=== PATIENT | male | born 1995 | race Caucasian/White ===

== ENCOUNTER 2020-07-20 10:07 | Inpatient (IN) | payer MEDICAID, SELFPAY ==
[2020-07-20 10:28] VITALS: BP 146/101; PULSE 120; RESP 18; TEMP 37.4; O2SAT 97; BMI 29.8
--- NOTE | 2020-07-20 10:34 | ED_ITS ---
HPI - Neuro Symptoms/Deficit General Chief Complaint: Neuro Symptoms/Deficit Stated Complaint: left sided weakness Time Seen by Provider: 07/20/20 10:34 Source: patient Mode of arrival: ambulatory Limitations: no limitations History of Present Illness HPI Narrative: 4 days ago patient woke up with numbness and pain to left arm and left leg. Denies fevers, rash, injury. Patient with increasing pain to wrist and ankle, states that 2 weeks ago he thinks he was treated for chlamydia Onset (ago): day(s) Quality: numb, tingling and other (pain) Related Data Allergies Allergy/AdvReac Type Severity Reaction Status Date / Time amoxicillin [AMOXICILLIN] Allergy Unknown HIVES Unverified 05/14/20 16:33 penicillin V Allergy Unknown hives Verified 06/27/16 00:00 Penicillins [PENICILLINS] Allergy Unknown UNKNOWN Unverified 05/14/20 16:33 Review of Systems 2 Constitutional: Constitutional: Reports no additional constitutional complaints Eyes: Eyes: Reports no additional eye complaints ENT: Denies dizziness Cardiovascular: Cardiovascular: Reports no additional cardiovascular complaints Respiratory: Respiratory: Reports as per HPI Gastrointestinal: Gastrointestinal: Reports no additional gastrointestinal complaints Musculoskeletal: Musculoskeletal: Reports no additional musculoskeletal complaints Integumentary/Breasts: Skin/Breast: Denies rash Neurologic: Reports system reviewed and no additional complaints, except as documented, Denies dizziness and Denies Sensory deficit (Neuro) Psychiatric: Psychiatric: Denies anxiety [facility] Past Medical History Medical History Asthma Social History Social History Advance Directives: No Advance Directives Information Provided: No Physical Exam Vital Signs: Vital Signs: Last Vital Signs Temp 99.3 F 07/20/20 10:28 Pulse 120 H 07/20/20 10:28 Resp 18 07/20/20 10:28 BP 146/101 H 07/20/20 10:28 Pulse Ox 97 07/20/20 10:28 Body Mass Index 29.8 Const: General: healthy appearing Nutritional Appearance: average body habitus Orientation/consciousness: oriented to person and patient oriented x3 Limitations: no limitations HENMT: Head: Yes normal to inspection Ears: external ears normal General nose exam: Normal external nose present Mouth: Normal oral and palatal mucosa present and oropharynx normal Throat: Yes posterior oropharynx normal Eyes: General: appearance normal, both eyes and all related structures Neck: Other: supple Neck: Yes normal visual inspection Chest: Chest palpation & inspection: normal inspection of the chest Resp: Auscultation: clear to auscultation bilaterally Cardio: Jugular venous distension: no JVD Rate: regular rate Rhythm: regular rhythm Heart sounds: S1 normal heart sound present and S2 normal heart sound present GI: Inspection: Yes normal to inspection Palpation (GI): Soft to palpation, nontender and No hepatosplenomegaly present Auscultation: normal bowel sounds : General: Yes no CVA tenderness Back/Spine/Pelvis: Back: no CVA tenderness Skin: General skin exam: no rashes or lesions noted Neuro: General: oriented to person and patient oriented x3 Cranial nerves: Yes CN's II-XII intact bilaterally Motor exam (neuro): 5/5 motor strength present throughout Sensory Exam: No Sensory deficit (Neuro) Extrem: Other: left wrist with slight swelling and severe pain with range of motion. Left ankle with slight erythema to lateral malleolous and swelling, severe pain with range of motion. Psych: Appearance: grossly normal Course Course Course Narrative: Discussed with Dr. 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 Discussed with Dr. Bardales MDM - Neuro Symptoms/Deficit MDM Narrative Medical decision making narrative: patient with acute arthritis to ankle and wrist, no effusion to tap. Patient thinks he was supposed to be treated for chlamydia 2 weeks ago. Will treat for disseminated GC Lab Data Result diagrams: 07/20/20 11:07/20/20 12:01 Labs: Lab Results 07/20/20 07/20/20 07/20/20 Range/Units 11: 11: 11: WBC 12.6 H (4.8-10.8) X10*3/uL RBC 4.87 (4.60-5.80) X10*6/uL Hgb 13.7 L (14.0-18.0) g/dl Hct 40.7 L (42-52) % MCV 83.6 (80-98) fL MCH 28.1 (27.0-33.0) pg MCHC 33.7 (31.0-36.0) g/dl RDW 12.2 (11.0-16.0) % Plt Count 374 (160-400) X10*3/uL MPV 9.0 L (9.4-12.4) fL Immature Gran % (Auto) 0.2 (0.0-0.4) % Neut % (Auto) 75.4 H (45-73) % Lymph % (Auto) 14.5 L (20-40) % [place] % (Auto) 9.3 (2-11) % Eos % (Auto) 0.2 (0-4) % Baso % (Auto) 0.4 (0-2) % Lymph # (Auto) 1.8 (1.2-4.9) X10*3/uL [place] # (Auto) 1.2 (0.1-1.2) X10*3/uL Eos # (Auto) 0.0 (0.0-0.4) X10*3/uL Baso # (Auto) 0.1 (0.0-0.2) X10*3/uL Abs Immat Gran (auto) 0.02 (0.00-0.03) X10*3/uL Absolute Neuts (auto) 9.5 H (2.0-8.3) X10*3/uL Absolute Nucleated RBC 0.000 (0.0-0.012) X10*3/uL Nucleated RBC % (auto) 0.0 (0.0-0.2) /100WBC ESR 24 H (0-15) MM/HR Sodium Potassium Chloride Carbon Dioxide Anion Gap BUN Creatinine Estim Creat Clear Calc Estimated GFR Random Glucose Calcium A. phagocytophilum IgG Cancelled A. phagocytophilum IgM Cancelled A.phagocytophilum Intrp Cancelled A. phagocytophilum Cmmt Cancelled Babesia microti IgG Ab Cancelled Babesia microti IgM Ab Cancelled Babesia Interpretation Cancelled Lyme Screen IgG & IgM Cancelled Lyme Progressive Test Cancelled E. chaffeensis IgG Ab Cancelled E. chaffeensis IgM Ab Cancelled E. chaffeensis Interp Cancelled E. chaffeensis Comment Cancelled 07/20/20 07/20/20 Range/Units 11:23 12:01 WBC (4.8-10.8) X10*3/uL RBC (4.60-5.80) X10*6/uL Hgb (14.0-18.0) g/dl Hct (42-52) % MCV (80-98) fL MCH (27.0-33.0) pg MCHC (31.0-36.0) g/dl RDW (11.0-16.0) % Plt Count (160-400) X10*3/uL MPV (9.4-12.4) fL Immature Gran % (Auto) (0.0-0.4) % Neut % (Auto) (45-73) % Lymph % (Auto) (20-40) % [place] % (Auto) (2-11) % Eos % (Auto) (0-4) % Baso % (Auto) (0-2) % Lymph # (Auto) (1.2-4.9) X10*3/uL [place] # (Auto) (0.1-1.2) X10*3/uL Eos # (Auto) (0.0-0.4) X10*3/uL Baso # (Auto) (0.0-0.2) X10*3/uL Abs Immat Gran (auto) (0.00-0.03) X10*3/uL Absolute Neuts (auto) (2.0-8.3) X10*3/uL Absolute Nucleated RBC (0.0-0.012) X10*3/uL Nucleated RBC % (auto) (0.0-0.2) /100WBC ESR (0-15) MM/HR Sodium Cancelled 135 Potassium Cancelled 4.0 Chloride Cancelled 99 Carbon Dioxide Cancelled 25 Anion Gap Cancelled 15 BUN Cancelled 9 Creatinine Cancelled 0.88 Estim Creat Clear Calc Cancelled 159.6 Estimated GFR Cancelled > 60 Random Glucose Cancelled 122 H Calcium Cancelled 9.2 A. phagocytophilum IgG A. phagocytophilum IgM A.phagocytophilum Intrp A. phagocytophilum Cmmt Babesia microti IgG Ab Babesia microti IgM Ab Babesia Interpretation Lyme Screen IgG & IgM Lyme Progressive Test E. chaffeensis IgG Ab E. chaffeensis IgM Ab E. chaffeensis Interp E. chaffeensis Comment Discharge Plan Discharge Clinical Impression: GC arthritis Patient Disposition: Admitted As Inpatient
--- NOTE | 2020-07-20 10:37 | PC.NURSE ---
provider at bedside for primary eval.
--- NOTE | 2020-07-20 11:15 | XR_ITS ---
EXAMINATION: XR ANKLE, LEFT CLINICAL INFORMATION: Fractures arthritis. COMPARISON: Radiographs left lower leg 06/04/2011, left foot 12/22/2008 TECHNIQUE: AP, lateral, and mortise views of the left ankle. FINDINGS: Bony mineralization appears normal. There is no destructive process or periostitis. No fracture or dislocation. No joint narrowing or erosive change. The subtalar joint is unremarkable. There is no visible ankle capsular effusion. The retrocalcaneal recess is preserved. There is no gas tracking in soft tissues. No focal soft tissue swelling appreciated. XR/XR ankle LT min 3V IMPRESSION: Normal left ankle.
--- NOTE | 2020-07-20 11:15 | XR_ITS ---
EXAMINATION: XR WRIST, LEFT CLINICAL INFORMATION: Infectious arthritis. COMPARISON: None TECHNIQUE: Four views of the left wrist. FINDINGS: No visible acute fracture, dislocation or subluxation seen. The anterior carpal and radio- ulnar carpal joint space is maintained. The soft tissues are normal. XR/XR wrist LT min 3V IMPRESSION: Unremarkable left wrist exam.
[2020-07-20 11:28] LABS: MANUAL DIFF FLAG NO
[2020-07-20] MEDS: Ketorolac Tromethamine 30 MG/ML VIAL IVPUSH (11:28)
[2020-07-20 11:29] LABS: Basophils Absolute Auto 0.1 X10*3/uL (0.0-0.2); Basophils Percent Auto 0.4 % (0-2); Eosinophils Percent Auto 0.2 % (0-4); Hematocrit 40.7 % (42-52); Hemoglobin 13.7 g/dl (14.0-18.0); Imm Gran Abs Auto 0.02 X10*3/uL (0.00-0.03); Imm Gran Pct Auto 0.2 % (0.0-0.4); Lymphocytes Absolute Auto 1.8 X10*3/uL (1.2-4.9); Lymphocytes Percent Auto 14.5 % (20-40); Mean Corpuscular HGB Conc 33.7 g/dl (31.0-36.0); Mean Corpuscular Hemoglobin 28.1 pg (27.0-33.0); Mean Corpuscular Volume 83.6 fL (80-98); Monocytes Absolute Auto 1.2 X10*3/uL (0.1-1.2); Monocytes Percent Auto 9.3 % (2-11); Neutrophils Absolute Auto 9.5 X10*3/uL (2.0-8.3); Neutrophils Percent Auto 75.4 % (45-73); Platelet Count 374 X10*3/uL (160-400); Red Blood Count 4.87 X10*6/uL (4.60-5.80); Red Cell Distribution Width 12.2 % (11.0-16.0); White Blood Count 12.6 X10*3/uL (4.8-10.8)
--- NOTE | 2020-07-20 11:36 | PC.NURSE ---
IV ESTABLISHED, BLOOD LABS OBTAINED AND SENT, PT TAKEN TO XRAY VIA STRETCHER. MEDICATED PER EMAR.
[2020-07-20 12:18] LABS: Erythrocyte Sedimentation Rate 24 MM/HR (0-15)
[2020-07-20 12:29] LABS: Anion Gap 15 (12-20); Blood Urea Nitrogen 9 mg/dL (9-16); Calcium 9.2 mg/dL (8.4-10.2); Carbon Dioxide 25 mmol/L (22-29); Chloride 99 mmol/L (96-108); Creatinine Clr Calc Pharmacy 159.6; Estimated Glomerular Filt Rate > 60; Glucose Random 122 mg/dL (60-115); Sodium 135 mmol/L (135-145)
--- NOTE | 2020-07-20 15:06 | ED_ITS ---
HPI - Neuro Symptoms/Deficit General Chief Complaint: Neuro Symptoms/Deficit Stated Complaint: left sided weakness Time Seen by Provider: 07/20/20 10:34 Source: patient Mode of arrival: ambulatory Limitations: no limitations History of Present Illness Quality: numb, tingling and other (pain) Related Data Allergies Allergy/AdvReac Type Severity Reaction Status Date / Time amoxicillin [AMOXICILLIN] Allergy Unknown HIVES Unverified 05/14/20 16:33 penicillin V Allergy Unknown hives Verified 06/27/16 00:00 Penicillins [PENICILLINS] Allergy Unknown UNKNOWN Unverified 05/14/20 16:33 Review of Systems ENT: Denies dizziness Neurologic: Reports system reviewed and no additional complaints, except as documented, Denies dizziness and Denies Sensory deficit (Neuro) [facility] Past Medical History Medical History Asthma Social History Social History Advance Directives: No Advance Directives Information Provided: No Physical Exam Vital Signs: Vital Signs: Last Vital Signs Temp 98.4 F 07/20/20 15:11 Pulse 79 07/20/20 15:11 Resp 18 07/20/20 15:11 BP 122/82 07/20/20 15:11 Pulse Ox 99 07/20/20 15:11 Body Mass Index 29.8 Neuro: Sensory Exam: No Sensory deficit (Neuro) MDM - Neuro Symptoms/Deficit Lab Data Result diagrams: 07/20/20 11:23 07/20/20 12:01 Labs: Lab Results 07/20/20 07/20/20 07/20/20 Range/Units 11:20 11: 11: WBC 12.6 H (4.8-10.8) X10*3/uL RBC 4.87 (4.60-5.80) X10*6/uL Hgb 13.7 L (14.0-18.0) g/dl Hct 40.7 L (42-52) % MCV 83.6 (80-98) fL MCH 28.1 (27.0-33.0) pg MCHC 33.7 (31.0-36.0) g/dl RDW 12.2 (11.0-16.0) % Plt Count 374 (160-400) X10*3/uL MPV 9.0 L (9.4-12.4) fL Immature Gran % (Auto) 0.2 (0.0-0.4) % Neut % (Auto) 75.4 H (45-73) % Lymph % (Auto) 14.5 L (20-40) % [place] % (Auto) 9.3 (2-11) % Eos % (Auto) 0.2 (0-4) % Baso % (Auto) 0.4 (0-2) % Lymph # (Auto) 1.8 (1.2-4.9) X10*3/uL [place] # (Auto) 1.2 (0.1-1.2) X10*3/uL Eos # (Auto) 0.0 (0.0-0.4) X10*3/uL Baso # (Auto) 0.1 (0.0-0.2) X10*3/uL Abs Immat Gran (auto) 0.02 (0.00-0.03) X10*3/uL Absolute Neuts (auto) 9.5 H (2.0-8.3) X10*3/uL Absolute Nucleated RBC 0.000 (0.0-0.012) X10*3/uL Nucleated RBC % (auto) 0.0 (0.0-0.2) /100WBC ESR 24 H (0-15) MM/HR Sodium Potassium Chloride Carbon Dioxide Anion Gap BUN Creatinine Estim Creat Clear Calc Estimated GFR Random Glucose Calcium A. phagocytophilum IgG Cancelled A. phagocytophilum IgM Cancelled A.phagocytophilum Intrp Cancelled A. phagocytophilum Cmmt Cancelled Babesia microti IgG Ab Cancelled Babesia microti IgM Ab Cancelled Babesia Interpretation Cancelled Lyme Screen IgG & IgM Cancelled Lyme Progressive Test Cancelled E. chaffeensis IgG Ab Cancelled E. chaffeensis IgM Ab Cancelled E. chaffeensis Interp Cancelled E. chaffeensis Comment Cancelled 07/20/20 07/20/20 Range/Units 11:23 12:01 WBC (4.8-10.8) X10*3/uL RBC (4.60-5.80) X10*6/uL Hgb (14.0-18.0) g/dl Hct (42-52) % MCV (80-98) fL MCH (27.0-33.0) pg MCHC (31.0-36.0) g/dl RDW (11.0-16.0) % Plt Count (160-400) X10*3/uL MPV (9.4-12.4) fL Immature Gran % (Auto) (0.0-0.4) % Neut % (Auto) (45-73) % Lymph % (Auto) (20-40) % [place] % (Auto) (2-11) % Eos % (Auto) (0-4) % Baso % (Auto) (0-2) % Lymph # (Auto) (1.2-4.9) X10*3/uL [place] # (Auto) (0.1-1.2) X10*3/uL Eos # (Auto) (0.0-0.4) X10*3/uL Baso # (Auto) (0.0-0.2) X10*3/uL Abs Immat Gran (auto) (0.00-0.03) X10*3/uL Absolute Neuts (auto) (2.0-8.3) X10*3/uL Absolute Nucleated RBC (0.0-0.012) X10*3/uL Nucleated RBC % (auto) (0.0-0.2) /100WBC ESR (0-15) MM/HR Sodium Cancelled 135 Potassium Cancelled 4.0 Chloride Cancelled 99 Carbon Dioxide Cancelled 25 Anion Gap Cancelled 15 BUN Cancelled 9 Creatinine Cancelled 0.88 Estim Creat Clear Calc Cancelled 159.6 Estimated GFR Cancelled > 60 Random Glucose Cancelled 122 H Calcium Cancelled 9.2 A. phagocytophilum IgG A. phagocytophilum IgM A.phagocytophilum Intrp A. phagocytophilum Cmmt Babesia microti IgG Ab Babesia microti IgM Ab Babesia Interpretation Lyme Screen IgG & IgM Lyme Progressive Test E. chaffeensis IgG Ab E. chaffeensis IgM Ab E. chaffeensis Interp E. chaffeensis Comment Discharge Plan Discharge Clinical Impression: GC arthritis Patient Disposition: Admitted As Inpatient
[2020-07-20 15:11] VITALS: BP 122/82; PULSE 79; RESP 18; TEMP 36.9; O2SAT 99
[2020-07-20] MEDS: cefTRIAXone sodium 2 GM in 0.9 % Sodium Chloride 50 ML IV (15:19)
--- NOTE | 2020-07-20 15:22 | PC.NURSE ---
pt still unable to provide ua spec. hospitalist at bedside for eval. medicated per emar.
--- NOTE | 2020-07-20 15:23 | PM.IMHP ---
History of Present Illness Date of Service: 07/20/20 Chief Complaint: left ankle pain and left wrist pain 25 year male otherwise healthy who woke about 4 days ago with numbness and pain in th left ankle and wrist and now has overlying rash at the ankle. She has no fever or chils or respiratory symptoms. about 3 to 4 week ago he says he was treated for chlamedia. 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 He has no other symptomtms Review of Systems Review of Systems: Gen: no fever Resp: no sob, no cough CV: no chest, no PHILLIPS, no leg edema GI: No n/v, no abd pain Neuro: No confusion, nubness at left ankle and wrist Yes all other systems are reviewed and are negative [facility] Medical History Asthma Functional capacity: independent ambulation Pertinent family history: He denies Social History (Updated 07/20/20 @ 15:28 by Ta Gibbons MD) Household Members: Family Housing: Apartment Do you presently have visiting nurse or other home services: No Smoking Status: Current every day smoker Tobacco Type: Cigarette Packs Per Day: 0.25 Cigarettes Per Day: 5.0 Years Smoked: 3 Smoked in Last 30 Days: Yes Patient Interested in Nicotine Replacement: No Patient Given Instructions on How to Stop Smoking: Yes Date Education Initiated: 07/20/20 Second Hand Smoke Exposure: No Substance Use Type: Marijuana Substance Use Frequency: Weekly Last Used Substance: Days (ago) Currently Displaying Signs/Symptoms of Drug Intoxication Withdrawal: No Any prior treatment program specific to substance use: No Have you been hit, kicked, punched, or otherwise hurt by someone within the past year? If so, by whom?: No Do you feel safe in your current relationship?: Yes Is there a partner from a previous relationship who is making you feel unsafe now?: No Are you made to feel afraid or neglected: No Advance Directives: No Advance Directives Information Provided: No Do you have thoughts of harming others: None Do you have a plan to hurt others: No Plan Recently lost weight without trying: No Meds Allergies Allergy/AdvReac Type Severity Reaction Status Date / Time amoxicillin [AMOXICILLIN] Allergy Unknown HIVES Unverified 05/14/20 16:33 penicillin V Allergy Unknown hives Verified 06/27/16 00:00 Penicillins [PENICILLINS] Allergy Unknown UNKNOWN Unverified 05/14/20 16:33 Home Medications Medication Instructions Recorded Confirmed Type albuterol sulfate 2 puff INHALATION Q4H PRN 07/20/20 07/20/20 History fluticasone propion-salmeterol 1 inh INHALATION BID 07/20/20 07/20/20 History [Wixela Inhub] Physical Exam Vital Signs and Narrative: Vital Signs: Last Vital Signs Temp 98.4 F 07/20/20 15:11 Pulse 79 07/20/20 15:11 Resp 18 07/20/20 15:11 BP 122/82 07/20/20 15:11 Pulse Ox 99 07/20/20 15:11 Body Mass Index 29.8 Constitutional Awake and Alert, No apparent distress Neck Supple, No lymphadenopathy Cardiovascular RRR, No M/R/G, S1 S2, No S3 S4, No pedal edema Respiratory Lungs clear, No respiratory distress Gastrointestinal Non tender, Non-distended Skin rash at left ankle--see picture Neurological Alert & oriented x3, numbness at thr left ankle and wrist Psychological Appropriate affect Results Labs CBC and Chem 7: 07/20/20 11:23 07/20/20 12:01 Labs: Laboratory Results - last 24 hr 07/20/20 07/20/20 07/20/20 11:20 11:23 11:23 MCV 83.6 MCH 28.1 MCHC 33.7 RDW 12.2 Plt Count 374 MPV 9.0 L Immature Gran % (Auto) 0.2 Neut % (Auto) 75.4 H Lymph % (Auto) 14.5 L [place] % (Auto) 9.3 Eos % (Auto) 0.2 Baso % (Auto) 0.4 Lymph # (Auto) 1.8 [place] # (Auto) 1.2 Eos # (Auto) 0.0 Baso # (Auto) 0.1 Abs Immat Gran (auto) 0.02 Absolute Neuts (auto) 9.5 H Absolute Nucleated RBC 0.000 Nucleated RBC % (auto) 0.0 ESR 24 H Anion Gap Estim Creat Clear Calc Estimated GFR Random Glucose Calcium A. phagocytophilum IgG Cancelled A. phagocytophilum IgM Cancelled A.phagocytophilum Intrp Cancelled A. phagocytophilum Cmmt Cancelled Babesia microti IgG Ab Cancelled Babesia microti IgM Ab Cancelled Babesia Interpretation Cancelled Lyme Screen IgG & IgM Cancelled Lyme Progressive Test Cancelled E. chaffeensis IgG Ab Cancelled E. chaffeensis IgM Ab Cancelled E. chaffeensis Interp Cancelled E. chaffeensis Comment Cancelled 07/20/20 07/20/20 11:23 12:01 MCV MCH MCHC RDW Plt Count MPV Immature Gran % (Auto) Neut % (Auto) Lymph % (Auto) [place] % (Auto) Eos % (Auto) Baso % (Auto) Lymph # (Auto) [place] # (Auto) Eos # (Auto) Baso # (Auto) Abs Immat Gran (auto) Absolute Neuts (auto) Absolute Nucleated RBC Nucleated RBC % (auto) ESR Anion Gap Cancelled 15 Estim Creat Clear Calc Cancelled 159.6 Estimated GFR Cancelled > 60 Random Glucose Cancelled 122 H Calcium Cancelled 9.2 A. phagocytophilum IgG A. phagocytophilum IgM A.phagocytophilum Intrp A. phagocytophilum Cmmt Babesia microti IgG Ab Babesia microti IgM Ab Babesia Interpretation Lyme Screen IgG & IgM Lyme Progressive Test E. chaffeensis IgG Ab E. chaffeensis IgM Ab E. chaffeensis Interp E. chaffeensis Comment Imaging Radiologist's Impressions: Impressions Ankle X-Ray 07/20/20 11:15 IMPRESSION: Normal left ankle. Wrist X-Ray 07/20/20 11:15 IMPRESSION: Unremarkable left wrist exam. Assessment and Plan (1) GC arthritis: Status: Acute 25/m recently treated for STD now with arthritis of left ankle and left wrist and some rash at the ankle concern for disseminated gonorrhea -IV Ceftriaxone 2 gm daily,Azithro 1 gm now. -ID consult -rule out other causes such lyme, babesia
[2020-07-20] MEDS: Azithromycin 500 MG TABLET 1000 MG PO (15:56)
--- NOTE | 2020-07-20 16:14 | PC.NURSE ---
awaiting call back from nurse on med surg for report.
[2020-07-20 16:25] LABS: COVID-19 Test Negative (Negative)
--- NOTE | 2020-07-20 16:48 | PC.NURSE ---
report given to prince holden
[2020-07-20 17:08] VITALS: BP 145/85; PULSE 91; RESP 17; TEMP 37; O2SAT 98
[2020-07-20 19:20] VITALS: BP 138/78; PULSE 94; RESP 18; TEMP 37.1; O2SAT 98
[2020-07-20 23:29] VITALS: BP 106/60; BP 162/91; PULSE 116; PULSE 82; RESP 14; RESP 16; TEMP 37.5; TEMP 38.2; O2SAT 100; O2SAT 99
[2020-07-20] MEDS: Acetaminophen 325 MG TABLET 650 MG PO (23:50)
[2020-07-20] MEDS: 0.9 % Sodium Chloride Flush 3 ML SYRINGE IVFLUSH (23:51)
[2020-07-20] MEDS: oxyCODONE HCl Immed Release 5 MG TABLET PO (23:51)
[2020-07-21] MEDS: 0.9 % Sodium Chloride Flush 3 ML SYRINGE IVFLUSH ×4 (01:06→23:49)
[2020-07-21 03:08] VITALS: BP 127/70; PULSE 93; RESP 16; TEMP 37.6; O2SAT 97
[2020-07-21 07:08] LABS: Hematocrit 40.7 % (42-52); Hemoglobin 13.5 g/dl (14.0-18.0); Mean Corpuscular HGB Conc 33.2 g/dl (31.0-36.0); Mean Corpuscular Hemoglobin 27.6 pg (27.0-33.0); Mean Corpuscular Volume 83.1 fL (80-98); Mean Platelet Volume 9.2 fL (9.4-12.4); Platelet Count 371 X10*3/uL (160-400); Red Cell Distribution Width 12.3 % (11.0-16.0); White Blood Count 11.6 X10*3/uL (4.8-10.8)
[2020-07-21 07:35] VITALS: BP 151/87; PULSE 104; RESP 19; TEMP 38.6; O2SAT 97
[2020-07-21] MEDS: Acetaminophen 325 MG TABLET 650 MG PO ×2 (07:52→23:50)
[2020-07-21] MEDS: oxyCODONE HCl Immed Release 5 MG TABLET PO ×3 (07:52→20:14)
--- NOTE | 2020-07-21 09:11 | MHC.CM.PN ---
PATIENT IS INDEPENDENT WITH ALL ADLS. HE DOES NOT YET HAVE A PCP, BUT PLANS TO SECURE ONE AT [address] PATIENT REPORTS THAT HE RECENTLY OBTAINED INSURANCE. HE DOES HAVE RESCUE INHALERS PLAN IS FOR RETURN HOME WITH NO NEED FOR SERVICES.
--- NOTE | 2020-07-21 09:25 | HO.PM.IMPN ---
Subjective Subjective Date of Service: 07/21/20 Interval History: Seen in f/u for polyarticular arthriis, synovitis and concern for diseminated gonoccocal disease.. He has fever of 101 this morpning and has persitent pain in left ankle and wrist joint Review of Systems Gen: + fever Resp: no sob, congested CV: no chest, no HPILLIPS, no leg edema GI: No n/v, no abd pain Neuro: No confusion Musck: left ankle and wrist join pain Physical Exam Vital Signs: Vital Signs: Last Vital Signs Temp 101.4 F H 07/21/20 07:35 Pulse 104 H 07/21/20 07:35 Resp 19 07/21/20 07:35 BP 151/87 H 07/21/20 07:35 Pulse Ox 97 07/21/20 07:35 Body Mass Index 29.8 General: AO X 3, no acute distress Resp: CTA bilateral CVS: S1,S2,RRR GI: +BS, NT, no distention Skin: left vickie slight redness and tender, tenderness in left wrist--pain with range of motion, no other rash Neuro: motor grossly intact Psych: appropriate affect Objective Data Current Medications Generic Name Dose Route Start Last Admin Trade Name Freq PRN Reason Stop Dose Admin Acetaminophen 650 mg 07/20/20 16:51 07/21/20 07:52 Acetaminophen 325 Mg Tablet PO 650 mg Q6H PRN Administration Pain, Mild (Pain Scale 1-3) Ceftriaxone Sodium 2 gm/ 50 mls @ 100 mls/hr 07/21/20 14:00 Sodium Chloride IV Q24H LORNA Oxycodone HCl 5 mg 07/20/20 16:51 07/21/20 07:52 Oxycodone Hcl Immed Release 5 Mg Tablet PO 5 mg Q6H PRN Administration Pain, Severe (Pain Scale 7-10) Pharmacy Consult 1 each 07/20/20 15:07 Consult Rx Perform Med Rec MISCELLANE ONCE PRN Consult order Sodium Chloride 3 ml 07/20/20 16:51 07/21/20 07:59 0.9 % Sodium Chloride Flush 3 Ml Syringe IVFLUSH 3 ml QSHIFT LORNA Administration Labs CBC & Chem 7: 07/21/20 06:41 07/20/20 12:01 Assessment and Plan (1) GC arthritis: Status: Acute Assessment and Plan: 25/m recently treated for STD now with arthritis of left ankle and left wrist and some rash at the ankle concern for disseminated gonorrhea, covid negative -cultures are pending -IV Ceftriaxone 2 gm daily,Azithro 1 gm given yesterday -ID consult pending -rule out other causes such lyme, babesia -Treat fever with tyelenol
[2020-07-21 11:18] VITALS: BP 146/77; PULSE 95; RESP 17; TEMP 36.7; O2SAT 96
[2020-07-21 12:42] LABS: CT PCR NOT DETECTED (Not Detect.); NG PCR NOT DETECTED (Not Detect.)
--- NOTE | 2020-07-21 13:08 | W.PM.IDCN ---
History of Present Illness Data of Consult Service Date: 07/21/20 Requesting physician: Ta Gibbons Primary Care Provider: No Physician HPI Reason for consult: leg pain He presents to hospital with discomfort and numbness left ankle and lower leg He has no back discomfort He has screen positive for amphetamine,cocaine,cannabinoids He had chlamydia and took Zmax for it a month ago He is sexually active with females only,last March Review of Systems ENT: Denies dizziness Neurologic: Reports system reviewed and no additional complaints, except as documented, Denies dizziness and Denies Sensory deficit (Neuro) [facility] Past Medical History Medical History Arthralgia of ankle Asthma Functional capacity: independent ambulation Social History Social History Household Members: Family Housing: House Alcohol intake: never Smoking Status: Never smoker Tobacco Type: Cigarette Packs Per Day: 0.25 Cigarettes Per Day: 5.0 Years Smoked: 3 Second Hand Smoke Exposure: No Substance Use Type: Marijuana service: No Current occupational status: unemployed Meds Allergies Allergy/AdvReac Type Severity Reaction Status Date / Time amoxicillin [AMOXICILLIN] Allergy Unknown HIVES Verified 07/20/20 18:29 penicillin V Allergy Unknown hives Verified 06/27/16 00:00 Penicillins [PENICILLINS] Allergy Unknown UNKNOWN Verified 07/20/20 18:29 Home Medications Medication Instructions Recorded Confirmed Type albuterol sulfate 2 puff INHALATION Q4H PRN 07/20/20 07/31/20 History fluticasone propion-salmeterol 1 inh INHALATION BID 07/20/20 07/31/20 History [Wixela Inhub] Physical Exam Vital Signs: Vital Signs: Last Vital Signs Temp 98.0 F 07/21/20 11:18 Pulse 95 07/21/20 11:18 Resp 17 07/21/20 11:18 BP 146/77 H 07/21/20 11:18 Pulse Ox 96 07/21/20 11:18 Body Mass Index 29.8 Const: General: cooperative HENMT: Head: Yes normal to inspection Mouth: Normal oral and palatal mucosa present Eyes: General: appearance normal, both eyes and all related structures Resp: Effort & Inspection: normal respiratory effort Cardio: Rate: regular rate Rhythm: regular rhythm GI: Inspection: Yes normal to inspection Palpation (GI): Soft to palpation : General: Yes no CVA tenderness Back/Spine/Pelvis: Back: no CVA tenderness Neuro: Sensory Exam: No Sensory deficit (Neuro) Extrem: Other: left ankle mild discomfort on flexion Assessment and Plan (1) Arthralgia of ankle: Problem details: There is concern over pain from infection ? GC ?lupu There is concern over drug use and endocarditis causing this as well He is unsure of HIV status Status: Acute Would give IV Ceftriaxone and await blood culture Echo if positive cultures in blood Check HIV test If blood cultures negative NSAIDS and Rheumatology followup outpatient Results Labs CBC & Chem 7: 07/24/20 06:14 07/24/20 06:14 Labs: Short CBC 07/21/20 Range/Units 06:41 WBC 11.6 H (4.8-10.8) X10*3/uL Hgb 13.5 L (14.0-18.0) g/dl Hct 40.7 L (42-52) % Plt Count 371 (160-400) X10*3/uL
[2020-07-21] MEDS: cefTRIAXone sodium 2 GM in 0.9 % Sodium Chloride 50 ML IV (14:17)
[2020-07-21 15:41] VITALS: BP 133/71; PULSE 102; RESP 18; TEMP 37.6; O2SAT 99
[2020-07-21 19:34] VITALS: BP 166/77; PULSE 99; RESP 20; TEMP 37.4; O2SAT 100
[2020-07-21 23:32] VITALS: BP 161/87; PULSE 94; RESP 16; TEMP 38.4; O2SAT 97
[2020-07-22] VITALS (8 sets, daily range): BP systolic 128–156; BP diastolic 69–89; PULSE 88–99; RESP 16–19; TEMP 36.5–38.3; O2SAT 96–99
[2020-07-22 00:47] LABS: Lyme Abs Screen <0.90 index
[2020-07-22] MEDS: oxyCODONE HCl Immed Release 5 MG TABLET PO ×4 (02:37→21:30)
[2020-07-22] MEDS: Acetaminophen 325 MG TABLET 650 MG PO (07:53)
[2020-07-22] MEDS: 0.9 % Sodium Chloride Flush 3 ML SYRINGE IVFLUSH ×3 (08:00→23:54)
[2020-07-22 08:01] LABS: HIV AB/AG Nonreactive (Nonreactive); HIV Num 1 0.14 S/CO (0.00-0.99)
--- NOTE | 2020-07-22 10:24 | HO.PM.IMPN ---
Subjective Subjective Date of Service: 07/22/20 Interval History: Seen in f/u for polyarticular arthritis, synovitis and ? diseminated gonoccocal disease.. He has fever of 101 this morpning and has persitent pain in left ankle and wrist joint Review of Systems Gen: + fever Resp: no sob, congested CV: no chest, no PHILLIPS, no leg edema GI: No n/v, no abd pain Neuro: No confusion Musck: left ankle and wrist join pain Physical Exam Vital Signs: Vital Signs: Last Vital Signs Temp 101.0 F H 07/22/20 07:23 Pulse 97 07/22/20 07:23 Resp 18 07/22/20 07:23 BP 156/89 H 07/22/20 07:23 Pulse Ox 99 07/22/20 07:23 Body Mass Index 29.8 General: AO X 3, no acute distress Resp: CTA bilateral CVS: S1,S2,RRR GI: +BS, NT, no distention Skin: left vickie slight redness and tender, tenderness in left wrist--pain with range of motion, no other rash Neuro: motor grossly intact Psych: appropriate affect Objective Data Current Medications Generic Name Dose Route Start Last Admin Trade Name Freq PRN Reason Stop Dose Admin Acetaminophen 650 mg 07/20/20 16:51 07/22/20 07:53 Acetaminophen 325 Mg Tablet PO 650 mg Q6H PRN Administration Pain, Mild (Pain Scale 1-3) Ceftriaxone Sodium 2 gm/ 50 mls @ 100 mls/hr 07/21/20 14:00 07/21/20 16:04 Sodium Chloride IV Infused Q24H LORNA Infusion Oxycodone HCl 5 mg 07/20/20 16:51 07/22/20 08:00 Oxycodone Hcl Immed Release 5 Mg Tablet PO 5 mg Q6H PRN Administration Pain, Severe (Pain Scale 7-10) Pharmacy Consult 1 each 07/20/20 15:07 Consult Rx Perform Med Rec MISCELLANE ONCE PRN Consult order Sodium Chloride 3 ml 07/20/20 16:51 07/22/20 08:00 0.9 % Sodium Chloride Flush 3 Ml Syringe IVFLUSH 3 ml QSHIFT LORNA Administration Labs CBC & Chem 7: 07/21/20 06:41 07/20/20 12:01 Microbiology Microbiology Results: Microbiology 07/20/20 11:24 Blood - Arterial Blood Culture - Preliminary No growth after 24 hours. 07/20/20 11:20 Blood - Arterial Blood Culture - Preliminary No growth after 24 hours. Assessment and Plan (1) GC arthritis: Status: Acute Assessment and Plan: recently treated for STD (Chlaemdia) now with arthritis of left ankle and left wrist and some erythema at the ankle and concern raised about disseminated gonorrhea, covid negative -Persistent fever of 101 today -Work up so far: Blood cultures negative, lyme negative, Chlamedia and gonorhea PCR negative, HIV negative, uric acid negative. E. chaffeensis, Babesia serology pending -IV Ceftriaxone 2 gm D3 now -ID to make further recommendation but has suggested Rheumatology follow -Treat fever with tyelenol Elevated BP consistent with HTN--will start med if agreable
--- NOTE | 2020-07-22 11:18 | MHC.CM.PN ---
PER PHYSICIAN ROUNDS, PATIENT IS REMAINING ON IV ABX. ID CONSULT ORDER PLACED. STILL FEBRILE. CASE MANAGEMENT FOLLOWING FOR DISCHARGE NEEDS.
[2020-07-22] MEDS: cefTRIAXone sodium 2 GM in 0.9 % Sodium Chloride 50 ML IV (13:04)
[2020-07-22] MEDS: Ibuprofen 800 MG TABLET PO (14:33)
--- NOTE | 2020-07-22 15:24 | PC.NURSE ---
P-Patient reports 2 new reddened spots one on left hand ,one on left elbow I-Dr. Gibbons notified E-will monitor
[2020-07-23] MEDS: Ibuprofen 800 MG TABLET PO ×3 (00:26→20:12)
[2020-07-23] MEDS: diphenhydrAMINE HCL 50 MG/ML VIAL 25 MG IVPUSH ×2 (01:58→21:13)
[2020-07-23] MEDS: oxyCODONE HCl Immed Release 5 MG TABLET PO ×5 (01:58→21:13)
[2020-07-23 03:09] VITALS: BP 142/78; PULSE 88; RESP 18; TEMP 36.7; O2SAT 99
[2020-07-23 08:00] VITALS: BP 162/76; PULSE 108; RESP 18; TEMP 36.8; O2SAT 98
[2020-07-23] MEDS: Acetaminophen 325 MG TABLET 650 MG PO ×2 (08:11→20:12)
[2020-07-23] MEDS: 0.9 % Sodium Chloride Flush 3 ML SYRINGE IVFLUSH ×3 (08:44→21:14)
--- NOTE | 2020-07-23 10:29 | P.PNIM_ITS ---
Subjective Subjective Date of Service: 07/23/20 Interval History: still with pain, not feeling better, new target lesion left hand Respiratory Respiratory: Reports no additional respiratory complaints Gastrointestinal Gastrointestinal: Reports no additional gastrointestinal complaints Physical Exam Vital Signs: Vital Signs: Last Vital Signs Temp 98.2 F 07/23/20 08:00 Pulse 108 H 07/23/20 08:00 Resp 18 07/23/20 08:00 BP 162/76 H 07/23/20 08:00 Pulse Ox 98 07/23/20 08:00 Body Mass Index 29.8 General: AO X 3, no acute distress Resp: CTA bilateral CVS: S1,S2,RRR GI: soft, non tender, non distended Neuro: motor grossly intact Psych: appropriate affect SKin: EM rash on hand, left elbow Objective Data Current Medications Generic Name Dose Route Start Last Admin Trade Name Freq PRN Reason Stop Dose Admin Acetaminophen 650 mg 07/20/20 16:51 07/23/20 08:11 Acetaminophen 325 Mg Tablet PO 650 mg Q6H PRN Administration Pain, Mild (Pain Scale 1-3) Ceftriaxone Sodium 2 gm/ 50 mls @ 100 mls/hr 07/21/20 14:00 07/22/20 14:01 Sodium Chloride IV Infused Q24H LORNA Infusion Ibuprofen 800 mg 07/22/20 10:47 07/23/20 08:10 Ibuprofen 800 Mg Tablet PO 800 mg Q8H PRN Administration Pain and Fever Oxycodone HCl 5 mg 07/23/20 09:03 Oxycodone Hcl Immed Release 5 Mg Tablet PO Q4H PRN Pain, Severe (Pain Scale 7-10) Pharmacy Consult 1 each 07/20/20 15:07 Consult Rx Perform Med Rec MISCELLANE ONCE PRN Consult order Sodium Chloride 3 ml 07/20/20 16:51 07/23/20 08:44 0.9 % Sodium Chloride Flush 3 Ml Syringe IVFLUSH 3 ml QSHIFT LORNA Administration Labs CBC & Chem 7: 07/21/20 06:41 07/20/20 12:01 Microbiology Microbiology Results: Microbiology 07/20/20 11:24 Blood - Arterial Blood Culture - Preliminary No growth after 48 hours. 07/20/20 11:20 Blood - Arterial Blood Culture - Preliminary No growth after 48 hours. Assessment and Plan (1) GC arthritis: Status: Acute Assessment and Plan: 25/m recently treated for STD (Chlaemdia) now with arthritis of left ankle and left wrist and some erythema at the ankle and concern raised about di sseminated gonorrhea, covid negative last temp AM 07/22 -Work up so far: Blood cultures negative, lyme negative, Chlamedia and gonorhea PCR negative, HIV negative, uric acid negative. E. chaffeensis, Babesia serology pending -IV Ceftriaxone 2 gm D4 now -continue NSAIDS follow up crp, annabella, anca, RF, syphyllis, mycoplasma, HSV, urine analysis
[2020-07-23 11:32] VITALS: BP 120/61; PULSE 85; RESP 16; TEMP 36.3; O2SAT 99
[2020-07-23 12:24] LABS: Alanine Aminotransferase 22 U/L (0-40); Albumin Level 4.1 g/dL (3.5-5.0); Alkaline Phosphatase 81 U/L (39-117); Anion Gap 15 (12-20); Aspartate Amino Transferase 15 U/L (5-37); Bilirubin Total 0.4 mg/dL (0.0-1.0); Blood Urea Nitrogen 13 mg/dL (9-16); C Reactive Protein 9.41 mg/dL (< or = 0.50); Calcium 8.9 mg/dL (8.4-10.2); Carbon Dioxide 26 mmol/L (22-29); Chloride 99 mmol/L (96-108); Creatinine Clr Calc Pharmacy 130.1; Estimated Glomerular Filt Rate > 60; Glucose Random 145 mg/dL (60-115); Potassium 4.4 mmol/l (3.3-5.1); Rheumatoid Factor < 15.0 IU/mL (<15.0); Sodium 136 mmol/L (135-145); Total Protein 7.7 g/dL (6.5-8.0)
[2020-07-23] MEDS: cefTRIAXone sodium 2 GM in 0.9 % Sodium Chloride 50 ML IV (14:45)
[2020-07-23 14:57] LABS: Glucose Urine UA NEG (NEG); Leukocyte Esterase Urine NEG (NEG); Nitrite Urine NEG (NEG); Specific Gravity - Urine 1.025 (1.005-1.025); Urine Blood 1+ (NEG); Urine Ketones NEG (NEG); Urine Protein TRACE MG/DL (NEG-TRACE)
[2020-07-23 15:15] LABS: Appearance Urine CLEAR; Color Urine YELLOW
[2020-07-23 15:19] LABS: Squamous Epithelial Cell Urine TRACE /LPF; WBC Urine 0 /HPF (0-4)
[2020-07-23 15:20] VITALS: BP 124/66; PULSE 84; RESP 18; TEMP 36.6; O2SAT 100
[2020-07-23 20:00] VITALS: BP 119/69; PULSE 131; RESP 18; TEMP 36.4; O2SAT 98
[2020-07-23 23:47] VITALS: BP 119/66; PULSE 89; RESP 16; TEMP 35.9; O2SAT 96
[2020-07-24] MEDS: oxyCODONE HCl Immed Release 5 MG TABLET PO ×2 (01:34→06:25)
[2020-07-24 02:49] VITALS: BP 120/68; PULSE 73; RESP 14; TEMP 36.2; O2SAT 98
[2020-07-24 06:29] LABS: MANUAL DIFF FLAG NO
[2020-07-24 07:20] LABS: Basophils Absolute Auto 0.1 X10*3/uL (0.0-0.2); Basophils Percent Auto 0.5 % (0-2); Eosinophils Absolute Auto 0.1 X10*3/uL (0.0-0.4); Eosinophils Percent Auto 0.5 % (0-4); Hematocrit 38.6 % (42-52); Hemoglobin 12.8 g/dl (14.0-18.0); Imm Gran Abs Auto 0.02 X10*3/uL (0.00-0.03); Imm Gran Pct Auto 0.2 % (0.0-0.4); Lymphocytes Absolute Auto 2.4 X10*3/uL (1.2-4.9); Lymphocytes Percent Auto 23.5 % (20-40); Mean Corpuscular HGB Conc 33.2 g/dl (31.0-36.0); Mean Corpuscular Hemoglobin 27.6 pg (27.0-33.0); Mean Corpuscular Volume 83.4 fL (80-98); Mean Platelet Volume 9.9 fL (9.4-12.4); Monocytes Absolute Auto 1.5 X10*3/uL (0.1-1.2); Monocytes Percent Auto 14.1 % (2-11); Neutrophils Absolute Auto 6.3 X10*3/uL (2.0-8.3); Neutrophils Percent Auto 61.2 % (45-73); Platelet Count 426 X10*3/uL (160-400); Red Blood Count 4.63 X10*6/uL (4.60-5.80); Red Cell Distribution Width 12.4 % (11.0-16.0); White Blood Count 10.3 X10*3/uL (4.8-10.8)
[2020-07-24] MEDS: 0.9 % Sodium Chloride Flush 3 ML SYRINGE IVFLUSH (07:42)
[2020-07-24] MEDS: Ibuprofen 800 MG TABLET PO (07:45)
[2020-07-24] MEDS: Acetaminophen 325 MG TABLET 650 MG PO (07:46)
[2020-07-24 07:58] VITALS: BP 150/77; PULSE 85; RESP 18; TEMP 36.6; O2SAT 100
[2020-07-24 08:05] LABS: Anion Gap 16 (12-20); Blood Urea Nitrogen 11 mg/dL (9-16); Calcium 8.9 mg/dL (8.4-10.2); Carbon Dioxide 26 mmol/L (22-29); Chloride 99 mmol/L (96-108); Creatinine Clr Calc Pharmacy 165.3; Estimated Glomerular Filt Rate > 60; Glucose Fasting 109 mg/dL (60-99); Potassium 4.6 mmol/l (3.3-5.1); Sodium 136 mmol/L (135-145)
[2020-07-24 08:20] LABS: Syphilis Screen Nonreactive (Nonreactive)
--- NOTE | 2020-07-24 09:53 | P.DS_ITS ---
DS: Providers Provider Date of admission: 07/20/20 15:37 Primary care physician: No Physician Consults: 07/20/20 16:51 Consult to Infectious Diseases Routine Consulting Provider: Caridad Clark Reason for consultation: > di disseminated gonorrhea Has provider been notified: Yes DS: Diagnosis Discharge Diagnosis (1) Inflammatory polyarthritis: Status: Acute DS: Medications Discharge Medications Home Medications: Home Medications Medication Instructions Recorded Confirmed albuterol sulfate 2 puff INHALATION Q4H PRN 07/20/20 07/20/20 fluticasone propion-salmeterol 1 inh INHALATION BID 07/20/20 07/20/20 [Wixela Inhub] Previous Rx's Medication Instructions Recorded acetaminophen 650 mg PO Q6H PRN #0 tab 07/24/20 doxycycline hyclate 100 mg PO Q12H #14 tab 07/24/20 ibuprofen 800 mg PO Q8H PRN #21 tab 07/24/20 oxycodone 5 mg PO Q4H PRN #20 tab 07/24/20 DS: Summary Hospital Course Hospital Course: Patient was admitted for an inflammatory polyarthritis. 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 He was treated with ceftriaxone and fevers did resolve, however, his arthritis did not improve that much And gonorrhea PCR was negative. other workup included negative HIV, negative COVID, negative Lyme, negative blood cultures, negative syphilis screen. CRP is elevated at 9.41, urine with trace protein, 1+ blood, but no casts. Rheumatoid factor negative, SARI pending, Anca pending, HSV and mycoplasma serology is pending. As patient is now afebrile, will discharge home. He will be given 1 week of doxycycline and ibuprofen, he should follow up with Rheumatology as outpatient for further diagnostics/treatment. Time Spent with Patient Time attestation: Total time spent providing and/or coordinating discharge services: Physical Exam Vital Signs: Vital Signs: Last Vital Signs Temp 97.9 F 07/24/20 07:58 Pulse 85 07/24/20 07:58 Resp 18 07/24/20 07:58 BP 150/77 H 07/24/20 07:58 Pulse Ox 100 07/24/20 07:58 Body Mass Index 29.8 General: AO X 3, no acute distress Resp: CTA bilateral CVS: S1,S2,RRR GI: soft, non tender, non distended Neuro: motor grossly intact Psych: appropriate affect SKIN: several ertyhema multiforme lesions, left hand, left elbow, left anterior ankle, no significant joint edema,+ tenderness. DS: Data Data Completed and Pending Labs on day of discharge: 07/20/20 10:39 Ketorolac Tromethamine [Toradol] 30 mg IVPUSH ONCE ONE 07/20/20 11:15 XR ankle LT min 3V Stat XR wrist LT min 3V Stat 07/20/20 11:23 Complete Blood Count Auto Diff Stat Erythrocyte Sedimentation Rate Stat 07/20/20 12:01 BMP [Basic Metabolic Panel] Stat Lyme IgG/IgM w/reflex to WB Stat 07/20/20 14:59 Doxycycline Hyclate [Vibramycin] 100 mg PO ONCE ONE cefTRIAXone sodium [Rocephin] 2 gm 0.9 % Sodium Chloride [Ns] 50 ml IV ONCE 07/20/20 15:15 cefTRIAXone sodium [Rocephin] 2 gm .ROUTE .STK-MED ONE 07/20/20 15:33 Transfer Order Routine 07/20/20 15:39 Azithromycin [Zithromax] 1,000 mg PO ONCE ONE 07/20/20 15:51 COVID-19 ID NOW (Gomez) Stat 07/20/20 16:51 oxyCODONE HCl Immed Release [Roxicodone] 5 mg PO Q6H PRN 07/20/20 16:51 Intake and Output QSHIFTE Vital Signs QSHIFT 07/21/20 06:41 Complete Blood Count no Diff DAILY@0600 07/21/20 09:30 CT NG by PCR Routine 07/21/20 09:44 Uric Acid Stat 07/21/20 14:11 cefTRIAXone sodium [Rocephin] 2 gm .ROUTE .STK-MED ONE 07/21/20 17:20 HIV Ab/Ag Routine 07/22/20 12:54 cefTRIAXone sodium [Rocephin] 2 gm .ROUTE .STK-MED ONE 07/23/20 01:26 diphenhydrAMINE HCL [Benadryl] 25 mg IVPUSH ONCE ONE oxyCODONE HCl Immed Release [Roxicodone] 5 mg PO ONCE ONE 07/23/20 11:04 C Reactive Protein Routine Comprehensive Met. Panel Routine Rheumatoid Factor Routine Syphilis Screen Routine 07/23/20 14:29 cefTRIAXone sodium [Rocephin] 2 gm .ROUTE .STK-MED ONE 07/23/20 20:54 diphenhydrAMINE HCL [Benadryl] 25 mg IVPUSH ONCE ONE 07/24/20 06:14 BMP [Basic Metabolic Panel Fasting] Routine Complete Blood Count Auto Diff Routine Laboratory Last Values WBC 10.3 X10*3/uL (4.8-10.8) 07/24/20 06:14 RBC 4.63 X10*6/uL (4.60-5.80) 07/24/20 06:14 Hgb 12.8 g/dl (14.0-18.0) L 07/24/20 06:14 Hct 38.6 % (42-52) L 07/24/20 06:14 MCV 83.4 fL (80-98) 07/24/20 06:14 MCH 27.6 pg (27.0-33.0) 07/24/20 06:14 MCHC 33.2 g/dl (31.0-36.0) 07/24/20 06:14 RDW 12.4 % (11.0-16.0) 07/24/20 06:14 Plt Count 426 X10*3/uL (160-400) H 07/24/20 06:14 MPV 9.9 fL (9.4-12.4) 07/24/20 06:14 Immature Gran % (Auto) 0.2 % (0.0-0.4) 07/24/20 06:14 Neut % (Auto) 61.2 % (45-73) 07/24/20 06:14 Lymph % (Auto) 23.5 % (20-40) 07/24/20 06:14 [place] % (Auto) 14.1 % (2-11) H 07/24/20 06:14 Eos % (Auto) 0.5 % (0-4) 07/24/20 06:14 Baso % (Auto) 0.5 % (0-2) 07/24/20 06:14 Lymph # (Auto) 2.4 X10*3/uL (1.2-4.9) 07/24/20 06:14 [place] # (Auto) 1.5 X10*3/uL (0.1-1.2) H 07/24/20 06:14 Eos # (Auto) 0.1 X10*3/uL (0.0-0.4) 07/24/20 06:14 Baso # (Auto) 0.1 X10*3/uL (0.0-0.2) 07/24/20 06:14 Abs Immat Gran (auto) 0.02 X10*3/uL (0.00-0.03) 07/24/20 06:14 Absolute Neuts (auto) 6.3 X10*3/uL (2.0-8.3) 07/24/20 06:14 Absolute Nucleated RBC 0.000 X10*3/uL (0.0-0.012) 07/24/20 06:14 Nucleated RBC % (auto) 0.0 /100WBC (0.0-0.2) 07/24/20 06:14 ESR 24 MM/HR (0-15) H 07/20/20 11:23 Sodium 136 mmol/L (135-145) 07/24/20 06:14 Potassium 4.6 mmol/l (3.3-5.1) 07/24/20 06:14 Chloride 99 mmol/L (96-108) 07/24/20 06:14 Carbon Dioxide 26 mmol/L (22-29) 07/24/20 06:14 Anion Gap 16 (12-20) 07/24/20 06:14 BUN 11 mg/dL (9-16) 07/24/20 06:14 Creatinine 0.85 mg/dL (0.5-1.4) 07/24/20 06:14 Estim Creat Clear Calc 165.3 07/24/20 06:14 Estimated GFR > 60 07/24/20 06:14 Random Glucose 145 mg/dL (60-115) H 07/23/20 11:04 Fasting Glucose 109 mg/dL (60-99) H 07/24/20 06:14 Uric Acid 5.0 mg/dL (3.4-7.0) 07/21/20 09:44 Calcium 8.9 mg/dL (8.4-10.2) 07/24/20 06:14 Total Bilirubin 0.4 mg/dL (0.0-1.0) 07/23/20 11:04 AST 15 U/L (5-37) 07/23/20 11:04 ALT 22 U/L (0-40) 07/23/20 11:04 Alkaline Phosphatase 81 U/L (39-117) 07/23/20 11:04 C-Reactive Protein 9.41 mg/dL (< or = 0.50) H 07/23/20 11:04 Total Protein 7.7 g/dL (6.5-8.0) 07/23/20 11:04 Albumin 4.1 g/dL (3.5-5.0) 07/23/20 11:04 Urine Color YELLOW 07/23/20 14:44 Urine Appearance CLEAR 07/23/20 14:44 Urine pH 6.0 (5.0-8.0) 07/23/20 14:44 Ur Specific [place] 1.025 (1.005-1.025) 07/23/20 14:44 Urine Protein TRACE MG/DL (NEG-TRACE) 07/23/20 14:44 Urine Glucose (UA) NEG MG/DL (NEG) 07/23/20 14:44 Urine Ketones NEG MG/DL (NEG) 07/23/20 14:44 Urine Blood 1+ (NEG) H 07/23/20 14:44 Urine Nitrite NEG (NEG) 07/23/20 14:44 Ur Leukocyte Esterase NEG (NEG) 07/23/20 14:44 Urine RBC 5-9 /HPF (0) H 07/23/20 14:44 Urine WBC 0 /HPF (0-4) 07/23/20 14:44 Ur Squamous Epith Cells TRACE /LPF 07/23/20 14:44 Urine Bacteria NONE /LPF 07/23/20 14:44 Rheumatoid Factor < 15.0 IU/mL (<15.0) 07/23/20 11:04 T.pallidum Ab (EIA) Nonreactive (Nonreactive) 07/23/20 11:04 A. phagocytophilum IgG Cancelled 07/20/20 11:20 A. phagocytophilum IgM Cancelled 07/20/20 11:20 A.phagocytophilum Intrp Cancelled 07/20/20 11:20 A. phagocytophilum Cmmt Cancelled 07/20/20 11:20 Babesia microti IgG Ab Cancelled 07/20/20 11:20 Babesia microti IgM Ab Cancelled 07/20/20 11:20 Babesia Interpretation Cancelled 07/20/20 11:20 Lyme Screen IgG & IgM <0.90 index 07/20/20 12:01 Lyme Progressive Test TNP 07/20/20 12:01 Chlam trachomat DNA PCR NOT DETECTED (Not Detect.) 07/21/20 09:30 COVID-19 (LUCÍA) Negative (Negative) 07/20/20 15:51 COVID-19 Clin Com See Note 07/20/20 15:51 E. chaffeensis IgG Ab Cancelled 07/20/20 11:20 E. chaffeensis IgM Ab Cancelled 07/20/20 11:20 E. chaffeensis Interp Cancelled 07/20/20 11:20 E. chaffeensis Comment Cancelled 07/20/20 11:20 HIV 1&2 Ab/P24 Ag 4thGn Nonreactive (Nonreactive) 07/21/20 17:20 N.gonorrhoeae DNA (PCR) NOT DETECTED (Not Detect.) 07/21/20 09:30 Preliminary micro results at discharge 07/20/20 11:24 Blood Culture - Preliminary Blood - Arterial No growth after 48 hours. 07/20/20 11:20 Blood Culture - Preliminary Blood - Arterial No growth after 48 hours. Discharge Plan Discharge Patient Disposition: Home, Self-Care Referrals: Sam Boyer MD [Physician] - 1 Week (inflammatory polyarthritis) Physician,No [Primary Care Provider] - Discharge Medications: New acetaminophen 325 mg Tablet 650 mg PO Q6H PRN (Reason: Pain, Mild (Pain Scale 1-3)) Qty: 0 RF: 0 ibuprofen 800 mg Tablet 800 mg PO Q8H PRN (Reason: Pain And Fever) Qty: 21 RF: 0 doxycycline hyclate 100 mg Tablet 100 mg PO Q12H Qty: 14 RF: 0 oxycodone 5 mg Tablet 5 mg PO Q4H PRN (Reason: Pain, Severe (Pain Scale 7-10)) Qty: 20 RF: 0 Continued fluticasone propion-salmeterol [Wixela Inhub] 250-50 mcg/dose Blister With Device 1 inh INHALATION BID RF: 0 albuterol sulfate 90 mcg/actuation Hfa Aerosol Inhaler 2 puff INHALATION Q4H PRN (Reason: Shortness Of Breath) RF: 0 Discharge Orders: Discharge Order (Routine); Ordered 07/24/20 Ordered By: Roberto Gudino Activity on Discharge: As tolerated Visit Report Forms: Patient Portal Discharge page Care Plan Goals: recovery Health Concerns: inflammatory polyarthritis Plan of Treatment: motrin and doxy, follow up rheumatology and pending labs
--- NOTE | 2020-07-24 09:59 | MHC.CM.PN ---
PATIENT IS DISCHARGED HOME - SELF CARE RN AWARE OF PLAN. PATIENT IS SECURING TRANSPORT.
--- NOTE | 2020-07-24 10:11 | MHC.CM.PN ---
nurse long term acute care registered nurse note electronic medical record reviewed along with case discussed with staff nurse and hospitlaist patient is aware that he will be discharged home today . discharge plan home no services transportation patient to self resume
[2020-07-24 13:41] LABS: Herpes Simplex Type 2 IgG 8.64 index
[2020-07-24 14:52] LABS: Anti Nuclear Antibody Screen NEGATIVE (NEGATIVE)
[2020-07-27 08:57] LABS: Babesia IgG <1:64 titer (<1:64); Babesia IgM <1:20 titer (<1:20)
[2020-07-27 14:47] LABS: Mycoplasma Pneumoniae - IgG 1.38 (<=0.90); Mycoplasma Pneumoniae - IgM 543 U/mL (<770)
[2020-07-28 09:22] LABS: Myeloperoxidase Antibody <1.0 AI; Proteinase 3 PR3 Antibodies <1.0 AI
[2020-07-28 13:17] LABS: A. Phagocytophilum Ab IgG <1:64 (<1:64); A. Phagocytophilum Ab IgM <1:20 (<1:20); E. Chaffeensis Ab IgG <1:64 (<1:64); E. Chaffeensis Ab IgM <1:20 (<1:20)
== END 2020-07-24 11:15 | disposition home or self-care (01) | DRG 351 ==
LOC: HO.ED 15:04 → HO.S3 16:14
PROVIDERS: Internal Medicine; Admitting Provider Internal Medicine; Emergency Provider Emergency Medicine; Visit Provider Internal Medicine
DX: M13.0 Polyarthritis, unspecified (principal); G81.94 Hemiplegia, unspecified affecting left nondominant side; Z20.828 Contact with and (suspected) exposure to other viral communicable diseases; Z88.0 Allergy status to penicillin
CPT/HCPCS: 36415; 73110; 73610; 80048; 80053; 81001; 84550; 85025; 85027; 85652; 86021; 86038; 86039; 86140; 86431; 86618; 86666; 86695; 86696; 86738; 86753; 86780; 87040; 87389; 87491; 87591; 87635; 96365; 96375; 99218; 99285; J0696; J1200; J1885

== ENCOUNTER 2020-07-31 15:26 | Inpatient (IN) | payer MEDICAID, SELFPAY ==
[2020-07-31 15:37] VITALS: BP 136/81; PULSE 112; RESP 18; TEMP 36.7; O2SAT 99; BMI 31.5
[2020-07-31 17:38] VITALS: BP 141/89; PULSE 115; RESP 16; TEMP 37.1; O2SAT 98
--- NOTE | 2020-07-31 18:23 | ED_ITS ---
HPI - General Adult General Chief complaint: Extremity Problem Stated complaint: BODY PAIN,ABD PAIN SEEN RECENTLY FOR SAME Time Seen by Provider: 07/31/20 17:24 Source: patient Mode of arrival: wheelchair Limitations: no limitations History of Present Illness HPI narrative: 25-year-old male with recent diagnosis of inflammatory polyarthritis presents with worsening joint pain and swelling, inability to walk secondary to pain, incontinence secondary to the inability to get up and moved to the bathroom because of pain, night sweats and fevers. he was unable to obtain an appointment with rheumatology, he did call to make an appointment but was turned away because he does not have a primary care physician. he does not report any chest pain or pressure, palpitations, shortness of breath, abdominal pain, abdominal distention, hematuria, or headaches. Onset (ago): month(s) (1) Location: upper extremity and lower extremity Severity: severe Severity scale (1-10): 10 Quality: aching Pain Consistency: constant Relieving factors: none Exacerbating factors: movement Associated symptoms: denies other symptoms Treatments prior to arrival: NSAID Related Data Home Medications Medication Instructions Recorded Confirmed albuterol sulfate 2 puff INHALATION Q4H PRN 07/20/20 07/20/20 fluticasone propion-salmeterol 1 inh INHALATION BID 07/20/20 07/20/20 [Wixela Inhub] Previous Rx's Medication Instructions Recorded acetaminophen 650 mg PO Q6H PRN #0 tab 07/24/20 doxycycline hyclate 100 mg PO Q12H #14 tab 07/24/20 ibuprofen 800 mg PO Q8H PRN #21 tab 07/24/20 oxycodone 5 mg PO Q4H PRN #20 tab 07/24/20 indomethacin 75 mg PO BID 10 Days #20 cap 07/31/20 oxycodone 5 mg PO Q6H PRN 7 Days #20 tab 07/31/20 prednisone 60 mg PO DAILY 6 Days #18 tab 07/31/20 Allergies Allergy/AdvReac Type Severity Reaction Status Date / Time amoxicillin [AMOXICILLIN] Allergy Unknown HIVES Verified 07/20/20 18:29 penicillin V Allergy Unknown hives Verified 06/27/16 00:00 Penicillins [PENICILLINS] Allergy Unknown UNKNOWN Verified 07/20/20 18:29 Review of Systems Review of Systems: Constitutional: No Weight loss, Positive Fever, positive Chills, positive Night Sweats, positive Fatigue, No Malaise ENT/Mouth: No Hearing loss, No Ear Pain, No Nasal Congestion, No Sinus Pain, No Hoarseness, No sore throat, No Rhinorrhea, No Swallowing Difficulty Eyes: No Eye Pain, No Swelling, No Redness, No Foreign Body, No Discharge, No Vision Changes Cardiovascular: positive Chest Pain, No SOB, No Dyspnea on Exertion, No Orthopnea, No Edema, No Palpitations Respiratory: No Cough, No Sputum, No Wheezing, No Smoke Exposure, No Dyspnea Gastrointestinal: No Nausea, No Vomiting, No Diarrhea, No Constipation, No abdominal Pain, No Hematochezia, No Melena Genitourinary: no irregular bleeding, No Dysuria, No Urinary Frequency, No Hematuria, No Urinary Incontinence, No Urgency, No Flank Pain, No Urinary Flow Changes, No Hesitancy Musculoskeletal: positive joint pain, positive Myalgias, positive Joint Swelling Skin: No Skin Lesions, No rash Neuro: No Weakness, No Numbness, No Paresthesias, No Loss of Consciousness, No Dizziness, No Headache Psych: No Anxiety/Panic, No Depression, No SI/HI/AH/VH, No Social Issues Heme/Lymph: No Bruising, No Bleeding,No Lymphadenopathy Endocrine: No Polyuria, No Polydipsia, No Temperature Intolerance Yes all other systems are reviewed and are negative FOR[facility]LY [facility], [facility] Past Medical History Medical History (Updated 07/31/20 @ 21:46 by Leila Ruiz NP) Arthralgia of ankle Asthma Social History Social History Household Members: Family Housing: Apartment Smoking Status: Current every day smoker Tobacco Type: Cigarette Packs Per Day: 0.25 Cigarettes Per Day: 5.0 Years Smoked: 3 Second Hand Smoke Exposure: No Substance Use Type: Marijuana Advance Directives: No Advance Directives Information Provided: Yes service: No Current occupational status: unemployed Physical Exam Vital Signs: Vital Signs: Last Vital Signs Temp 99.7 F 07/31/20 20:35 Pulse 111 H 07/31/20 20:35 Resp 16 07/31/20 20:35 BP 111/65 07/31/20 20:35 Pulse Ox 97 07/31/20 20:35 Body Mass Index 31.5 Appearance: Alert. Oriented X3. moderate distress. Eyes: Pupils equal, round and reactive to light. ENT: Pharynx normal. Neck: Normal inspection. Neck supple. CVS: Normal heart rate and rhythm. Pulses normal. Respiratory: No respiratory distress. Breath sounds normal. Abdomen: Soft and nontender. Skin: Skin warm and dry. Normal skin color. Normal skin turgor. Extremities: tenderness and moderate swelling to all joints, no crepitus noted, pulses equal, brisk capillary refill Neuro: No motor deficit. No sensory deficit. Course Course Course Narrative: 25-year-old male diagnosed with inflammatory polyarthritis p resents with increased pain and swelling joints. He has used the medications that were prescribed to him upon discharge on July 24, 2020, however he states that once the medications ran out his pain became crippling and debilitating. He was unable to make it to the restroom, ended up voiding h imself. he does not have any other concerns at this time. We will order CBC, Chem 7, ESR. upon reviewing his chart notes from hospitalist and Dr. Clark, he was given ceftriaxone while he was here, Lyme titer is pending, will give a dose of ceftriaxone for coverage. 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 After discussion with patient he would like to be discharged home, we will give indomethacin which is supported by up-to-date for arthritis, juvenile arthritis and polymyalgia, we will give prednisone 60 mg, Oxycodone for pain management, detailed discussion regarding use of narcotics with risks and benefits, and refer to Endocrine. patient verbalized understanding of and agrees to plan of care to discharge home. Medical Decision Making Differential Diagnosis Differential Diagnosis: Infection, inflammatory polyarthritis Medical Records Medical records reviewed: Yes I reviewed the patient's medical records. Lab Data Lab results reviewed: Yes I reviewed the patient's lab results. Result diagrams: 07/31/20 19:19 07/31/20 19:19 Labs: Lab Results 07/31/20 07/31/20 07/31/20 Range/Units 19:19 19:19 19:19 WBC 16.2 H (4.8-10.8) X10*3/uL RBC 4.46 L (4.60-5.80) X10*6/uL Hgb 12.2 L (14.0-18.0) g/dl Hct 36.9 L (42-52) % MCV 82.7 (80-98) fL MCH 27.4 (27.0-33.0) pg MCHC 33.1 (31.0-36.0) g/dl RDW 12.6 (11.0-16.0) % Plt Count 713 H D (160-400) X10*3/uL MPV 8.6 L (9.4-12.4) fL Immature Gran % (Auto) 0.4 (0.0-0.4) % Neut % (Auto) 79.4 H (45-73) % Lymph % (Auto) 13.8 L (20-40) % [place] % (Auto) 6.0 (2-11) % Eos % (Auto) 0.1 (0-4) % Baso % (Auto) 0.3 (0-2) % Lymph # (Auto) 2.2 (1.2-4.9) X10*3/uL [place] # (Auto) 1.0 (0.1-1.2) X10*3/uL Eos # (Auto) 0.0 (0.0-0.4) X10*3/uL Baso # (Auto) 0.1 (0.0-0.2) X10*3/uL Abs Immat Gran (auto) 0.06 H (0.00-0.03) X10*3/uL Absolute Neuts (auto) 12.8 H (2.0-8.3) X10*3/uL Absolute Nucleated RBC 0.000 (0.0-0.012) X10*3/uL Nucleated RBC % (auto) 0.0 (0.0-0.2) /100WBC ESR 80 H (0-15) MM/HR Sodium 137 (135-145) mmol/L Potassium 4.7 (3.3-5.1) mmol/l Chloride 102 (96-108) mmol/L Carbon Dioxide 26 (22-29) mmol/L Anion Gap 14 (12-20) BUN 9 (9-16) mg/dL Creatinine 0.75 (0.5-1.4) mg/dL Estim Creat Clear Calc 181.3 Estimated GFR > 60 Random Glucose 118 H (60-115) mg/dL Lactic Acid (0.5-2.0) mmol/L Calcium 9.1 (8.4-10.2) mg/dL 07/31/20 Range/Units 19:19 WBC (4.8-10.8) X10*3/uL RBC (4.60-5.80) X10*6/uL Hgb (14.0-18.0) g/dl Hct (42-52) % MCV (80-98) fL MCH (27.0-33.0) pg MCHC (31.0-36.0) g/dl RDW (11.0-16.0) % Plt Count (160-400) X10*3/uL MPV (9.4-12.4) fL Immature Gran % (Auto) (0.0-0.4) % Neut % (Auto) (45-73) % Lymph % (Auto) (20-40) % [place] % (Auto) (2-11) % Eos % (Auto) (0-4) % Baso % (Auto) (0-2) % Lymph # (Auto) (1.2-4.9) X10*3/uL [place] # (Auto) (0.1-1.2) X10*3/uL Eos # (Auto) (0.0-0.4) X10*3/uL Baso # (Auto) (0.0-0.2) X10*3/uL Abs Immat Gran (auto) (0.00-0.03) X10*3/uL Absolute Neuts (auto) (2.0-8.3) X10*3/uL Absolute Nucleated RBC (0.0-0.012) X10*3/uL Nucleated RBC % (auto) (0.0-0.2) /100WBC ESR (0-15) MM/HR Sodium (135-145) mmol/L Potassium (3.3-5.1) mmol/l Chloride (96-108) mmol/L Carbon Dioxide (22-29) mmol/L Anion Gap (12-20) BUN (9-16) mg/dL Creatinine (0.5-1.4) mg/dL Estim Creat Clear Calc Estimated GFR Random Glucose (60-115) mg/dL Lactic Acid 1.1 (0.5-2.0) mmol/L Calcium (8.4-10.2) mg/dL Discharge Plan Discharge Clinical Impression: Inflammatory polyarthritis, GC arthritis Arthralgia of ankle Qualifiers: Laterality: bilateral Qualified Code(s): M25.571 - Pain in right ankle and joints of right foot Patient Disposition: Home, Self-Care Instructions: Arthritis (ED) Additional Instructions: you were evaluated for pain and weakness consistent with inflammatory polyarthritis. Please take indomethacin 75 mg twice a day. Do not take ibuprofen, Motrin, Advil, or naproxen with this medication. You may take Tylenol every 6 hours. Please do not exceed 3000 mg Tylenol per day. Take prednisone 60 mg every morning For the next 6 days. Oxycodone is a narcotic and has high risk for addiction and abuse. Take this medication as directed per our discussion. Do not drive or operate machinery while taking this medication. This medication can increase risk for falls, cause dizziness, and constipation. Drink plenty of fluids. Use Colace for MiraLax as needed to help soften stools. We provided you with a walker For support. Please follow-up with Rheumatology. I referred you to Dr. Broderick. Thank you for choosing this emergency department for evaluation. Please follow-up with primary care physician as needed. Return to the emergency department for any new, concerning, or worsening symptoms. Prescriptions: New indomethacin 75 mg capsule, extended release 75 mg PO BID 10 Days Qty: 20 RF: 0 oxycodone 5 mg tablet 5 mg PO Q6H PRN (Reason: pain) 7 Days Qty: 20 RF: 0 prednisone 20 mg tablet 60 mg PO DAILY 6 Days Qty: 18 RF: 0 No Action fluticasone propion-salmeterol [Wixela Inhub] 250-50 mcg/dose Blister With Device 1 inh INHALATION BID RF: 0 albuterol sulfate 90 mcg/actuation Hfa Aerosol Inhaler 2 puff INHALATION Q4H PRN (Reason: Shortness Of Breath) RF: 0 acetaminophen 325 mg Tablet 650 mg PO Q6H PRN (Reason: Pain, Mild (Pain Scale 1-3)) Qty: 0 RF: 0 ibuprofen 800 mg Tablet 800 mg PO Q8H PRN (Reason: Pain And Fever) Qty: 21 RF: 0 doxycycline hyclate 100 mg Tablet 100 mg PO Q12H Qty: 14 RF: 0 oxycodone 5 mg Tablet 5 mg PO Q4H PRN (Reason: Pain, Severe (Pain Scale 7-10)) Qty: 20 RF: 0 Referrals: Isidro Broderick MD [Physician] - 2 days ( inflammatory polyarthritis)
[2020-07-31] MEDS: Morphine Sulfate 4 MG/ML CARTRIDGE IVPUSH (18:30)
[2020-07-31] MEDS: diphenhydrAMINE HCL 50 MG/ML VIAL 25 MG IVPUSH (18:53)
[2020-07-31] MEDS: ondansetron HCL 4 MG/2 ML VIAL IVPUSH (18:53)
[2020-07-31 19:28] LABS: Basophils Absolute Auto 0.1 X10*3/uL (0.0-0.2); Basophils Percent Auto 0.3 % (0-2); Eosinophils Percent Auto 0.1 % (0-4); Hematocrit 36.9 % (42-52); Hemoglobin 12.2 g/dl (14.0-18.0); Imm Gran Abs Auto 0.06 X10*3/uL (0.00-0.03); Imm Gran Pct Auto 0.4 % (0.0-0.4); Lymphocytes Absolute Auto 2.2 X10*3/uL (1.2-4.9); Lymphocytes Percent Auto 13.8 % (20-40); Mean Corpuscular HGB Conc 33.1 g/dl (31.0-36.0); Mean Corpuscular Hemoglobin 27.4 pg (27.0-33.0); Mean Corpuscular Volume 82.7 fL (80-98); Mean Platelet Volume 8.6 fL (9.4-12.4); Neutrophils Absolute Auto 12.8 X10*3/uL (2.0-8.3); Neutrophils Percent Auto 79.4 % (45-73); Platelet Count 713 X10*3/uL (160-400); Red Blood Count 4.46 X10*6/uL (4.60-5.80); Red Cell Distribution Width 12.6 % (11.0-16.0); White Blood Count 16.2 X10*3/uL (4.8-10.8)
[2020-07-31 19:30] LABS: MANUAL DIFF FLAG NO
[2020-07-31 19:46] LABS: Lactic Acid 1.1 mmol/L (0.5-2.0)
[2020-07-31 19:48] LABS: Anion Gap 14 (12-20); Blood Urea Nitrogen 9 mg/dL (9-16); Calcium 9.1 mg/dL (8.4-10.2); Carbon Dioxide 26 mmol/L (22-29); Chloride 102 mmol/L (96-108); Creatinine Clr Calc Pharmacy 181.3; Estimated Glomerular Filt Rate > 60; Glucose Random 118 mg/dL (60-115); Potassium 4.7 mmol/l (3.3-5.1); Sodium 137 mmol/L (135-145)
[2020-07-31] MEDS: cefTRIAXone sodium 1 GM in 0.9 % Sodium Chloride 50 ML IV (20:17)
[2020-07-31 20:24] LABS: Erythrocyte Sedimentation Rate 80 MM/HR (0-15)
[2020-07-31] MEDS: HYDROmorphone HCl 2 MG/ML VIAL IVPUSH (20:25)
[2020-07-31 20:35] VITALS: BP 111/65; PULSE 111; RESP 16; TEMP 37.6; O2SAT 97
[2020-07-31 22:00] VITALS: BP 112/72; PULSE 98; RESP 16; TEMP 37.1; O2SAT 97
[2020-07-31] MEDS: oxyCODONE HCl Immed Release 5 MG TABLET 10 MG PO (22:44)
[2020-07-31] MEDS: predniSONE 20 MG TABLET 60 MG PO (22:45)
[2020-07-31 23:40] VITALS: BP 128/80; PULSE 108; RESP 18; TEMP 36.9; O2SAT 99
[2020-07-31] MEDS: Indomethacin 25 MG CAPSULE 50 MG PO (23:48)
[2020-07-31] MEDS: fentaNYL citrate/PF 100 MCG/2 ML VIAL 25 MCG IVPUSH (23:48)
--- NOTE | 2020-07-31 23:52 | PC.NURSE ---
PLAN OF CARE FOR PT/CM EVAL IN THE MORNING. PT IS NOT ELIGIBLE FOR MEDICAL ADMIT BUT UNABLE TO STAND TO AMBULATE D/T PAIN. PTS PAIN HAS BEEN POORLY CONTROLLED THROUGHOUT THE NIGHT DESPITE MEDICATIONS. PT HAVING DIFFICULTY GETTING COMFORTABLE, GRIMACING IN PAIN WHILE TRYING TO REST. PT IS AWARE OF PLAN OF CARE AND AGREEABLE D/T LIVING SITUATION REQUIRING MULTIPLE STAIRS.
[2020-08-01] VITALS (8 sets, daily range): BP systolic 115–129; BP diastolic 59–80; PULSE 60–108; RESP 16–20; TEMP 36.3–37.3; O2SAT 96–99
--- NOTE | 2020-08-01 | MR_ITS ---
EXAMINATION: MRI OF THORACIC AND LUMBAR SPINE WITHOUT IV CONTRAST CLINICAL INFORMATION: Bilateral lower extremity weakness. COMPARISON: None available. TECHNIQUE: Multiplanar multisequence MR imaging of the thoracic and lumbar spine obtained without IV contrast. FINDINGS: MRI THORACIC SPINE: 6 there are 12 ordering thoracic type vertebral bodies. Mild midthoracic kyphosis. Vertebral body heights are maintained. Disc volumes are preserved. There is no bone marrow edema. There are no acute fractures. Thoracic disc contours remain within normal limits. No significant thoracic disc herniations. Epidural lipomatosis mildly narrows the central canal within the mid to lower thoracic spine. There is no severe central canal stenosis and there is no severe foraminal stenosis within the thoracic spine. MRI LUMBAR SPINE: There are 5 nonrib-bearing lumbar-type vertebral bodies. There is grade 1 retrolisthesis of L4 on L5 and L3 on L4. Vertebral body heights are maintained. There is mild disc volume loss there is partial disc desiccation at L3-L4 and L4-L5. There is no bone marrow edema. There are no acute fractures. Conus terminates at the L1 level. There is a retroaortic left renal vein. The L1-L2 and the L2-L3 disc contours remain normal. No central canal stenosis and no foraminal stenosis at these levels. At L3-L4, there is is a shallow central disc protrusion associated with an annular fissure that mildly indents the ventral thecal sac. There is mild foraminal encroachment bilaterally. At L4-L5, there is a broad-based left paracentral disc protrusion that results in mass effect on the traversing left L5 nerve root within the left subarticular zone. There is moderate bilateral facet arthropathy and ligamentum flavum thickening. Mild narrowing of the central canal. Mild bilateral foraminal encroachment. At L5-S1 there is a slight annular disc bulge and there is mild bilateral facet arthropathy. No central canal stenosis and no foraminal stenosis. MR/MR thoracic spine wo con IMPRESSION: - Epidural lipomatosis results in mild narrowing of the thecal sac within the mid to lower thoracic spine. No significant thoracic disc herniations. No significant central canal stenosis nor significant foraminal stenosis within the thoracic spine. Nondiagnostic assessment for thoracic cord signal abnormality given the degree of artifact on this study. - At L4-L5, there is a broad-based left paracentral disc protrusion that results in mass effect on the traversing left L5 nerve root within the left subarticular zone. - At L3-L4, there is is a shallow central disc protrusion associated with an annular fissure that mildly indents the ventral thecal sac. - No severe central canal stenosis and no severe foraminal stenosis within the lumbar spine.
[2020-08-01] MEDS: HYDROmorphone HCl 2 MG/ML VIAL IVPUSH (00:59)
[2020-08-01] MEDS: dexAMETHasone sod phosphate 4 MG/ML VIAL 10 MG IVPUSH (02:35)
[2020-08-01] MEDS: Ketorolac Tromethamine 30 MG/ML VIAL IVPUSH (02:36)
[2020-08-01] MEDS: diphenhydrAMINE HCL 50 MG/ML VIAL 25 MG IVPUSH (03:46)
--- NOTE | 2020-08-01 03:58 | P.HPHOSP_ITS ---
History of Present Illness Date of Service: 08/01/20 Chief Complaint: Bilateral LE weakness 25 y/o male who presented from home due to inability to walk for 2 weeks. Patient is known to us, was admitted one week and a half ago as he reported that for 4 days prior woke up unable to move both of his legs and feeling numbness and pain of his extremities . Patient reported that prior to the events was treated for a chlamydia infection. 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 All work up was negative including: Gonorrhea, HIV, Covid, Lyme titers, Blood cx, syphilis, RF, SARI. Mycoplasma was positive. Patient was treated with Rocephin and discharged for one week of doxycycline and pain control, to follow up with rheumatology as outpatient. Now patient presents to the ED given that symptoms have persisted and patient is unable to walk, complaining of severe pain in his LE bilaterally. In the ED p juni shelton is mildly tachycardic 108 with BP of 129/64 mmHg. No evidence of fever. Blood work showing WBC of 16.2 which increased from 10.3, Platelet of 713 and ESR of 80. Patient was given one dose of prednisone per ED and decision for admission was given. Patient was seen and evaluated in the ED. ROS as above otherwise negative. Upon questioning patient it is evident that there is unbearable pain of bilateral LE' with tenderness. Severe weakness in Bilateral LE 1/5. Patients at times ac ting nervous/anxious and asking questions about different possible diagnosis. PMHX: Hx of Cocaine and Marijuana abuse, Astma PSx: none Toxic habits: Hx of Marijuana and Cocaine abuse Review of Systems Constitutional: Constitutional: Reports as per HPI [facility] Medical History Arthralgia of ankle Asthma Functional capacity: uses cane/walker Social History Household Members: Family Housing: Apartment Alcohol intake: never Smoking Status: Never smoker Tobacco Type: Cigarette Packs Per Day: 0.25 Cigarettes Per Day: 5.0 Years Smoked: 3 Second Hand Smoke Exposure: No Use of substances other than those prescribed or required for medical reasons: No Substance Use Type: Marijuana Advance Directives: No Advance Directives Information Provided: Yes service: No Current occupational status: unemployed Meds Allergies Allergy/AdvReac Type Severity Reaction Status Date / Time amoxicillin [AMOXICILLIN] Allergy Unknown HIVES Verified 07/20/20 18:29 penicillin V Allergy Unknown hives Verified 06/27/16 00:00 Penicillins [PENICILLINS] Allergy Unknown UNKNOWN Verified 07/20/20 18:29 Home Medications Medication Instructions Recorded Confirmed Type albuterol sulfate 2 puff INHALATION Q4H PRN 07/20/20 07/31/20 History fluticasone propion-salmeterol 1 inh INHALATION BID 07/20/20 07/31/20 History [Wixela Inhub] Physical Exam Vital Signs and Narrative: Vital Signs: Last Vital Signs Temp 97.8 F 08/01/20 01:51 Pulse 108 H 08/01/20 01:51 Resp 18 08/01/20 01:51 BP 129/64 08/01/20 01:51 Pulse Ox 98 08/01/20 01:51 Body Mass Index 31.5 Const: General: cooperative, comfortable, no acute distress and other (anxious at times) Orientation/consciousness: oriented to person, oriented to place and oriented to time HENMT: Head: Yes normal to inspection Eyes: General: appearance normal, both eyes and all related structures Neck: Yes normal visual inspection Chest: Chest palpation & inspection: normal inspection of the chest Resp: Effort & Inspection: normal respiratory effort Auscultation: clear to auscultation bilaterally Cardio: Jugular venous distension: no JVD Rate: regular rate Rhythm: regular rhythm Heart sounds: S1 normal heart sound present and S2 normal heart sound present GI: Inspection: Yes normal to inspection Skin: General skin exam: no rashes or lesions noted Neuro: General: oriented to person, oriented to place and oriented to time Motor exam (neuro): Other motor observations present (1/5 strength of bilateral LE. Sensation preserved ) Extrem: General: Yes normal to inspection Results Labs CBC and Chem 7: 07/31/20 19:19 07/31/20 19:19 Labs: Laboratory Results - last 24 hr 07/31/20 07/31/20 07/31/20 19:19 19:19 19:19 MCV 82.7 MCH 27.4 MCHC 33.1 RDW 12.6 Plt Count 713 H D MPV 8.6 L Immature Gran % (Auto) 0.4 Neut % (Auto) 79.4 H Lymph % (Auto) 13.8 L [place] % (Auto) 6.0 Eos % (Auto) 0.1 Baso % (Auto) 0.3 Lymph # (Auto) 2.2 [place] # (Auto) 1.0 Eos # (Auto) 0.0 Baso # (Auto) 0.1 Abs Immat Gran (auto) 0.06 H Absolute Neuts (auto) 12.8 H Absolute Nucleated RBC 0.000 Nucleated RBC % (auto) 0.0 ESR 80 H Anion Gap 14 Estim Creat Clear Calc 181.3 Estimated GFR > 60 Random Glucose 118 H Lactic Acid Calcium 9.1 07/31/20 19:19 MCV MCH MCHC RDW Plt Count MPV Immature Gran % (Auto) Neut % (Auto) Lymph % (Auto) [place] % (Auto) Eos % (Auto) Baso % (Auto) Lymph # (Auto) [place] # (Auto) Eos # (Auto) Baso # (Auto) Abs Immat Gran (auto) Absolute Neuts (auto) Absolute Nucleated RBC Nucleated RBC % (auto) ESR Anion Gap Estim Creat Clear Calc Estimated GFR Random Glucose Lactic Acid 1.1 Calcium Assessment and Plan (1) Inflammatory polyarthritis: Status: Acute Start with Solumedrol as ordered. Taper as tolerated Leukocytosis likelys reactive. No evidence of any underlying infection at present and was treated accordingly on past admisssion Physical therapy for ambulation Follow up CRP and Repeat Bcx Follow up MRI of thoracic and lumbar spine, r/o any underlying neurologic pathology Psychiatry evaluation in the am for possible underlying psychiatric disorder Upon discharged patient to follow up with rheumatology as was advised on prior admission (2) Asthma: Status: Acute continue with home meds as ordered
[2020-08-01 04:33] LABS: COVID-19 Test Negative (Negative)
[2020-08-01 06:32] LABS: MANUAL DIFF FLAG NO
[2020-08-01 07:07] LABS: Basophils Percent Auto 0.1 % (0-2); Hematocrit 39.8 % (42-52); Imm Gran Abs Auto 0.09 X10*3/uL (0.00-0.03); Imm Gran Pct Auto 0.6 % (0.0-0.4); Lymphocytes Absolute Auto 1.3 X10*3/uL (1.2-4.9); Lymphocytes Percent Auto 9.4 % (20-40); Mean Corpuscular HGB Conc 32.7 g/dl (31.0-36.0); Mean Corpuscular Hemoglobin 27.4 pg (27.0-33.0); Mean Corpuscular Volume 83.8 fL (80-98); Monocytes Absolute Auto 0.1 X10*3/uL (0.1-1.2); Monocytes Percent Auto 0.9 % (2-11); Neutrophils Absolute Auto 12.4 X10*3/uL (2.0-8.3); Platelet Count 782 X10*3/uL (160-400); Red Blood Count 4.75 X10*6/uL (4.60-5.80); Red Cell Distribution Width 12.5 % (11.0-16.0); White Blood Count 13.9 X10*3/uL (4.8-10.8)
[2020-08-01 07:17] LABS: Anion Gap 17 (12-20); Blood Urea Nitrogen 13 mg/dL (9-16); C Reactive Protein 7.84 mg/dL (< or = 0.50); Carbon Dioxide 28 mmol/L (22-29); Chloride 96 mmol/L (96-108); Estimated Glomerular Filt Rate > 60; Glucose Random 243 mg/dL (60-115); Potassium 5.4 mmol/l (3.3-5.1); Sodium 136 mmol/L (135-145)
[2020-08-01] MEDS: Heparin Sodium,Porcine 5,000 UNIT/ML VIAL 5000 UNIT SUBCUT ×3 (07:44→20:47)
[2020-08-01] MEDS: 0.9 % Sodium Chloride Flush 3 ML SYRINGE IVFLUSH ×2 (07:45→13:11)
[2020-08-01 08:35] LABS: Calcium 10.1 mg/dL (8.4-10.2)
[2020-08-01] MEDS: oxyCODONE HCl Immed Release 5 MG TABLET PO ×3 (09:23→22:54)
[2020-08-01] MEDS: Ibuprofen 400 MG TABLET PO (09:24)
[2020-08-01] MEDS: Omeprazole 20 MG CAPSULE.DR PO ×2 (09:24→20:48)
[2020-08-01] MEDS: Ketorolac Tromethamine 30 MG/ML VIAL IV (13:10)
--- NOTE | 2020-08-01 14:12 | HO.PM.IMPN ---
Subjective Subjective Date of Service: 08/01/20 Interval History: Patient seen and examined at bedside patient was reporting bilateral lower extremity joint pain Constitutional Constitutional: Reports as per HPI Physical Exam Vital Signs: Vital Signs: Last Vital Signs Temp 97.8 F 08/01/20 12:58 Pulse 72 08/01/20 12:58 Resp 20 08/01/20 12:58 BP 119/59 L 08/01/20 12:58 Pulse Ox 99 08/01/20 12:58 Body Mass Index 31.5 Const: General: cooperative, comfortable, no acute distress and other (anxious at times) Orientation/consciousness: oriented to person, oriented to place and oriented to time HENMT: Head: Yes normal to inspection Eyes: General: appearance normal, both eyes and all related structures Neck: Neck: Yes normal visual inspection Chest: Chest palpation & inspection: normal inspection of the chest Resp: Effort & Inspection: normal respiratory effort Auscultation: clear to auscultation bilaterally Cardio: Jugular venous distension: no JVD Rate: regular rate Rhythm: regular rhythm Heart sounds: S1 normal heart sound present and S2 normal heart sound present GI: Inspection: Yes normal to inspection Skin: General skin exam: no rashes or lesions noted Neuro: General: oriented to person, oriented to place and oriented to time Motor exam (neuro): Other motor observations present (1/5 strength of bilateral LE. Sensation preserved ) Extrem: General: Yes normal to inspection Objective Data Current Medications Generic Name Dose Route Start Last Admin Trade Name Freq PRN Reason Stop Dose Admin Albuterol Sulfate 2 puff 08/01/20 04:11 Albuterol Sulfate 90 Mcg 8 Gm Inhaler INHALE Q4H PRN Shortness Of Breath Heparin Sodium (Porcine) 5,000 unit 08/01/20 04:00 08/01/20 13:10 Heparin Sodium,Porcine 5,000 Unit/Ml Vial SUBCUT 5,000 unit Q8H LORNA Administration K Pain, Moderate (Pain Scale 4-6 Methylprednisolone Sodium Succinate 40 mg 08/01/20 20:00 Methylprednisolone Sod Succ/Pf 40 Mg/Ml Vial IV Q12H LORNA Omeprazole 20 mg 08/01/20 09:00 08/01/20 09:24 Omeprazole 20 Mg Capsule.Dr PO 20 mg BID LORNA Administration Oxycodone HCl 5 mg 08/01/20 08:41 08/01/20 09:23 Oxycodone Hcl Immed Release 5 Mg Tablet PO 5 mg Q6H PRN Administration Pain, Moderate (Pain Scale 4-6 Sodium Chloride 3 ml 08/01/20 08:00 08/01/20 13:11 0.9 % Sodium Chloride Flush 3 Ml Syringe IVFLUSH 3 ml QSHIFT LORNA Administration Labs CBC & Chem 7: 08/01/20 06:01 08/01/20 06:01 Assessment and Plan (1) Inflammatory polyarthritis: Status: Acute (2) Asthma: Status: Acute Assessment and Plan: inflammatory polyarthritis etiology not clear recently treated for gonococcal arthritis gonococcal PCR was negative workup during last admission including SARI rheumatoid factor, hiv ,syphillis was negative continue steroids mri spine orderd on admission pending continue pain management history of drug abuse reported no drug use since last admission will check urine toxicology signs of withdrawal at this time hyperkalemia will stop Toradol and Motrin will repeat potassium if still high will give Kayexalate monitor potassium DVT prophylaxis heparin subcu
[2020-08-01 14:49] LABS: Potassium 4.6 mmol/l (3.3-5.1)
[2020-08-01] MEDS: Morphine Sulfate 2 MG/ML CARTRIDGE IVPUSH ×2 (15:03→20:49)
--- NOTE | 2020-08-01 16:23 | MHC.CM.PN ---
CM ATTEMPTED TO MEET WITH PT WHO WAS OFF THE UNIT. CM WILL RETURN
[2020-08-02] VITALS: BP 134/64; PULSE 98; RESP 18; TEMP 37; O2SAT 95
[2020-08-02] MEDS: Ketorolac Tromethamine 15 MG/ML VIAL IV (00:14)
[2020-08-02] MEDS: 0.9 % Sodium Chloride Flush 3 ML SYRINGE IVFLUSH ×4 (00:15→23:55)
[2020-08-02] MEDS: Morphine Sulfate 2 MG/ML CARTRIDGE IVPUSH ×4 (02:44→20:12)
[2020-08-02] MEDS: Heparin Sodium,Porcine 5,000 UNIT/ML VIAL 5000 UNIT SUBCUT ×2 (05:57→12:33)
[2020-08-02 07:39] VITALS: BP 107/54; PULSE 83; RESP 16; TEMP 36.4; O2SAT 96
[2020-08-02] MEDS: Omeprazole 20 MG CAPSULE.DR PO ×2 (08:06→20:07)
[2020-08-02] MEDS: oxyCODONE HCl Immed Release 5 MG TABLET PO ×3 (08:11→22:45)
--- NOTE | 2020-08-02 12:16 | MHC.CM.PN ---
pt lives at home with his family and at baseline is independent with all care and mobility. Pt does not use DME and has n services. Pt is aware acute rehab is being recommended and he is agreeable. Referral placed to [facility] per pt preference. if pt goes to [place], he will require BLS transport
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
[2020-08-02 14:59] VITALS: BP 134/66; PULSE 80; RESP 19; TEMP 36; O2SAT 97
--- NOTE | 2020-08-02 15:32 | HO.PM.IMPN ---
Subjective Subjective Date of Service: 08/02/20 Interval History: ongoing bilateral knee and ankle pain very unsteady gait secondary to pain rash on feet and arms resolving denies oral rash last sexual contact March 2020 Physical Exam Vital Signs: Vital Signs: Last Vital Signs Temp 96.8 F 08/02/20 14:59 Pulse 80 08/02/20 14:59 Resp 19 08/02/20 14:59 BP 134/66 08/02/20 14:59 Pulse Ox 97 08/02/20 14:59 Body Mass Index 31.5 Gen: in no acute distress HEENT: sclera anicteric, moist mucus membranes Neck: supple Lungs: clear to auscultation bilaterally Heart: regular rate and rhythm, no murmurs Abd: soft, non-tender, non-distended Ext: no edema Skin: resolving, scaly target-like rashes on extremities Neuro: alert and oriented x3, bilateral lower extremity weakness although seems to be mostly secondary to pain Psych: appropriate affect Objective Data Current Medications Generic Name Dose Route Start Last Admin Trade Name Freq PRN Reason Stop Dose Admin Albuterol Sulfate 2 puff 08/01/20 04:11 Albuterol Sulfate 90 Mcg 8 Gm Inhaler INHALE Q4H PRN Shortness Of Breath Heparin Sodium (Porcine) 5,000 unit 08/01/20 04:00 08/02/20 12:33 Heparin Sodium,Porcine 5,000 Unit/Ml Vial SUBCUT 5,000 unit Q8H LORNA Administration Methylprednisolone Sodium Succinate 40 mg 08/01/20 20:00 08/02/20 08:06 Methylprednisolone Sod Succ/Pf 40 Mg/Ml Vial IV 40 mg Q12H LORNA Administration Morphine Sulfate 2 mg 08/01/20 14:21 08/02/20 12:31 Morphine Sulfate 2 Mg/Ml Cartridge IVPUSH 2 mg Q4H PRN Administration Pain, Severe (Pain Scale 7-10) Omeprazole 20 mg 08/01/20 09:00 08/02/20 08:06 Omeprazole 20 Mg Capsule.Dr PO 20 mg BID LORNA Administration Oxycodone HCl 5 mg 08/01/20 08:41 08/02/20 14:25 Oxycodone Hcl Immed Release 5 Mg Tablet PO 5 mg Q6H PRN Administration Pain, Moderate (Pain Scale 4-6 Quetiapine Fumarate 25 mg 08/02/20 13:33 Quetiapine Fumarate 25 Mg Tablet PO BEDTIME MRX1 PRN insomnia Sodium Chloride 3 ml 08/01/20 08:00 08/02/20 08:06 0.9 % Sodium Chloride Flush 3 Ml Syringe IVFLUSH 3 ml QSHIFT [facility] Administration Labs CBC & Chem 7: 08/01/20 06:01 08/01/20 14:20 Microbiology Microbiology Results: Microbiology 07/31/20 19:19 Blood - Venous Blood Culture - Preliminary No growth after 24 hours. 07/31/20 19:19 Blood - Venous Blood Culture - Preliminary No growth after 24 hours. Assessment and Plan (1) Inflammatory polyarthritis: Status: Acute (2) Asthma: Status: Acute Assessment and Plan: hospital d#2 25yo M previously admitted 07/20-07/24/20 for inflammatory polyarthralgia associated with erythema multiforme-like rash recently treated for chlamydia urethritis readmitted with persistent pain # inflammatory polyarthralgia - treated during last admission for disseminated gonococcemia but NAAT was negative; also negative HIV, COVID, Lyme, BCx, and T pallidum. CRP + ESR elevated, urine with trace protein, RF negative, SARI negative, HSV + mycoplasma IgG positive. will also check HBV/HCV serology. check HIV-1 RNA to r/o acute retroviral syndrome though timing not consistent with last sexual tonact - ?serum sickness- check C3/C4/C50 + urine protein - continue prednisone 60 mg/d - will re-consult ID - will need Rheumatology f/u- already scheduled # polysubstance abuse - SWAT consult # VTE ppx - LMWH
[2020-08-02 18:03] LABS: Glucose Urine UA 250 MG/DL (NEG); Leukocyte Esterase Urine NEG (NEG); Nitrite Urine NEG (NEG); PH 6.5 (5.0-8.0); Specific Gravity - Urine 1.025 (1.005-1.025); Urine Blood NEG (NEG); Urine Ketones NEG (NEG); Urine Protein NEG (NEG-TRACE)
[2020-08-02 18:04] LABS: Appearance Urine CLEAR; Color Urine STRAW
[2020-08-02] MEDS: Enoxaparin Sodium 40 MG/0.4 ML SYRINGE SUBCUT (18:09)
[2020-08-02 18:18] LABS: RBC Urine 0-2 /HPF (0); Squamous Epithelial Cell Urine TRACE /LPF; WBC Urine 0 /HPF (0-4)
[2020-08-02 18:30] LABS: Creatinine Urine 91.05 mg/dL; Protein/Creatinine Ratio, Ur 0.09 (<0.2); Total Protein Urine Random 8 mg/dL (<12)
[2020-08-02] MEDS: QUEtiapine Fumarate 25 MG TABLET PO (22:46)
[2020-08-03 00:26] VITALS: BP 120/56; PULSE 68; RESP 16; TEMP 36.7; O2SAT 96
[2020-08-03] MEDS: Morphine Sulfate 2 MG/ML CARTRIDGE IVPUSH ×4 (05:58→19:34)
[2020-08-03 05:59] LABS: MANUAL DIFF FLAG NO
[2020-08-03 06:03] LABS: Basophils Percent Auto 0.4 % (0-2); Eosinophils Percent Auto 0.1 % (0-4); Hematocrit 38.6 % (42-52); Hemoglobin 12.3 g/dl (14.0-18.0); Imm Gran Abs Auto 0.03 X10*3/uL (0.00-0.03); Imm Gran Pct Auto 0.3 % (0.0-0.4); Lymphocytes Absolute Auto 3.4 X10*3/uL (1.2-4.9); Lymphocytes Percent Auto 34.1 % (20-40); Mean Corpuscular HGB Conc 31.9 g/dl (31.0-36.0); Mean Corpuscular Hemoglobin 26.8 pg (27.0-33.0); Mean Corpuscular Volume 84.1 fL (80-98); Mean Platelet Volume 8.7 fL (9.4-12.4); Monocytes Absolute Auto 0.7 X10*3/uL (0.1-1.2); Monocytes Percent Auto 6.7 % (2-11); Neutrophils Absolute Auto 5.8 X10*3/uL (2.0-8.3); Neutrophils Percent Auto 58.4 % (45-73); Platelet Count 705 X10*3/uL (160-400); Red Blood Count 4.59 X10*6/uL (4.60-5.80); Red Cell Distribution Width 12.5 % (11.0-16.0); White Blood Count 9.9 X10*3/uL (4.8-10.8)
[2020-08-03 06:38] LABS: Alanine Aminotransferase 18 U/L (0-40); Albumin Level 3.6 g/dL (3.5-5.0); Alkaline Phosphatase 71 U/L (39-117); Anion Gap 13 (12-20); Aspartate Amino Transferase 10 U/L (5-37); Bilirubin Total 0.4 mg/dL (0.0-1.0); Blood Urea Nitrogen 18 mg/dL (9-16); C Reactive Protein 2.45 mg/dL (< or = 0.50); Calcium 9.4 mg/dL (8.4-10.2); Carbon Dioxide 31 mmol/L (22-29); Chloride 103 mmol/L (96-108); Creatinine Clr Calc Pharmacy 167.9; Estimated Glomerular Filt Rate > 60; Glucose Random 127 mg/dL (60-115); Potassium 4.3 mmol/l (3.3-5.1); Sodium 143 mmol/L (135-145)
[2020-08-03 07:36] LABS: Erythrocyte Sedimentation Rate 59 MM/HR (0-15)
[2020-08-03 07:43] LABS: Estimated Average Glucose 137 mg/dL; Hemoglobin A1C 152.1965 umol/L; Hemoglobin A1c % 6.4 %
[2020-08-03] MEDS: 0.9 % Sodium Chloride Flush 3 ML SYRINGE IVFLUSH ×2 (07:52→15:13)
[2020-08-03] MEDS: Omeprazole 20 MG CAPSULE.DR PO ×2 (07:52→19:36)
[2020-08-03] MEDS: predniSONE 20 MG TABLET 60 MG PO (07:52)
[2020-08-03] MEDS: oxyCODONE HCl Immed Release 5 MG TABLET PO ×3 (07:52→16:17)
[2020-08-03 08:00] VITALS: BP 121/74; PULSE 67; RESP 18; TEMP 36.4; O2SAT 99
[2020-08-03 08:12] LABS: HBS Num1 0.88 mIU/mL (0-7.99); HBsAGNum1 0.97 S/CO (0.00-0.99); Hepatitis B Surface Antigen Negative (Negative); ~Hepatitis B Surface Antibody NONREACTIVE (Nonreactive)
[2020-08-03 08:27] LABS: HBc Num1 0.03 S/CO (0.00-0.79); Hepatitis B Core Antibody Nonreactive (Nonreactive); ~HepC Num1 0.11 S/CO (0.00-0.79); ~Hepatitis C Antibody Nonreactive (Nonreactive)
--- NOTE | 2020-08-03 09:33 | MHC.CARE ---
CARE Team met with Pt secondary to the request of the on-call psychiatrist who recommends a therapy referral. Pt was pleasant and engaged with t/w. Pt reported he has attempted therapy in the past however didn't take it seriously but now feels like it?s the right time for him. Pt reported he may be going to [facility] following his admission however would like to start the therapy referral process as soon as possible. Pt provided CARE Team verbal permission to refer Pt to [facility]. CARE Team followed up with [facility] who will reach out to Pt directly.
--- NOTE | 2020-08-03 09:52 | P.CNNE_ITS ---
History of Present Illness Data of Consult Service Date: 08/03/20 Primary Care Provider: [facility] HPI Reason for consult: Pain and weakness in his lower extremities and joints Sit 25-year-old man who developed a Chlamydia infection recently that was treated. He was recently admitted and discharged from [facility] after being treated for arthralgias. He now came in with increasing pain which he excruciating and weakness in his legs and arms. He has no numbness. He has no definite skin rash. There's been no febrile illness. No back pain. Review of Systems Eyes: Eyes: Reports no additional eye complaints ENT: Reports system reviewed and no additional complaints, except as documented and Reports Normal hearing present Cardiovascular: Cardiovascular: Reports no additional cardiovascular complaints Respiratory: Respiratory: Reports no additional respiratory complaints Gastrointestinal: Gastrointestinal: Reports no additional gastrointestinal complaints Genitourinary: Genitourinary: Reports no additional male genitourinary complaints Musculoskeletal: Musculoskeletal: Reports no additional musculoskeletal complaints Integumentary/Breasts: Skin/Breast: Reports system reviewed and no additional complaints, except as docu Neurologic: Reports as per HPI and Reports Normal hearing present Psychiatric: Psychiatric: Reports as per HPI Endocrine: Endocrine: Reports no additional endocrine complaints Hematologic/Lymphatic: Hematologic/Lymphatic: Reports no additional hematologic/lymphatic complaints Allergic/Immunologic: Allergic/Immunologic: Reports no additional allergic/immunologic complaints [facility] Past Medical History Medical History Arthralgia of ankle Asthma Functional capacity: uses cane/walker Social History Social History Household Members: Family Housing: House Do you presently have visiting nurse or other home services: No Alcohol intake: never Smoking Status: Never smoker Tobacco Type: Cigarette Packs Per Day: 0.25 Cigarettes Per Day: 5.0 Years Smoked: 3 Second Hand Smoke Exposure: No Use of substances other than those prescribed or required for medical reasons: No Substance Use Type: Marijuana Last Used Substance Other:: since january Currently Displaying Signs/Symptoms of Drug Intoxication Withdrawal: No Any prior treatment program specific to substance use: No Have you been hit, kicked, punched, or otherwise hurt by someone within the past year? If so, by whom?: No Do you feel safe in your current relationship?: No Current Relationship Is there a partner from a previous relationship who is making you feel unsafe now?: No Are you made to feel afraid or neglected: No Advance Directives: No Advance Directives Information Provided: Yes Do you have thoughts of harming others: None Do you have a plan to hurt others: No Plan Recently lost weight without trying: No service: No Current occupational status: unemployed Meds Allergies Allergy/AdvReac Type Severity Reaction Status Date / Time amoxicillin [AMOXICILLIN] Allergy Unknown HIVES Verified 07/20/20 18:29 penicillin V Allergy Unknown hives Verified 06/27/16 00:00 Penicillins [PENICILLINS] Allergy Unknown UNKNOWN Verified 07/20/20 18:29 Home Medications Medication Instructions Recorded Confirmed Type albuterol sulfate 2 puff INHALATION Q4H PRN 07/20/20 07/31/20 History fluticasone propion-salmeterol 1 inh INHALATION BID 07/20/20 07/31/20 History [[facility]] Physical Exam Vital Signs: Vital Signs: Last Vital Signs Temp 97.4 F 08/04/20 07:29 Pulse 57 08/04/20 07:29 Resp 18 08/04/20 07:29 BP 128/62 08/04/20 07:29 Pulse Ox 97 08/04/20 07:29 Body Mass Index 31.5 Const: General: cooperative, comfortable, no acute distress, well developed, alert and awake Nutritional Appearance: well nourished Orientation/consciousness: oriented to person, oriented to place and oriented to time Limitations: no limitations HENMT: Head: Yes normal to inspection, Yes normocephalic and Yes atraumatic Ears: hearing grossly normal bilaterally General nose exam: Normal external nose present Face and sinus: Yes normal facial exam Mouth: Normal oral and palatal mucosa present Eyes: General: appearance normal, both eyes and all related structures Visual Guillen: normal visual guillen by confrontation Alignment and Position: alignment normal Periorbital: periorbital findings normal Eyelids: Yes eyelids normal Conjunctivae: conjunctivae normal Sclerae: sclerae normal Corneas: corneas normal Pupils: Equal, round and reactive pupils present and Pupil accommodation reflex normal EOM: EOMs intact bilaterally Direct Oph thalmoscopy: normal light reflex Neck: Neck: Yes normal visual inspection, Yes full ROM and Yes no meningeal signs Thyroid: Thyroid normal Carotids: normal carotid upstroke and bounding pulses Chest: Chest palpation & inspection: normal inspection of the chest Resp: Effort & Inspection: normal respiratory effort Auscultation: clear to auscultation bilaterally Cardio: Rate: regular rate Rhythm: regular rhythm Heart sounds: S1 normal heart sound present and S2 normal heart sound present Peripheral pulses: Peripheral pulses 2+ throughout GI: Inspection: Yes normal to inspection Percussion: Yes normal to p ercussion Auscultation: normal bowel sounds Rectal Exam - Male: Yes deferred Back/Spine/Pelvis: Cervical Spine: normal cervical lordosis and cervical ROM normal Thoracic/Lumbar Spine: thoracic and lumbar spine normal to inspection Skin: General skin exam: no rashes or lesions noted Neuro: Other: He has submaximal voluntary effort on testing his legs and complains of pain. There is no atrophy or fasciculations. He sensory exams normal. Plantar responses are flexor. Her he has diffuse hyperreflexia which would go along with some elements of anxiety. No definite evidence of spinal cord abnormality. General: oriented to person, oriented to place, oriented to time, gait normal, tone normal, moves all extremities, Normal light touch and pain sensation, no meningeal signs, no focal motor deficits, CN's II-XI intact bilaterally, normal sensation to monofilament and deep tendon reflexes 2+ bilaterally Cranial nerves: Yes CN's II-XII intact bilaterally, Yes Equal, round and reactive pupils present, Yes Bilaterally intact EOM present, Yes Nystagmus not present, Yes Normal facial strength present, Yes Midline tongue present, Yes Normal gag reflex present, Yes Symmetric palate elevation present, Yes Normal hearing present and Yes Ability to bilaterally rotate head present Cognition (Neuro): normal cognition Speech: Other speech findings present (Neuro) Motor exam (neuro): Pronator motor function not present, no tremor no pablo, no asterixis, Motor fasciculations not present, Normal motor muscle tone present throughout and Motor abnormalities not present Sensory Exam: Bilaterally intact graphesthesia Deep tendon reflexes (DTR's): Right triceps reflex intensity grade: 3+, Left triceps reflex intensity grade: 3+, Rt Biceps (C5, C6): 3+, Left biceps reflex intensity grade: 3+, Right brachioradialis reflex intensity grade: 3+, Left brachioradialis reflex intensity grade: 3+, Right patellar reflex intensity grade: 3+, Left patellar reflex intensity grade: 3+, Right ankle reflex intensity grade: 3+ and Left ankle reflex intensity grade: 3+ Plantar Reflex Responses: downgoing: right, left and bilateral Coordination: [id number] test normal Pupils: Normal pupillary reactivity/response: bilateral Extrem: General: Yes normal to inspection, Yes normal exam except as noted and Yes no pedal edema Psych: Appearance: grossly normal Mental Status: mental status grossly normal Speech and movement: Normal speech and movement present and Clear speech present Affect: normal affect Attitude: cooperative Thought process: Normal thought process present Results Labs CBC & Chem 7: 08/03/20 05:45 08/03/20 05:45 Microbiology Microbiology Results: Microbiology 07/31/20 19:19 Blood - Venous Blood Culture - Preliminary No growth after 48 hours. 07/31/20 19:19 Blood - Venous Blood Culture - Preliminary No growth after 48 hours. Assessment and Plan (1) Post traumatic stress disorder: Status: Acute (2) Inflammatory polyarthritis: Problem details: This is probably due to STD,GC and chlamydia Also possibly post COVID syndrome Status: Acute I do not find any evidence of a neurological basis for his symptoms. He may have arthralgias related to her a infectious process. No evidence of neuropathy or spinal cord problems or myopathy. There are some components of functional overlay as well which may be related to his PTSD. The patient was reassured that there is no neurological problem going on. His Lyme titers should be checked again if not already done. Followup of his sedimentation rate in a week. Neurological reevaluation if other symptoms should develop.
[2020-08-03 09:58] VITALS: RESP 18
[2020-08-03 13:10] VITALS: BMI 31.5
--- NOTE | 2020-08-03 14:43 | MHC.CM.PN ---
[facility] is following and currently awaiting the report from the neuro consult. They will also require an OT eval and updated PT.
[2020-08-03 15:26] VITALS: BP 128/63; PULSE 99; RESP 20; TEMP 36.8; O2SAT 98
[2020-08-03] MEDS: Enoxaparin Sodium 40 MG/0.4 ML SYRINGE SUBCUT (16:18)
--- NOTE | 2020-08-03 16:20 | W.PM.IDCN ---
History of Present Illness Data of Consult Service Date: 08/03/20 Requesting physician: Darlene Hidalgo Primary Care Provider: [facility] Reason for consult: arthralgias He presents to hospital with worsening discomfort left ankle and now back as well.06/06 He is nonambulatory due to pain He has had chlamydia and concerns over gonorrhea last month Review of Systems Musculoskeletal: Musculoskeletal: Reports limited range of motion PMFSH Past Medical History Medical History Arthralgia of ankle Asthma Functional capacity: uses cane/walker Social History Social History Household Members: Family Housing: House Do you presently have visiting nurse or other home services: No Alcohol intake: never Smoking Status: Never smoker Tobacco Type: Cigarette Packs Per Day: 0.25 Cigarettes Per Day: 5.0 Years Smoked: 3 Second Hand Smoke Exposure: No Use of substances other than those prescribed or required for medical reasons: No Substance Use Type: Marijuana Last Used Substance Other:: since january Currently Displaying Signs/Symptoms of Drug Intoxication Withdrawal: No Any prior treatment program specific to substance use: No Have you been hit, kicked, punched, or otherwise hurt by someone within the past year? If so, by whom?: No Do you feel safe in your current relationship?: No Current Relationship Is there a partner from a previous relationship who is making you feel unsafe now?: No Are you made to feel afraid or neglected: No Advance Directives: No Advance Directives Information Provided: Yes Do you have thoughts of harming others: None Do you have a plan to hurt others: No Plan Recently lost weight without trying: No service: No Current occupational status: unemployed Meds Allergies Allergy/AdvReac Type Severity Reaction Status Date / Time amoxicillin [AMOXICILLIN] Allergy Unknown HIVES Verified 07/20/20 18:29 penicillin V Allergy Unknown hives Verified 06/27/16 00:00 Penicillins [PENICILLINS] Allergy Unknown UNKNOWN Verified 07/20/20 18:29 Home Medications Medication Instructions Recorded Confirmed Type albuterol sulfate 2 puff INHALATION Q4H PRN 07/20/20 07/31/20 History fluticasone propion-salmeterol 1 inh INHALATION BID 07/20/20 07/31/20 History [Wix[facility] Inhub] Physical Exam Vital Signs: Vital Signs: Last Vital Signs Temp 98.2 F 08/03/20 15:26 Pulse 99 08/03/20 15:26 Resp 20 08/03/20 15:26 BP 128/63 08/03/20 15:26 Pulse Ox 98 08/03/20 15:26 Body Mass Index 31.5 Const: General: cooperative HENMT: Head: Yes normal to inspection Resp: Effort & Inspection: normal respiratory effort Cardio: Rate: regular rate Rhythm: regular rhythm GI: Palpation (GI): Soft to palpation and nontender Back/Spine/Pelvis: Other: discomfort back and left ankle,mild ankle swelling Skin: General skin exam: no rashes or lesions noted Assessment and Plan (1) Inflammatory polyarthritis: Problem details: This is probably due to STD,GC and chlamydia Also possibly post COVID syndrome Status: Acute Check COVID antibodies May use steroids Rheumatology followup Results Labs CBC & Chem 7: 08/03/20 05:45 08/03/20 05:45 Labs: Short CBC 08/03/20 Range/Units 05:45 WBC 9.9 (4.8-10.8) X10*3/uL Hgb 12.3 L (14.0-18.0) g/dl Hct 38.6 L (42-52) % Plt Count 705 H (160-400) X10*3/uL BMP 08/03/20 05:45 Sodium 143 Potassium 4.3 Chloride 103 Carbon Dioxide 31 H BUN 18 H Creatinine 0.81 Calcium 9.4 D Liver Function 08/03/20 Range/Units 05:45 Total Bilirubin 0.4 (0.0-1.0) mg/dL AST 10 (5-37) U/L ALT 18 (0-40) U/L Alkaline Phosphatase 71 (39-117) U/L Albumin 3.6 (3.5-5.0) g/dL Urine 08/02/20 Range/Units 17:49 Urine Color STRAW Urine Appearance CLEAR Urine pH 6.5 (5.0-8.0) Ur Specific [place] 1.025 (1.005-1.025) Urine Protein NEG (NEG-TRACE) MG/DL Urine Glucose (UA) 250 H (NEG) MG/DL Microbiology Microbiology Results: Microbiology 12/04/20 19:19 Blood - Venous Blood Culture - Preliminary No growth after 48 hours. 07/31/20 19:19 Blood - Venous Blood Culture - Preliminary No growth after 48 hours.
--- NOTE | 2020-08-03 16:28 | PC.NURSE ---
pt stating his q4 2mg morphine and q4 5mg oxicodone isnt managing his pain at this time. Rn discussed staggering the pain meds this am and has been doing so but it seems before pain meds are due his pain ia back up to a 04/05 Stated the oxi works begter but doesnt last long enouggh so the morphine has been getting him bny with pain re;lief between doses. Discussed with MD - changed prn from 5mg oxicodone to 10mg at this time. Discussed with pt - pt content about change and believe it will help. Effectiveness of new med order pending at this time
--- NOTE | 2020-08-03 16:33 | P.PNIM_ITS ---
Subjective Subjective Date of Service: 08/03/20 Interval History: pain slightly improved, still very unsteady on feet Physical Exam Vital Signs: Vital Signs: Last Vital Signs Temp 98.2 F 08/03/20 15:26 Pulse 99 08/03/20 15:26 Resp 20 08/03/20 15:26 BP 128/63 08/03/20 15:26 Pulse Ox 98 08/03/20 15:26 Body Mass Index 31.5 Gen: in no acute distress HEENT: sclera anicteric, moist mucus membranes Neck: supple Lungs: clear to auscultation bilaterally Heart: regular rate and rhythm, no murmurs Abd: soft, non-tender, non-distended Ext: no edema Skin: resolving, scaly hyperpigmented macules on extremities Neuro: alert and oriented x3, bilateral lower extremity weakness although seems to be mostly secondary to pain Psych: appropriate affect Objective Data Current Medications Generic Name Dose Route Start Last Admin Trade Name Freq PRN Reason Stop Dose Admin Albuterol Sulfate 2 puff 08/01/20 04:11 Albuterol Sulfate 90 Mcg 8 Gm Inhaler INHALE Q4H PRN Shortness Of Breath Enoxaparin Sodium 40 mg 08/02/20 18:00 08/03/20 16:18 Enoxaparin Sodium 40 Mg/0.4 Ml Syringe SUBCUT 40 mg Q24H LORNA Administration Morphine Sulfate 2 mg 08/01/20 14:21 08/03/20 15:07 Morphine Sulfate 2 Mg/Ml Cartridge IVPUSH 2 mg Q4H PRN Administration Pain, Severe (Pain Scale 7-10) Omeprazole 20 mg 08/01/20 09:00 08/03/20 07:52 Omeprazole 20 Mg Capsule.Dr PO 20 mg BID LORNA Administration Oxycodone HCl 10 mg 08/03/20 16:24 Oxycodone Hcl Immed Release 5 Mg Tablet PO Q4H PRN Pain, Moderate (Pain Scale 4-6 Prednisone 60 mg 08/03/20 09:00 08/03/20 07:52 Prednisone 20 Mg Tablet PO 60 mg DAILY LORNA Administration Quetiapine Fumarate 25 mg 08/02/20 13:33 08/02/20 22:46 Quetiapine Fumarate 25 Mg Tablet PO 25 mg BEDTIME MRX1 PRN Administration insomnia Sodium Chloride 3 ml 08/01/20 08:00 08/03/20 15:13 0.9 % Sodium Chloride Flush 3 Ml Syringe IVFLUSH 3 ml QSHIFT LORNA Administration Labs CBC & Chem 7: 08/03/20 05:45 08/03/20 05:45 Labs: Laboratory Results - last 24 hr 08/02/20 08/02/20 08/03/20 17:49 17:49 05:45 WBC 9.9 RBC 4.59 L Hgb 12.3 L Hct 38.6 L MCV 84.1 MCH 26.8 L MCHC 31.9 RDW 12.5 Plt Count 705 H MPV 8.7 L Immature Gran % (Auto) 0.3 Neut % (Auto) 58.4 Lymph % (Auto) 34.1 [place] % (Auto) 6.7 Eos % (Auto) 0.1 Baso % (Auto) 0.4 Lymph # (Auto) 3.4 [place] # (Auto) 0.7 Eos # (Auto) 0.0 Baso # (Auto) 0.0 Abs Immat Gran (auto) 0.03 Absolute Neuts (auto) 5.8 Absolute Nucleated RBC 0.000 Nucleated RBC % (auto) 0.0 ESR Sodium Potassium Chloride Carbon Dioxide Anion Gap BUN Creatinine Estim Creat Clear Calc Estimated GFR Random Glucose Estimat Average Glucose Hemoglobin A1c % Calcium Total Bilirubin AST ALT Alkaline Phosphatase C-Reactive Protein Total Protein Albumin Urine Color STRAW Urine Appearance CLEAR Urine pH 6.5 Ur Specific [place] 1.025 Urine Protein NEG Urine Glucose (UA) 250 H Urine Ketones NEG Urine Blood NEG Urine Nitrite NEG Ur Leukocyte Esterase NEG Urine RBC 0-2 Urine WBC 0 Ur Squamous Epith Cells TRACE Urine Bacteria NONE U Random Total Protein 8 Urine Creatinine 91.05 Protein/Creatinin Ratio 0.09 Hep Bs Antigen Hep Bs Antibody Hep B Core Total Ab Hepatitis C Ab (EIA) 08/03/20 08/03/20 08/03/20 05:45 05:45 05:45 WBC RBC Hgb Hct MCV MCH MCHC RDW Plt Count MPV Immature Gran % (Auto) Neut % (Auto) Lymph % (Auto) [place] % (Auto) Eos % (Auto) Baso % (Auto) Lymph # (Auto) [place] # (Auto) Eos # (Auto) Baso # (Auto) Abs Immat Gran (auto) Absolute Neuts (auto) Absolute Nucleated RBC Nucleated RBC % (auto) ESR 59 H Sodium 143 Potassium 4.3 Chloride 103 Carbon Dioxide 31 H Anion Gap 13 BUN 18 H Creatinine 0.81 Estim Creat Clear Calc 167.9 Estimated GFR > 60 Random Glucose 127 H D Estimat Average Glucose 137 Hemoglobin A1c % 6.4 Calcium 9.4 D Total Bilirubin 0.4 AST 10 ALT 18 Alkaline Phosphatase 71 C-Reactive Protein 2.45 H Total Protein 7.0 Albumin 3.6 Urine Color Urine Appearance Urine pH Ur Specific [place] Urine Protein Urine Glucose (UA) Urine Ketones Urine Blood Urine Nitrite Ur Leukocyte Esterase Urine RBC Urine WBC Ur Squamous Epith Cells Urine Bacteria U Random Total Protein Urine Creatinine Protein/Creatinin Ratio Hep Bs Antigen Hep Bs Antibody Hep B Core Total Ab Hepatitis C Ab (EIA) 08/03/20 05:45 WBC RBC Hgb Hct MCV MCH MCHC RDW Plt Count MPV Immature Gran % (Auto) Neut % (Auto) Lymph % (Auto) [place] % (Auto) Eos % (Auto) Baso % (Auto) Lymph # (Auto) [place] # (Auto) Eos # (Auto) Baso # (Auto) Abs Immat Gran (auto) Absolute Neuts (auto) Absolute Nucleated RBC Nucleated RBC % (auto) ESR Sodium Potassium Chloride Carbon Dioxide Anion Gap BUN Creatinine Estim Creat Clear Calc Estimated GFR Random Glucose Estimat Average Glucose Hemoglobin A1c % Calcium Total Bilirubin AST ALT Alkaline Phosphatase C-Reactive Protein Total Protein Albumin Urine Color Urine Appearance Urine pH Ur Specific [place] Urine Protein Urine Glucose (UA) Urine Ketones Urine Blood Urine Nitrite Ur Leukocyte Esterase Urine RBC Urine WBC Ur Squamous Epith Cells Urine Bacteria U Random Total Protein Urine Creatinine Protein/Creatinin Ratio Hep Bs Antigen Negative Hep Bs Antibody NONREACTIVE Hep B Core Total Ab Nonreactive Hepatitis C Ab (EIA) Nonreactive Microbiology Microbiology Results: Microbiology 07/31/20 19:19 Blood - Venous Blood Culture - Preliminary No growth after 48 hours. 07/31/20 19:19 Blood - Venous Blood Culture - Preliminary No growth after 48 hours. Assessment and Plan (1) Inflammatory polyarthritis: Problem details: This is probably due to STD,GC and chlamydia Also possibly post COVID syndrome Status: Acute (2) Asthma: Status: Acute Assessment and Plan: hospital d#3 25yo M previously admitted 07/20-07/24/20 for inflammatory polyarthralgia associated with erythema multiforme-like rash recently treated for chlamydia urethritis readmitted with persistent pain # inflammatory polyarthralgia - treated during last admission for disseminated gonococcemia but NAAT was negative; also negative HIV, COVID, Lyme, BCx, and T pallidum. CRP + ESR elevated, urine with trace protein, RF negative, SARI negative, ANCA negative, HSV + mycoplasma IgG positive. HBV/HCV negative; HIV-1 RNA to r/o acute retroviral syndrome pending though timing not consistent with last sexual tonact - ?serum sickness- check C3/C4/C50; urine protein normal - ID reconsulted - continue prednisone - will need Rheumatology f/u- already scheduled - [place] + morphine IV prn pain # polysubstance abuse - SWAT consult # VTE ppx - LMWH # dispo - plan AIR but needs OT and neuro consults
[2020-08-03 18:30] LABS: SARS COV2 IgG Negative (Negative)
[2020-08-03 20:00] VITALS: BP 129/75; PULSE 88; RESP 20; TEMP 36.9; O2SAT 98
[2020-08-03] MEDS: QUEtiapine Fumarate 25 MG TABLET PO (22:06)
[2020-08-03] MEDS: oxyCODONE HCl Immed Release 5 MG TABLET 10 MG PO (22:07)
[2020-08-04] VITALS: BP 142/75; PULSE 78; RESP 20; TEMP 36.2; O2SAT 100
[2020-08-04] MEDS: 0.9 % Sodium Chloride Flush 3 ML SYRINGE IVFLUSH ×3 (00:27→15:39)
[2020-08-04] MEDS: Morphine Sulfate 2 MG/ML CARTRIDGE IVPUSH ×5 (01:38→22:59)
[2020-08-04 07:29] VITALS: BP 128/62; PULSE 57; RESP 18; TEMP 36.3; O2SAT 97
[2020-08-04] MEDS: Omeprazole 20 MG CAPSULE.DR PO ×2 (07:54→20:30)
[2020-08-04] MEDS: predniSONE 20 MG TABLET 60 MG PO (07:54)
[2020-08-04] MEDS: oxyCODONE HCl Immed Release 5 MG TABLET 10 MG PO ×3 (09:24→20:30)
[2020-08-04 10:52] LABS: Complement C3 133 mg/dL (82-185)
[2020-08-04 12:16] VITALS: BP 128/62; PULSE 57; O2SAT 97
[2020-08-04 14:52] LABS: COVID-19 Test Negative (Negative)
--- NOTE | 2020-08-04 14:59 | P.PNIM_ITS ---
Subjective Subjective Date of Service: 08/04/20 Interval History: LE pain/weakness improved No fever/chills No new rash Physical Exam Vital Signs: Vital Signs: Last Vital Signs Temp 97.4 F 08/04/20 07:29 Pulse 57 08/04/20 12:16 Resp 18 08/04/20 07:29 BP 128/62 08/04/20 12:16 Pulse Ox 97 08/04/20 12:16 Body Mass Index 31.5 Gen: in no acute distress HEENT: sclera anicteric, moist mucus membranes Neck: supple Lungs: clear to auscultation bilaterally Heart: regular rate and rhythm, no murmurs Abd: soft, non-tender, non-distended Ext: no edema Skin: resolving, scaly hyperpigmented macules on extremities Neuro: alert and oriented x3, bilateral lower extremity weakness although seems to be mostly secondary to pain Psych: appropriate affect Objective Data Current Medications Generic Name Dose Route Start Last Admin Trade Name Freq PRN Reason Stop Dose Admin Albuterol Sulfate 2 puff 08/01/20 04:11 Albuterol Sulfate 90 Mcg 8 Gm Inhaler INHALE Q4H PRN Shortness Of Breath Enoxaparin Sodium 40 mg 08/02/20 18:00 08/03/20 16:18 Enoxaparin Sodium 40 Mg/0.4 Ml Syringe SUBCUT 40 mg Q24H LORNA Administration Morphine Sulfate 2 mg 08/01/20 14:21 08/04/20 12:06 Morphine Sulfate 2 Mg/Ml Cartridge IVPUSH 2 mg Q4H PRN Administration Pain, Severe (Pain Scale 7-10) Omeprazole 20 mg 08/01/20 09:00 08/04/20 07:54 Omeprazole 20 Mg Capsule.Dr PO 20 mg BID LORNA Administration Oxycodone HCl 10 mg 08/03/20 16:24 08/04/20 14:18 Oxycodone Hcl Immed Release 5 Mg Tablet PO 10 mg Q4H PRN Administration Pain, Moderate (Pain Scale 4-6 Prednisone 60 mg 08/03/20 09:00 08/04/20 07:54 Prednisone 20 Mg Tablet PO 60 mg DAILY LORNA Administration Quetiapine Fumarate 25 mg 08/02/20 13:33 08/03/20 22:06 Quetiapine Fumarate 25 Mg Tablet PO 25 mg BEDTIME MRX1 PRN Administration insomnia Sodium Chloride 3 ml 08/01/20 08:00 08/04/20 07:55 0.9 % Sodium Chloride Flush 3 Ml Syringe IVFLUSH 3 ml QSHIFT LORNA Administration Labs CBC & Chem 7: 08/03/20 05:45 08/03/20 05:45 Microbiology Microbiology Results: Microbiology 07/31/20 19:19 Blood - Venous Blood Culture - Preliminary No growth after 48 hours. 07/31/20 19:19 Blood - Venous Blood Culture - Preliminary No growth after 48 hours. Assessment and Plan (1) Inflammatory polyarthritis: Problem details: This is probably due to STD,GC and chlamydia Also possibly post COVID syndrome Status: Acute (2) Asthma: Status: Acute Assessment and Plan: hospital d#4 25yo M previously admitted 07/20-07/24/20 for inflammatory polyarthralgia associated with erythema multiforme-like rash recently treated for chlamydia urethritis readmitted with persistent pain # inflammatory polyarthralgia - treated during last admission for disseminated gonococcemia but NAAT was negative; also negative HIV, COVID, Lyme, BCx, and T pallidum. CRP + ESR elevated, urine with trace protein, RF negative, SARI negative, ANCA negative, HSV + mycoplasma IgG positive. HBV/HCV negative. C3/C4 and urine protein normal; CH50 pending. HIV-1 RNA to r/o acute retroviral syndrome pending. continue prednisone, taper gradually, f/u Rheumatology as outpt. recheck ESR and Lyme in about a month - [place] + morphine IV prn pain # polysubstance abuse - SWAT consult done # PTSD - psychiatry consult done; referred to counseling # prediabetes - diet/exercise # VTE ppx - LMWH # dispo - PT/OT/neuro evals done, awaiting AIR placement
[2020-08-04 15:51] VITALS: BP 146/84; PULSE 98; RESP 18; TEMP 36.3; O2SAT 96
[2020-08-04] MEDS: Enoxaparin Sodium 40 MG/0.4 ML SYRINGE SUBCUT (17:03)
[2020-08-04 18:48] VITALS: BP 137/70; PULSE 87; RESP 20; TEMP 36.7; O2SAT 97
[2020-08-04] MEDS: QUEtiapine Fumarate 25 MG TABLET PO (23:00)
[2020-08-05] MEDS: 0.9 % Sodium Chloride Flush 3 ML SYRINGE IVFLUSH ×3 (00:57→16:01)
[2020-08-05] MEDS: oxyCODONE HCl Immed Release 5 MG TABLET 10 MG PO ×5 (00:59→22:01)
[2020-08-05] MEDS: Morphine Sulfate 2 MG/ML CARTRIDGE IVPUSH ×2 (02:57→07:22)
[2020-08-05 07:58] VITALS: BP 127/62; PULSE 75; RESP 17; TEMP 36.3; O2SAT 99
[2020-08-05] MEDS: predniSONE 20 MG TABLET 60 MG PO (08:01)
[2020-08-05] MEDS: Omeprazole 20 MG CAPSULE.DR PO ×2 (08:01→20:13)
[2020-08-05 11:36] VITALS: BP 126/72; PULSE 85; RESP 18; TEMP 36.3; O2SAT 96
[2020-08-05] MEDS: Morphine Sulfate 2 MG/ML CARTRIDGE 4 MG IVPUSH ×3 (11:53→20:14)
[2020-08-05] MEDS: polyethylene glycoL 3350 17 GM POWD.PACK PO (11:56)
[2020-08-05] MEDS: Sennosides/Docusate Sodium TABLET 2 TAB PO ×2 (11:56→20:13)
--- NOTE | 2020-08-05 15:03 | P.PNIM_ITS ---
Subjective Subjective Date of Service: 08/05/20 Interval History: Still c/o severe BLE pain No fever/chills No rash Physical Exam Vital Signs: Vital Signs: Last Vital Signs Temp 97.3 F 08/05/20 11:36 Pulse 85 08/05/20 11:36 Resp 18 08/05/20 11:36 BP 126/72 08/05/20 11:36 Pulse Ox 96 08/05/20 11:36 Body Mass Index 31.5 Gen: in no acute distress HEENT: sclera anicteric, moist mucus membranes Neck: supple Lungs: clear to auscultation bilaterally Heart: regular rate and rhythm, no murmurs Abd: soft, non-tender, non-distended Ext: no edema Skin: no rash Neuro: alert and oriented x3, bilateral lower extremity tenderness yanira knees + ankles, ROM limited by pain Psych: appropriate affect Objective Data Current Medications Generic Name Dose Route Start Last Admin Trade Name Freq PRN Reason Stop Dose Admin Albuterol Sulfate 2 puff 08/01/20 04:11 Albuterol Sulfate 90 Mcg 8 Gm Inhaler INHALE Q4H PRN Shortness Of Breath Enoxaparin Sodium 40 mg 08/02/20 18:00 08/04/20 17:03 Enoxaparin Sodium 40 Mg/0.4 Ml Syringe SUBCUT 40 mg Q24H LORNA Administration Morphine Sulfate 4 mg 08/05/20 11:01 08/05/20 11:53 Morphine Sulfate 2 Mg/Ml Cartridge IVPUSH 4 mg Q4H PRN Administration Pain, Severe (Pain Scale 7-10) Omeprazole 20 mg 08/01/20 09:00 08/05/20 08:01 Omeprazole 20 Mg Capsule.Dr PO 20 mg BID LORNA Administration Oxycodone HCl 10 mg 08/03/20 16:24 08/05/20 13:23 Oxycodone Hcl Immed Release 5 Mg Tablet PO 10 mg Q4H PRN Administration Pain, Moderate (Pain Scale 4-6 Prednisone 60 mg 08/03/20 09:00 08/05/20 08:01 Prednisone 20 Mg Tablet PO 60 mg DAILY LORNA Administration Quetiapine Fumarate 25 mg 08/02/20 13:33 08/04/20 23:00 Quetiapine Fumarate 25 Mg Tablet PO 25 mg BEDTIME MRX1 PRN Administration insomnia Senna/Docusate Sodium 2 tab 08/05/20 11:15 08/05/20 11:56 Sennosides/Docusate Sodium Tablet PO 2 tab BID LORNA Administration Sodium Chloride 3 ml 08/01/20 08:00 08/05/20 07:23 0.9 % Sodium Chloride Flush 3 Ml Syringe IVFLUSH 3 ml QSHIFT LORNA Administration Labs CBC & Chem 7: 08/03/20 05:45 08/03/20 05:45 Microbiology Microbiology Results: Microbiology 07/31/20 19:19 Blood - Venous Blood Culture - Preliminary No growth after 48 hours. 07/31/20 19:19 Blood - Venous Blood Culture - Preliminary No growth after 48 hours. Assessment and Plan (1) Inflammatory polyarthritis: Problem details: This is probably due to STD,GC and chlamydia Also possibly post COVID syndrome Status: Acute (2) Asthma: Status: Acute Assessment and Plan: hospital d#5 25yo M previously admitted 07/20-07/24/20 for inflammatory polyarthralgia associated with erythema multiforme-like rash recently treated for chlamydia urethritis readmitted with persistent pain # inflammatory polyarthralgia - treated during last admission for disseminated gonococcemia but NAAT was negative; also negative HIV, COVID, Lyme, BCx, and T pallidum. CRP + ESR elevated, urine with trace protein, RF negative, SARI negative, ANCA negative, HSV + mycoplasma IgG positive. HBV/HCV negative. C3/C4 and urine protein normal; CH50 pending. HIV-1 RNA to r/o acute retroviral syndrome pending. continue prednisone, taper gradually, f/u Rheumatology as outpt. recheck ESR and Lyme in about a month - [place] + morphine IV prn pain # polysubstance abuse - SWAT consult done # PTSD - psychiatry consult done; referred to counseling # prediabetes - diet/exercise # VTE ppx - LMWH # dispo - PT/OT/neuro evals done, awaiting AIR placement
[2020-08-05 15:35] VITALS: BP 139/74; PULSE 100; RESP 18; TEMP 36.6; O2SAT 99
[2020-08-05 15:58] VITALS: RESP 18
[2020-08-05] MEDS: Enoxaparin Sodium 40 MG/0.4 ML SYRINGE SUBCUT (17:41)
[2020-08-05] MEDS: QUEtiapine Fumarate 25 MG TABLET PO (20:14)
[2020-08-05 23:30] VITALS: BP 152/80; PULSE 103; RESP 18; RESP 20; TEMP 36.8; O2SAT 98
[2020-08-06] MEDS: 0.9 % Sodium Chloride Flush 3 ML SYRINGE IVFLUSH ×4 (00:21→22:45)
[2020-08-06] MEDS: Morphine Sulfate 2 MG/ML CARTRIDGE 4 MG IVPUSH ×3 (00:22→09:35)
[2020-08-06 02:12] VITALS: RESP 20
[2020-08-06] MEDS: oxyCODONE HCl Immed Release 5 MG TABLET 10 MG PO ×5 (02:23→20:27)
[2020-08-06 06:27] VITALS: RESP 18
[2020-08-06] MEDS: predniSONE 20 MG TABLET 40 MG PO (07:22)
[2020-08-06] MEDS: Omeprazole 20 MG CAPSULE.DR PO ×2 (07:22→20:27)
[2020-08-06] MEDS: Sennosides/Docusate Sodium TABLET 2 TAB PO ×2 (07:23→20:28)
[2020-08-06 07:36] VITALS: BP 111/62; PULSE 94; RESP 20; TEMP 35.9; O2SAT 98
[2020-08-06 11:21] VITALS: BP 114/72; PULSE 100; RESP 20; TEMP 35.8; O2SAT 99
[2020-08-06 12:03] LABS: HIV RNA PCR Qn Copies <20 NOT DETECTED copies/mL (NOT DETECTED); HIV RNA PCR Qn Log Copies <1.30 NOT DETECTED (NOT DETECTED)
[2020-08-06] MEDS: Morphine Sulfate 4 MG/ML CARTRIDGE IVPUSH ×3 (14:11→22:44)
--- NOTE | 2020-08-06 14:43 | P.PNIM_ITS ---
Subjective Subjective Date of Service: 08/06/20 Interval History: ongoing ankle, knee, hip, back pain weakness secondary to pain no fever rash largely resolved Physical Exam Vital Signs: Vital Signs: Last Vital Signs Temp 96.5 F L 08/06/20 11:21 Pulse 100 08/06/20 11:21 Resp 20 08/06/20 11:21 BP 114/72 08/06/20 11:21 Pulse Ox 99 08/06/20 11:21 Body Mass Index 31.5 Gen: in no acute distress HEENT: sclera anicteric, moist mucus membranes Neck: supple Lungs: clear to auscultation bilaterally Heart: regular rate and rhythm, no murmurs Abd: soft, non-tender, non-distended Ext: no edema Skin: no rash Neuro: alert and oriented x3, bilateral lower extremity tenderness yanira knees + ankles, ROM limited by pain Psych: appropriate affect Objective Data Current Medications Generic Name Dose Route Start Last Admin Trade Name Freq PRN Reason Stop Dose Admin Albuterol Sulfate 2 puff 08/01/20 04:11 Albuterol Sulfate 90 Mcg 8 Gm Inhaler INHALE Q4H PRN Shortness Of Breath Enoxaparin Sodium 40 mg 08/02/20 18:00 08/05/20 17:41 Enoxaparin Sodium 40 Mg/0.4 Ml Syringe SUBCUT 40 mg Q24H LORNA Administration Morphine Sulfate 4 mg 08/06/20 09:37 08/06/20 14:11 Morphine Sulfate 4 Mg/Ml Cartridge IVPUSH 4 mg Q4H PRN Administration Pain, Severe (Pain Scale 7-10) Omeprazole 20 mg 08/01/20 09:00 08/06/20 07:22 Omeprazole 20 Mg Capsule.Dr PO 20 mg BID LORNA Administration Oxycodone HCl 10 mg 08/03/20 16:24 08/06/20 12:17 Oxycodone Hcl Immed Release 5 Mg Tablet PO 10 mg Q4H PRN Administration Pain, Moderate (Pain Scale 4-6 Prednisone 40 mg 08/06/20 09:00 08/06/20 07:22 Prednisone 20 Mg Tablet PO 40 mg DAILY LORNA Administration Quetiapine Fumarate 25 mg 08/02/20 13:33 08/05/20 20:14 Quetiapine Fumarate 25 Mg Tablet PO 25 mg BEDTIME MRX1 PRN Administration insomnia Senna/Docusate Sodium 2 tab 08/05/20 11:15 08/06/20 07:23 Sennosides/Docusate Sodium Tablet PO 2 tab BID LORNA Administration Sodium Chloride 3 ml 08/01/20 08:00 08/06/20 07:23 0.9 % Sodium Chloride Flush 3 Ml Syringe IVFLUSH 3 ml QSHIFT LORNA Administration Labs CBC & Chem 7: 08/03/20 05:45 08/03/20 05:45 Labs: Laboratory Results - last 24 hr 08/03/20 05:44 HIV-1 RNA copies/mL <20 NOT DETECTED HIV-1 RNA logcopies/mL <1.30 NOT DETECTED Microbiology Microbiology Results: Microbiology 07/31/20 19:19 Blood - Venous Blood Culture - Final No growth after 5 days. 07/31/20 19:19 Blood - Venous Blood Culture - Final No growth after 5 days. Assessment and Plan (1) Inflammatory polyarthritis: Problem details: This is probably due to STD,GC and chlamydia Also possibly post COVID syndrome Status: Acute (2) Asthma: Status: Acute Assessment and Plan: hospital d#6 25yo M previously admitted 07/20-07/24/20 for inflammatory polyarthralgia associated with erythema multiforme-like rash recently treated for chlamydia urethritis readmitted with persistent pain # inflammatory polyarthralgia - treated during last admission for disseminated gonococcemia but NAAT was negative; also negative HIV (4th gen + viral load), COVID, Lyme, BCx, and T pallidum. CRP + ESR elevated, urine with trace protein, RF negative, SARI negative, ANCA negative, HSV + mycoplasma IgG positive. HBV/HCV negative. C3/C4 and urine protein normal; CH50 pending. continue prednisone, taper gradually, f/u Rheumatology as outpt. recheck ESR and Lyme in about a month - [place] + morphine IV prn pain # polysubstance abuse - SWAT consult done # PTSD - psychiatry consult done; referred to counseling # prediabetes - diet/exercise counseled # VTE ppx - LMWH # dispo - PT/OT/neuro evals done, awaiting AIR vs STR placement
--- NOTE | 2020-08-06 14:47 | MHC.CM.PN ---
Addendum entered by Cecilia Burrows 08/07/20 10:42: 08/07/2020 STR F/U : THE FOLLOWING FACILITIES HAVE DECLINED PATIENT SECONDARY TO NO APPROPRIATE BEDS [facility] [place] AND [facility] NO APPROPRIATE BED, [place], [facility] NO BED AVAILABILITY. Addendum entered by Cecilia Burrows 08/06/20 15:29: THE FOLLOWING FACILITIES DECLINED, EXTENDED CARE IN [facility], [facility], [facility], [facility], [facility] NO BED AVAIABILITY, INFORMED HOSPITAIST OF THIS Original Note: NURSE JAVA SQL DEVELOPER NOTE STR FACILITIES ; [facility] AND [facility] UNABLE TO ACCOMMODATE, [place] ,[facility], [facility], [facility] ,[facility] AND [place] DECLINED DISCHARGE PLAN UNABLE TO SECURE ACUTE REHAB , TRYING TO SECURE SHORT TERM REHAB BOTH PHYSICAL AND OCCUPATIONAL THERAPY IS RECOMMENDING THIS AND NOTING AT THIS TIME IT IS UNSAFE FOR HIM TO GO HOME VIA ALL SCRIPT SENT THE FOLLOWING REFERRALS TO : [facility], [facility], [facility] AT [facility], [facility] [place], [facility] CARE JAVA SQL DEVELOPER TO CONTINUE T0 FOLLOW
[2020-08-06 15:56] VITALS: BP 144/74; PULSE 97; RESP 18; TEMP 36.4; O2SAT 98
[2020-08-06] MEDS: Enoxaparin Sodium 40 MG/0.4 ML SYRINGE SUBCUT (18:22)
[2020-08-06 22:44] VITALS: RESP 18
[2020-08-06] MEDS: QUEtiapine Fumarate 25 MG TABLET PO (22:45)
[2020-08-07] VITALS (9 sets, daily range): BP systolic 109–142; BP diastolic 59–76; PULSE 72–108; RESP 16–20; TEMP 36.2–36.8; O2SAT 95–99
[2020-08-07] MEDS: oxyCODONE HCl Immed Release 5 MG TABLET 10 MG PO ×5 (00:30→18:56)
[2020-08-07] MEDS: Morphine Sulfate 4 MG/ML CARTRIDGE IVPUSH ×4 (02:52→16:54)
[2020-08-07] MEDS: 0.9 % Sodium Chloride Flush 3 ML SYRINGE IVFLUSH ×2 (07:21→16:56)
[2020-08-07] MEDS: Sennosides/Docusate Sodium TABLET 2 TAB PO ×2 (09:46→21:48)
[2020-08-07] MEDS: predniSONE 20 MG TABLET 40 MG PO (09:47)
[2020-08-07] MEDS: Omeprazole 20 MG CAPSULE.DR PO ×2 (09:47→21:48)
--- NOTE | 2020-08-07 11:29 | MHC.CM.PN ---
TOMER spoke to [facility] liaison, who reported they do not have a bed today and do not anticipate on over the weekend but will have one Monday. Currently, [facility] is the only rehab following.
--- NOTE | 2020-08-07 14:42 | P.PNIM_ITS ---
Subjective Subjective Date of Service: 08/07/20 Interval History: ongoing knee and ankle pain no fever/chills no GI symptoms Physical Exam Vital Signs: Vital Signs: Last Vital Signs Temp 98.3 F 08/07/20 07:48 Pulse 72 08/07/20 11:50 Resp 18 08/07/20 12:26 BP 121/70 08/07/20 11:50 Pulse Ox 99 08/07/20 11:50 Body Mass Index 31.5 Gen: in no acute distress HEENT: sclera anicteric, moist mucus membranes Neck: supple Lungs: clear to auscultation bilaterally Heart: regular rate and rhythm, no murmurs Abd: soft, non-tender, non-distended Ext: no edema Skin: no rash Neuro: alert and oriented x3, bilateral lower extremity tenderness yanira knees + ankles, ROM limited by pain Psych: appropriate affect Objective Data Current Medications Generic Name Dose Route Start Last Admin Trade Name Freq PRN Reason Stop Dose Admin Albuterol Sulfate 2 puff 08/01/20 04:11 Albuterol Sulfate 90 Mcg 8 Gm Inhaler INHALE Q4H PRN Shortness Of Breath Enoxaparin Sodium 40 mg 08/02/20 18:00 08/06/20 18:22 Enoxaparin Sodium 40 Mg/0.4 Ml Syringe SUBCUT 40 mg Q24H LORNA Administration Morphine Sulfate 4 mg 08/06/20 09:37 08/07/20 12:26 Morphine Sulfate 4 Mg/Ml Cartridge IVPUSH 4 mg Q4H PRN Administration Pain, Severe (Pain Scale 7-10) Omeprazole 20 mg 08/01/20 09:00 08/07/20 09:47 Omeprazole 20 Mg Capsule.Dr PO 20 mg BID LORNA Administration Oxycodone HCl 10 mg 08/03/20 16:24 08/07/20 09:47 Oxycodone Hcl Immed Release 5 Mg Tablet PO 10 mg Q4H PRN Administration Pain, Moderate (Pain Scale 4-6 Prednisone 40 mg 08/06/20 09:00 08/07/20 09:47 Prednisone 20 Mg Tablet PO 40 mg DAILY LORNA Administration Quetiapine Fumarate 25 mg 08/02/20 13:33 08/06/20 22:45 Quetiapine Fumarate 25 Mg Tablet PO 25 mg BEDTIME MRX1 PRN Administration insomnia Senna/Docusate Sodium 2 tab 08/05/20 11:15 08/07/20 09:46 Sennosides/Docusate Sodium Tablet PO 2 tab BID LORNA Administration Sodium Chloride 3 ml 08/01/20 08:00 08/07/20 07:21 0.9 % Sodium Chloride Flush 3 Ml Syringe IVFLUSH 3 ml QSHIFT LORNA Administration Labs CBC & Chem 7: 08/03/20 05:45 08/03/20 05:45 Microbiology Microbiology Results: Microbiology 07/31/20 19:19 Blood - Venous Blood Culture - Final No growth after 5 days. 07/31/20 19:19 Blood - Venous Blood Culture - Final No growth after 5 days. Assessment and Plan (1) Inflammatory polyarthritis: Problem details: This is probably due to STD,GC and chlamydia Also possibly post COVID syndrome Status: Acute (2) Asthma: Status: Acute Assessment and Plan: hospital d#7 25yo M previously admitted 07/20-07/24/20 for inflammatory polyarthralgia associated with erythema multiforme-like rash recently treated for chlamydia urethritis readmitted with persistent pain # inflammatory polyarthralgia - treated during last admission for disseminated gonococcemia but NAAT was negative; also negative HIV (4th gen + viral load), COVID, Lyme, BCx, and T pallidum. CRP + ESR elevated, urine with trace protein, RF negative, SARI negative, ANCA negative, HSV + mycoplasma IgG positive. HBV/HCV negative. C3/C4 and urine protein normal; CH50 pending. continue prednisone, taper gradually, f/u Rheumatology as outpt. recheck ESR and Lyme in about a month - [place] + morphine IV prn pain # polysubstance abuse - SWAT consult done # PTSD - psychiatry consult done; referred to counseling # prediabetes - diet/exercise counseled # VTE ppx - LMWH # dispo - PT/OT/neuro evals done, awaiting AIR vs STR placement
[2020-08-07] MEDS: Enoxaparin Sodium 40 MG/0.4 ML SYRINGE SUBCUT (16:56)
[2020-08-07] MEDS: Lidocaine 4 % Patch ADH..PATCH 2 PATCH TRANSDERMA (17:37)
[2020-08-07] MEDS: traZODone HCL 50 MG TABLET PO (21:48)
[2020-08-08] MEDS: 0.9 % Sodium Chloride Flush 3 ML SYRINGE IVFLUSH ×4 (00:40→21:26)
[2020-08-08 03:47] VITALS: BP 139/87; PULSE 91; RESP 20; TEMP 36.7; O2SAT 97
[2020-08-08] MEDS: Morphine Sulfate 4 MG/ML CARTRIDGE IVPUSH ×3 (06:48→19:25)
[2020-08-08] MEDS: oxyCODONE HCl Immed Release 5 MG TABLET 10 MG PO ×3 (09:19→23:13)
[2020-08-08] MEDS: Omeprazole 20 MG CAPSULE.DR PO ×2 (09:19→21:23)
[2020-08-08] MEDS: predniSONE 20 MG TABLET 40 MG PO (09:19)
[2020-08-08] MEDS: Lidocaine 4 % Patch ADH..PATCH 2 PATCH TRANSDERMA (09:20)
[2020-08-08] MEDS: Sennosides/Docusate Sodium TABLET 2 TAB PO ×2 (09:25→21:23)
--- NOTE | 2020-08-08 12:41 | HO.PM.IMPN ---
Subjective Subjective Date of Service: 08/08/20 Interval History: per PT AIR still recommended and I agree awaiting response from [facility] lidocaine patch helping with hip pain Physical Exam Vital Signs: Vital Signs: Last Vital Signs Temp 98.0 F 08/08/20 03:47 Pulse 91 08/08/20 03:47 Resp 20 08/08/20 03:47 BP 139/87 08/08/20 03:47 Pulse Ox 97 08/08/20 03:47 Body Mass Index 31.5 Gen: in no acute distress HEENT: sclera anicteric, moist mucus membranes Neck: supple Lungs: clear to auscultation bilaterally Heart: regular rate and rhythm, no murmurs Abd: soft, non-tender, non-distended Ext: no edema Skin: no rash Neuro: alert and oriented x3, bilateral lower extremity tenderness yanira knees + ankles, ROM limited by pain Psych: appropriate affect Objective Data Current Medications Generic Name Dose Route Start Last Admin Trade Name Freq PRN Reason Stop Dose Admin Albuterol Sulfate 2 puff 08/01/20 04:11 Albuterol Sulfate 90 Mcg 8 Gm Inhaler INHALE Q4H PRN Shortness Of Breath Enoxaparin Sodium 40 mg 08/02/20 18:00 08/07/20 16:56 Enoxaparin Sodium 40 Mg/0.4 Ml Syringe SUBCUT 40 mg Q24H LORNA Administration Lidocaine 2 patch 08/07/20 17:30 08/08/20 09:20 Lidocaine 4 % Patch Adh..Patch TRANSDERMA 2 patch DAILY LORNA Administration Protocol Morphine Sulfate 4 mg 08/07/20 14:44 08/08/20 06:48 Morphine Sulfate 4 Mg/Ml Cartridge IVPUSH 4 mg Q6H PRN Administration Pain, Severe (Pain Scale 7-10) Omeprazole 20 mg 08/01/20 09:00 08/08/20 09:19 Omeprazole 20 Mg Capsule.Dr PO 20 mg BID LORNA Administration Oxycodone HCl 10 mg 08/03/20 16:24 08/08/20 09:19 Oxycodone Hcl Immed Release 5 Mg Tablet PO 10 mg Q4H PRN Administration Pain, Moderate (Pain Scale 4-6 Prednisone 40 mg 08/06/20 09:00 08/08/20 09:19 Prednisone 20 Mg Tablet PO 40 mg DAILY LORNA Administration Quetiapine Fumarate 25 mg 08/02/20 13:33 08/06/20 22:45 Quetiapine Fumarate 25 Mg Tablet PO 25 mg BEDTIME MRX1 PRN Administration insomnia Senna/Docusate Sodium 2 tab 08/05/20 11:15 08/08/20 09:25 Sennosides/Docusate Sodium Tablet PO 2 tab BID LORNA Administration Sodium Chloride 3 ml 08/01/20 08:00 08/08/20 09:20 0.9 % Sodium Chloride Flush 3 Ml Syringe IVFLUSH 3 ml QSHIFT LORNA Administration Trazodone HCl 50 mg 08/07/20 17:20 08/07/20 21:48 Trazodone Hcl 50 Mg Tablet PO 50 mg BEDTIME PRN Administration Insomnia Labs CBC & Chem 7: 08/03/20 05:45 08/03/20 05:45 Microbiology Microbiology Results: Microbiology 07/31/20 19:19 Blood - Venous Blood Culture - Final No growth after 5 days. 07/31/20 19:19 Blood - Venous Blood Culture - Final No growth after 5 days. Assessment and Plan (1) Inflammatory polyarthritis: Status: Acute (2) Asthma: Status: Acute Assessment and Plan: hospital d#8 25yo M previously admitted 07/20-07/24/20 for inflammatory polyarthralgia associated with erythema multiforme-like rash recently treated for chlamydia urethritis readmitted with persistent pain # inflammatory polyarthralgia - treated during last admission for disseminated gonococcemia but NAAT was negative; also negative HIV (4th gen + viral load), COVID, Lyme, BCx, and T pallidum. CRP + ESR elevated, urine with trace protein, RF negative, SARI negative, ANCA negative, HSV + mycoplasma IgG positive. HBV/HCV negative. C3/C4 and urine protein normal; CH50 pending. continue prednisone, taper gradually, f/u Rheumatology as outpt. recheck ESR and Lyme in about a month - [place] + morphine IV prn pain, also lidocaine patch to hips # polysubstance abuse - SWAT consult done # PTSD - psychiatry consult done; referred to counseling # prediabetes - diet/exercise counseled # VTE ppx - LMWH # dispo - awaiting response from [facility]
[2020-08-08 16:00] VITALS: BP 144/86; PULSE 95; RESP 18; TEMP 36.1; O2SAT 98
[2020-08-08] MEDS: Enoxaparin Sodium 40 MG/0.4 ML SYRINGE SUBCUT (17:51)
[2020-08-08] MEDS: traZODone HCL 50 MG TABLET PO (21:31)
[2020-08-08] MEDS: QUEtiapine Fumarate 25 MG TABLET PO (21:31)
[2020-08-08 23:30] VITALS: BP 125/68; PULSE 90; RESP 20; TEMP 36.4; O2SAT 96
[2020-08-09] MEDS: Morphine Sulfate 4 MG/ML CARTRIDGE IVPUSH ×4 (03:37→22:36)
[2020-08-09 08:00] VITALS: BP 118/66; PULSE 59; RESP 18; TEMP 36.1; O2SAT 99
[2020-08-09] MEDS: predniSONE 10 MG TABLET 30 MG PO (09:33)
[2020-08-09] MEDS: Lidocaine 4 % Patch ADH..PATCH 2 PATCH TRANSDERMA (09:34)
[2020-08-09] MEDS: 0.9 % Sodium Chloride Flush 3 ML SYRINGE IVFLUSH ×3 (09:35→23:40)
[2020-08-09] MEDS: Sennosides/Docusate Sodium TABLET 2 TAB PO ×2 (09:35→20:21)
[2020-08-09] MEDS: Omeprazole 20 MG CAPSULE.DR PO ×2 (09:36→20:22)
--- NOTE | 2020-08-09 12:41 | P.PNIM_ITS ---
Subjective Subjective Date of Service: 08/09/20 Interval History: still c/o severe pain/weakness of hips, knees, ankles no fever/chills no rash Physical Exam Vital Signs: Vital Signs: Last Vital Signs Temp 96.9 F 08/09/20 08:00 Pulse 59 08/09/20 08:00 Resp 18 08/09/20 08:00 BP 118/66 08/09/20 08:00 Pulse Ox 99 08/09/20 08:00 Body Mass Index 31.5 Gen: in no acute distress HEENT: sclera anicteric, moist mucus membranes Neck: supple Lungs: clear to auscultation bilaterally Heart: regular rate and rhythm, no murmurs Abd: soft, non-tender, non-distended Ext: no edema Skin: no rash Neuro: alert and oriented x3, bilateral lower extremity tenderness yanira knees + ankles, ROM limited by pain Psych: appropriate affect Objective Data Current Medications Generic Name Dose Route Start Last Admin Trade Name Freq PRN Reason Stop Dose Admin Albuterol Sulfate 2 puff 08/01/20 04:11 Albuterol Sulfate 90 Mcg 8 Gm Inhaler INHALE Q4H PRN Shortness Of Breath Enoxaparin Sodium 40 mg 08/02/20 18:00 08/08/20 17:51 Enoxaparin Sodium 40 Mg/0.4 Ml Syringe SUBCUT 40 mg Q24H LORNA Administration Lidocaine 2 patch 08/07/20 17:30 08/09/20 09:34 Lidocaine 4 % Patch Adh..Patch TRANSDERMA 2 patch DAILY LORNA Administration Protocol Morphine Sulfate 4 mg 08/07/20 14:44 08/09/20 09:33 Morphine Sulfate 4 Mg/Ml Cartridge IVPUSH 4 mg Q6H PRN Administration Pain, Severe (Pain Scale 7-10) Omeprazole 20 mg 08/01/20 09:00 08/09/20 09:36 Omeprazole 20 Mg Capsule.Dr PO 20 mg BID LORNA Administration Oxycodone HCl 10 mg 08/09/20 12:40 Oxycodone Hcl Immed Release 5 Mg Tablet PO Q6H PRN moderate pain Prednisone 30 mg 08/09/20 09:00 08/09/20 09:33 Prednisone 10 Mg Tablet PO 30 mg DAILY LORNA Administration Quetiapine Fumarate 25 mg 08/02/20 13:33 08/08/20 21:31 Quetiapine Fumarate 25 Mg Tablet PO 25 mg BEDTIME MRX1 PRN Administration insomnia Senna/Docusate Sodium 2 tab 08/05/20 11:15 08/09/20 09:35 Sennosides/Docusate Sodium Tablet PO 2 tab BID LORNA Administration Sodium Chloride 3 ml 08/01/20 08:00 08/09/20 09:35 0.9 % Sodium Chloride Flush 3 Ml Syringe IVFLUSH 3 ml QSHIFT LORNA Administration Trazodone HCl 50 mg 08/07/20 17:20 08/08/20 21:31 Trazodone Hcl 50 Mg Tablet PO 50 mg BEDTIME PRN Administration Insomnia Labs CBC & Chem 7: 08/03/20 05:45 08/03/20 05:45 Microbiology Microbiology Results: Microbiology 07/31/20 19:19 Blood - Venous Blood Culture - Final No growth after 5 days. 07/31/20 19:19 Blood - Venous Blood Culture - Final No growth after 5 days. Assessment and Plan (1) Inflammatory polyarthritis: Status: Acute (2) Asthma: Status: Acute Assessment and Plan: hospital d#9 25yo M previously admitted 07/20-07/24/20 for inflammatory polyarthralgia associated with erythema multiforme-like rash previously treated for chlamydia urethritis with azithromycin readmitted with persistent pain # inflammatory polyarthralgia - treated during last admission for disseminated gonococcemia but NAAT was negative; also negative HIV (4th gen + viral load), COVID, Lyme, BCx, and T pallidum. CRP + ESR elevated, urine with trace protein, RF negative, SARI negative, ANCA negative, HSV + mycoplasma IgG positive. HBV/HCV negative. C3/C4 and urine protein normal; CH50 pending. continue prednisone, taper gradually, f/u Rheumatology as outpt. recheck ESR and Lyme in 3-4 wk - [place] + morphine IV prn pain, also lidocaine patch to hips # polysubstance abuse - SWAT consult done # PTSD - psychiatry consult done; referred to counseling # prediabetes - diet/exercise counseled # VTE ppx - LMWH # dispo - awaiting response from [facility], hopefully tomorrow
[2020-08-09] MEDS: oxyCODONE HCl Immed Release 5 MG TABLET 10 MG PO ×2 (14:25→20:21)
[2020-08-09 15:19] VITALS: BP 151/72; PULSE 116; RESP 18; TEMP 36.3; O2SAT 98
[2020-08-09] MEDS: Enoxaparin Sodium 40 MG/0.4 ML SYRINGE SUBCUT (16:34)
[2020-08-09] MEDS: polyethylene glycoL 3350 17 GM POWD.PACK PO (17:48)
[2020-08-09 18:49] VITALS: PULSE 86
[2020-08-09 19:18] VITALS: BP 135/73; RESP 19; TEMP 37.4; O2SAT 99
[2020-08-09] MEDS: QUEtiapine Fumarate 25 MG TABLET PO (20:22)
[2020-08-09] MEDS: traZODone HCL 50 MG TABLET PO (20:22)
[2020-08-10] MEDS: oxyCODONE HCl Immed Release 5 MG TABLET 10 MG PO ×5 (02:28→22:29)
[2020-08-10 05:50] VITALS: RESP 16
[2020-08-10] MEDS: Morphine Sulfate 4 MG/ML CARTRIDGE IVPUSH (05:50)
[2020-08-10 08:00] VITALS: BP 120/66; PULSE 75; RESP 20; TEMP 36; O2SAT 98
[2020-08-10] MEDS: polyethylene glycoL 3350 17 GM POWD.PACK PO (08:59)
[2020-08-10] MEDS: predniSONE 10 MG TABLET 30 MG PO (09:00)
[2020-08-10] MEDS: Lidocaine 4 % Patch ADH..PATCH 2 PATCH TRANSDERMA (09:00)
[2020-08-10] MEDS: Sennosides/Docusate Sodium TABLET 2 TAB PO ×2 (09:00→20:32)
[2020-08-10] MEDS: Omeprazole 20 MG CAPSULE.DR PO ×2 (09:01→20:32)
[2020-08-10] MEDS: 0.9 % Sodium Chloride Flush 3 ML SYRINGE IVFLUSH ×3 (09:01→20:33)
[2020-08-10 11:53] LABS: IDNOW Serial# 9DD0AD1C
[2020-08-10 11:54] LABS: COVID-19 Test Negative (Negative)
--- NOTE | 2020-08-10 12:39 | MHC.CM.PN ---
[facility] OFFERING A BED, PT HAS ACCEPTED. UPDATES SENT, INSURANCE AUTH REQUESTED. COVID SWAB CURRENTLY PENDING.
--- NOTE | 2020-08-10 14:37 | PM.DS ---
DS: Providers Provider Date of admission: 08/01/20 03:51 Primary care physician: [facility] Consults: 08/01/20 03:53 Consult to Psychiatry Routine Consulting Provider: Psychiatry,[facility] Reason for consultation: r/o underlying psychotic disorder Has provider been notified: No 08/01/20 08:40 Consult to Infectious Diseases Routine Consulting Provider: Caridad Clark Reason for consultation: gonococcal arthiritis 08/02/20 09:29 Consult to Infectious Diseases Routine Consulting Provider: Caridad Clark Reason for consultation: arthralgias, EM 08/02/20 15:32 Consult to Neurology Routine Consulting Provider: [facility] Reason for consultation: LE weakness 08/02/20 15:44 Consult to Care Team Routine Comment: Reason for consultation: polysubstance abuse DS: Diagnosis Discharge Diagnosis (1) Inflammatory polyarthritis: Status: Acute (2) Asthma: Status: Acute DS: Medications Discharge Medications Home Medications: Home Medications Medication Instructions Recorded Confirmed albuterol sulfate 2 puff INHALATION Q4H PRN 07/20/20 07/31/20 fluticasone propion-salmeterol 1 inh INHALATION BID 07/20/20 07/31/20 [Wixela Inhub] Previous Rx's Medication Instructions Recorded acetaminophen 650 mg PO Q6H PRN #0 tab 07/24/20 doxycycline hyclate 100 mg PO Q12H #14 tab 07/24/20 ibuprofen 800 mg PO Q8H PRN #21 tab 07/24/20 oxycodone 5 mg PO Q4H PRN #20 tab 07/24/20 indomethacin 75 mg PO BID 10 Days #20 cap 07/31/20 oxycodone 5 mg PO Q6H PRN 7 Days #20 tab 07/31/20 prednisone 60 mg PO DAILY 6 Days #18 tab 07/31/20 DS: Summary Hospital Course Hospital Course: History of Present Illness Date of Service: 08/01/20 Chief Complaint: Bilateral LE weakness 25 y/o male who presented from home due to inability to walk for 2 weeks. Patient is known to us, was admitted one week and a half ago as he reported that for 4 days prior woke up unable to move both of his legs and feeling numbness and pain of his extremities . Patient reported that prior to the events was treated for a chlamydia infection. 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 All work up was negative including: Gonorrhea, HIV, Covid, Lyme titers, Blood cx, syphilis, RF, SARI. Mycoplasma was positive. Patient was treated with Rocephin and discharged for one week of doxycycline and pain control, to follow up with rheumatology as outpatient. Now patient presents to the ED given that symptoms have persisted and patient is unable to walk, complaining of severe pain in his LE bilaterally. In the ED patient pateitn is mildly tachycardic 108 with BP of 129/64 mmHg. No evidence of fever. Blood work showing WBC of 16.2 which increased from 10.3, Platelet of 713 and ESR of 80. Patient was given one dose of prednisone per ED and decision for admission was given. Patient was seen and evaluated in the ED. ROS as above otherwise negative. Upon questioning patient it is evident that there is unbearable pain of bilateral LE' with tenderness. Severe weakness in Bilateral LE 1/5. Patients at times acting nervous/anxious and asking questions about different possible diagnosis. PMHX: Hx of Cocaine and Marijuana abuse, [facility] course: - Patient found to have r Inflammatory polyarthralgia with persistent pain. patient was admitted in June and treated with azithromycin for disseminated gonococcal see me a but NAAT was negative Workup also revealed negative HIV (4th gen + viral load), COVID, Lyme, BCx, and T pallidum. CRP + ESR elevated, urine with trace protein, RF negative, SARI negative, ANCA negative, HSV + mycoplasma IgG positive. HBV/HCV negative. C3/C4 and urine protein normal; CH50 pending. continue prednisone, taper gradually, f/u Rheumatology as outpt. recheck ESR and Lyme in 3-4 wk Patient's pain was managed with IV morphine as well as p.o. oxycodone. Patient reports that his pain is well controlled with the oxycodone and would like discontinuation of morphine at this time patient has better control of his pain . Will need follow-up with Rheumatology outpatient. Patient aware, has the phone number to the rheumatology clinic and has an appointment scheduled in September, would like an appointment sooner and will follow-up with the rheumatology clinic himself. Will discharge him with oxycodone, to go to [facility] rehab Pt also had some shortness of breath, which was treated with breathing treatments. he has no wheezing. will continue his home inhalers Time spent discussing smoking cessation with patient: more than 10 minutes Time Spent with Patient Time attestation: Total time spent providing and/or coordinating discharge services: Physical Exam Vital Signs: Vital Signs: Last Vital Signs Temp 96.8 F 08/10/20 08:00 Pulse 75 08/10/20 08:00 Resp 20 08/10/20 08:00 BP 120/66 08/10/20 08:00 Pulse Ox 98 08/10/20 08:00 Body Mass Index 31.5 Const: General: cooperative and no acute distress Orientation/consciousness: patient oriented x3 Eyes: General: appearance normal, both eyes and all related structures Pupils: Equal, round and reactive pupils present Resp: Effort & Inspection: normal respiratory effort and able to speak in complete sentences Auscultation: clear to auscultation bilaterally Cardio: Rate: regular rate Rhythm: regular rhythm GI: Palpation (GI): Soft to palpation Auscultation: normal bowel sounds Skin: General skin exam: no rashes or lesions noted Neuro: General: patient oriented x3 Cranial nerves: Yes Equal, round and reactive pupils present Cognition (Neuro): normal cognition Extrem: General: Yes normal to inspection and Yes no pedal edema DS: Data Data Completed and Pending Labs on day of discharge: 07/31/20 18:17 Morphine Sulfate 4 mg IVPUSH ONCE ONE cefTRIAXone sodium [Rocephin] 1 gm 0.9 % Sodium Chloride [Ns] 50 ml IV ONCE ondansetron HCL [Zofran] 4 mg IVPUSH ONCE ONE 07/31/20 18:18 diphenhydrAMINE HCL [Benadryl] 25 mg IVPUSH ONCE ONE 07/31/20 18:23 cefTRIAXone sodium [Rocephin] 1 gm .ROUTE .STK-MED ONE 07/31/20 19:19 Basic Metabolic Panel Stat Complete Blood Count Auto Diff Stat Erythrocyte Sedimentation Rate Stat Lactic Acid Stat Blood Culture X2 [BC] Stat 07/31/20 20:06 HYDROmorphone HCl [Dilaudid] 2 mg IVPUSH ONCE ONE 07/31/20 21:28 Indomethacin [Indocin] 50 mg PO ONCE ONE predniSONE 60 mg PO ONCE ONE 07/31/20 22:27 oxyCODONE HCl Immed Release [Roxicodone] 10 mg PO ONCE ONE 07/31/20 23:34 fentaNYL citrate/PF [Sublimaze] 25 mcg IVPUSH ONCE ONE 08/01/20 MR thoracic spine wo con Stat 08/01/20 00:46 HYDROmorphone HCl [Dilaudid] 2 mg IVPUSH ONCE ONE 08/01/20 02:09 Ketorolac Tromethamine [Toradol] 30 mg IVPUSH ONCE ONE dexAMETHasone sod phosphate [Decadron] 10 mg IVPUSH ONCE ONE 08/01/20 03:30 diphenhydrAMINE HCL [Benadryl] 25 mg IVPUSH ONCE ONE 08/01/20 03:49 COVID-19 ID NOW (Gomez) Stat 08/01/20 03:56 Transfer Order Routine 08/01/20 04:00 Heparin Sodium,Porcine 5,000 unit SUBCUT Q8H 08/01/20 06:00 methylPREDNISolone Sod Succ/PF [SOLU-MedroL] 40 mg IM Q24H 08/01/20 06:01 Basic Metabolic Panel Routine C Reactive Protein Stat Complete Blood Count Auto Diff Routine 08/01/20 08:00 methylPREDNISolone Sod Succ/PF [SOLU-MedroL] 40 mg IV Q24H 08/01/20 08:41 oxyCODONE HCl Immed Release [Roxicodone] 5 mg PO Q6H PRN 08/01/20 08:42 Ibuprofen [Motrin] 400 mg PO Q6H PRN 08/01/20 12:45 Ketorolac Tromethamine [Toradol] 30 mg IV Q6H PRN 08/01/20 13:45 MR lumbar spine wo con Stat 08/01/20 14:20 Potassium Routine 08/01/20 14:21 Morphine Sulfate 2 mg IVPUSH Q4H PRN 08/01/20 20:00 methylPREDNISolone Sod Succ/PF [SOLU-MedroL] 40 mg IV Q12H 08/01/20 23:35 Ketorolac Tromethamine [Toradol] 15 mg IV ONCE ONE 08/02/20 17:49 Protein Creatinine Ratio, Ur Stat UA w Microscopic Routine 08/02/20 18:25 oxyCODONE HCl Immed Release [Roxicodone] 5 mg PO Q4H PRN 08/03/20 05:44 HIV-1 RNA QN PCR Expanded Routine 08/03/20 05:45 C Reactive Protein Routine Complement C3 Routine Complement C4 Routine Complete Blood Count Auto Diff Routine Comprehensive Met. Panel Routine Erythrocyte Sedimentation Rate Routine Hemoglobin A1c Routine Hepatitis B,C Profile Routine 08/03/20 09:00 predniSONE 60 mg PO DAILY 08/03/20 16:24 oxyCODONE HCl Immed Release [Roxicodone] 10 mg PO Q4H PRN 08/03/20 17:36 SARS COV2 IgG Routine 08/03/20 23:40 Transfer Order Routine 08/04/20 14:24 COVID-19 ID NOW (Gomez) Stat 08/05/20 11:01 Morphine Sulfate 4 mg IVPUSH Q4H PRN polyethylene glycoL 3350 [Miralax] 17 gm PO ONCE ONE 08/06/20 09:00 predniSONE 40 mg PO DAILY 08/06/20 09:37 Morphine Sulfate 4 mg IVPUSH Q4H PRN 08/07/20 14:44 Morphine Sulfate 4 mg IVPUSH Q6H PRN 08/08/20 22:47 oxyCODONE HCl Immed Release [Roxicodone] 10 mg PO ONCE ONE 08/09/20 12:40 oxyCODONE HCl Immed Release [Roxicodone] 10 mg PO Q6H PRN 08/10/20 11:30 COVID-19 ID NOW ([facility]) Stat Laboratory Last Values WBC 9.9 X10*3/uL (4.8-10.8) 08/03/20 05:45 RBC 4.59 X10*6/uL (4.60-5.80) L 08/03/20 05:45 Hgb 12.3 g/dl (14.0-18.0) L 08/03/20 05:45 Hct 38.6 % (42-52) L 08/03/20 05:45 MCV 84.1 fL (80-98) 08/03/20 05:45 MCH 26.8 pg (27.0-33.0) L 08/03/20 05:45 MCHC 31.9 g/dl (31.0-36.0) 08/03/20 05:45 RDW 12.5 % (11.0-16.0) 08/03/20 05:45 Plt Count 705 X10*3/uL (160-400) H 08/03/20 05:45 MPV 8.7 fL (9.4-12.4) L 08/03/20 05:45 Immature Gran % (Auto) 0.3 % (0.0-0.4) 08/03/20 05:45 Neut % (Auto) 58.4 % (45-73) 08/03/20 05:45 Lymph % (Auto) 34.1 % (20-40) 08/03/20 05:45 Dare % (Auto) 6.7 % (2-11) 08/03/20 05:45 Eos % (Auto) 0.1 % (0-4) 08/03/20 05:45 Baso % (Auto) 0.4 % (0-2) 08/03/20 05:45 Lymph # (Auto) 3.4 X10*3/uL (1.2-4.9) 08/03/20 05:45 Dare # (Auto) 0.7 X10*3/uL (0.1-1.2) 08/03/20 05:45 Eos # (Auto) 0.0 X10*3/uL (0.0-0.4) 08/03/20 05:45 Baso # (Auto) 0.0 X10*3/uL (0.0-0.2) 08/03/20 05:45 Abs Immat Gran (auto) 0.03 X10*3/uL (0.00-0.03) 08/03/20 05:45 Absolute Neuts (auto) 5.8 X10*3/uL (2.0-8.3) 08/03/20 05:45 Absolute Nucleated RBC 0.000 X10*3/uL (0.0-0.012) 08/03/20 05:45 Nucleated RBC % (auto) 0.0 /100WBC (0.0-0.2) 08/03/20 05:45 ESR 59 MM/HR (0-15) H 08/03/20 05:45 Sodium 143 mmol/L (135-145) 08/03/20 05:45 Potassium 4.3 mmol/l (3.3-5.1) 08/03/20 05:45 Chloride 103 mmol/L (96-108) 08/03/20 05:45 Carbon Dioxide 31 mmol/L (22-29) H 08/03/20 05:45 Anion Gap 13 (12-20) 08/03/20 05:45 BUN 18 mg/dL (9-16) H 08/03/20 05:45 Creatinine 0.81 mg/dL (0.5-1.4) 08/03/20 05:45 Estim Creat Clear Calc 167.9 08/03/20 05:45 Estimated GFR > 60 08/03/20 05:45 Random Glucose 127 mg/dL (60-115) H D 08/03/20 05:45 Estimat Average Glucose 137 mg/dL 08/03/20 05:45 Hemoglobin A1c % 6.4 % 08/03/20 05:45 Lactic Acid 1.1 mmol/L (0.5-2.0) 07/31/20 19:19 Calcium 9.4 mg/dL (8.4-10.2) D 08/03/20 05:45 Total Bilirubin 0.4 mg/dL (0.0-1.0) 08/03/20 05:45 AST 10 U/L (5-37) 08/03/20 05:45 ALT 18 U/L (0-40) 08/03/20 05:45 Alkaline Phosphatase 71 U/L (39-117) 08/03/20 05:45 C-Reactive Protein 2.45 mg/dL (< or = 0.50) H 08/03/20 05:45 Total Protein 7.0 g/dL (6.5-8.0) 08/03/20 05:45 Albumin 3.6 g/dL (3.5-5.0) 08/03/20 05:45 Urine Color STRAW 08/02/20 17:49 Urine Appearance CLEAR 08/02/20 17:49 Urine pH 6.5 (5.0-8.0) 08/02/20 17:49 Ur Specific [place] 1.025 (1.005-1.025) 08/02/20 17:49 Urine Protein NEG MG/DL (NEG-TRACE) 08/02/20 17:49 Urine Glucose (UA) 250 MG/DL (NEG) H 08/02/20 17:49 Urine Ketones NEG MG/DL (NEG) 08/02/20 17:49 Urine Blood NEG (NEG) 08/02/20 17:49 Urine Nitrite NEG (NEG) 08/02/20 17:49 Ur Leukocyte Esterase NEG (NEG) 08/02/20 17:49 Urine RBC 0-2 /HPF (0) 08/02/20 17:49 Urine WBC 0 /HPF (0-4) 08/02/20 17:49 Ur Squamous Epith Cells TRACE /LPF 08/02/20 17:49 Urine Bacteria NONE /LPF 08/02/20 17:49 U Random Total Protein 8 mg/dL (<12) 08/02/20 17:49 Urine Creatinine 91.05 mg/dL 08/02/20 17:49 Protein/Creatinin Ratio 0.09 (<0.2) 08/02/20 17:49 Complement C3 133 mg/dL (82-185) 08/03/20 05:45 Complement C4 35 mg/dL (15-53) 08/03/20 05:45 COVID-19 (LUCÍA) Negative (Negative) 08/10/20 11:30 COVID-19 Clin Com See Note 08/10/20 11:30 Hep Bs Antigen Negative (Negative) 08/03/20 05:45 Hep Bs Antibody NONREACTIVE (Nonreactive) 08/03/20 05:45 Hep B Core Total Ab Nonreactive (Nonreactive) 08/03/20 05:45 Hepatitis C Ab (EIA) Nonreactive (Nonreactive) 08/03/20 05:45 HIV-1 RNA copies/mL <20 NOT DETECTED copies/mL (NOT DETECTED) 08/03/20 05:44 HIV-1 RNA logcopies/mL <1.30 NOT DETECTED (NOT DETECTED) 08/03/20 05:44 SARS-CoV-2 IgG Ab Negative (Negative) 08/03/20 17:36 Discharge Plan Discharge Patient Disposition: Xfer Inpatient Rehab Fac Referrals: Isidro Broderick MD [Physician] - 2 days ( inflammatory polyarthritis) [facility] [Primary Care Provider] - (Please call and choose a new primary care doctor.) Discharge Medications: New indomethacin 75 mg capsule, extended release 75 mg PO BID 10 Days Qty: 20 RF: 0 oxycodone 5 mg tablet 5 mg PO Q6H PRN (Reason: pain) 7 Days Qty: 20 RF: 0 prednisone 20 mg tablet 60 mg PO DAILY 6 Days Qty: 18 RF: 0 oxycodone 5 mg Tablet 10 mg PO Q4H PRN (Reason: moderate pain) Qty: 10 RF: 0 polyethylene glycol 3350 17 gram Powder In Packet 17 g PO DAILY Qty: 10 RF: 0 prednisone 10 mg tablet See Taper mg PO DAILY Qty: 18 RF: 0 Continued fluticasone propion-salmeterol [Wixela Inhub] 250-50 mcg/dose Blister With Device 1 inh INHALATION BID RF: 0 albuterol sulfate 90 mcg/actuation Hfa Aerosol Inhaler 2 puff INHALATION Q4H PRN (Reason: Shortness Of Breath) RF: 0 acetaminophen 325 mg Tablet 650 mg PO Q6H PRN (Reason: Pain, Mild (Pain Scale 1-3)) Qty: 0 RF: 0 oxycodone 5 mg Tablet 5 mg PO Q4H PRN (Reason: Pain, Severe (Pain Scale 7-10)) Qty: 20 RF: 0 Discontinued ibuprofen 800 mg Tablet 800 mg PO Q8H PRN (Reason: Pain And Fever) Qty: 21 RF: 0 doxycycline hyclate 100 mg Tablet 100 mg PO Q12H Qty: 14 RF: 0 Discharge Orders: Discharge Order (Routine); Ordered 08/10/20 Ordered By: Car Kim Activity on Discharge: As tolerated Patient Instructions: Arthritis (ED) Visit Report Forms: Patient Portal Discharge page Care Plan Goals: Recovery, avoid hospitalization, follow rheumatology, pain control Health Concerns: Polyarthralgia, substance abuse rehabilitation Plan of Treatment: [facility], to follow up with rheumatology for polyarthralgia
--- NOTE | 2020-08-10 15:07 | HO.PM.IMPN ---
Subjective Subjective Date of Service: 08/10/20 Interval History: Patient seen and examined at bedside. He reports his pain is better controlled, senior care patient may be discharged today to rehab pending authorization from insurance. pt reports mild wheezing in AM Physical Exam Vital Signs: Vital Signs: Last Vital Signs Temp 96.8 F 08/10/20 08:00 Pulse 75 08/10/20 08:00 Resp 20 08/10/20 08:00 BP 120/66 08/10/20 08:00 Pulse Ox 98 08/10/20 08:00 Body Mass Index 31.5 Const: General: cooperative and no acute distress Orientation/consciousness: patient oriented x3 Resp: Effort & Inspection: normal respiratory effort and able to speak in complete sentences Auscultation: clear to auscultation bilaterally Cardio: Rate: regular rate Rhythm: regular rhythm GI: Palpation (GI): Soft to palpation Auscultation: normal bowel sounds Skin: General skin exam: no rashes or lesions noted Neuro: General: patient oriented x3 Cognition (Neuro): normal cognition Extrem: General: Yes normal to inspection and Yes no pedal edema Objective Data Current Medications Generic Name Dose Route Start Last Admin Trade Name Freq PRN Reason Stop Dose Admin Albuterol Sulfate 2 puff 08/01/20 04:11 Albuterol Sulfate 90 Mcg 8 Gm Inhaler INHALE Q4H PRN Shortness Of Breath Albuterol/Ipratropium 3 ml 08/10/20 10:05 Albuterol/Iprat 2.5/0.5mg 3 Ml Ampul.Neb INHALE RQ4H PRN Shortness of Breath/Wheezing Enoxaparin Sodium 40 mg 08/02/20 18:00 08/09/20 16:34 Enoxaparin Sodium 40 Mg/0.4 Ml Syringe SUBCUT 40 mg Q24H LORNA Administration Fluticasone/Vilanterol 1 puff 08/11/20 08:00 Fluticasone/Vilanterol 200/25 Blst.W.Dev INHALE RDAILY LORNA Lidocaine 2 patch 08/07/20 17:30 08/10/20 09:00 Lidocaine 4 % Patch Adh..Patch TRANSDERMA 2 patch DAILY LORNA Administration Protocol Omeprazole 20 mg 08/01/20 09:00 08/10/20 09:01 Omeprazole 20 Mg Capsule.Dr PO 20 mg BID LORNA Administration Oxycodone HCl 10 mg 08/10/20 13:08 08/10/20 13:32 Oxycodone Hcl Immed Release 5 Mg Tablet PO 10 mg Q4H PRN Administration moderate pain Polyethylene Glycol 17 gm 08/09/20 17:15 08/10/20 08:59 Polyethylene Glycol 3350 17 Gm Powd.Pack PO 17 gm DAILY LORNA Administration Prednisone 30 mg 08/09/20 09:00 08/10/20 09:00 Prednisone 10 Mg Tablet PO 30 mg DAILY LORNA Administration Quetiapine Fumarate 25 mg 08/02/20 13:33 08/09/20 20:22 Quetiapine Fumarate 25 Mg Tablet PO 25 mg BEDTIME MRX1 PRN Administration insomnia Senna/Docusate Sodium 2 tab 08/05/20 11:15 08/10/20 09:00 Sennosides/Docusate Sodium Tablet PO 2 tab BID LORNA Administration Sodium Chloride 3 ml 08/01/20 08:00 08/10/20 09:01 0.9 % Sodium Chloride Flush 3 Ml Syringe IVFLUSH 3 ml QSHIFT LORNA Administration Trazodone HCl 50 mg 08/07/20 17:20 08/09/20 20:22 Trazodone Hcl 50 Mg Tablet PO 50 mg BEDTIME PRN Administration Insomnia Labs CBC & Chem 7: 08/03/20 05:45 08/03/20 05:45 Microbiology Microbiology Results: Microbiology 07/31/20 19:19 Blood - Venous Blood Culture - Final No growth after 5 days. 07/31/20 19:19 Blood - Venous Blood Culture - Final No growth after 5 days. Assessment and Plan (1) Inflammatory polyarthritis: Status: Acute (2) Asthma: Status: Acute Assessment and Plan: hospital d#10 25yo M previously admitted 07/20-07/24/20 for inflammatory polyarthralgia associated with erythema multiforme-like rash previously treated for chlamydia urethritis with azithromycin readmitted with persistent pain # inflammatory polyarthralgia - treated during last admission for disseminated gonococcemia but NAAT was negative; also negative HIV (4th gen + viral load), COVID, Lyme, BCx, and T pallidum. CRP + ESR elevated, urine with trace protein, RF negative, SARI negative, ANCA negative, HSV + mycoplasma IgG positive. HBV/HCV negative. C3/C4 and urine protein normal; CH50 pending. continue prednisone, taper gradually, f/u Rheumatology as outpt. recheck ESR and Lyme in 3-4 wk - Morphine DCd and switched to PO medication - will be discharged on Oxy - follow up with rheum on discharge - Pt will be discharged on prednisone taper # polysubstance abuse - [facility] # PTSD - psychiatry consult done; referred to counseling # prediabetes - diet/exercise counseled # VTE ppx - LMWH # dispo - awaiting response from [facility], hopefully tomorrow
--- NOTE | 2020-08-10 15:33 | MHC.CM.PN ---
TOMER SPOKE TO LIAISON AT [facility] WHO INDICATED THEY DID NOT YET HAVE AUTHORIZATION FROM THE INSURANCE COMPANY AND THOUGHT IT LIKELY WOULD NOT COME IN PRIOR TO TOMORROW MORNING. SHE ASKED THAT THE DC BE PLANNED FOR EARLY TOMORROW. , NURSE AND PATIENT AWARE. PLAN IS TO DC PATIENT TO [facility] Monday VIA BLS
--- NOTE | 2020-08-10 15:43 | MHC.CLN ---
F/U PO INTAKE GOOD DIET RX: REGULAR-APPROPRIATE 2000 CALORIES PER DAY WILL PROMOTE SLOW WT LOSS FOLLOWING
[2020-08-10 15:56] VITALS: BP 135/67; PULSE 92; RESP 20; TEMP 36.9; O2SAT 98
[2020-08-10] MEDS: Enoxaparin Sodium 40 MG/0.4 ML SYRINGE SUBCUT (17:48)
[2020-08-10 20:08] VITALS: BP 94/55; PULSE 70; RESP 20; TEMP 36.1; O2SAT 93
[2020-08-10] MEDS: QUEtiapine Fumarate 25 MG TABLET PO (20:32)
[2020-08-10] MEDS: traZODone HCL 50 MG TABLET PO (20:33)
[2020-08-10 23:32] VITALS: BP 125/81; PULSE 86; RESP 20; TEMP 36.7; O2SAT 99
[2020-08-11] MEDS: oxyCODONE HCl Immed Release 5 MG TABLET 10 MG PO ×3 (05:19→12:58)
[2020-08-11] MEDS: Fluticasone/Vilanterol 200/25 BLST.W.DEV 1 PUFF INHALE (07:16)
[2020-08-11 07:18] VITALS: PULSE 76; O2SAT 98
[2020-08-11 07:56] VITALS: BP 136/63; PULSE 72; RESP 15; TEMP 36.3; O2SAT 98
[2020-08-11] MEDS: Sennosides/Docusate Sodium TABLET 2 TAB PO (09:09)
[2020-08-11] MEDS: predniSONE 10 MG TABLET 30 MG PO (09:09)
[2020-08-11] MEDS: Omeprazole 20 MG CAPSULE.DR PO (09:09)
[2020-08-11] MEDS: Lidocaine 4 % Patch ADH..PATCH 2 PATCH TRANSDERMA (09:10)
[2020-08-11] MEDS: polyethylene glycoL 3350 17 GM POWD.PACK PO (09:11)
[2020-08-11] MEDS: 0.9 % Sodium Chloride Flush 3 ML SYRINGE IVFLUSH (09:13)
[2020-08-11 21:53] LABS: Complement Total CH50 >60 U/mL (31-60)
== END 2020-08-11 13:17 | DRG 351 ==
LOC: HO.ED 08-01 02:39 → HO.IMC 08-01 05:01 → HO.S3 08-03 23:44
PROVIDERS: Family Medicine; Internal Medicine; Nurse Practitioner Family; Admitting Provider Internal Medicine; Emergency Provider Internal Medicine; Visit Provider Internal Medicine
DX: M06.4 Inflammatory polyarthropathy (principal); E87.5 Hyperkalemia; F43.10 Post-traumatic stress disorder, unspecified; F17.210 Nicotine dependence, cigarettes, uncomplicated; F19.10 Other psychoactive substance abuse, uncomplicated; R73.03 Prediabetes; J45.909 Unspecified asthma, uncomplicated; Z71.6 Tobacco abuse counseling; Z20.828 Contact with and (suspected) exposure to other viral communicable diseases; Z88.0 Allergy status to penicillin; Z79.51 Long term (current) use of inhaled steroids; Z79.52 Long term (current) use of systemic steroids; Z79.899 Other long term (current) drug therapy
CPT/HCPCS: 36415; 72146; 72148; 80048; 80053; 81001; 83036; 83605; 84132; 84156; 85025; 85652; 86140; 86160; 86162; 86704; 86706; 86769; 86803; 87040; 87340; 87536; 87635; 96365; 96375; 96376; 97110; 97116; 97162; 97166; 97530; 97535; 99222; 99223; 99284; 99291; J0696; J1100; J1170; J1200; J1650; J1885; J2270; J2405; J2920; J3010

== ENCOUNTER 2020-10-08 11:14 | Outpatient (REF) | payer OTHER, SELFPAY ==
--- NOTE | ~2020-10-08 | XR_ITS ---
EXAMINATION: XR CHEST CLINICAL INFORMATION: Inflammatory polyarthropathy. COMPARISON: None TECHNIQUE: 2 views of the chest were obtained. FINDINGS: No significant abnormality is noted involving the heart, lungs, mediastinum, bony thorax or soft tissues. XR/XR chest 2V IMPRESSION: Unremarkable chest exam.
[2020-10-08 13:09] LABS: MANUAL DIFF FLAG NO
[2020-10-08 13:14] LABS: Basophils Absolute Auto 0.1 X10*3/uL (0.0-0.2); Basophils Percent Auto 0.8 % (0-2); Eosinophils Absolute Auto 0.3 X10*3/uL (0.0-0.4); Eosinophils Percent Auto 4.4 % (0-4); Hematocrit 41.6 % (42-52); Hemoglobin 13.6 g/dl (14.0-18.0); Imm Gran Abs Auto 0.02 X10*3/uL (0.00-0.03); Imm Gran Pct Auto 0.3 % (0.0-0.4); Lymphocytes Absolute Auto 2.8 X10*3/uL (1.2-4.9); Lymphocytes Percent Auto 38.2 % (20-40); Mean Corpuscular HGB Conc 32.7 g/dl (31.0-36.0); Mean Corpuscular Volume 82.5 fL (80-98); Mean Platelet Volume 9.5 fL (9.4-12.4); Monocytes Absolute Auto 0.5 X10*3/uL (0.1-1.2); Monocytes Percent Auto 7.4 % (2-11); Neutrophils Absolute Auto 3.5 X10*3/uL (2.0-8.3); Neutrophils Percent Auto 48.9 % (45-73); Platelet Count 503 X10*3/uL (160-400); Red Blood Count 5.04 X10*6/uL (4.60-5.80); White Blood Count 7.3 X10*3/uL (4.8-10.8)
[2020-10-08 13:41] LABS: Alanine Aminotransferase 30 U/L (0-40); Albumin Level 4.6 g/dL (3.5-5.0); Alkaline Phosphatase 90 U/L (39-117); Anion Gap 15 (12-20); Aspartate Amino Transferase 27 U/L (5-37); Bilirubin Total 0.6 mg/dL (0.0-1.0); Blood Urea Nitrogen 9 mg/dL (9-16); C Reactive Protein 0.24 mg/dL (< or = 0.50); Calcium 9.8 mg/dL (8.4-10.2); Carbon Dioxide 30 mmol/L (22-29); Chloride 98 mmol/L (96-108); Estimated Glomerular Filt Rate > 60; Glucose Random 107 mg/dL (60-115); Potassium 4.4 mmol/L (3.3-5.1); Sodium 139 mmol/L (135-145); Total Protein 7.8 g/dL (6.5-8.0); Uric Acid 7.7 mg/dL (3.4-7.0)
[2020-10-08 13:57] LABS: Erythrocyte Sedimentation Rate 11 MM/HR (0-15)
[2020-10-09 15:22] LABS: Cyclic Citrullinated Peptide <16 UNITS
[2020-10-11 07:26] LABS: Angiotensin Converting Enzyme 12 U/L (9-67)
[2020-10-13 13:32] LABS: HLA B27 Negative (Negative)
== END 2020-10-08 11:15 | disposition home or self-care (01) ==
LOC: HO.LAB 11:14
PROVIDERS: Visit Provider Student in an Organized Health Care Education/Training Program
DX: M06.4 Inflammatory polyarthropathy (principal)
CPT/HCPCS: 36415; 71046; 80053; 82164; 84550; 85025; 85652; 86140; 86200; 86812; 99202

== ENCOUNTER → 2020-10-28 10:05 | Outpatient (BNVA) | payer OTHER, SELFPAY | PROVIDERS: PCP Internal Medicine; Visit Provider Student in an Organized Health Care Education/Training Program | DX: M02.30 Reiter's disease, unspecified site (principal); Z79.899 Other long term (current) drug therapy | CPT/HCPCS: 99212 ==

== ENCOUNTER 2020-12-25 08:20 | Outpatient (REF) | payer OTHER, SELFPAY ==
[2020-12-25 09:50] LABS: MANUAL DIFF FLAG NO
[2020-12-25 09:59] LABS: Basophils Absolute Auto 0.1 X10*3/uL (0.0-0.2); Eosinophils Absolute Auto 0.4 X10*3/uL (0.0-0.4); Eosinophils Percent Auto 5.3 % (0-4); Hematocrit 41.3 % (42-52); Hemoglobin 13.7 g/dl (14.0-18.0); Imm Gran Abs Auto 0.02 X10*3/uL (0.00-0.03); Imm Gran Pct Auto 0.3 % (0.0-0.4); Lymphocytes Percent Auto 42.8 % (20-40); Mean Corpuscular HGB Conc 33.2 g/dl (31.0-36.0); Mean Corpuscular Volume 81.3 fL (80-98); Mean Platelet Volume 9.9 fL (9.4-12.4); Monocytes Absolute Auto 0.5 X10*3/uL (0.1-1.2); Monocytes Percent Auto 7.6 % (2-11); Platelet Count 492 X10*3/uL (160-400); Red Blood Count 5.08 X10*6/uL (4.60-5.80); Red Cell Distribution Width 13.1 % (11.0-16.0)
[2020-12-25 10:28] LABS: Alanine Aminotransferase 30 U/L (0-40); Albumin Level 4.1 g/dL (3.5-5.0); Alkaline Phosphatase 105 U/L (39-117); Anion Gap 13 (12-20); Aspartate Amino Transferase 21 U/L (5-37); Bilirubin Total 0.2 mg/dL (0.0-1.0); Blood Urea Nitrogen 11 mg/dL (9-16); C Reactive Protein 0.24 mg/dL (< or = 0.50); Calcium 9.3 mg/dL (8.4-10.2); Carbon Dioxide 28 mmol/L (22-29); Chloride 103 mmol/L (96-108); Estimated Glomerular Filt Rate > 60; Glucose Random 176 mg/dL (60-115); Potassium 4.7 mmol/L (3.3-5.1); Sodium 139 mmol/L (135-145); Total Protein 6.8 g/dL (6.5-8.0)
[2020-12-25 11:06] LABS: Erythrocyte Sedimentation Rate 7 MM/HR (0-15)
== END 2020-12-25 08:21 | disposition home or self-care (01) ==
LOC: HO.LAB 08:20
PROVIDERS: PCP Family Medicine; Visit Provider Student in an Organized Health Care Education/Training Program
DX: M02.30 Reiter's disease, unspecified site (principal); Z79.899 Other long term (current) drug therapy
CPT/HCPCS: 36415; 80053; 85025; 85652; 86140; 99212

== ENCOUNTER 2021-02-14 19:13 | Emergency (ER) | payer OTHER, SELFPAY ==
[2021-02-14 19:20] VITALS: BP 130/82; PULSE 112; O2SAT 99
[2021-02-14 19:22] VITALS: BP 112/70; PULSE 115; RESP 18; TEMP 36.8; O2SAT 96; BMI 37.1
--- NOTE | 2021-02-14 22:17 | ED.GENADULT ---
HPI - General Adult General Chief complaint: General Medical Stated complaint: WEAKNESS Time Seen by Provider: 02/14/21 22:17 Source: patient Mode of arrival: ambulatory History of Present Illness HPI narrative: 25-year-old male who presents with lower leg weakness but states that this is been ongoing since June was worse today and that he had some falls onto his knees. He uses crutches at baseline and denies any associated fever, chills, nausea, vomiting, decrease in appetite, diarrhea, urinary pain/burning/frequency. In addition, he denies any recent rashes and is otherwise taking his medication for underlying arthritis as directed. Patient denies any bowel or bladder dysfunction or numbness to the genital area. Related Data Home Medications Medication Instructions Recorded Confirmed albuterol sulfate 2 puff INHALATION Q4H PRN 07/20/20 10/28/20 fluticasone propion-salmeterol 1 inh INHALATION BID 07/20/20 10/28/20 [Wixela Inhub] gabapentin 300 mg capsule 300 mg PO TID 10/08/20 10/28/20 Previous Rx's Medication Instructions Recorded acetaminophen 650 mg PO Q6H PRN #0 tab 07/24/20 indomethacin 75 mg PO BID 10 Days #20 cap 07/31/20 polyethylene glycol 3350 17 g PO DAILY #10 ea 08/10/20 omeprazole 40 mg capsule,delayed 40 mg PO DAILY #90 cap 01/05/21 release sulfasalazine 500 mg tablet 500 mg PO BID #60 tab 01/15/21 Allergies Allergy/AdvReac Type Severity Reaction Status Date / Time amoxicillin [AMOXICILLIN] Allergy Intermediate HIVES,THROAT Verified 12/25/20 08:24 CLOSES Penicillins [PENICILLINS] AdvReac Intermediate HIVES,THROAT Verified 12/25/20 08:24 CLOSES Review of Systems Review of Systems: Pertinent positives and negatives as stated in HPI 10 point review of systems is otherwise negative. [facility] Past Medical History Source: nursing notes reviewed Medical History Arthralgia of ankle Asthma Denial GC arthritis Post traumatic stress disorder Family History Family History Father HTN (hypertension) Mother Asthma Social History Social History Household Members: Family Housing: House Do you presently have visiting nurse or other home services: No Alcohol intake: never Cigarette Packs Per Day: 0.25 Cigarettes Per Day: 5.0 Years Smoked: 3 Second Hand Smoke Exposure: No Substance Use Type: Marijuana Advance Directives: No Advance Directives Information Provided: No service: No Current occupational status: unemployed Physical Exam Vital Signs: Vital Signs: Last Vital Signs Temp 98.3 F 02/14/21 19:22 Pulse 115 H 02/14/21 19:22 Resp 18 02/14/21 19:22 BP 112/70 02/14/21 19:22 Pulse Ox 96 02/14/21 19:22 Body Mass Index 37.1 VITAL SIGNS: Reviewed. GENERAL: Well developed, well nourished, in no acute distress. HEAD: Normocephalic/atraumatic EYES: PERRLA, EOMI OROPHARYNX: no oral lesions noted, posterior pharynx clear NECK: Supple, no adenopathy LUNGS: Normal breath sounds. No adventitious sounds or accessory muscle use. SpO2<96> CARDIOVASCULAR: Regular rate and rhythm without noted murmurs, no JVD or lower extremity edema. ABDOMEN: Soft, non-tender, non-distended with bowel sounds. MUSCULOSKELETAL: No tenderness, deformities, or effusions noted on gross inspection. EXTREMITIES: No cyanosis, clubbing or edema. SKIN: Inspection of the skin reveals no rashes, ulcerations, jaundice, pallor, or petechiae. NEUROLOGIC: Alert and oriented x 4. Strength and sensation to light touch were grossly intact x 4. Course Course Course Narrative: 25-year-old male with history and clinical presentation of unclear etiology and currently compliant with his sulfasalazine/indomethacin/gabapentin. Review of all investigations negative for acute findings to include no evidence of inflammatory response with ESR/CRP within normal limits. Patient eating and ambulating well with crutches (which is baseline). Patient was discharged home in stable condition with instructions follow-up with his PCP tomorrow morning. Medical Decision Making Lab Data Result diagrams: 02/14/21 22:51 02/14/21 22:51 Labs: Lab Results 02/14/21 02/14/21 02/14/21 Range/Units 22:51 22:51 22:51 WBC 7.7 (4.8-10.8) X10*3/uL RBC 4.22 L (4.60-5.80) X10*6/uL Hgb 11.9 L (14.0-18.0) g/dl Hct 35.8 L (42-52) % MCV 84.8 (80-98) fL MCH 28.2 (27.0-33.0) pg MCHC 33.2 (31.0-36.0) g/dl RDW 13.2 (11.0-16.0) % Plt Count 368 D (160-400) X10*3/uL MPV 9.0 L (9.4-12.4) fL Immature Gran % (Auto) 0.3 (0.0-0.4) % Neut % (Auto) 57.3 (45-73) % Lymph % (Auto) 30.4 (20-40) % Perkins % (Auto) 6.2 (2-11) % Eos % (Auto) 4.8 H (0-4) % Baso % (Auto) 1.0 (0-2) % Lymph # (Auto) 2.3 (1.2-4.9) X10*3/uL Perkins # (Auto) 0.5 (0.1-1.2) X10*3/uL Eos # (Auto) 0.4 (0.0-0.4) X10*3/uL Baso # (Auto) 0.1 (0.0-0.2) X10*3/uL Abs Immat Gran (auto) 0.02 (0.00-0.03) X10*3/uL Absolute Neuts (auto) 4.4 (2.0-8.3) X10*3/uL Absolute Nucleated RBC 0.000 (0.0-0.012) X10*3/uL Nucleated RBC % (auto) 0.0 (0.0-0.2) /100WBC ESR 6 (0-15) MM/HR Sodium 139 (135-145) mmol/L Potassium 4.3 (3.3-5.1) mmol/L Chloride 105 (96-108) mmol/L Carbon Dioxide 24 (22-29) mmol/L Anion Gap 14 (12-20) BUN 14 (9-16) mg/dL Creatinine 1.28 (0.5-1.4) mg/dL Estim Creat Clear Calc 101.5 Estimated GFR > 60 Random Glucose 198 H (60-115) mg/dL Calcium 9.7 (8.4-10.2) mg/dL Magnesium 2.0 (1.6-2.6) mg/dL Total Bilirubin 0.6 (0.0-1.0) mg/dL AST 51 H (5-37) U/L ALT 81 H (0-40) U/L Alkaline Phosphatase 85 (39-117) U/L C-Reactive Protein 0.27 (< or = 0.50) mg/dL Total Protein 7.2 (6.5-8.0) g/dL Albumin 4.5 (3.5-5.0) g/dL Urine Color Urine Appearance Urine pH (5.0-8.0) Ur Specific [place] (1.005-1.025) Urine Protein (NEG-TRACE) MG/DL Urine Glucose (UA) (NEG) MG/DL Urine Ketones (NEG) MG/DL Urine Blood (NEG) Urine Nitrite (NEG) Ur Leukocyte Esterase (NEG) Ethyl Alcohol mg/dL 02/14/21 02/15/21 Range/Units 22:51 00:06 WBC (4.8-10.8) X10*3/uL RBC (4.60-5.80) X10*6/uL Hgb (14.0-18.0) g/dl Hct (42-52) % MCV (80-98) fL MCH (27.0-33.0) pg MCHC (31.0-36.0) g/dl RDW (11.0-16.0) % Plt Count (160-400) X10*3/uL MPV (9.4-12.4) fL Immature Gran % (Auto) (0.0-0.4) % Neut % (Auto) (45-73) % Lymph % (Auto) (20-40) % Perkins % (Auto) (2-11) % Eos % (Auto) (0-4) % Baso % (Auto) (0-2) % Lymph # (Auto) (1.2-4.9) X10*3/uL Perkins # (Auto) (0.1-1.2) X10*3/uL Eos # (Auto) (0.0-0.4) X10*3/uL Baso # (Auto) (0.0-0.2) X10*3/uL Abs Immat Gran (auto) (0.00-0.03) X10*3/uL Absolute Neuts (auto) (2.0-8.3) X10*3/uL Absolute Nucleated RBC (0.0-0.012) X10*3/uL Nucleated RBC % (auto) (0.0-0.2) /100WBC ESR (0-15) MM/HR Sodium (135-145) mmol/L Potassium (3.3-5.1) mmol/L Chloride (96-108) mmol/L Carbon Dioxide (22-29) mmol/L Anion Gap (12-20) BUN (9-16) mg/dL Creatinine (0.5-1.4) mg/dL Estim Creat Clear Calc Estimated GFR Random Glucose (60-115) mg/dL Calcium (8.4-10.2) mg/dL Magnesium (1.6-2.6) mg/dL Total Bilirubin (0.0-1.0) mg/dL AST (5-37) U/L ALT (0-40) U/L Alkaline Phosphatase (39-117) U/L C-Reactive Protein (< or = 0.50) mg/dL Total Protein (6.5-8.0) g/dL Albumin (3.5-5.0) g/dL Urine Color YELLOW Urine Appearance CLEAR Urine pH 6.0 (5.0-8.0) Ur Specific [place] >= 1.030 H (1.005-1.025) Urine Protein TRACE (NEG-TRACE) MG/DL Urine Glucose (UA) NEG (NEG) MG/DL Urine Ketones 5 (NEG) MG/DL Urine Blood NEG (NEG) Urine Nitrite NEG (NEG) Ur Leukocyte Esterase NEG (NEG) Ethyl Alcohol < 10 mg/dL Discharge Plan Discharge Clinical Impression: Reactive arthritis Patient Disposition: Home, Self-Care Instructions: Arthritis (ED) Additional Instructions: Resume all home medications as prescribed. Follow-up with your primary care provider tomorrow for re-evaluation and further investigations as indicated. Return to the ER for acute worsening of symptoms. Prescriptions: No Action omeprazole 40 mg capsule,delayed release(DR/EC) 40 mg PO DAILY Qty: 90 RF: 1 sulfasalazine 500 mg tablet 500 mg PO BID Qty: 60 RF: 3 fluticasone propion-salmeterol [Wixela Inhub] 250-50 mcg/dose Blister With Device 1 inh INHALATION BID RF: 0 albuterol sulfate 90 mcg/actuation Hfa Aerosol Inhaler 2 puff INHALATION Q4H PRN (Reason: Shortness Of Breath) RF: 0 acetaminophen 325 mg Tablet 650 mg PO Q6H PRN (Reason: Pain, Mild (Pain Scale 1-3)) Qty: 0 RF: 0 indomethacin 75 mg capsule, extended release 75 mg PO BID 10 Days Qty: 20 RF: 0 polyethylene glycol 3350 17 gram Powder In Packet 17 g PO DAILY Qty: 10 RF: 0 gabapentin 300 mg capsule 300 mg PO TID RF: 0 Referrals: Physician,Unknown [Primary Care Provider] - 2 days
[2021-02-14 22:58] LABS: MANUAL DIFF FLAG NO
[2021-02-14 22:59] LABS: Basophils Absolute Auto 0.1 X10*3/uL (0.0-0.2); Eosinophils Absolute Auto 0.4 X10*3/uL (0.0-0.4); Eosinophils Percent Auto 4.8 % (0-4); Hematocrit 35.8 % (42-52); Hemoglobin 11.9 g/dl (14.0-18.0); Imm Gran Abs Auto 0.02 X10*3/uL (0.00-0.03); Imm Gran Pct Auto 0.3 % (0.0-0.4); Lymphocytes Absolute Auto 2.3 X10*3/uL (1.2-4.9); Lymphocytes Percent Auto 30.4 % (20-40); Mean Corpuscular HGB Conc 33.2 g/dl (31.0-36.0); Mean Corpuscular Hemoglobin 28.2 pg (27.0-33.0); Mean Corpuscular Volume 84.8 fL (80-98); Monocytes Absolute Auto 0.5 X10*3/uL (0.1-1.2); Monocytes Percent Auto 6.2 % (2-11); Neutrophils Absolute Auto 4.4 X10*3/uL (2.0-8.3); Neutrophils Percent Auto 57.3 % (45-73); Platelet Count 368 X10*3/uL (160-400); Red Blood Count 4.22 X10*6/uL (4.60-5.80); Red Cell Distribution Width 13.2 % (11.0-16.0); White Blood Count 7.7 X10*3/uL (4.8-10.8)
[2021-02-14 23:22] LABS: Ethanol < 10 mg/dL
[2021-02-14 23:25] LABS: Alanine Aminotransferase 81 U/L (0-40); Albumin Level 4.5 g/dL (3.5-5.0); Alkaline Phosphatase 85 U/L (39-117); Anion Gap 14 (12-20); Aspartate Amino Transferase 51 U/L (5-37); Bilirubin Total 0.6 mg/dL (0.0-1.0); Blood Urea Nitrogen 14 mg/dL (9-16); C Reactive Protein 0.27 mg/dL (< or = 0.50); Calcium 9.7 mg/dL (8.4-10.2); Carbon Dioxide 24 mmol/L (22-29); Chloride 105 mmol/L (96-108); Creatinine Clr Calc Pharmacy 101.5; Estimated Glomerular Filt Rate > 60; Glucose Random 198 mg/dL (60-115); Potassium 4.3 mmol/L (3.3-5.1); Sodium 139 mmol/L (135-145); Total Protein 7.2 g/dL (6.5-8.0)
[2021-02-14 23:39] LABS: Erythrocyte Sedimentation Rate 6 MM/HR (0-15)
[2021-02-15 00:11] LABS: Appearance Urine CLEAR; Color Urine YELLOW; Glucose Urine UA NEG (NEG); Leukocyte Esterase Urine NEG (NEG); Nitrite Urine NEG (NEG); Specific Gravity - Urine >= 1.030 (1.005-1.025); UACC Culture Trigger NO; Urine Blood NEG (NEG); Urine Ketones 5 MG/DL (NEG); Urine Protein TRACE MG/DL (NEG-TRACE)
[2021-02-15 00:44] LABS: Amphetamine Screen Urine Not Detected (Not Detect); Barbiturates, Urine Not Detected (Not Detect); Benzodiazepines Screen Urine Not Detected (Not Detect); Cannabinoid Screen Urine Not Detected (Not Detect); Cocaine Screen Urine POSITIVE (Not Detect); Opiate Screen Urine Not Detected (Not Detect); Phencyclidine Screen Urine Not Detected (Not Detect)
== END 2021-02-15 00:43 | disposition home or self-care (01) ==
PROVIDERS: Emergency Provider Student in an Organized Health Care Education/Training Program
DX: M02.30 Reiter's disease, unspecified site (principal); I10 Essential (primary) hypertension; Z79.899 Other long term (current) drug therapy
CPT/HCPCS: 36415; 80053; 80307; 81003; 82077; 83735; 85025; 85652; 86140; 99283

== ENCOUNTER 2021-02-25 04:51 | Emergency (ER) | payer OTHER, SELFPAY | END 2021-02-25 05:05 | PROVIDERS: Emergency Provider Emergency Medicine; PCP Family Medicine | DX: M79.89 Other specified soft tissue disorders (principal) ==

== ENCOUNTER → 2022-03-24 11:01 | Outpatient (BNVA) | payer OTHER, SELFPAY | PROVIDERS: PCP Family Medicine; Visit Provider Internal Medicine Rheumatology | DX: M02.30 Reiter's disease, unspecified site (principal); Z79.899 Other long term (current) drug therapy | CPT/HCPCS: 36415; 80053; 85025; 85652; 86140; 99212 ==

== ENCOUNTER 2022-03-24 12:16 | Outpatient (REF) | payer OTHER, SELFPAY ==
[2022-03-24 13:38] LABS: MANUAL DIFF FLAG NO
[2022-03-24 13:52] LABS: Basophils Percent Auto 0.5 % (0-2); Eosinophils Absolute Auto 0.1 X10*3/uL (0.0-0.4); Eosinophils Percent Auto 1.2 % (0-4); Hematocrit 37.4 % (42.0-52.0); Hemoglobin 11.9 g/dl (14.0-18.0); Imm Gran Abs Auto 0.01 X10*3/uL (0.00-0.03); Imm Gran Pct Auto 0.2 % (0.0-0.4); Lymphocytes Absolute Auto 2.4 X10*3/uL (1.2-4.9); Lymphocytes Percent Auto 40.7 % (20-40); Mean Corpuscular HGB Conc 31.8 g/dl (31.0-36.0); Mean Corpuscular Hemoglobin 26.4 pg (27.0-33.0); Mean Corpuscular Volume 83.1 fL (80.0-98.0); Mean Platelet Volume 10.3 fL (9.4-12.4); Monocytes Absolute Auto 0.6 X10*3/uL (0.1-1.2); Monocytes Percent Auto 9.6 % (2-11); Neutrophils Absolute Auto 2.8 x10*3/uL (2.0-8.3); Neutrophils Percent Auto 47.8 % (45-73); Platelet Count 291 X10*3/uL (160-400); Red Cell Distribution Width 14.8 % (11.0-16.0); White Blood Count 5.9 X10*3/uL (4.8-10.8)
[2022-03-24 14:13] LABS: Alanine Aminotransferase 24 U/L (0-40); Albumin Level 4.5 g/dL (3.5-5.0); Alkaline Phosphatase 74 U/L (39-117); Anion Gap 11 (12-20); Aspartate Amino Transferase 28 U/L (5-37); Bilirubin Total 0.3 mg/dL (0.0-1.0); Blood Urea Nitrogen 12 mg/dL (9-16); C Reactive Protein 0.22 mg/dL (< or = 0.50); Calcium 9.3 mg/dL (8.4-10.2); Carbon Dioxide 27 mmol/L (22-29); Chloride 104 mmol/L (96-108); Estimated Glomerular Filt Rate > 60; Glucose Random 84 mg/dL (60-115); Potassium 4.3 mmol/L (3.3-5.1); Sodium 138 mmol/L (135-145)
[2022-03-24 14:36] LABS: Erythrocyte Sedimentation Rate 3 MM/HR (0-15)
== END 2022-03-24 12:17 | disposition home or self-care (01) ==
LOC: HO.10HDL 12:16
PROVIDERS: Visit Provider Internal Medicine Rheumatology
DX: Z13.89 Encounter for screening for other disorder (principal)
CPT/HCPCS: 36415; 80053; 85025; 85652; 86140

== ENCOUNTER → 2022-06-20 13:46 | Outpatient (BNVA) | payer OTHER, SELFPAY | PROVIDERS: PCP Family Medicine; Visit Provider Nurse Practitioner Family | DX: M02.30 Reiter's disease, unspecified site (principal); Z79.899 Other long term (current) drug therapy | CPT/HCPCS: 99212 ==

== ENCOUNTER 2022-09-06 12:03 | Outpatient (REF) | payer OTHER, SELFPAY ==
[2022-09-06 13:50] LABS: MANUAL DIFF FLAG NO
[2022-09-06 13:56] LABS: Basophils Absolute Auto 0.1 X10*3/uL (0.0-0.2); Basophils Percent Auto 0.8 % (0-2); Eosinophils Absolute Auto 0.1 X10*3/uL (0.0-0.4); Eosinophils Percent Auto 0.8 % (0-4); Hematocrit 39.9 % (42.0-52.0); Hemoglobin 12.7 g/dl (14.0-18.0); Imm Gran Abs Auto 0.02 X10*3/uL (0.00-0.03); Imm Gran Pct Auto 0.3 % (0.0-0.4); Lymphocytes Absolute Auto 2.4 X10*3/uL (1.2-4.9); Lymphocytes Percent Auto 30.8 % (20-40); Mean Corpuscular HGB Conc 31.8 g/dl (31.0-36.0); Mean Corpuscular Hemoglobin 27.1 pg (27.0-33.0); Mean Corpuscular Volume 85.1 fL (80.0-98.0); Mean Platelet Volume 9.8 fL (9.4-12.4); Monocytes Absolute Auto 0.5 X10*3/uL (0.1-1.2); Monocytes Percent Auto 6.8 % (2-11); Neutrophils Absolute Auto 4.8 x10*3/uL (2.0-8.3); Neutrophils Percent Auto 60.5 % (45-73); Platelet Count 433 X10*3/uL (160-400); Red Blood Count 4.69 X10*6/uL (4.60-5.80); Red Cell Distribution Width 13.8 % (11.0-16.0); White Blood Count 7.9 X10*3/uL (4.8-10.8)
[2022-09-06 14:22] LABS: Alanine Aminotransferase 29 U/L (0-40); Aspartate Amino Transferase 38 U/L (5-37); C Reactive Protein 0.41 mg/dL (< or = 0.50); Estimated Glomerular Filt Rate > 60
[2022-09-06 14:32] LABS: Creatinine Urine 119.38 mg/dL; Microalbum/Creatinine Ratio Ur 5.8 ug/mg cr
[2022-09-06 14:42] LABS: Erythrocyte Sedimentation Rate 8 MM/HR (0-15)
== END 2022-09-06 12:04 | disposition home or self-care (01) ==
LOC: HO.10HDL 12:03
PROVIDERS: Visit Provider Nurse Practitioner Family
DX: M02.30 Reiter's disease, unspecified site (principal); Z79.899 Other long term (current) drug therapy
CPT/HCPCS: 36415; 82043; 82565; 84450; 84460; 85025; 85652; 86140

== ENCOUNTER → 2022-09-27 08:39 | Outpatient (BNVA) | payer OTHER, SELFPAY | PROVIDERS: PCP Family Medicine; Visit Provider Nurse Practitioner Family | DX: M02.30 Reiter's disease, unspecified site (principal); M25.561 Pain in right knee; Z79.899 Other long term (current) drug therapy | CPT/HCPCS: 99212 ==

== ENCOUNTER 2022-10-03 11:19 | Inpatient (IN) | payer OTHER, SELFPAY ==
[2022-10-03] VITALS (10 sets, daily range): BP systolic 92–137; BP diastolic 60–96; PULSE 79–110; RESP 12–21; TEMP 36.1; O2SAT 94–100; BMI 34.4
--- NOTE | ~2022-10-03 | CT_ITS ---
EXAMINATION: CT HEAD WITHOUT CONTRAST CT CERVICAL SPINE WITHOUT CONTRAST CLINICAL INFORMATION: Altered mental status. Found on the ground COMPARISON: CT head 01/12/2013 TECHNIQUE: Imaging was performed from the skull base to vertex without intravenous administration of contrast. In addition, helical noncontrast CT imaging was acquired through the cervical spine and source images were reviewed along with axial reconstructions and sagittal and coronal MPRs. [This CT examination was performed using dose optimization techniques as appropriate, variously including the following: *Automated exposure control *Adjustment of mA and/or kV according to patient size (this includes techniques or standardized protocols for targeted exams where dose is matched to indication/reason for exam; i.e. extremities or head) *Use of iterative reconstruction technique] DLP: 627.88 mGy-cm FINDINGS: HEAD: No intracranial mass, hemorrhage, or midline shift is visualized. The ventricles and sulci are proportional. No extra-axial collections are identified. Mild sinus mucosal thickening in the ethmoid and right maxillary sinus. Mastoid air cells and middle ear cavities are normally aerated. CERVICAL SPINE: There is no evidence of acute cervical spine fracture. Vertebral bodies remain normal in height. Cervical vertebrae have normal alignment. Cervical disc heights are normal. Facet joints are normal. No pre- or paravertebral soft tissue abnormality is identified. Limited assessment of the lung apices is unremarkable. CT/CT head/brain wo IV con IMPRESSION: 1. No acute intracranial pathology. 2. No CT evidence of acute cervical spine fracture or traumatic subluxation
--- NOTE | ~2022-10-03 | XR_ITS ---
EXAMINATION: XR CHEST CLINICAL INFORMATION: Altered mental status. COMPARISON: October 08, 2020. TECHNIQUE: Portable AP view of the chest was obtained. XR/XR chest 1V FINDINGS/IMPRESSION: The study is limited by portable technique and low lung volumes. There is no gross acute radiographic finding. No infiltrate, effusion, pneumothorax is seen. The cardiac silhouette is suboptimally evaluated. The mediastinum, diaphragm, bones, and soft tissues appear unremarkable.
--- NOTE | ~2022-10-03 | CT_ITS ---
EXAMINATION: CT CHEST, ABDOMEN AND PELVIS WITH CONTRAST CLINICAL INFORMATION: Altered mental status. Found on the ground. COMPARISON: Chest x-ray 10/08/2020. CT abdomen pelvis 06/04/2011 TECHNIQUE: Multidetector volumetric CT imaging of the chest, abdomen and pelvis was obtained after the administration of 50 mL of intravenous Ultravist without immediate adverse reactions. [This CT examination was performed using dose optimization techniques as appropriate, variously including the following: *Automated exposure control *Adjustment of mA and/or kV according to patient size (this includes techniques or standardized protocols for targeted exams where dose is matched to indication/reason for exam; i.e. extremities or head) *Use of iterative reconstruction technique] DLP: 530+1425 mGy-cm. FINDINGS: CT CHEST: Lungs: The lungs are clear with no evidence of inflammation or nodules. Mediastinum: The mediastinum is normal. Pleura: There is no pleural effusion. No pleural mass or thickening. Axilla: No lymphadenopathy. CT ABDOMEN AND PELVIS: Liver, Gallbladder and Biliary Tree: The liver is normal in size, shape, and attenuation. No focal hepatic lesion or biliary ductal dilatation is present. The gallbladder is unremarkable with no evidence of radiopaque gallstones, gallbladder wall thickening, or obvious pericholecystic inflammatory changes. Pancreas: No acute change of the pancreas. No mass. No pancreatic duct dilatation. Spleen: Spleen normal in size and contour. No focal lesion. Adrenal Glands: Adrenal glands are normal in size. No focal mass. Kidneys and Ureters: The kidneys are normal in size, shape, and attenuation. No hydronephrosis, hydroureter, or calculi seen. No perinephric stranding. Bladder: Unremarkable. Gastrointestinal Tract: The small and large bowel are unremarkable. The appendix is unremarkable. Mesentery: No focal inflammation. No free fluid. No free air. Abdominal Wall: No significant hernia is appreciated. Lymph Nodes: Normal. Vascular: Unremarkable. Pelvic Viscera: Unremarkable. Osseous Structures: Unremarkable. CT/CT abdomen pelvis wo IV con IMPRESSION: Normal CT of the chest, abdomen and pelvis.
--- NOTE | ~2022-10-03 | CT_ITS ---
EXAMINATION: CT HEAD WITHOUT CONTRAST CT CERVICAL SPINE WITHOUT CONTRAST CLINICAL INFORMATION: Altered mental status. Found on the ground COMPARISON: CT head 01/12/2013 TECHNIQUE: Imaging was performed from the skull base to vertex without intravenous administration of contrast. In addition, helical noncontrast CT imaging was acquired through the cervical spine and source images were reviewed along with axial reconstructions and sagittal and coronal MPRs. [This CT examination was performed using dose optimization techniques as appropriate, variously including the following: *Automated exposure control *Adjustment of mA and/or kV according to patient size (this includes techniques or standardized protocols for targeted exams where dose is matched to indication/reason for exam; i.e. extremities or head) *Use of iterative reconstruction technique] DLP: 627.88 mGy-cm FINDINGS: HEAD: No intracranial mass, hemorrhage, or midline shift is visualized. The ventricles and sulci are proportional. No extra-axial collections are identified. Mild sinus mucosal thickening in the ethmoid and right maxillary sinus. Mastoid air cells and middle ear cavities are normally aerated. CERVICAL SPINE: There is no evidence of acute cervical spine fracture. Vertebral bodies remain normal in height. Cervical vertebrae have normal alignment. Cervical disc heights are normal. Facet joints are normal. No pre- or paravertebral soft tissue abnormality is identified. Limited assessment of the lung apices is unremarkable. CT/CT cervical spine wo IV con IMPRESSION: 1. No acute intracranial pathology. 2. No CT evidence of acute cervical spine fracture or traumatic subluxation
--- NOTE | ~2022-10-03 | CT_ITS ---
EXAMINATION: CT HEAD WITHOUT CONTRAST CLINICAL INFORMATION: Nonverbal COMPARISON: Head CT performed earlier 10/03/2022 TECHNIQUE: Imaging was performed from the skull base to vertex without intravenous administration of contrast. This CT examination was performed using dose optimization techniques as appropriate, variously including the following: *Automated exposure control *Adjustment of mA and/or kV according to patient size (this includes techniques or standardized protocols for targeted exams where dose is matched to indication/reason for exam; i.e. extremities or head) *Use of iterative reconstruction technique Total exam dose length product: 601 mGy-cm FINDINGS: No intra or extra-axial fluid collection, hemorrhage, or mass. No ventriculomegaly. No midline shift or herniation. Basal cisterns are patent. Altman-white matter differentiation is maintained. No territorial encephalomalacia. No significant volume loss. There is no abnormal attenuation within the brain parenchyma. No calvarial fracture or soft tissue abnormality. The mastoid air cells and visualized portions of the paranasal sinuses are well aerated. CT/CT head/brain wo IV con IMPRESSION: 1. No acute intracranial pathology.
--- NOTE | 2022-10-03 11:37 | ECG_ITS ---
Test Reason : ams Blood Pressure : / mmHG Vent. Rate : 094 BPM Atrial Rate : 094 BPM P-R Int : 128 ms QRS Dur : 092 ms QT Int : 356 ms P-R-T Axes : 028 060 021 degrees QTc Int : 445 ms Normal sinus rhythm Early Repolarization No previous ECGs available Referred By: Larisa Fernandez Electronically Signed By:VONNIE GRIGGS MD
[2022-10-03 12:01] LABS: MANUAL DIFF FLAG NO
[2022-10-03 12:02] LABS: Basophils Percent Auto 0.3 % (0-2); Hematocrit 39.6 % (42.0-52.0); Hemoglobin 13.3 g/dl (14.0-18.0); Imm Gran Abs Auto 0.04 X10*3/uL (0.00-0.03); Imm Gran Pct Auto 0.3 % (0.0-0.4); Lymphocytes Absolute Auto 2.7 X10*3/uL (1.2-4.9); Mean Corpuscular HGB Conc 33.6 g/dl (31.0-36.0); Mean Corpuscular Hemoglobin 27.2 pg (27.0-33.0); Mean Platelet Volume 9.7 fL (9.4-12.4); Monocytes Absolute Auto 0.9 X10*3/uL (0.1-1.2); Monocytes Percent Auto 7.3 % (2-11); Neutrophils Absolute Auto 8.2 x10*3/uL (2.0-8.3); Neutrophils Percent Auto 69.1 % (45-73); Platelet Count 385 X10*3/uL (160-400); Red Blood Count 4.89 X10*6/uL (4.60-5.80); Red Cell Distribution Width 14.3 % (11.0-16.0); White Blood Count 11.8 X10*3/uL (4.8-10.8)
[2022-10-03] MEDS: Naloxone HCl Nasal 4 MG SPRAY NOSTRILALT (12:15)
[2022-10-03 12:18] LABS: Acetone, serum QL Negative (Negative); Ammonia 35 umol/L (13-55)
[2022-10-03 12:20] LABS: INTERNATIONAL NORM RATIO 1.1 (0.9-1.1); Prothrombin Time 12.8 SEC (10.0-13.1)
[2022-10-03 12:29] LABS: Glucose, Whole Blood 162 mg/dL (60-115)
[2022-10-03 12:29] LABS: Ethanol < 10 mg/dL
[2022-10-03 12:32] LABS: Alanine Aminotransferase 28 U/L (0-40); Albumin Level 4.4 g/dL (3.5-5.0); Alkaline Phosphatase 76 U/L (39-117); Anion Gap 19 (12-20); Aspartate Amino Transferase 22 U/L (5-37); Bilirubin Total 0.6 mg/dL (0.0-1.0); Blood Urea Nitrogen 13 mg/dL (9-16); C Reactive Protein < 0.10 mg/dL (< or = 0.50); Calcium 9.6 mg/dL (8.4-10.2); Carbon Dioxide 25 mmol/L (22-29); Chloride 103 mmol/L (96-108); Creatinine Clr Calc Pharmacy 105.6; Estimated Glomerular Filt Rate > 60; Glucose Random 158 mg/dL (60-115); Lipase 8 U/L (8-78); Magnesium 1.7 mg/dL (1.6-2.6); Potassium 4.5 mmol/L (3.3-5.1); Salicylate < 5.0 mg/dL (15-30); Sodium 142 mmol/L (135-145); Total Protein 7.4 g/dL (6.5-8.0)
[2022-10-03 12:33] LABS: Troponin-I High Sensitivity < 3.5 ng/L (<3.5-35.0)
[2022-10-03 12:44] LABS: Lactic Acid 3.4 mmol/L (0.5-2.0)
--- NOTE | 2022-10-03 12:44 | PC.NURSE ---
patient arrived to the ed via ems responding to painful stimulus only, pt was administered narcan to rt nare with minimal response, watch crystal edge grinder applied- vitals stable, iv inserted, labs drawn, covid swab obtained, poc obtained, pt direct to ct scan, cxr performed, pt continues to be sleepy arousing only to painful stimulus but speech is garbled, ET CO2 applied- its ranging 35-41, per verbal order of provider pt to be straight cath
[2022-10-03 12:47] LABS: Influenza A PCR NEGATIVE (Negative); Influenza B PCR NEGATIVE (Negative); Resp Syncy Virus RNA Qual PCR NEGATIVE (Negative); SARS COV2 PCR INHOUSE NEGATIVE (Negative)
[2022-10-03 12:59] LABS: Erythrocyte Sedimentation Rate 3 MM/HR (0-15)
[2022-10-03] MEDS: 0.9 % Sodium Chloride 1,000 ML 999 ML IVCONT ×2 (13:01→14:06)
[2022-10-03 13:10] LABS: Venous Blood Gas Refer to POC result
[2022-10-03 13:10] LABS: VBG Base Excess 4.4 mmol/L; VBG HCO3 28 mmol/L (22-26); VBG pCO2 40 mmHg; VBG pH 7.45 (7.32-7.43); VBG pO2 120 mmHg
[2022-10-03] MEDS: cefTRIAXone sodium 2 GM in 0.9 % Sodium Chloride 50 ML IV (13:21)
--- NOTE | 2022-10-03 13:22 | PC.NURSE ---
pt responding only to painful stimulus, pt straight cath, info print press operator nsr, pts bp is soft- notified provider, ivf continue to run, pt noted to have marble implants under foreskin of penis- provider observed- puss noted oozing from one of the implants- pt straight cath'd per order, iv antibiotics running per order, will continue to monitor.
[2022-10-03 13:28] LABS: Appearance Urine Cloudy; Color Urine Yellow; Glucose Urine UA Negative (Negative); Leukocyte Esterase Urine Negative (Negative); Nitrite Urine Negative (Negative); Specific Gravity - Urine 1.025 (1.005-1.025); UMIC TRIGGER UACC YES; Urine Blood Negative (Negative); Urine Ketones Negative (Negative); Urine Protein 30 (1+) mg/dL (Neg-Trace)
[2022-10-03 13:36] LABS: Amphetamine Screen Urine Not Detected (Not Detect); Barbiturates, Urine Not Detected (Not Detect); Benzodiazepines Screen Urine Not Detected (Not Detect); Cannabinoid Screen Urine POSITIVE (Not Detect); Cocaine Screen Urine POSITIVE (Not Detect); Fentanyl, urine Not Detected (Not Detect); Opiate Screen Urine Not Detected (Not Detect); Phencyclidine Screen Urine Not Detected (Not Detect)
[2022-10-03 14:08] LABS: Bacteria Urine None Seen (None Seen); RBC Urine 0-2 /HPF (0-2); Squamous Epithelial Cell Urine 0-2 /HPF (0-2); WBC Urine 0-5 /HPF (0-5)
--- NOTE | 2022-10-03 14:09 | PC.NURSE ---
second bag of NS hung, vitals signs taken. pt remains unresponsive to verbal stimuli
[2022-10-03 14:28] LABS: Reflex Lactate? Lactic Acid Added
--- NOTE | 2022-10-03 14:47 | PC.NURSE ---
assumed care of patient at this time. NSR on the monitor, lethargic. vital signs stable at this time.
[2022-10-03 15:11] LABS: Glucose, Whole Blood 120 mg/dL (60-115)
--- NOTE | 2022-10-03 15:55 | ED.AMS ---
HPI - Altered Mental Status General Chief Complaint: Psychiatric Symptoms <TOBIN Jacobson - Last Filed: 10/03/22 17:43> Stated Complaint: AMS,?DRUG USE,SNORING RESP PER EMS <TOBIN Jacobson Last Filed: 10/03/22 17:43> Time Seen by Provider: 10/03/22 11:26 <TOBIN Jacobson - Last Filed: 10/03/22 17:43> Source: EMS <TOBIN Jacobson - Last Filed: 10/03/22 17:43> Mode of arrival: EMS <TOBIN Jacobson - Last Filed: 10/03/22 17:43> Limitations: altered mental status <TOBIN Jacobson Last Filed: 10/03/22 17:43> History of Present Illness HPI narrative: Male patient presenting to the ED after being found at a chair in [facility] outside sleeping. A bystander called PD PD called EMS and patient was brought here for further evaluation treatment. On arrival patient is altered appears pale and unable to give any history. Presenting as a Brijesh Lange. <TOBIN Jacobson - Last Filed: 10/03/22 17:43> MD complaint: altered mental status <TOBIN Jacobson - Last Filed: 10/03/22 17:43> Onset (ago): unknown <TOBIN Jacobson - Last Filed: 10/03/22 17:43> Context: drug abuse and history of similar presentation <TOBIN Jacobson Last Filed: 10/03/22 17:43> Related Data Home Medications: Home Medications Medication Instructions Recorded Confirmed albuterol sulfate 90 mcg/actuation 2 puff inhalation Q4H PRN 07/20/20 10/03/22 aerosol inhaler Shortness Of Breath citalopram 20 mg tablet 1 tab PO QAM 10/03/22 10/03/22 docusate sodium 100 mg capsule 1 cap PO DAILY constipation 10/03/22 10/03/22 gabapentin 100 mg capsule 1 cap PO TID 10/03/22 10/03/22 montelukast 10 mg tablet 1 tab PO DAILY 10/03/22 10/03/22 omeprazole 40 mg capsule,delayed 40 mg PO BEDTIME 10/03/22 10/03/22 release quetiapine 300 mg tablet (Seroquel) 1 tab PO QPM 10/03/22 10/03/22 quetiapine 50 mg tablet 1 tab PO BID 10/03/22 10/03/22 sulfasalazine 500 mg 2 tab PO BID 10/03/22 10/03/22 tablet,delayed release <TOBIN Jacobson - Last Filed: 10/03/22 17:43> Allergies/Adverse Reactions: Allergies Allergy/AdvReac Type Severity Reaction Status Date / Time amoxicillin [AMOXICILLIN] Allergy Intermediate HIVES,THROAT Verified 10/03/22 12:32 CLOSES Penicillins [PENICILLINS] AdvReac Intermediate HIVES,THROAT Verified 10/03/22 12:32 CLOSES <TOBIN Jacobson - Last Filed: 10/03/22 17:43> Review of Systems Review of Systems: Yes Unobtainable due to mental status <TOBIN Jacobson - Last Filed: 10/03/22 17:43> [facility] Past Medical History Source: old records reviewed and nursing notes reviewed <TOBIN Jacobson - Last Filed: 10/03/22 17:43> Medical History: Medical History Arthralgia of ankle Asthma Denial GC arthritis Post traumatic stress disorder <TOBIN Jacobson - Last Filed: 10/03/22 17:43> Surgical History: Surgical History No pertinent past surgical history <TOBIN Jacobson - Last Filed: 10/03/22 17:43> Family History Family History: Family History Father HTN (hypertension) Mother Asthma <TOBIN Jacobson - Last Filed: 10/03/22 17:43> Social History Social History: Social History Household Members: Family Housing: House Do you presently have visiting nurse or other home services: No Alcohol intake: current Patient Tobacco Use Status: Current everyday Tobacco user Cigarette Packs Per Day: 0.25 Cigarettes Per Day: 5.0 Years Smoked: 3 Second Hand Smoke Exposure: No Substance Use Type: Marijuana Advance Directives: No Advance Directives Information Provided: No Healthcare Proxy: No Guardian: No service: No Current occupational status: unemployed <TOBIN Jacobson - Last Filed: 10/03/22 17:43> Physical Exam ED Vital Signs: Vital Signs - 24 hr 10/03/22 11:29 10/03/22 12:00 10/03/22 13:20 Temperature Pulse Rate 110 H 87 83 Respiratory Rate 16 18 16 Blood Pressure 131/80 107/62 98/66 Pulse Oximetry 99 95 94 Oxygen Delivery Method Room Air 10/03/22 13:22 10/03/22 13:43 10/03/22 14:06 Temperature Pulse Rate 85 87 79 Respiratory Rate 14 16 18 Blood Pressure 92/65 104/68 101/61 Pulse Oximetry 97 95 95 Oxygen Delivery Method Room Air Room Air 10/03/22 15:02 10/03/22 17:17 10/03/22 19:41 Temperature 97 F Pulse Rate 100 83 83 Respiratory Rate 12 16 21 H Blood Pressure 137/96 H 131/88 108/60 Pulse Oximetry 100 98 95 Oxygen Delivery Method Room Air Room Air Room Air 10/04/22 06:14 Temperature 97.8 F Pulse Rate 76 Respiratory Rate 17 Blood Pressure 124/73 Pulse Oximetry 96 Oxygen Delivery Method Room Air BMI result Body Mass Index 34.4 vital signs have been reviewed as normal and appeared to be correct. Blood pressure normal. Heart rate 110. Respiration rate normal. Temperature normal. Oxygen saturation normal. <TOBIN Jacobson - Last Filed: 10/03/22 17:43> Vital Signs - 24 hr 10/03/22 11:29 10/03/22 12:00 10/03/22 13:20 Temperature Pulse Rate 110 H 87 83 Respiratory Rate 16 18 16 Blood Pressure 131/80 107/62 98/66 Pulse Oximetry 99 95 94 Oxygen Delivery Method Room Air 10/03/22 13:22 10/03/22 13:43 10/03/22 14:06 Temperature Pulse Rate 85 87 79 Respiratory Rate 14 16 18 Blood Pressure 92/65 104/68 101/61 Pulse Oximetry 97 95 95 Oxygen Delivery Method Room Air Room Air 10/03/22 15:02 10/03/22 17:17 10/03/22 19:41 Temperature 97 F Pulse Rate 100 83 83 Respiratory Rate 12 16 21 H Blood Pressure 137/96 H 131/88 108/60 Pulse Oximetry 100 98 95 Oxygen Delivery Method Room Air Room Air Room Air 10/04/22 06:14 Temperature 97.8 F Pulse Rate 76 Respiratory Rate 17 Blood Pressure 124/73 Pulse Oximetry 96 Oxygen Delivery Method Room Air BMI result Body Mass Index 34.4 <TOBIN Lawson - Last Filed: 10/04/22 00:31> Vital Signs - 24 hr 10/03/22 11:29 10/03/22 12:00 10/03/22 13:20 Temperature Pulse Rate 110 H 87 83 Respiratory Rate 16 18 16 Blood Pressure 131/80 107/62 98/66 Pulse Oximetry 99 95 94 Oxygen Delivery Method Room Air 10/03/22 13:22 10/03/22 13:43 10/03/22 14:06 Temperature Pulse Rate 85 87 79 Respiratory Rate 14 16 18 Blood Pressure 92/65 104/68 101/61 Pulse Oximetry 97 95 95 Oxygen Delivery Method Room Air Room Air 10/03/22 15:02 10/03/22 17:17 10/03/22 19:41 Temperature 97 F Pulse Rate 100 83 83 Respiratory Rate 12 16 21 H Blood Pressure 137/96 H 131/88 108/60 Pulse Oximetry 100 98 95 Oxygen Delivery Method Room Air Room Air Room Air 10/04/22 06:14 Temperature 97.8 F Pulse Rate 76 Respiratory Rate 17 Blood Pressure 124/73 Pulse Oximetry 96 Oxygen Delivery Method Room Air BMI result Body Mass Index 34.4 <Marquez Banks MD - Last Filed: 10/04/22 00:32> Vital Signs - 24 hr 10/03/22 11:29 10/03/22 12:00 10/03/22 13:20 Temperature Pulse Rate 110 H 87 83 Respiratory Rate 16 18 16 Blood Pressure 131/80 107/62 98/66 Pulse Oximetry 99 95 94 Oxygen Delivery Method Room Air 10/03/22 13:22 10/03/22 13:43 10/03/22 14:06 Temperature Pulse Rate 85 87 79 Respiratory Rate 14 16 18 Blood Pressure 92/65 104/68 101/61 Pulse Oximetry 97 95 95 Oxygen Delivery Method Room Air Room Air 10/03/22 15:02 10/03/22 17:17 10/03/22 19:41 Temperature 97 F Pulse Rate 100 83 83 Respiratory Rate 12 16 21 H Blood Pressure 137/96 H 131/88 108/60 Pulse Oximetry 100 98 95 Oxygen Delivery Method Room Air Room Air Room Air 10/04/22 06:14 Temperature 97.8 F Pulse Rate 76 Respiratory Rate 17 Blood Pressure 124/73 Pulse Oximetry 96 Oxygen Delivery Method Room Air BMI result Body Mass Index 34.4 <Rakesh Barger MD - Last Filed: 10/04/22 10:13> Appearance: Somnolent altered mental not speaking at this time. No acute distress. Head: Normal external exam. Normocephalic. Atraumatic. No Laboy signs noted. No raccoon eyes noted Eyes: PERRLA. EOMI. Conjunctiva and sclera normal. Eyelids normal. ENT: EAC normal. TM's Normal. No septal hematoma noted. No hemotympanum noted. Pharynx normal. Uvula midline. Moist mucous membranes. No lesions/ulcerations or masses noted on the tongue. No trismus noted. No drooling noted. No muffled voice noted. Neck: Normal inspection. Neck supple. FROM. No adenopathy. Thyroid Normal. No tracheal deviation noted. No crepitus is noted. No meningeal signs. No neck mass noted. No signs of trauma noted. CVS: Normal heart rate and rhythm. Heart sound normal. Pulses normal throughout. No murmurs/rales/gallops. Respiratory: No respiratory distress. Painless inspiration. Breath sounds normal. No wheezes/rales/rhonchi noted. Chest nontender. No crepitus is noted. No signs of trauma noted. No accessory muscle usage noted or decreased air movement noted. No signs of trauma. Abdomen: Soft and nontender. Bowel sounds normal in all 4 quadrants. No distention noted. No organomegaly noted. No visible injury noted. Back: No CVA tenderness. Full range of motion noted. Nontender. No signs of trauma. Patient neuro intact bilaterally and distally on all 4 extremities. Patient's reflexes intact bilaterally and distally on all 4 extremities. No rashes/lesion/induration/fluctuance or signs of infection noted. exam: Patient is noted to have intradermal implants on the penile shaft one is shaped like a cross the other is any regular shape and there is mild purulent drainage from this intradermal implant that he has. No surrounding erythema or streaking noted. Skin: Skin warm and dry. Normal skin pallor. Normal skin turgor. No rashes/lesions/lacerations noted. Extremities: No lower extremity edema. No calf tenderness is noted. Extremities exhibit normal range of motion and nontender. Neuro: Somnolent altered mental not able to participate in history or physical. No obvious motor deficit patient is moving all extremities. Responds to painful stimuli. Reflexes normal. Unable to assess cranial nerves due to altered mental status. Vascular: + radial pulses/+ 2 distal pedal pulses/+2 dorsalis pedis b/l. Normal cap refill. No cyanosis noted to upper extremity nails and lower extremity toes nails. <TOBIN Jacobson - Last Filed: 10/03/22 17:43> Course Course Course Narrative: 11:35am - Male patient presenting to the ED after being found at a chair in [facility] outside sleeping. A bystander called PD PD called EMS and patient was brought here for further evaluation treatment. On arrival patient is altered appears pale and unable to give any history. Presenting as a Brijesh Lange. Patient presenting with altered mental status. The differential includes toxic metabolic etiologies such as electrolyte disturbances (Na/Ca), hypoglycemia, and uremia; acidosis states, infection (i.e. Sepsis); toxidromes of intoxication or withdrawal, hypoxemia or hypercarbia, liver disease or failure causing hepatic encephalopathy, endocrine emergencies (hyper/hypothyroidism, adrenal insufficiency), seizure, trauma, intracranial bleeds or ischemic stroke. Given this wide differential, will send basic labs and lytes to evaluate for metabolic causes, FSBS, LFTs, CT head/cervical spine/chest/abdomen pelvis without IV contrast, blood gas, blood cultures, lactic acid. Provide fluids and re-evaluate. <TOBIN Jacobson - Last Filed: 10/03/22 17:43> Reevaluation(s) Reevaluation #1: The mother ended up calling the patient due to she was concerned about him and we were able to find out the patient's name and date of and find his chart. It appears that the patient has a past medical history of substance abuse with marijuana and cocaine along with anxiety and depression and asthma. Mother reports that over the past few days he has not been sleeping has been up all night roaming the streets not really responsive not talking very paranoid and very suicidal. Therefore he was coming here earlier today for that although left before signing and earlier today and then he was found at [facility] sleeping in a chair. She reports that he is not taking any medications and she has not seen him personally do any drugs. Although she reports that he occasionally goes to [place] to his grandmother's house and she is unsure what he does there. She reports she is very concerned about his mental health because he was suicidal. At this time patient is still very somnolent we did attempt to give Narcan without any affect. Labs reviewed - leukocytosis of 11,000. - VBG pH 7.45 and HC03 28 otherwise the rest of the VBG within normal limits. - point of care 162. - lactic acid 3.4. - total CPK 193 - UA revealed protein otherwise no evidence of UTI. - patient positive for cocaine/marijuana negative for all other drugs - ethanol level negative. - negative acetone - patient negative for COVID/RSV/flu. Otherwise all other labs are within normal limits Imaging - CT scan of brain/cervical spine negative for any acute processes. - CT scan of chest and abdomen pelvis without IV contrast negative for any acute processes. Plan: Patient was noted to have some purulent discharge from the intradermal implants that he has on the shaft of the penis therefore he was given IV Rocephin. At this time patient is stable although still very somnolent. Does respond to painful stimuli. Therefore will wait into the patient is more alert and then patient will need to be seen by crisis. Will continue to monitor. <TOBIN Jacobson - Last Filed: 10/03/22 17:43> Time: 12:30 <TOBIN Jacobson - Last Filed: 10/03/22 17:43> Reevaluation #2: Patient is still very somnolent although we were able to wake him up so Rochelle Brewster NP from psych could talk to the patient and he reports he knows he is at the hospital and he is denying any SI to us. He reports that he only use cocaine no other drugs. Plan: Rochelle rBewster NP Psych came to see the patient and she recommeneded 2mg IV ativan and 2.5 mg of haldol. Therefore ordered at this time will re-evaluate. <TOBIN Jacobson - Last Filed: 10/03/22 17:43> Time: 17:16 <TOBIN Jacobson - Last Filed: 10/03/22 17:43> Reevaluation #3: - Sign out to BE Chauhan pending re-evaluation patient needs to be more awake for better history. <TOBIN Jacobson - Last Filed: 10/03/22 17:43> Time: 17:42 <TOBIN Jacobson - Last Filed: 10/03/22 17:43> Additional Reevaluation(s): Lactic normalized. I went to go evaluate patient myself patient awakes to sternal rub however is not speaking to me. There is concerns for catatonia, patient placed on a Section 12, will be evaluated by the care team. Will be moved to the pod as he is currently medically cleared. At this time patient will be placed into observation to allow more time to be evaluated by the care team. At time observation was started patient common cooperative no acute distress awake to painful and verbal stimuli however is not responding to questions. 0030 CT of head and brain with no acute intracranial pathology. Patient will be in in-patient Section 12 bed search at this time. <TOBIN Lawson - Last Filed: 10/04/22 00:31> Lactic normalized. I went to go evaluate patient myself patient awakes to sternal rub however is not speaking to me. There is concerns for catatonia, patient placed on a Section 12, will be evaluated by the care team. Will be moved to the pod as he is currently medically cleared. At this time patient will be placed into observation to allow more time to be evaluated by the care team. At time observation was started patient common cooperative no acute distress awake to painful and verbal stimuli however is not responding to questions. 0030 CT of head and brain with no acute intracranial pathology. Patient will be in in-patient Section 12 bed search at this time. Sep 03 2022 10 AM Signed out to me at [address] GRANADOS pt has been medically cleared on Section 12 inpatient level of care For SI/HI /substance abuse,no event overnight,remain stable clinically <Rakesh Barger MD - Last Filed: 10/04/22 10:13> Consultations Consultation #1: Patient is a bed search, no acute complaints at this time. Dr Granados to assume care <Marquez Banks MD - Last Filed: 10/04/22 00:32> Medications Administered Generic Name Dose Route Start Last Admin Trade Name Sherif PRN Reason Stop Dose Admin Docusate Sodium 100 mg 10/04/22 09:00 10/04/22 08:49 Docusate Sodium 100 Mg Capsule PO 100 mg DAILY LORNA Administration Doxycycline Monohydrate 100 mg 10/03/22 21:00 10/04/22 08:49 Doxycycline Monohydrate 100 Mg Capsule PO 100 mg BID LORNA Administration Escitalopram Oxalate 10 mg 10/04/22 09:00 10/04/22 08:49 Escitalopram Oxalate 10 Mg Tablet PO 10 mg DAILY LORNA Administration Gabapentin 100 mg 10/04/22 09:00 10/04/22 08:49 Gabapentin 100 Mg Capsule PO 100 mg TID LORNA Administration Montelukast Sodium 10 mg 10/04/22 09:00 10/04/22 08:49 Montelukast Sodium 10 Mg Tablet PO 10 mg DAILY LORNA Administration Omeprazole 40 mg 10/04/22 21:00 10/04/22 01:05 Omeprazole 40 Mg Capsule.Dr PO 40 mg BEDTIME LORNA Administration Quetiapine Fumarate 300 mg 10/04/22 00:30 10/04/22 01:05 Quetiapine Fumarate 300 Mg Tablet PO 300 mg BEDTIME LORNA Administration Quetiapine Fumarate 50 mg 10/04/22 09:00 10/04/22 08:49 Quetiapine Fumarate 50 Mg Tablet PO 50 mg BID LORNA Administration Discontinued Medications Generic Name Dose Route Start Last Admin Trade Name Sherif PRN Reason Stop Dose Admin Haloperidol Lactate 2.5 mg 10/03/22 17:16 10/03/22 17:31 Haloperidol Lactate 5 Mg/Ml Vial IVPUSH 10/03/22 17:17 2.5 mg ONCE ONE Administration Sodium Chloride 1,000 mls @ 999 mls/hr 10/03/22 13:00 10/03/22 14:02 Ns IVCONT 10/03/22 14:00 Infused .Q1H1M LORNA Infusion Ceftriaxone Sodium 2 gm/ 50 mls @ 100 mls/hr 10/03/22 13:07 10/03/22 13:51 Sodium Chloride IV 10/03/22 13:36 Infused ONCE ONE Infusion Sodium Chloride 1,000 mls @ 999 mls/hr 10/03/22 13:30 10/03/22 15:54 Ns IVCONT 10/03/22 14:30 Infused .Q1H1M LORNA Infusion Lorazepam 2 mg 10/03/22 17:01 10/03/22 17:15 Lorazepam 2 Mg/Ml Vial IVPUSH 10/03/22 17:02 2 mg ONCE ONE Administration Naloxone HCl 4 mg 10/03/22 11:42 10/03/22 12:15 Naloxone Hcl Nasal 4 Mg [place] NOSTRILALT 10/03/22 11:43 4 mg ONCE ONE Administration <TOBIN Jacobson - Last Filed: 10/03/22 17:43> Medications Administered Generic Name Dose Route Start Last Admin Trade Name Freq PRN Reason Stop Dose Admin Docusate Sodium 100 mg 10/04/22 09:00 10/04/22 08:49 Docusate Sodium 100 Mg Capsule PO 100 mg DAILY LORNA Administration Doxycycline Monohydrate 100 mg 10/03/22 21:00 10/04/22 08:49 Doxycycline Monohydrate 100 Mg Capsule PO 100 mg BID LORNA Administration Escitalopram Oxalate 10 mg 10/04/22 09:00 10/04/22 08:49 Escitalopram Oxalate 10 Mg Tablet PO 10 mg DAILY LORNA Administration Gabapentin 100 mg 10/04/22 09:00 10/04/22 08:49 Gabapentin 100 Mg Capsule PO 100 mg TID LRONA Administration Montelukast Sodium 10 mg 10/04/22 09:00 10/04/22 08:49 Montelukast Sodium 10 Mg Tablet PO 10 mg DAILY LORNA Administration Omeprazole 40 mg 10/04/22 21:00 10/04/22 01:05 Omeprazole 40 Mg Capsule.Dr PO 40 mg BEDTIME LORNA Administration Quetiapine Fumarate 300 mg 10/04/22 00:30 10/04/22 01:05 Quetiapine Fumarate 300 Mg Tablet PO 300 mg BEDTIME LORNA Administration Quetiapine Fumarate 50 mg 10/04/22 09:00 10/04/22 08:49 Quetiapine Fumarate 50 Mg Tablet PO 50 mg BID LORNA Administration Discontinued Medications Generic Name Dose Route Start Last Admin Trade Name Freq PRN Reason Stop Dose Admin Haloperidol Lactate 2.5 mg 10/03/22 17:16 10/03/22 17:31 Haloperidol Lactate 5 Mg/Ml Vial IVPUSH 10/03/22 17:17 2.5 mg ONCE ONE Administration Sodium Chloride 1,000 mls @ 999 mls/hr 10/03/22 13:00 10/03/22 14:02 Ns IVCONT 10/03/22 14:00 Infused .Q1H1M LORNA Infusion Ceftriaxone Sodium 2 gm/ 50 mls @ 100 mls/hr 10/03/22 13:07 10/03/22 13:51 Sodium Chloride IV 10/03/22 13:36 Infused ONCE ONE Infusion Sodium Chloride 1,000 mls @ 999 mls/hr 10/03/22 13:30 10/03/22 15:54 Ns IVCONT 10/03/22 14:30 Infused .Q1H1M LORNA Infusion Lorazepam 2 mg 10/03/22 17:01 10/03/22 17:15 Lorazepam 2 Mg/Ml Vial IVPUSH 10/03/22 17:02 2 mg ONCE ONE Administration Naloxone HCl 4 mg 10/03/22 11:42 10/03/22 12:15 Naloxone Hcl Nasal 4 Mg [place] NOSTRILALT 10/03/22 11:43 4 mg ONCE ONE Administration <TOBIN Lawson - Last Filed: 10/04/22 00:31> Medications Administered Generic Name Dose Route Start Last Admin Trade Name Berryq PRN Reason Stop Dose Admin Docusate Sodium 100 mg 10/04/22 09:00 10/04/22 08:49 Docusate Sodium 100 Mg Capsule PO 100 mg DAILY LORNA Administration Doxycycline Monohydrate 100 mg 10/03/22 21:00 10/04/22 08:49 Doxycycline Monohydrate 100 Mg Capsule PO 100 mg BID LORNA Administration Escitalopram Oxalate 10 mg 10/04/22 09:00 10/04/22 08:49 Escitalopram Oxalate 10 Mg Tablet PO 10 mg DAILY LORNA Administration Gabapentin 100 mg 10/04/22 09:00 10/04/22 08:49 Gabapentin 100 Mg Capsule PO 100 mg TID LORNA Administration Montelukast Sodium 10 mg 10/04/22 09:00 10/04/22 08:49 Montelukast Sodium 10 Mg Tablet PO 10 mg DAILY LORNA Administration Omeprazole 40 mg 10/04/22 21:00 10/04/22 01:05 Omeprazole 40 Mg Capsule.Dr PO 40 mg BEDTIME LORNA Administration Quetiapine Fumarate 300 mg 10/04/22 00:30 10/04/22 01:05 Quetiapine Fumarate 300 Mg Tablet PO 300 mg BEDTIME LORNA Administration Quetiapine Fumarate 50 mg 10/04/22 09:00 10/04/22 08:49 Quetiapine Fumarate 50 Mg Tablet PO 50 mg BID LORNA Administration Discontinued Medications Generic Name Dose Route Start Last Admin Trade Name Sherif PRN Reason Stop Dose Admin Haloperidol Lactate 2.5 mg 10/03/22 17:16 10/03/22 17:31 Haloperidol Lactate 5 Mg/Ml Vial IVPUSH 10/03/22 17:17 2.5 mg ONCE ONE Administration Sodium Chloride 1,000 mls @ 999 mls/hr 10/03/22 13:00 10/03/22 14:02 Ns IVCONT 10/03/22 14:00 Infused .Q1H1M LORNA Infusion Ceftriaxone Sodium 2 gm/ 50 mls @ 100 mls/hr 10/03/22 13:07 10/03/22 13:51 Sodium Chloride IV 10/03/22 13:36 Infused ONCE ONE Infusion Sodium Chloride 1,000 mls @ 999 mls/hr 10/03/22 13:30 10/03/22 15:54 Ns IVCONT 10/03/22 14:30 Infused .Q1H1M LORNA Infusion Lorazepam 2 mg 10/03/22 17:01 10/03/22 17:15 Lorazepam 2 Mg/Ml Vial IVPUSH 10/03/22 17:02 2 mg ONCE ONE Administration Naloxone HCl 4 mg 10/03/22 11:42 10/03/22 12:15 Naloxone Hcl Nasal 4 Mg [place] NOSTRILALT 10/03/22 11:43 4 mg ONCE ONE Administration <Marquez Banks MD - Last Filed: 10/04/22 00:32> Medications Administered Generic Name Dose Route Start Last Admin Trade Name Sherif PRN Reason Stop Dose Admin Docusate Sodium 100 mg 10/04/22 09:00 10/04/22 08:49 Docusate Sodium 100 Mg Capsule PO 100 mg DAILY LORNA Administration Doxycycline Monohydrate 100 mg 10/03/22 21:00 10/04/22 08:49 Doxycycline Monohydrate 100 Mg Capsule PO 100 mg BID LORNA Administration Escitalopram Oxalate 10 mg 10/04/22 09:00 10/04/22 08:49 Escitalopram Oxalate 10 Mg Tablet PO 10 mg DAILY LORNA Administration Gabapentin 100 mg 10/04/22 09:00 10/04/22 08:49 Gabapentin 100 Mg Capsule PO 100 mg TID LORNA Administration Montelukast Sodium 10 mg 10/04/22 09:00 10/04/22 08:49 Montelukast Sodium 10 Mg Tablet PO 10 mg DAILY LORNA Administration Omeprazole 40 mg 10/04/22 21:00 10/04/22 01:05 Omeprazole 40 Mg Capsule.Dr PO 40 mg BEDTIME LORNA Administration Quetiapine Fumarate 300 mg 10/04/22 00:30 10/04/22 01:05 Quetiapine Fumarate 300 Mg Tablet PO 300 mg BEDTIME LORNA Administration Quetiapine Fumarate 50 mg 10/04/22 09:00 10/04/22 08:49 Quetiapine Fumarate 50 Mg Tablet PO 50 mg BID LORNA Administration Discontinued Medications Generic Name Dose Route Start Last Admin Trade Name Berryq PRN Reason Stop Dose Admin Haloperidol Lactate 2.5 mg 10/03/22 17:16 10/03/22 17:31 Haloperidol Lactate 5 Mg/Ml Vial IVPUSH 10/03/22 17:17 2.5 mg ONCE ONE Administration Sodium Chloride 1,000 mls @ 999 mls/hr 10/03/22 13:00 10/03/22 14:02 Ns IVCONT 10/03/22 14:00 Infused .Q1H1M LORNA Infusion Ceftriaxone Sodium 2 gm/ 50 mls @ 100 mls/hr 10/03/22 13:07 10/03/22 13:51 Sodium Chloride IV 10/03/22 13:36 Infused ONCE ONE Infusion Sodium Chloride 1,000 mls @ 999 mls/hr 10/03/22 13:30 10/03/22 15:54 Ns IVCONT 10/03/22 14:30 Infused .Q1H1M LORNA Infusion Lorazepam 2 mg 10/03/22 17:01 10/03/22 17:15 Lorazepam 2 Mg/Ml Vial IVPUSH 10/03/22 17:02 2 mg ONCE ONE Administration Naloxone HCl 4 mg 10/03/22 11:42 10/03/22 12:15 Naloxone Hcl Nasal 4 Mg [place] NOSTRILALT 10/03/22 11:43 4 mg ONCE ONE Administration <Rakesh Barger MD - Last Filed: 10/04/22 10:13> Medical Decision Making Lab Data MDM Lab Attestation statement: I reviewed the patient's lab results. <TOBIN Jacobson - Last Filed: 10/03/22 17:43> Result Diagrams: 10/03/22 11:58 10/03/22 11:58 <TOBIN Jacobson - Last Filed: 10/03/22 17:43> Labs: Lab Results 10/03/22 10/03/22 10/03/22 Range/Units 11:51 11:58 11:58 WBC 11.8 H (4.8-10.8) X10*3/uL RBC 4.89 (4.60-5.80) X10*6/uL Hgb 13.3 L (14.0-18.0) g/dl Hct 39.6 L (42.0-52.0) % MCV 81.0 (80.0-98.0) fL MCH 27.2 (27.0-33.0) pg MCHC 33.6 (31.0-36.0) g/dl RDW 14.3 (11.0-16.0) % Plt Count 385 (160-400) X10*3/uL MPV 9.7 (9.4-12.4) fL Immature Gran % (Auto) 0.3 (0.0-0.4) % Neut % (Auto) 69.1 (45-73) % Lymph % (Auto) 23.0 (20-40) % [place] % (Auto) 7.3 (2-11) % Eos % (Auto) 0.0 (0-4) % Baso % (Auto) 0.3 (0-2) % Lymph # (Auto) 2.7 (1.2-4.9) X10*3/uL [place] # (Auto) 0.9 (0.1-1.2) X10*3/uL Eos # (Auto) 0.0 (0.0-0.4) X10*3/uL Baso # (Auto) 0.0 (0.0-0.2) X10*3/uL Abs Immat Gran (auto) 0.04 H (0.00-0.03) X10*3/uL Absolute Neuts (auto) 8.2 (2.0-8.3) x10*3/uL Absolute Nucleated RBC 0.000 (0.0-0.012) X10*3/uL Nucleated RBC % (auto) 0.0 (0.0-0.2) /100WBC ESR (0-15) MM/HR PT 12.8 (10.0-13.1) SEC INR 1.1 (0.9-1.1) VBG pH (7.32-7.43) VBG pCO2 mmHg VBG pO2 mmHg VBG HCO3 (22-26) mmol/L VBG O2 Saturation % VBG Base Excess mmol/L Sodium (135-145) mmol/L Potassium (3.3-5.1) mmol/L Chloride (96-108) mmol/L Carbon Dioxide (22-29) mmol/L Anion Gap (12-20) BUN (9-16) mg/dL Creatinine (0.5-1.4) mg/dL Estim Creat Clear Calc Estimated GFR POC Glucose 162 H (60-115) mg/dL Random Glucose (60-115) mg/dL Lactic Acid (0.5-2.0) mmol/L Lactic Acid F/U @ 2Hr (0.5-2.0) mmol/L Calcium (8.4-10.2) mg/dL Magnesium (1.6-2.6) mg/dL Total Bilirubin (0.0-1.0) mg/dL AST (5-37) U/L ALT (0-40) U/L Alkaline Phosphatase (39-117) U/L Ammonia (13-55) umol/L Total Creatine Kinase (38-174) U/L Troponin I High Sens (<3.5-35.0) ng/L C-Reactive Protein (< or = 0.50) mg/dL Total Protein (6.5-8.0) g/dL Albumin (3.5-5.0) g/dL Lipase (8-78) U/L Urine Color Urine Appearance Urine pH (5.0-9.0) Ur Specific [place] (1.005-1.025) Urine Protein (Neg-Trace) mg/dL Urine Glucose (UA) (Negative) mg/dL Urine Ketones (Negative) mg/dL Urine Blood (Negative) Urine Nitrite (Negative) Ur Leukocyte Esterase (Negative) Urine RBC (0-2) /HPF Urine WBC (0-5) /HPF Ur Squamous Epith Cells (0-2) /HPF Urine Bacteria (None Seen) Hyaline Casts (0-2) /LPF Salicylates (15-30) mg/dL Urine Opiates Screen (Not Detect) Urine Fentanyl Screen (Not Detect) Ur Barbiturates Screen (Not Detect) Ur Phencyclidine Scrn (Not Detect) Ur Amphetamines Screen (Not Detect) U Benzodiazepines Scrn (Not Detect) Urine Cocaine Screen (Not Detect) U Marijuana (THC) Screen (Not Detect) Ethyl Alcohol mg/dL Acetone, Qual (Negative) Influenza Type A (PCR) (Negative) Influenza Type B (PCR) (Negative) RSV RNA Qual (PCR) (Negative) SARS-CoV-2 RNA (RT-PCR) (Negative) 10/03/22 10/03/22 10/03/22 Range/Units 11:58 11:58 11:58 WBC (4.8-10.8) X10*3/uL RBC (4.60-5.80) X10*6/uL Hgb (14.0-18.0) g/dl Hct (42.0-52.0) % MCV (80.0-98.0) fL MCH (27.0-33.0) pg MCHC (31.0-36.0) g/dl RDW (11.0-16.0) % Plt Count (160-400) X10*3/uL MPV (9.4-12.4) fL Immature Gran % (Auto) (0.0-0.4) % Neut % (Auto) (45-73) % Lymph % (Auto) (20-40) % [place] % (Auto) (2-11) % Eos % (Auto) (0-4) % Baso % (Auto) (0-2) % Lymph # (Auto) (1.2-4.9) X10*3/uL [place] # (Auto) (0.1-1.2) X10*3/uL Eos # (Auto) (0.0-0.4) X10*3/uL Baso # (Auto) (0.0-0.2) X10*3/uL Abs Immat Gran (auto) (0.00-0.03) X10*3/uL Absolute Neuts (auto) (2.0-8.3) x10*3/uL Absolute Nucleated RBC (0.0-0.012) X10*3/uL Nucleated RBC % (auto) (0.0-0.2) /100WBC ESR 3 (0-15) MM/HR PT (10.0-13.1) SEC INR (0.9-1.1) VBG pH (7.32-7.43) VBG pCO2 mmHg VBG pO2 mmHg VBG HCO3 (22-26) mmol/L VBG O2 Saturation % VBG Base Excess mmol/L Sodium 142 (135-145) mmol/L Potassium 4.5 (3.3-5.1) mmol/L Chloride 103 (96-108) mmol/L Carbon Dioxide 25 (22-29) mmol/L Anion Gap 19 (12-20) BUN 13 (9-16) mg/dL Creatinine 1.32 (0.5-1.4) mg/dL Estim Creat Clear Calc 105.6 Estimated GFR > 60 POC Glucose (60-115) mg/dL Random Glucose 158 H (60-115) mg/dL Lactic Acid (0.5-2.0) mmol/L Lactic Acid F/U @ 2Hr (0.5-2.0) mmol/L Calcium 9.6 (8.4-10.2) mg/dL Magnesium 1.7 (1.6-2.6) mg/dL Total Bilirubin 0.6 (0.0-1.0) mg/dL AST 22 (5-37) U/L ALT 28 (0-40) U/L Alkaline Phosphatase 76 (39-117) U/L Ammonia (13-55) umol/L Total Creatine Kinase (38-174) U/L Troponin I High Sens < 3.5 (<3.5-35.0) ng/L C-Reactive Protein < 0.10 (< or = 0.50) mg/dL Total Protein 7.4 (6.5-8.0) g/dL Albumin 4.4 (3.5-5.0) g/dL Lipase 8 (8-78) U/L Urine Color Urine Appearance Urine pH (5.0-9.0) Ur Specific [place] (1.005-1.025) Urine Protein (Neg-Trace) mg/dL Urine Glucose (UA) (Negative) mg/dL Urine Ketones (Negative) mg/dL Urine Blood (Negative) Urine Nitrite (Negative) Ur Leukocyte Esterase (Negative) Urine RBC (0-2) /HPF Urine WBC (0-5) /HPF Ur Squamous Epith Cells (0-2) /HPF Urine Bacteria (None Seen) Hyaline Casts (0-2) /LPF Salicylates < 5.0 L (15-30) mg/dL Urine Opiates Screen (Not Detect) Urine Fentanyl Screen (Not Detect) Ur Barbiturates Screen (Not Detect) Ur Phencyclidine Scrn (Not Detect) Ur Amphetamines Screen (Not Detect) U Benzodiazepines Scrn (Not Detect) Urine Cocaine Screen (Not Detect) U Marijuana (THC) Screen (Not Detect) Ethyl Alcohol mg/dL Acetone, Qual Negative (Negative) Influenza Type A (PCR) (Negative) Influenza Type B (PCR) (Negative) RSV RNA Qual (PCR) (Negative) SARS-CoV-2 RNA (RT-PCR) (Negative) 10/03/22 10/03/22 10/03/22 Range/Units 11:58 11:58 11:58 WBC (4.8-10.8) X10*3/uL RBC (4.60-5.80) X10*6/uL Hgb (14.0-18.0) g/dl Hct (42.0-52.0) % MCV (80.0-98.0) fL MCH (27.0-33.0) pg MCHC (31.0-36.0) g/dl RDW (11.0-16.0) % Plt Count (160-400) X10*3/uL MPV (9.4-12.4) fL Immature Gran % (Auto) (0.0-0.4) % Neut % (Auto) (45-73) % Lymph % (Auto) (20-40) % [place] % (Auto) (2-11) % Eos % (Auto) (0-4) % Baso % (Auto) (0-2) % Lymph # (Auto) (1.2-4.9) X10*3/uL [place] # (Auto) (0.1-1.2) X10*3/uL Eos # (Auto) (0.0-0.4) X10*3/uL Baso # (Auto) (0.0-0.2) X10*3/uL Abs Immat Gran (auto) (0.00-0.03) X10*3/uL Absolute Neuts (auto) (2.0-8.3) x10*3/uL Absolute Nucleated RBC (0.0-0.012) X10*3/uL Nucleated RBC % (auto) (0.0-0.2) /100WBC ESR (0-15) MM/HR PT (10.0-13.1) SEC INR (0.9-1.1) VBG pH (7.32-7.43) VBG pCO2 mmHg VBG pO2 mmHg VBG HCO3 (22-26) mmol/L VBG O2 Saturation % VBG Base Excess mmol/L Sodium (135-145) mmol/L Potassium (3.3-5.1) mmol/L Chloride (96-108) mmol/L Carbon Dioxide (22-29) mmol/L Anion Gap (12-20) BUN (9-16) mg/dL Creatinine (0.5-1.4) mg/dL Estim Creat Clear Calc Estimated GFR POC Glucose (60-115) mg/dL Random Glucose (60-115) mg/dL Lactic Acid 3.4 H* (0.5-2.0) mmol/L Lactic Acid F/U @ 2Hr (0.5-2.0) mmol/L Calcium (8.4-10.2) mg/dL Magnesium (1.6-2.6) mg/dL Total Bilirubin (0.0-1.0) mg/dL AST (5-37) U/L ALT (0-40) U/L Alkaline Phosphatase (39-117) U/L Ammonia 35 (13-55) umol/L Total Creatine Kinase 193 H (38-174) U/L Troponin I High Sens (<3.5-35.0) ng/L C-Reactive Protein (< or = 0.50) mg/dL Total Protein (6.5-8.0) g/dL Albumin (3.5-5.0) g/dL Lipase (8-78) U/L Urine Color Urine Appearance Urine pH (5.0-9.0) Ur Specific [place] (1.005-1.025) Urine Protein (Neg-Trace) mg/dL Urine Glucose (UA) (Negative) mg/dL Urine Ketones (Negative) mg/dL Urine Blood (Negative) Urine Nitrite (Negative) Ur Leukocyte Esterase (Negative) Urine RBC (0-2) /HPF Urine WBC (0-5) /HPF Ur Squamous Epith Cells (0-2) /HPF Urine Bacteria (None Seen) Hyaline Casts (0-2) /LPF Salicylates (15-30) mg/dL Urine Opiates Screen (Not Detect) Urine Fentanyl Screen (Not Detect) Ur Barbiturates Screen (Not Detect) Ur Phencyclidine Scrn (Not Detect) Ur Amphetamines Screen (Not Detect) U Benzodiazepines Scrn (Not Detect) Urine Cocaine Screen (Not Detect) U Marijuana (THC) Screen (Not Detect) Ethyl Alcohol < 10 mg/dL Acetone, Qual (Negative) Influenza Type A (PCR) (Negative) Influenza Type B (PCR) (Negative) RSV RNA Qual (PCR) (Negative) SARS-CoV-2 RNA (RT-PCR) (Negative) 10/03/22 10/03/22 10/03/22 Range/Units 11:59 13:04 13:11 WBC (4.8-10.8) X10*3/uL RBC (4.60-5.80) X10*6/uL Hgb (14.0-18.0) g/dl Hct (42.0-52.0) % MCV (80.0-98.0) fL MCH (27.0-33.0) pg MCHC (31.0-36.0) g/dl RDW (11.0-16.0) % Plt Count (160-400) X10*3/uL MPV (9.4-12.4) fL Immature Gran % (Auto) (0.0-0.4) % Neut % (Auto) (45-73) % Lymph % (Auto) (20-40) % [place] % (Auto) (2-11) % Eos % (Auto) (0-4) % Baso % (Auto) (0-2) % Lymph # (Auto) (1.2-4.9) X10*3/uL [place] # (Auto) (0.1-1.2) X10*3/uL Eos # (Auto) (0.0-0.4) X10*3/uL Baso # (Auto) (0.0-0.2) X10*3/uL Abs Immat Gran (auto) (0.00-0.03) X10*3/uL Absolute Neuts (auto) (2.0-8.3) x10*3/uL Absolute Nucleated RBC (0.0-0.012) X10*3/uL Nucleated RBC % (auto) (0.0-0.2) /100WBC ESR (0-15) MM/HR PT (10.0-13.1) SEC INR (0.9-1.1) VBG pH 7.45 H (7.32-7.43) VBG pCO2 40 mmHg VBG pO2 120 mmHg VBG HCO3 28 H (22-26) mmol/L VBG O2 Saturation 99.0 % VBG Base Excess 4.4 mmol/L Sodium (135-145) mmol/L Potassium (3.3-5.1) mmol/L Chloride (96-108) mmol/L Carbon Dioxide (22-29) mmol/L Anion Gap (12-20) BUN (9-16) mg/dL Creatinine (0.5-1.4) mg/dL Estim Creat Clear Calc Estimated GFR POC Glucose (60-115) mg/dL Random Glucose (60-115) mg/dL Lactic Acid (0.5-2.0) mmol/L Lactic Acid F/U @ 2Hr (0.5-2.0) mmol/L Calcium (8.4-10.2) mg/dL Magnesium (1.6-2.6) mg/dL Total Bilirubin (0.0-1.0) mg/dL AST (5-37) U/L ALT (0-40) U/L Alkaline Phosphatase (39-117) U/L Ammonia (13-55) umol/L Total Creatine Kinase (38-174) U/L Troponin I High Sens (<3.5-35.0) ng/L C-Reactive Protein (< or = 0.50) mg/dL Total Protein (6.5-8.0) g/dL Albumin (3.5-5.0) g/dL Lipase (8-78) U/L Urine Color Urine Appearance Urine pH (5.0-9.0) Ur Specific [place] (1.005-1.025) Urine Protein (Neg-Trace) mg/dL Urine Glucose (UA) (Negative) mg/dL Urine Ketones (Negative) mg/dL Urine Blood (Negative) Urine Nitrite (Negative) Ur Leukocyte Esterase (Negative) Urine RBC (0-2) /HPF Urine WBC (0-5) /HPF Ur Squamous Epith Cells (0-2) /HPF Urine Bacteria (None Seen) Hyaline Casts (0-2) /LPF Salicylates (15-30) mg/dL Urine Opiates Screen Not Detected (Not Detect) Urine Fentanyl Screen Not Detected (Not Detect) Ur Barbiturates Screen Not Detected (Not Detect) Ur Phencyclidine Scrn Not Detected (Not Detect) Ur Amphetamines Screen Not Detected (Not Detect) U Benzodiazepines Scrn Not Detected (Not Detect) Urine Cocaine Screen POSITIVE H (Not Detect) U Marijuana (THC) Screen POSITIVE H (Not Detect) Ethyl Alcohol mg/dL Acetone, Qual (Negative) Influenza Type A (PCR) NEGATIVE (Negative) Influenza Type B (PCR) NEGATIVE (Negative) RSV RNA Qual (PCR) NEGATIVE (Negative) SARS-CoV-2 RNA (RT-PCR) NEGATIVE (Negative) 10/03/22 10/03/22 10/03/22 Range/Units 13:11 15:02 16:22 WBC (4.8-10.8) X10*3/uL RBC (4.60-5.80) X10*6/uL Hgb (14.0-18.0) g/dl Hct (42.0-52.0) % MCV (80.0-98.0) fL MCH (27.0-33.0) pg MCHC (31.0-36.0) g/dl RDW (11.0-16.0) % Plt Count (160-400) X10*3/uL MPV (9.4-12.4) fL Immature Gran % (Auto) (0.0-0.4) % Neut % (Auto) (45-73) % Lymph % (Auto) (20-40) % [place] % (Auto) (2-11) % Eos % (Auto) (0-4) % Baso % (Auto) (0-2) % Lymph # (Auto) (1.2-4.9) X10*3/uL [place] # (Auto) (0.1-1.2) X10*3/uL Eos # (Auto) (0.0-0.4) X10*3/uL Baso # (Auto) (0.0-0.2) X10*3/uL Abs Immat Gran (auto) (0.00-0.03) X10*3/uL Absolute Neuts (auto) (2.0-8.3) x10*3/uL Absolute Nucleated RBC (0.0-0.012) X10*3/uL Nucleated RBC % (auto) (0.0-0.2) /100WBC ESR (0-15) MM/HR PT (10.0-13.1) SEC INR (0.9-1.1) VBG pH (7.32-7.43) VBG pCO2 mmHg VBG pO2 mmHg VBG HCO3 (22-26) mmol/L VBG O2 Saturation % VBG Base Excess mmol/L Sodium (135-145) mmol/L Potassium (3.3-5.1) mmol/L Chloride (96-108) mmol/L Carbon Dioxide (22-29) mmol/L Anion Gap (12-20) BUN (9-16) mg/dL Creatinine (0.5-1.4) mg/dL Estim Creat Clear Calc Estimated GFR POC Glucose 120 H (60-115) mg/dL Random Glucose (60-115) mg/dL Lactic Acid (0.5-2.0) mmol/L Lactic Acid F/U @ 2Hr 2.0 (0.5-2.0) mmol/L Calcium (8.4-10.2) mg/dL Magnesium (1.6-2.6) mg/dL Total Bilirubin (0.0-1.0) mg/dL AST (5-37) U/L ALT (0-40) U/L Alkaline Phosphatase (39-117) U/L Ammonia (13-55) umol/L Total Creatine Kinase (38-174) U/L Troponin I High Sens (<3.5-35.0) ng/L C-Reactive Protein (< or = 0.50) mg/dL Total Protein (6.5-8.0) g/dL Albumin (3.5-5.0) g/dL Lipase (8-78) U/L Urine Color Yellow Urine Appearance Cloudy Urine pH 6.0 (5.0-9.0) Ur Specific [place] 1.025 (1.005-1.025) Urine Protein 30 (1+) H (Neg-Trace) mg/dL Urine Glucose (UA) Negative (Negative) mg/dL Urine Ketones Negative (Negative) mg/dL Urine Blood Negative (Negative) Urine Nitrite Negative (Negative) Ur Leukocyte Esterase Negative (Negative) Urine RBC 0-2 (0-2) /HPF Urine WBC 0-5 (0-5) /HPF Ur Squamous Epith Cells 0-2 (0-2) /HPF Urine Bacteria None Seen (None Seen) Hyaline Casts 3-5 (0-2) /LPF Salicylates (15-30) mg/dL Urine Opiates Screen (Not Detect) Urine Fentanyl Screen (Not Detect) Ur Barbiturates Screen (Not Detect) Ur Phencyclidine Scrn (Not Detect) Ur Amphetamines Screen (Not Detect) U Benzodiazepines Scrn (Not Detect) Urine Cocaine Screen (Not Detect) U Marijuana (THC) Screen (Not Detect) Ethyl Alcohol mg/dL Acetone, Qual (Negative) Influenza Type A (PCR) (Negative) Influenza Type B (PCR) (Negative) RSV RNA Qual (PCR) (Negative) SARS-CoV-2 RNA (RT-PCR) (Negative) <TOBIN Jacobson - Last Filed: 10/03/22 17:43> Lab Results 10/03/22 10/03/22 10/03/22 Range/Units 11:51 11:58 11:58 WBC 11.8 H (4.8-10.8) X10*3/uL RBC 4.89 (4.60-5.80) X10*6/uL Hgb 13.3 L (14.0-18.0) g/dl Hct 39.6 L (42.0-52.0) % MCV 81.0 (80.0-98.0) fL MCH 27.2 (27.0-33.0) pg MCHC 33.6 (31.0-36.0) g/dl RDW 14.3 (11.0-16.0) % Plt Count 385 (160-400) X10*3/uL MPV 9.7 (9.4-12.4) fL Immature Gran % (Auto) 0.3 (0.0-0.4) % Neut % (Auto) 69.1 (45-73) % Lymph % (Auto) 23.0 (20-40) % [place] % (Auto) 7.3 (2-11) % Eos % (Auto) 0.0 (0-4) % Baso % (Auto) 0.3 (0-2) % Lymph # (Auto) 2.7 (1.2-4.9) X10*3/uL [place] # (Auto) 0.9 (0.1-1.2) X10*3/uL Eos # (Auto) 0.0 (0.0-0.4) X10*3/uL Baso # (Auto) 0.0 (0.0-0.2) X10*3/uL Abs Immat Gran (auto) 0.04 H (0.00-0.03) X10*3/uL Absolute Neuts (auto) 8.2 (2.0-8.3) x10*3/uL Absolute Nucleated RBC 0.000 (0.0-0.012) X10*3/uL Nucleated RBC % (auto) 0.0 (0.0-0.2) /100WBC ESR (0-15) MM/HR PT 12.8 (10.0-13.1) SEC INR 1.1 (0.9-1.1) VBG pH (7.32-7.43) VBG pCO2 mmHg VBG pO2 mmHg VBG HCO3 (22-26) mmol/L VBG O2 Saturation % VBG Base Excess mmol/L Sodium (135-145) mmol/L Potassium (3.3-5.1) mmol/L Chloride (96-108) mmol/L Carbon Dioxide (22-29) mmol/L Anion Gap (12-20) BUN (9-16) mg/dL Creatinine (0.5-1.4) mg/dL Estim Creat Clear Calc Estimated GFR POC Glucose 162 H (60-115) mg/dL Random Glucose (60-115) mg/dL Lactic Acid (0.5-2.0) mmol/L Lactic Acid F/U @ 2Hr (0.5-2.0) mmol/L Calcium (8.4-10.2) mg/dL Magnesium (1.6-2.6) mg/dL Total Bilirubin (0.0-1.0) mg/dL AST (5-37) U/L ALT (0-40) U/L Alkaline Phosphatase (39-117) U/L Ammonia (13-55) umol/L Total Creatine Kinase (38-174) U/L Troponin I High Sens (<3.5-35.0) ng/L C-Reactive Protein (< or = 0.50) mg/dL Total Protein (6.5-8.0) g/dL Albumin (3.5-5.0) g/dL Lipase (8-78) U/L Urine Color Urine Appearance Urine pH (5.0-9.0) Ur Specific [place] (1.005-1.025) Urine Protein (Neg-Trace) mg/dL Urine Glucose (UA) (Negative) mg/dL Urine Ketones (Negative) mg/dL Urine Blood (Negative) Urine Nitrite (Negative) Ur Leukocyte Esterase (Negative) Urine RBC (0-2) /HPF Urine WBC (0-5) /HPF Ur Squamous Epith Cells (0-2) /HPF Urine Bacteria (None Seen) Hyaline Casts (0-2) /LPF Salicylates (15-30) mg/dL Urine Opiates Screen (Not Detect) Urine Fentanyl Screen (Not Detect) Ur Barbiturates Screen (Not Detect) Ur Phencyclidine Scrn (Not Detect) Ur Amphetamines Screen (Not Detect) U Benzodiazepines Scrn (Not Detect) Urine Cocaine Screen (Not Detect) U Marijuana (THC) Screen (Not Detect) Ethyl Alcohol mg/dL Acetone, Qual (Negative) Influenza Type A (PCR) (Negative) Influenza Type B (PCR) (Negative) RSV RNA Qual (PCR) (Negative) SARS-CoV-2 RNA (RT-PCR) (Negative) 10/03/22 10/03/22 10/03/22 Range/Units 11:58 11:58 11:58 WBC (4.8-10.8) X10*3/uL RBC (4.60-5.80) X10*6/uL Hgb (14.0-18.0) g/dl Hct (42.0-52.0) % MCV (80.0-98.0) fL MCH (27.0-33.0) pg MCHC (31.0-36.0) g/dl RDW (11.0-16.0) % Plt Count (160-400) X10*3/uL MPV (9.4-12.4) fL Immature Gran % (Auto) (0.0-0.4) % Neut % (Auto) (45-73) % Lymph % (Auto) (20-40) % [place] % (Auto) (2-11) % Eos % (Auto) (0-4) % Baso % (Auto) (0-2) % Lymph # (Auto) (1.2-4.9) X10*3/uL [place] # (Auto) (0.1-1.2) X10*3/uL Eos # (Auto) (0.0-0.4) X10*3/uL Baso # (Auto) (0.0-0.2) X10*3/uL Abs Immat Gran (auto) (0.00-0.03) X10*3/uL Absolute Neuts (auto) (2.0-8.3) x10*3/uL Absolute Nucleated RBC (0.0-0.012) X10*3/uL Nucleated RBC % (auto) (0.0-0.2) /100WBC ESR 3 (0-15) MM/HR PT (10.0-13.1) SEC INR (0.9-1.1) VBG pH (7.32-7.43) VBG pCO2 mmHg VBG pO2 mmHg VBG HCO3 (22-26) mmol/L VBG O2 Saturation % VBG Base Excess mmol/L Sodium 142 (135-145) mmol/L Potassium 4.5 (3.3-5.1) mmol/L Chloride 103 (96-108) mmol/L Carbon Dioxide 25 (22-29) mmol/L Anion Gap 19 (12-20) BUN 13 (9-16) mg/dL Creatinine 1.32 (0.5-1.4) mg/dL Estim Creat Clear Calc 105.6 Estimated GFR > 60 POC Glucose (60-115) mg/dL Random Glucose 158 H (60-115) mg/dL Lactic Acid (0.5-2.0) mmol/L Lactic Acid F/U @ 2Hr (0.5-2.0) mmol/L Calcium 9.6 (8.4-10.2) mg/dL Magnesium 1.7 (1.6-2.6) mg/dL Total Bilirubin 0.6 (0.0-1.0) mg/dL AST 22 (5-37) U/L ALT 28 (0-40) U/L Alkaline Phosphatase 76 (39-117) U/L Ammonia (13-55) umol/L Total Creatine Kinase (38-174) U/L Troponin I High Sens < 3.5 (<3.5-35.0) ng/L C-Reactive Protein < 0.10 (< or = 0.50) mg/dL Total Protein 7.4 (6.5-8.0) g/dL Albumin 4.4 (3.5-5.0) g/dL Lipase 8 (8-78) U/L Urine Color Urine Appearance Urine pH (5.0-9.0) Ur Specific [place] (1.005-1.025) Urine Protein (Neg-Trace) mg/dL Urine Glucose (UA) (Negative) mg/dL Urine Ketones (Negative) mg/dL Urine Blood (Negative) Urine Nitrite (Negative) Ur Leukocyte Esterase (Negative) Urine RBC (0-2) /HPF Urine WBC (0-5) /HPF Ur Squamous Epith Cells (0-2) /HPF Urine Bacteria (None Seen) Hyaline Casts (0-2) /LPF Salicylates < 5.0 L (15-30) mg/dL Urine Opiates Screen (Not Detect) Urine Fentanyl Screen (Not Detect) Ur Barbiturates Screen (Not Detect) Ur Phencyclidine Scrn (Not Detect) Ur Amphetamines Screen (Not Detect) U Benzodiazepines Scrn (Not Detect) Urine Cocaine Screen (Not Detect) U Marijuana (THC) Screen (Not Detect) Ethyl Alcohol mg/dL Acetone, Qual Negative (Negative) Influenza Type A (PCR) (Negative) Influenza Type B (PCR) (Negative) RSV RNA Qual (PCR) (Negative) SARS-CoV-2 RNA (RT-PCR) (Negative) 10/03/22 10/03/22 10/03/22 Range/Units 11:58 11:58 11:58 WBC (4.8-10.8) X10*3/uL RBC (4.60-5.80) X10*6/uL Hgb (14.0-18.0) g/dl Hct (42.0-52.0) % MCV (80.0-98.0) fL MCH (27.0-33.0) pg MCHC (31.0-36.0) g/dl RDW (11.0-16.0) % Plt Count (160-400) X10*3/uL MPV (9.4-12.4) fL Immature Gran % (Auto) (0.0-0.4) % Neut % (Auto) (45-73) % Lymph % (Auto) (20-40) % [place] % (Auto) (2-11) % Eos % (Auto) (0-4) % Baso % (Auto) (0-2) % Lymph # (Auto) (1.2-4.9) X10*3/uL [place] # (Auto) (0.1-1.2) X10*3/uL Eos # (Auto) (0.0-0.4) X10*3/uL Baso # (Auto) (0.0-0.2) X10*3/uL Abs Immat Gran (auto) (0.00-0.03) X10*3/uL Absolute Neuts (auto) (2.0-8.3) x10*3/uL Absolute Nucleated RBC (0.0-0.012) X10*3/uL Nucleated RBC % (auto) (0.0-0.2) /100WBC ESR (0-15) MM/HR PT (10.0-13.1) SEC INR (0.9-1.1) VBG pH (7.32-7.43) VBG pCO2 mmHg VBG pO2 mmHg VBG HCO3 (22-26) mmol/L VBG O2 Saturation % VBG Base Excess mmol/L Sodium (135-145) mmol/L Potassium (3.3-5.1) mmol/L Chloride (96-108) mmol/L Carbon Dioxide (22-29) mmol/L Anion Gap (12-20) BUN (9-16) mg/dL Creatinine (0.5-1.4) mg/dL Estim Creat Clear Calc Estimated GFR POC Glucose (60-115) mg/dL Random Glucose (60-115) mg/dL Lactic Acid 3.4 H* (0.5-2.0) mmol/L Lactic Acid F/U @ 2Hr (0.5-2.0) mmol/L Calcium (8.4-10.2) mg/dL Magnesium (1.6-2.6) mg/dL Total Bilirubin (0.0-1.0) mg/dL AST (5-37) U/L ALT (0-40) U/L Alkaline Phosphatase (39-117) U/L Ammonia 35 (13-55) umol/L Total Creatine Kinase 193 H (38-174) U/L Troponin I High Sens (<3.5-35.0) ng/L C-Reactive Protein (< or = 0.50) mg/dL Total Protein (6.5-8.0) g/dL Albumin (3.5-5.0) g/dL Lipase (8-78) U/L Urine Color Urine Appearance Urine pH (5.0-9.0) Ur Specific [place] (1.005-1.025) Urine Protein (Neg-Trace) mg/dL Urine Glucose (UA) (Negative) mg/dL Urine Ketones (Negative) mg/dL Urine Blood (Negative) Urine Nitrite (Negative) Ur Leukocyte Esterase (Negative) Urine RBC (0-2) /HPF Urine WBC (0-5) /HPF Ur Squamous Epith Cells (0-2) /HPF Urine Bacteria (None Seen) Hyaline Casts (0-2) /LPF Salicylates (15-30) mg/dL Urine Opiates Screen (Not Detect) Urine Fentanyl Screen (Not Detect) Ur Barbiturates Screen (Not Detect) Ur Phencyclidine Scrn (Not Detect) Ur Amphetamines Screen (Not Detect) U Benzodiazepines Scrn (Not Detect) Urine Cocaine Screen (Not Detect) U Marijuana (THC) Screen (Not Detect) Ethyl Alcohol < 10 mg/dL Acetone, Qual (Negative) Influenza Type A (PCR) (Negative) Influenza Type B (PCR) (Negative) RSV RNA Qual (PCR) (Negative) SARS-CoV-2 RNA (RT-PCR) (Negative) 10/03/22 10/03/22 10/03/22 Range/Units 11:59 13:04 13:11 WBC (4.8-10.8) X10*3/uL RBC (4.60-5.80) X10*6/uL Hgb (14.0-18.0) g/dl Hct (42.0-52.0) % MCV (80.0-98.0) fL MCH (27.0-33.0) pg MCHC (31.0-36.0) g/dl RDW (11.0-16.0) % Plt Count (160-400) X10*3/uL MPV (9.4-12.4) fL Immature Gran % (Auto) (0.0-0.4) % Neut % (Auto) (45-73) % Lymph % (Auto) (20-40) % [place] % (Auto) (2-11) % Eos % (Auto) (0-4) % Baso % (Auto) (0-2) % Lymph # (Auto) (1.2-4.9) X10*3/uL [place] # (Auto) (0.1-1.2) X10*3/uL Eos # (Auto) (0.0-0.4) X10*3/uL Baso # (Auto) (0.0-0.2) X10*3/uL Abs Immat Gran (auto) (0.00-0.03) X10*3/uL Absolute Neuts (auto) (2.0-8.3) x10*3/uL Absolute Nucleated RBC (0.0-0.012) X10*3/uL Nucleated RBC % (auto) (0.0-0.2) /100WBC ESR (0-15) MM/HR PT (10.0-13.1) SEC INR (0.9-1.1) VBG pH 7.45 H (7.32-7.43) VBG pCO2 40 mmHg VBG pO2 120 mmHg VBG HCO3 28 H (22-26) mmol/L VBG O2 Saturation 99.0 % VBG Base Excess 4.4 mmol/L Sodium (135-145) mmol/L Potassium (3.3-5.1) mmol/L Chloride (96-108) mmol/L Carbon Dioxide (22-29) mmol/L Anion Gap (12-20) BUN (9-16) mg/dL Creatinine (0.5-1.4) mg/dL Estim Creat Clear Calc Estimated GFR POC Glucose (60-115) mg/dL Random Glucose (60-115) mg/dL Lactic Acid (0.5-2.0) mmol/L Lactic Acid F/U @ 2Hr (0.5-2.0) mmol/L Calcium (8.4-10.2) mg/dL Magnesium (1.6-2.6) mg/dL Total Bilirubin (0.0-1.0) mg/dL AST (5-37) U/L ALT (0-40) U/L Alkaline Phosphatase (39-117) U/L Ammonia (13-55) umol/L Total Creatine Kinase (38-174) U/L Troponin I High Sens (<3.5-35.0) ng/L C-Reactive Protein (< or = 0.50) mg/dL Total Protein (6.5-8.0) g/dL Albumin (3.5-5.0) g/dL Lipase (8-78) U/L Urine Color Urine Appearance Urine pH (5.0-9.0) Ur Specific [place] (1.005-1.025) Urine Protein (Neg-Trace) mg/dL Urine Glucose (UA) (Negative) mg/dL Urine Ketones (Negative) mg/dL Urine Blood (Negative) Urine Nitrite (Negative) Ur Leukocyte Esterase (Negative) Urine RBC (0-2) /HPF Urine WBC (0-5) /HPF Ur Squamous Epith Cells (0-2) /HPF Urine Bacteria (None Seen) Hyaline Casts (0-2) /LPF Salicylates (15-30) mg/dL Urine Opiates Screen Not Detected (Not Detect) Urine Fentanyl Screen Not Detected (Not Detect) Ur Barbiturates Screen Not Detected (Not Detect) Ur Phencyclidine Scrn Not Detected (Not Detect) Ur Amphetamines Screen Not Detected (Not Detect) U Benzodiazepines Scrn Not Detected (Not Detect) Urine Cocaine Screen POSITIVE H (Not Detect) U Marijuana (THC) Screen POSITIVE H (Not Detect) Ethyl Alcohol mg/dL Acetone, Qual (Negative) Influenza Type A (PCR) NEGATIVE (Negative) Influenza Type B (PCR) NEGATIVE (Negative) RSV RNA Qual (PCR) NEGATIVE (Negative) SARS-CoV-2 RNA (RT-PCR) NEGATIVE (Negative) 10/03/22 10/03/22 10/03/22 Range/Units 13:11 15:02 16:22 WBC (4.8-10.8) X10*3/uL RBC (4.60-5.80) X10*6/uL Hgb (14.0-18.0) g/dl Hct (42.0-52.0) % MCV (80.0-98.0) fL MCH (27.0-33.0) pg MCHC (31.0-36.0) g/dl RDW (11.0-16.0) % Plt Count (160-400) X10*3/uL MPV (9.4-12.4) fL Immature Gran % (Auto) (0.0-0.4) % Neut % (Auto) (45-73) % Lymph % (Auto) (20-40) % [place] % (Auto) (2-11) % Eos % (Auto) (0-4) % Baso % (Auto) (0-2) % Lymph # (Auto) (1.2-4.9) X10*3/uL [place] # (Auto) (0.1-1.2) X10*3/uL Eos # (Auto) (0.0-0.4) X10*3/uL Baso # (Auto) (0.0-0.2) X10*3/uL Abs Immat Gran (auto) (0.00-0.03) X10*3/uL Absolute Neuts (auto) (2.0-8.3) x10*3/uL Absolute Nucleated RBC (0.0-0.012) X10*3/uL Nucleated RBC % (auto) (0.0-0.2) /100WBC ESR (0-15) MM/HR PT (10.0-13.1) SEC INR (0.9-1.1) VBG pH (7.32-7.43) VBG pCO2 mmHg VBG pO2 mmHg VBG HCO3 (22-26) mmol/L VBG O2 Saturation % VBG Base Excess mmol/L Sodium (135-145) mmol/L Potassium (3.3-5.1) mmol/L Chloride (96-108) mmol/L Carbon Dioxide (22-29) mmol/L Anion Gap (12-20) BUN (9-16) mg/dL Creatinine (0.5-1.4) mg/dL Estim Creat Clear Calc Estimated GFR POC Glucose 120 H (60-115) mg/dL Random Glucose (60-115) mg/dL Lactic Acid (0.5-2.0) mmol/L Lactic Acid F/U @ 2Hr 2.0 (0.5-2.0) mmol/L Calcium (8.4-10.2) mg/dL Magnesium (1.6-2.6) mg/dL Total Bilirubin (0.0-1.0) mg/dL AST (5-37) U/L ALT (0-40) U/L Alkaline Phosphatase (39-117) U/L Ammonia (13-55) umol/L Total Creatine Kinase (38-174) U/L Troponin I High Sens (<3.5-35.0) ng/L C-Reactive Protein (< or = 0.50) mg/dL Total Protein (6.5-8.0) g/dL Albumin (3.5-5.0) g/dL Lipase (8-78) U/L Urine Color Yellow Urine Appearance Cloudy Urine pH 6.0 (5.0-9.0) Ur Specific [place] 1.025 (1.005-1.025) Urine Protein 30 (1+) H (Neg-Trace) mg/dL Urine Glucose (UA) Negative (Negative) mg/dL Urine Ketones Negative (Negative) mg/dL Urine Blood Negative (Negative) Urine Nitrite Negative (Negative) Ur Leukocyte Esterase Negative (Negative) Urine RBC 0-2 (0-2) /HPF Urine WBC 0-5 (0-5) /HPF Ur Squamous Epith Cells 0-2 (0-2) /HPF Urine Bacteria None Seen (None Seen) Hyaline Casts 3-5 (0-2) /LPF Salicylates (15-30) mg/dL Urine Opiates Screen (Not Detect) Urine Fentanyl Screen (Not Detect) Ur Barbiturates Screen (Not Detect) Ur Phencyclidine Scrn (Not Detect) Ur Amphetamines Screen (Not Detect) U Benzodiazepines Scrn (Not Detect) Urine Cocaine Screen (Not Detect) U Marijuana (THC) Screen (Not Detect) Ethyl Alcohol mg/dL Acetone, Qual (Negative) Influenza Type A (PCR) (Negative) Influenza Type B (PCR) (Negative) RSV RNA Qual (PCR) (Negative) SARS-CoV-2 RNA (RT-PCR) (Negative) <TOBIN Lawson - Last Filed: 10/04/22 00:31> Lab Results 10/03/22 10/03/22 10/03/22 Range/Units 11:51 11:58 11:58 WBC 11.8 H (4.8-10.8) X10*3/uL RBC 4.89 (4.60-5.80) X10*6/uL Hgb 13.3 L (14.0-18.0) g/dl Hct 39.6 L (42.0-52.0) % MCV 81.0 (80.0-98.0) fL MCH 27.2 (27.0-33.0) pg MCHC 33.6 (31.0-36.0) g/dl RDW 14.3 (11.0-16.0) % Plt Count 385 (160-400) X10*3/uL MPV 9.7 (9.4-12.4) fL Immature Gran % (Auto) 0.3 (0.0-0.4) % Neut % (Auto) 69.1 (45-73) % Lymph % (Auto) 23.0 (20-40) % [place] % (Auto) 7.3 (2-11) % Eos % (Auto) 0.0 (0-4) % Baso % (Auto) 0.3 (0-2) % Lymph # (Auto) 2.7 (1.2-4.9) X10*3/uL [place] # (Auto) 0.9 (0.1-1.2) X10*3/uL Eos # (Auto) 0.0 (0.0-0.4) X10*3/uL Baso # (Auto) 0.0 (0.0-0.2) X10*3/uL Abs Immat Gran (auto) 0.04 H (0.00-0.03) X10*3/uL Absolute Neuts (auto) 8.2 (2.0-8.3) x10*3/uL Absolute Nucleated RBC 0.000 (0.0-0.012) X10*3/uL Nucleated RBC % (auto) 0.0 (0.0-0.2) /100WBC ESR (0-15) MM/HR PT 12.8 (10.0-13.1) SEC INR 1.1 (0.9-1.1) VBG pH (7.32-7.43) VBG pCO2 mmHg VBG pO2 mmHg VBG HCO3 (22-26) mmol/L VBG O2 Saturation % VBG Base Excess mmol/L Sodium (135-145) mmol/L Potassium (3.3-5.1) mmol/L Chloride (96-108) mmol/L Carbon Dioxide (22-29) mmol/L Anion Gap (12-20) BUN (9-16) mg/dL Creatinine (0.5-1.4) mg/dL Estim Creat Clear Calc Estimated GFR POC Glucose 162 H (60-115) mg/dL Random Glucose (60-115) mg/dL Lactic Acid (0.5-2.0) mmol/L Lactic Acid F/U @ 2Hr (0.5-2.0) mmol/L Calcium (8.4-10.2) mg/dL Magnesium (1.6-2.6) mg/dL Total Bilirubin (0.0-1.0) mg/dL AST (5-37) U/L ALT (0-40) U/L Alkaline Phosphatase (39-117) U/L Ammonia (13-55) umol/L Total Creatine Kinase (38-174) U/L Troponin I High Sens (<3.5-35.0) ng/L C-Reactive Protein (< or = 0.50) mg/dL Total Protein (6.5-8.0) g/dL Albumin (3.5-5.0) g/dL Lipase (8-78) U/L Urine Color Urine Appearance Urine pH (5.0-9.0) Ur Specific [place] (1.005-1.025) Urine Protein (Neg-Trace) mg/dL Urine Glucose (UA) (Negative) mg/dL Urine Ketones (Negative) mg/dL Urine Blood (Negative) Urine Nitrite (Negative) Ur Leukocyte Esterase (Negative) Urine RBC (0-2) /HPF Urine WBC (0-5) /HPF Ur Squamous Epith Cells (0-2) /HPF Urine Bacteria (None Seen) Hyaline Casts (0-2) /LPF Salicylates (15-30) mg/dL Urine Opiates Screen (Not Detect) Urine Fentanyl Screen (Not Detect) Ur Barbiturates Screen (Not Detect) Ur Phencyclidine Scrn (Not Detect) Ur Amphetamines Screen (Not Detect) U Benzodiazepines Scrn (Not Detect) Urine Cocaine Screen (Not Detect) U Marijuana (THC) Screen (Not Detect) Ethyl Alcohol mg/dL Acetone, Qual (Negative) Influenza Type A (PCR) (Negative) Influenza Type B (PCR) (Negative) RSV RNA Qual (PCR) (Negative) SARS-CoV-2 RNA (RT-PCR) (Negative) 10/03/22 10/03/22 10/03/22 Range/Units 11:58 11:58 11:58 WBC (4.8-10.8) X10*3/uL RBC (4.60-5.80) X10*6/uL Hgb (14.0-18.0) g/dl Hct (42.0-52.0) % MCV (80.0-98.0) fL MCH (27.0-33.0) pg MCHC (31.0-36.0) g/dl RDW (11.0-16.0) % Plt Count (160-400) X10*3/uL MPV (9.4-12.4) fL Immature Gran % (Auto) (0.0-0.4) % Neut % (Auto) (45-73) % Lymph % (Auto) (20-40) % [place] % (Auto) (2-11) % Eos % (Auto) (0-4) % Baso % (Auto) (0-2) % Lymph # (Auto) (1.2-4.9) X10*3/uL [place] # (Auto) (0.1-1.2) X10*3/uL Eos # (Auto) (0.0-0.4) X10*3/uL Baso # (Auto) (0.0-0.2) X10*3/uL Abs Immat Gran (auto) (0.00-0.03) X10*3/uL Absolute Neuts (auto) (2.0-8.3) x10*3/uL Absolute Nucleated RBC (0.0-0.012) X10*3/uL Nucleated RBC % (auto) (0.0-0.2) /100WBC ESR 3 (0-15) MM/HR PT (10.0-13.1) SEC INR (0.9-1.1) VBG pH (7.32-7.43) VBG pCO2 mmHg VBG pO2 mmHg VBG HCO3 (22-26) mmol/L VBG O2 Saturation % VBG Base Excess mmol/L Sodium 142 (135-145) mmol/L Potassium 4.5 (3.3-5.1) mmol/L Chloride 103 (96-108) mmol/L Carbon Dioxide 25 (22-29) mmol/L Anion Gap 19 (12-20) BUN 13 (9-16) mg/dL Creatinine 1.32 (0.5-1.4) mg/dL Estim Creat Clear Calc 105.6 Estimated GFR > 60 POC Glucose (60-115) mg/dL Random Glucose 158 H (60-115) mg/dL Lactic Acid (0.5-2.0) mmol/L Lactic Acid F/U @ 2Hr (0.5-2.0) mmol/L Calcium 9.6 (8.4-10.2) mg/dL Magnesium 1.7 (1.6-2.6) mg/dL Total Bilirubin 0.6 (0.0-1.0) mg/dL AST 22 (5-37) U/L ALT 28 (0-40) U/L Alkaline Phosphatase 76 (39-117) U/L Ammonia (13-55) umol/L Total Creatine Kinase (38-174) U/L Troponin I High Sens < 3.5 (<3.5-35.0) ng/L C-Reactive Protein < 0.10 (< or = 0.50) mg/dL Total Protein 7.4 (6.5-8.0) g/dL Albumin 4.4 (3.5-5.0) g/dL Lipase 8 (8-78) U/L Urine Color Urine Appearance Urine pH (5.0-9.0) Ur Specific [place] (1.005-1.025) Urine Protein (Neg-Trace) mg/dL Urine Glucose (UA) (Negative) mg/dL Urine Ketones (Negative) mg/dL Urine Blood (Negative) Urine Nitrite (Negative) Ur Leukocyte Esterase (Negative) Urine RBC (0-2) /HPF Urine WBC (0-5) /HPF Ur Squamous Epith Cells (0-2) /HPF Urine Bacteria (None Seen) Hyaline Casts (0-2) /LPF Salicylates < 5.0 L (15-30) mg/dL Urine Opiates Screen (Not Detect) Urine Fentanyl Screen (Not Detect) Ur Barbiturates Screen (Not Detect) Ur Phencyclidine Scrn (Not Detect) Ur Amphetamines Screen (Not Detect) U Benzodiazepines Scrn (Not Detect) Urine Cocaine Screen (Not Detect) U Marijuana (THC) Screen (Not Detect) Ethyl Alcohol mg/dL Acetone, Qual Negative (Negative) Influenza Type A (PCR) (Negative) Influenza Type B (PCR) (Negative) RSV RNA Qual (PCR) (Negative) SARS-CoV-2 RNA (RT-PCR) (Negative) 10/03/22 10/03/22 10/03/22 Range/Units 11:58 11:58 11:58 WBC (4.8-10.8) X10*3/uL RBC (4.60-5.80) X10*6/uL Hgb (14.0-18.0) g/dl Hct (42.0-52.0) % MCV (80.0-98.0) fL MCH (27.0-33.0) pg MCHC (31.0-36.0) g/dl RDW (11.0-16.0) % Plt Count (160-400) X10*3/uL MPV (9.4-12.4) fL Immature Gran % (Auto) (0.0-0.4) % Neut % (Auto) (45-73) % Lymph % (Auto) (20-40) % [place] % (Auto) (2-11) % Eos % (Auto) (0-4) % Baso % (Auto) (0-2) % Lymph # (Auto) (1.2-4.9) X10*3/uL [place] # (Auto) (0.1-1.2) X10*3/uL Eos # (Auto) (0.0-0.4) X10*3/uL Baso # (Auto) (0.0-0.2) X10*3/uL Abs Immat Gran (auto) (0.00-0.03) X10*3/uL Absolute Neuts (auto) (2.0-8.3) x10*3/uL Absolute Nucleated RBC (0.0-0.012) X10*3/uL Nucleated RBC % (auto) (0.0-0.2) /100WBC ESR (0-15) MM/HR PT (10.0-13.1) SEC INR (0.9-1.1) VBG pH (7.32-7.43) VBG pCO2 mmHg VBG pO2 mmHg VBG HCO3 (22-26) mmol/L VBG O2 Saturation % VBG Base Excess mmol/L Sodium (135-145) mmol/L Potassium (3.3-5.1) mmol/L Chloride (96-108) mmol/L Carbon Dioxide (22-29) mmol/L Anion Gap (12-20) BUN (9-16) mg/dL Creatinine (0.5-1.4) mg/dL Estim Creat Clear Calc Estimated GFR POC Glucose (60-115) mg/dL Random Glucose (60-115) mg/dL Lactic Acid 3.4 H* (0.5-2.0) mmol/L Lactic Acid F/U @ 2Hr (0.5-2.0) mmol/L Calcium (8.4-10.2) mg/dL Magnesium (1.6-2.6) mg/dL Total Bilirubin (0.0-1.0) mg/dL AST (5-37) U/L ALT (0-40) U/L Alkaline Phosphatase (39-117) U/L Ammonia 35 (13-55) umol/L Total Creatine Kinase 193 H (38-174) U/L Troponin I High Sens (<3.5-35.0) ng/L C-Reactive Protein (< or = 0.50) mg/dL Total Protein (6.5-8.0) g/dL Albumin (3.5-5.0) g/dL Lipase (8-78) U/L Urine Color Urine Appearance Urine pH (5.0-9.0) Ur Specific [place] (1.005-1.025) Urine Protein (Neg-Trace) mg/dL Urine Glucose (UA) (Negative) mg/dL Urine Ketones (Negative) mg/dL Urine Blood (Negative) Urine Nitrite (Negative) Ur Leukocyte Esterase (Negative) Urine RBC (0-2) /HPF Urine WBC (0-5) /HPF Ur Squamous Epith Cells (0-2) /HPF Urine Bacteria (None Seen) Hyaline Casts (0-2) /LPF Salicylates (15-30) mg/dL Urine Opiates Screen (Not Detect) Urine Fentanyl Screen (Not Detect) Ur Barbiturates Screen (Not Detect) Ur Phencyclidine Scrn (Not Detect) Ur Amphetamines Screen (Not Detect) U Benzodiazepines Scrn (Not Detect) Urine Cocaine Screen (Not Detect) U Marijuana (THC) Screen (Not Detect) Ethyl Alcohol < 10 mg/dL Acetone, Qual (Negative) Influenza Type A (PCR) (Negative) Influenza Type B (PCR) (Negative) RSV RNA Qual (PCR) (Negative) SARS-CoV-2 RNA (RT-PCR) (Negative) 10/03/22 10/03/22 10/03/22 Range/Units 11:59 13:04 13:11 WBC (4.8-10.8) X10*3/uL RBC (4.60-5.80) X10*6/uL Hgb (14.0-18.0) g/dl Hct (42.0-52.0) % MCV (80.0-98.0) fL MCH (27.0-33.0) pg MCHC (31.0-36.0) g/dl RDW (11.0-16.0) % Plt Count (160-400) X10*3/uL MPV (9.4-12.4) fL Immature Gran % (Auto) (0.0-0.4) % Neut % (Auto) (45-73) % Lymph % (Auto) (20-40) % [place] % (Auto) (2-11) % Eos % (Auto) (0-4) % Baso % (Auto) (0-2) % Lymph # (Auto) (1.2-4.9) X10*3/uL [place] # (Auto) (0.1-1.2) X10*3/uL Eos # (Auto) (0.0-0.4) X10*3/uL Baso # (Auto) (0.0-0.2) X10*3/uL Abs Immat Gran (auto) (0.00-0.03) X10*3/uL Absolute Neuts (auto) (2.0-8.3) x10*3/uL Absolute Nucleated RBC (0.0-0.012) X10*3/uL Nucleated RBC % (auto) (0.0-0.2) /100WBC ESR (0-15) MM/HR PT (10.0-13.1) SEC INR (0.9-1.1) VBG pH 7.45 H (7.32-7.43) VBG pCO2 40 mmHg VBG pO2 120 mmHg VBG HCO3 28 H (22-26) mmol/L VBG O2 Saturation 99.0 % VBG Base Excess 4.4 mmol/L Sodium (135-145) mmol/L Potassium (3.3-5.1) mmol/L Chloride (96-108) mmol/L Carbon Dioxide (22-29) mmol/L Anion Gap (12-20) BUN (9-16) mg/dL Creatinine (0.5-1.4) mg/dL Estim Creat Clear Calc Estimated GFR POC Glucose (60-115) mg/dL Random Glucose (60-115) mg/dL Lactic Acid (0.5-2.0) mmol/L Lactic Acid F/U @ 2Hr (0.5-2.0) mmol/L Calcium (8.4-10.2) mg/dL Magnesium (1.6-2.6) mg/dL Total Bilirubin (0.0-1.0) mg/dL AST (5-37) U/L ALT (0-40) U/L Alkaline Phosphatase (39-117) U/L Ammonia (13-55) umol/L Total Creatine Kinase (38-174) U/L Troponin I High Sens (<3.5-35.0) ng/L C-Reactive Protein (< or = 0.50) mg/dL Total Protein (6.5-8.0) g/dL Albumin (3.5-5.0) g/dL Lipase (8-78) U/L Urine Color Urine Appearance Urine pH (5.0-9.0) Ur Specific [place] (1.005-1.025) Urine Protein (Neg-Trace) mg/dL Urine Glucose (UA) (Negative) mg/dL Urine Ketones (Negative) mg/dL Urine Blood (Negative) Urine Nitrite (Negative) Ur Leukocyte Esterase (Negative) Urine RBC (0-2) /HPF Urine WBC (0-5) /HPF Ur Squamous Epith Cells (0-2) /HPF Urine Bacteria (None Seen) Hyaline Casts (0-2) /LPF Salicylates (15-30) mg/dL Urine Opiates Screen Not Detected (Not Detect) Urine Fentanyl Screen Not Detected (Not Detect) Ur Barbiturates Screen Not Detected (Not Detect) Ur Phencyclidine Scrn Not Detected (Not Detect) Ur Amphetamines Screen Not Detected (Not Detect) U Benzodiazepines Scrn Not Detected (Not Detect) Urine Cocaine Screen POSITIVE H (Not Detect) U Marijuana (THC) Screen POSITIVE H (Not Detect) Ethyl Alcohol mg/dL Acetone, Qual (Negative) Influenza Type A (PCR) NEGATIVE (Negative) Influenza Type B (PCR) NEGATIVE (Negative) RSV RNA Qual (PCR) NEGATIVE (Negative) SARS-CoV-2 RNA (RT-PCR) NEGATIVE (Negative) 10/03/22 10/03/22 10/03/22 Range/Units 13:11 15:02 16:22 WBC (4.8-10.8) X10*3/uL RBC (4.60-5.80) X10*6/uL Hgb (14.0-18.0) g/dl Hct (42.0-52.0) % MCV (80.0-98.0) fL MCH (27.0-33.0) pg MCHC (31.0-36.0) g/dl RDW (11.0-16.0) % Plt Count (160-400) X10*3/uL MPV (9.4-12.4) fL Immature Gran % (Auto) (0.0-0.4) % Neut % (Auto) (45-73) % Lymph % (Auto) (20-40) % [place] % (Auto) (2-11) % Eos % (Auto) (0-4) % Baso % (Auto) (0-2) % Lymph # (Auto) (1.2-4.9) X10*3/uL [place] # (Auto) (0.1-1.2) X10*3/uL Eos # (Auto) (0.0-0.4) X10*3/uL Baso # (Auto) (0.0-0.2) X10*3/uL Abs Immat Gran (auto) (0.00-0.03) X10*3/uL Absolute Neuts (auto) (2.0-8.3) x10*3/uL Absolute Nucleated RBC (0.0-0.012) X10*3/uL Nucleated RBC % (auto) (0.0-0.2) /100WBC ESR (0-15) MM/HR PT (10.0-13.1) SEC INR (0.9-1.1) VBG pH (7.32-7.43) VBG pCO2 mmHg VBG pO2 mmHg VBG HCO3 (22-26) mmol/L VBG O2 Saturation % VBG Base Excess mmol/L Sodium (135-145) mmol/L Potassium (3.3-5.1) mmol/L Chloride (96-108) mmol/L Carbon Dioxide (22-29) mmol/L Anion Gap (12-20) BUN (9-16) mg/dL Creatinine (0.5-1.4) mg/dL Estim Creat Clear Calc Estimated GFR POC Glucose 120 H (60-115) mg/dL Random Glucose (60-115) mg/dL Lactic Acid (0.5-2.0) mmol/L Lactic Acid F/U @ 2Hr 2.0 (0.5-2.0) mmol/L Calcium (8.4-10.2) mg/dL Magnesium (1.6-2.6) mg/dL Total Bilirubin (0.0-1.0) mg/dL AST (5-37) U/L ALT (0-40) U/L Alkaline Phosphatase (39-117) U/L Ammonia (13-55) umol/L Total Creatine Kinase (38-174) U/L Troponin I High Sens (<3.5-35.0) ng/L C-Reactive Protein (< or = 0.50) mg/dL Total Protein (6.5-8.0) g/dL Albumin (3.5-5.0) g/dL Lipase (8-78) U/L Urine Color Yellow Urine Appearance Cloudy Urine pH 6.0 (5.0-9.0) Ur Specific [place] 1.025 (1.005-1.025) Urine Protein 30 (1+) H (Neg-Trace) mg/dL Urine Glucose (UA) Negative (Negative) mg/dL Urine Ketones Negative (Negative) mg/dL Urine Blood Negative (Negative) Urine Nitrite Negative (Negative) Ur Leukocyte Esterase Negative (Negative) Urine RBC 0-2 (0-2) /HPF Urine WBC 0-5 (0-5) /HPF Ur Squamous Epith Cells 0-2 (0-2) /HPF Urine Bacteria None Seen (None Seen) Hyaline Casts 3-5 (0-2) /LPF Salicylates (15-30) mg/dL Urine Opiates Screen (Not Detect) Urine Fentanyl Screen (Not Detect) Ur Barbiturates Screen (Not Detect) Ur Phencyclidine Scrn (Not Detect) Ur Amphetamines Screen (Not Detect) U Benzodiazepines Scrn (Not Detect) Urine Cocaine Screen (Not Detect) U Marijuana (THC) Screen (Not Detect) Ethyl Alcohol mg/dL Acetone, Qual (Negative) Influenza Type A (PCR) (Negative) Influenza Type B (PCR) (Negative) RSV RNA Qual (PCR) (Negative) SARS-CoV-2 RNA (RT-PCR) (Negative) <Marquez Banks MD - Last Filed: 10/04/22 00:32> Lab Results 10/03/22 10/03/22 10/03/22 Range/Units 11:51 11:58 11:58 WBC 11.8 H (4.8-10.8) X10*3/uL RBC 4.89 (4.60-5.80) X10*6/uL Hgb 13.3 L (14.0-18.0) g/dl Hct 39.6 L (42.0-52.0) % MCV 81.0 (80.0-98.0) fL MCH 27.2 (27.0-33.0) pg MCHC 33.6 (31.0-36.0) g/dl RDW 14.3 (11.0-16.0) % Plt Count 385 (160-400) X10*3/uL MPV 9.7 (9.4-12.4) fL Immature Gran % (Auto) 0.3 (0.0-0.4) % Neut % (Auto) 69.1 (45-73) % Lymph % (Auto) 23.0 (20-40) % [place] % (Auto) 7.3 (2-11) % Eos % (Auto) 0.0 (0-4) % Baso % (Auto) 0.3 (0-2) % Lymph # (Auto) 2.7 (1.2-4.9) X10*3/uL [place] # (Auto) 0.9 (0.1-1.2) X10*3/uL Eos # (Auto) 0.0 (0.0-0.4) X10*3/uL Baso # (Auto) 0.0 (0.0-0.2) X10*3/uL Abs Immat Gran (auto) 0.04 H (0.00-0.03) X10*3/uL Absolute Neuts (auto) 8.2 (2.0-8.3) x10*3/uL Absolute Nucleated RBC 0.000 (0.0-0.012) X10*3/uL Nucleated RBC % (auto) 0.0 (0.0-0.2) /100WBC ESR (0-15) MM/HR PT 12.8 (10.0-13.1) SEC INR 1.1 (0.9-1.1) VBG pH (7.32-7.43) VBG pCO2 mmHg VBG pO2 mmHg VBG HCO3 (22-26) mmol/L VBG O2 Saturation % VBG Base Excess mmol/L Sodium (135-145) mmol/L Potassium (3.3-5.1) mmol/L Chloride (96-108) mmol/L Carbon Dioxide (22-29) mmol/L Anion Gap (12-20) BUN (9-16) mg/dL Creatinine (0.5-1.4) mg/dL Estim Creat Clear Calc Estimated GFR POC Glucose 162 H (60-115) mg/dL Random Glucose (60-115) mg/dL Lactic Acid (0.5-2.0) mmol/L Lactic Acid F/U @ 2Hr (0.5-2.0) mmol/L Calcium (8.4-10.2) mg/dL Magnesium (1.6-2.6) mg/dL Total Bilirubin (0.0-1.0) mg/dL AST (5-37) U/L ALT (0-40) U/L Alkaline Phosphatase (39-117) U/L Ammonia (13-55) umol/L Total Creatine Kinase (38-174) U/L Troponin I High Sens (<3.5-35.0) ng/L C-Reactive Protein (< or = 0.50) mg/dL Total Protein (6.5-8.0) g/dL Albumin (3.5-5.0) g/dL Lipase (8-78) U/L Urine Color Urine Appearance Urine pH (5.0-9.0) Ur Specific [place] (1.005-1.025) Urine Protein (Neg-Trace) mg/dL Urine Glucose (UA) (Negative) mg/dL Urine Ketones (Negative) mg/dL Urine Blood (Negative) Urine Nitrite (Negative) Ur Leukocyte Esterase (Negative) Urine RBC (0-2) /HPF Urine WBC (0-5) /HPF Ur Squamous Epith Cells (0-2) /HPF Urine Bacteria (None Seen) Hyaline Casts (0-2) /LPF Salicylates (15-30) mg/dL Urine Opiates Screen (Not Detect) Urine Fentanyl Screen (Not Detect) Ur Barbiturates Screen (Not Detect) Ur Phencyclidine Scrn (Not Detect) Ur Amphetamines Screen (Not Detect) U Benzodiazepines Scrn (Not Detect) Urine Cocaine Screen (Not Detect) U Marijuana (THC) Screen (Not Detect) Ethyl Alcohol mg/dL Acetone, Qual (Negative) Influenza Type A (PCR) (Negative) Influenza Type B (PCR) (Negative) RSV RNA Qual (PCR) (Negative) SARS-CoV-2 RNA (RT-PCR) (Negative) 10/03/22 10/03/22 10/03/22 Range/Units 11:58 11:58 11:58 WBC (4.8-10.8) X10*3/uL RBC (4.60-5.80) X10*6/uL Hgb (14.0-18.0) g/dl Hct (42.0-52.0) % MCV (80.0-98.0) fL MCH (27.0-33.0) pg MCHC (31.0-36.0) g/dl RDW (11.0-16.0) % Plt Count (160-400) X10*3/uL MPV (9.4-12.4) fL Immature Gran % (Auto) (0.0-0.4) % Neut % (Auto) (45-73) % Lymph % (Auto) (20-40) % [place] % (Auto) (2-11) % Eos % (Auto) (0-4) % Baso % (Auto) (0-2) % Lymph # (Auto) (1.2-4.9) X10*3/uL [place] # (Auto) (0.1-1.2) X10*3/uL Eos # (Auto) (0.0-0.4) X10*3/uL Baso # (Auto) (0.0-0.2) X10*3/uL Abs Immat Gran (auto) (0.00-0.03) X10*3/uL Absolute Neuts (auto) (2.0-8.3) x10*3/uL Absolute Nucleated RBC (0.0-0.012) X10*3/uL Nucleated RBC % (auto) (0.0-0.2) /100WBC ESR 3 (0-15) MM/HR PT (10.0-13.1) SEC INR (0.9-1.1) VBG pH (7.32-7.43) VBG pCO2 mmHg VBG pO2 mmHg VBG HCO3 (22-26) mmol/L VBG O2 Saturation % VBG Base Excess mmol/L Sodium 142 (135-145) mmol/L Potassium 4.5 (3.3-5.1) mmol/L Chloride 103 (96-108) mmol/L Carbon Dioxide 25 (22-29) mmol/L Anion Gap 19 (12-20) BUN 13 (9-16) mg/dL Creatinine 1.32 (0.5-1.4) mg/dL Estim Creat Clear Calc 105.6 Estimated GFR > 60 POC Glucose (60-115) mg/dL Random Glucose 158 H (60-115) mg/dL Lactic Acid (0.5-2.0) mmol/L Lactic Acid F/U @ 2Hr (0.5-2.0) mmol/L Calcium 9.6 (8.4-10.2) mg/dL Magnesium 1.7 (1.6-2.6) mg/dL Total Bilirubin 0.6 (0.0-1.0) mg/dL AST 22 (5-37) U/L ALT 28 (0-40) U/L Alkaline Phosphatase 76 (39-117) U/L Ammonia (13-55) umol/L Total Creatine Kinase (38-174) U/L Troponin I High Sens < 3.5 (<3.5-35.0) ng/L C-Reactive Protein < 0.10 (< or = 0.50) mg/dL Total Protein 7.4 (6.5-8.0) g/dL Albumin 4.4 (3.5-5.0) g/dL Lipase 8 (8-78) U/L Urine Color Urine Appearance Urine pH (5.0-9.0) Ur Specific [place] (1.005-1.025) Urine Protein (Neg-Trace) mg/dL Urine Glucose (UA) (Negative) mg/dL Urine Ketones (Negative) mg/dL Urine Blood (Negative) Urine Nitrite (Negative) Ur Leukocyte Esterase (Negative) Urine RBC (0-2) /HPF Urine WBC (0-5) /HPF Ur Squamous Epith Cells (0-2) /HPF Urine Bacteria (None Seen) Hyaline Casts (0-2) /LPF Salicylates < 5.0 L (15-30) mg/dL Urine Opiates Screen (Not Detect) Urine Fentanyl Screen (Not Detect) Ur Barbiturates Screen (Not Detect) Ur Phencyclidine Scrn (Not Detect) Ur Amphetamines Screen (Not Detect) U Benzodiazepines Scrn (Not Detect) Urine Cocaine Screen (Not Detect) U Marijuana (THC) Screen (Not Detect) Ethyl Alcohol mg/dL Acetone, Qual Negative (Negative) Influenza Type A (PCR) (Negative) Influenza Type B (PCR) (Negative) RSV RNA Qual (PCR) (Negative) SARS-CoV-2 RNA (RT-PCR) (Negative) 10/03/22 10/03/22 10/03/22 Range/Units 11:58 11:58 11:58 WBC (4.8-10.8) X10*3/uL RBC (4.60-5.80) X10*6/uL Hgb (14.0-18.0) g/dl Hct (42.0-52.0) % MCV (80.0-98.0) fL MCH (27.0-33.0) pg MCHC (31.0-36.0) g/dl RDW (11.0-16.0) % Plt Count (160-400) X10*3/uL MPV (9.4-12.4) fL Immature Gran % (Auto) (0.0-0.4) % Neut % (Auto) (45-73) % Lymph % (Auto) (20-40) % [place] % (Auto) (2-11) % Eos % (Auto) (0-4) % Baso % (Auto) (0-2) % Lymph # (Auto) (1.2-4.9) X10*3/uL [place] # (Auto) (0.1-1.2) X10*3/uL Eos # (Auto) (0.0-0.4) X10*3/uL Baso # (Auto) (0.0-0.2) X10*3/uL Abs Immat Gran (auto) (0.00-0.03) X10*3/uL Absolute Neuts (auto) (2.0-8.3) x10*3/uL Absolute Nucleated RBC (0.0-0.012) X10*3/uL Nucleated RBC % (auto) (0.0-0.2) /100WBC ESR (0-15) MM/HR PT (10.0-13.1) SEC INR (0.9-1.1) VBG pH (7.32-7.43) VBG pCO2 mmHg VBG pO2 mmHg VBG HCO3 (22-26) mmol/L VBG O2 Saturation % VBG Base Excess mmol/L Sodium (135-145) mmol/L Potassium (3.3-5.1) mmol/L Chloride (96-108) mmol/L Carbon Dioxide (22-29) mmol/L Anion Gap (12-20) BUN (9-16) mg/dL Creatinine (0.5-1.4) mg/dL Estim Creat Clear Calc Estimated GFR POC Glucose (60-115) mg/dL Random Glucose (60-115) mg/dL Lactic Acid 3.4 H* (0.5-2.0) mmol/L Lactic Acid F/U @ 2Hr (0.5-2.0) mmol/L Calcium (8.4-10.2) mg/dL Magnesium (1.6-2.6) mg/dL Total Bilirubin (0.0-1.0) mg/dL AST (5-37) U/L ALT (0-40) U/L Alkaline Phosphatase (39-117) U/L Ammonia 35 (13-55) umol/L Total Creatine Kinase 193 H (38-174) U/L Troponin I High Sens (<3.5-35.0) ng/L C-Reactive Protein (< or = 0.50) mg/dL Total Protein (6.5-8.0) g/dL Albumin (3.5-5.0) g/dL Lipase (8-78) U/L Urine Color Urine Appearance Urine pH (5.0-9.0) Ur Specific [place] (1.005-1.025) Urine Protein (Neg-Trace) mg/dL Urine Glucose (UA) (Negative) mg/dL Urine Ketones (Negative) mg/dL Urine Blood (Negative) Urine Nitrite (Negative) Ur Leukocyte Esterase (Negative) Urine RBC (0-2) /HPF Urine WBC (0-5) /HPF Ur Squamous Epith Cells (0-2) /HPF Urine Bacteria (None Seen) Hyaline Casts (0-2) /LPF Salicylates (15-30) mg/dL Urine Opiates Screen (Not Detect) Urine Fentanyl Screen (Not Detect) Ur Barbiturates Screen (Not Detect) Ur Phencyclidine Scrn (Not Detect) Ur Amphetamines Screen (Not Detect) U Benzodiazepines Scrn (Not Detect) Urine Cocaine Screen (Not Detect) U Marijuana (THC) Screen (Not Detect) Ethyl Alcohol < 10 mg/dL Acetone, Qual (Negative) Influenza Type A (PCR) (Negative) Influenza Type B (PCR) (Negative) RSV RNA Qual (PCR) (Negative) SARS-CoV-2 RNA (RT-PCR) (Negative) 10/03/22 10/03/22 10/03/22 Range/Units 11:59 13:04 13:11 WBC (4.8-10.8) X10*3/uL RBC (4.60-5.80) X10*6/uL Hgb (14.0-18.0) g/dl Hct (42.0-52.0) % MCV (80.0-98.0) fL MCH (27.0-33.0) pg MCHC (31.0-36.0) g/dl RDW (11.0-16.0) % Plt Count (160-400) X10*3/uL MPV (9.4-12.4) fL Immature Gran % (Auto) (0.0-0.4) % Neut % (Auto) (45-73) % Lymph % (Auto) (20-40) % [place] % (Auto) (2-11) % Eos % (Auto) (0-4) % Baso % (Auto) (0-2) % Lymph # (Auto) (1.2-4.9) X10*3/uL [place] # (Auto) (0.1-1.2) X10*3/uL Eos # (Auto) (0.0-0.4) X10*3/uL Baso # (Auto) (0.0-0.2) X10*3/uL Abs Immat Gran (auto) (0.00-0.03) X10*3/uL Absolute Neuts (auto) (2.0-8.3) x10*3/uL Absolute Nucleated RBC (0.0-0.012) X10*3/uL Nucleated RBC % (auto) (0.0-0.2) /100WBC ESR (0-15) MM/HR PT (10.0-13.1) SEC INR (0.9-1.1) VBG pH 7.45 H (7.32-7.43) VBG pCO2 40 mmHg VBG pO2 120 mmHg VBG HCO3 28 H (22-26) mmol/L VBG O2 Saturation 99.0 % VBG Base Excess 4.4 mmol/L Sodium (135-145) mmol/L Potassium (3.3-5.1) mmol/L Chloride (96-108) mmol/L Carbon Dioxide (22-29) mmol/L Anion Gap (12-20) BUN (9-16) mg/dL Creatinine (0.5-1.4) mg/dL Estim Creat Clear Calc Estimated GFR POC Glucose (60-115) mg/dL Random Glucose (60-115) mg/dL Lactic Acid (0.5-2.0) mmol/L Lactic Acid F/U @ 2Hr (0.5-2.0) mmol/L Calcium (8.4-10.2) mg/dL Magnesium (1.6-2.6) mg/dL Total Bilirubin (0.0-1.0) mg/dL AST (5-37) U/L ALT (0-40) U/L Alkaline Phosphatase (39-117) U/L Ammonia (13-55) umol/L Total Creatine Kinase (38-174) U/L Troponin I High Sens (<3.5-35.0) ng/L C-Reactive Protein (< or = 0.50) mg/dL Total Protein (6.5-8.0) g/dL Albumin (3.5-5.0) g/dL Lipase (8-78) U/L Urine Color Urine Appearance Urine pH (5.0-9.0) Ur Specific [place] (1.005-1.025) Urine Protein (Neg-Trace) mg/dL Urine Glucose (UA) (Negative) mg/dL Urine Ketones (Negative) mg/dL Urine Blood (Negative) Urine Nitrite (Negative) Ur Leukocyte Esterase (Negative) Urine RBC (0-2) /HPF Urine WBC (0-5) /HPF Ur Squamous Epith Cells (0-2) /HPF Urine Bacteria (None Seen) Hyaline Casts (0-2) /LPF Salicylates (15-30) mg/dL Urine Opiates Screen Not Detected (Not Detect) Urine Fentanyl Screen Not Detected (Not Detect) Ur Barbiturates Screen Not Detected (Not Detect) Ur Phencyclidine Scrn Not Detected (Not Detect) Ur Amphetamines Screen Not Detected (Not Detect) U Benzodiazepines Scrn Not Detected (Not Detect) Urine Cocaine Screen POSITIVE H (Not Detect) U Marijuana (THC) Screen POSITIVE H (Not Detect) Ethyl Alcohol mg/dL Acetone, Qual (Negative) Influenza Type A (PCR) NEGATIVE (Negative) Influenza Type B (PCR) NEGATIVE (Negative) RSV RNA Qual (PCR) NEGATIVE (Negative) SARS-CoV-2 RNA (RT-PCR) NEGATIVE (Negative) 10/03/22 10/03/22 10/03/22 Range/Units 13:11 15:02 16:22 WBC (4.8-10.8) X10*3/uL RBC (4.60-5.80) X10*6/uL Hgb (14.0-18.0) g/dl Hct (42.0-52.0) % MCV (80.0-98.0) fL MCH (27.0-33.0) pg MCHC (31.0-36.0) g/dl RDW (11.0-16.0) % Plt Count (160-400) X10*3/uL MPV (9.4-12.4) fL Immature Gran % (Auto) (0.0-0.4) % Neut % (Auto) (45-73) % Lymph % (Auto) (20-40) % [place] % (Auto) (2-11) % Eos % (Auto) (0-4) % Baso % (Auto) (0-2) % Lymph # (Auto) (1.2-4.9) X10*3/uL [place] # (Auto) (0.1-1.2) X10*3/uL Eos # (Auto) (0.0-0.4) X10*3/uL Baso # (Auto) (0.0-0.2) X10*3/uL Abs Immat Gran (auto) (0.00-0.03) X10*3/uL Absolute Neuts (auto) (2.0-8.3) x10*3/uL Absolute Nucleated RBC (0.0-0.012) X10*3/uL Nucleated RBC % (auto) (0.0-0.2) /100WBC ESR (0-15) MM/HR PT (10.0-13.1) SEC INR (0.9-1.1) VBG pH (7.32-7.43) VBG pCO2 mmHg VBG pO2 mmHg VBG HCO3 (22-26) mmol/L VBG O2 Saturation % VBG Base Excess mmol/L Sodium (135-145) mmol/L Potassium (3.3-5.1) mmol/L Chloride (96-108) mmol/L Carbon Dioxide (22-29) mmol/L Anion Gap (12-20) BUN (9-16) mg/dL Creatinine (0.5-1.4) mg/dL Estim Creat Clear Calc Estimated GFR POC Glucose 120 H (60-115) mg/dL Random Glucose (60-115) mg/dL Lactic Acid (0.5-2.0) mmol/L Lactic Acid F/U @ 2Hr 2.0 (0.5-2.0) mmol/L Calcium (8.4-10.2) mg/dL Magnesium (1.6-2.6) mg/dL Total Bilirubin (0.0-1.0) mg/dL AST (5-37) U/L ALT (0-40) U/L Alkaline Phosphatase (39-117) U/L Ammonia (13-55) umol/L Total Creatine Kinase (38-174) U/L Troponin I High Sens (<3.5-35.0) ng/L C-Reactive Protein (< or = 0.50) mg/dL Total Protein (6.5-8.0) g/dL Albumin (3.5-5.0) g/dL Lipase (8-78) U/L Urine Color Yellow Urine Appearance Cloudy Urine pH 6.0 (5.0-9.0) Ur Specific [place] 1.025 (1.005-1.025) Urine Protein 30 (1+) H (Neg-Trace) mg/dL Urine Glucose (UA) Negative (Negative) mg/dL Urine Ketones Negative (Negative) mg/dL Urine Blood Negative (Negative) Urine Nitrite Negative (Negative) Ur Leukocyte Esterase Negative (Negative) Urine RBC 0-2 (0-2) /HPF Urine WBC 0-5 (0-5) /HPF Ur Squamous Epith Cells 0-2 (0-2) /HPF Urine Bacteria None Seen (None Seen) Hyaline Casts 3-5 (0-2) /LPF Salicylates (15-30) mg/dL Urine Opiates Screen (Not Detect) Urine Fentanyl Screen (Not Detect) Ur Barbiturates Screen (Not Detect) Ur Phencyclidine Scrn (Not Detect) Ur Amphetamines Screen (Not Detect) U Benzodiazepines Scrn (Not Detect) Urine Cocaine Screen (Not Detect) U Marijuana (THC) Screen (Not Detect) Ethyl Alcohol mg/dL Acetone, Qual (Negative) Influenza Type A (PCR) (Negative) Influenza Type B (PCR) (Negative) RSV RNA Qual (PCR) (Negative) SARS-CoV-2 RNA (RT-PCR) (Negative) <Rakesh Baregr MD - Last Filed: 10/04/22 10:13> Independent Interpretation I performed an independent interpretation of an: EKG and CT Scan <TOBIN Jacobson - Last Filed: 10/03/22 17:43> Interpretation: FINDINGS: HEAD: No intracranial mass, hemorrhage, or midline shift is visualized. The ventricles and sulci are proportional. No extra-axial collections are identified. Mild sinus mucosal thickening in the ethmoid and right maxillary sinus. Mastoid air cells and middle ear cavities are normally aerated. CERVICAL SPINE: There is no evidence of acute cervical spine fracture. Vertebral bodies remain normal in height. Cervical vertebrae have normal alignment. Cervical disc heights are normal. Facet joints are normal. No pre- or paravertebral soft tissue abnormality is identified. Limited assessment of the lung apices is unremarkable. CT/CT head/brain wo IV con IMPRESSION: 1. No acute intracranial pathology. 2. No CT evidence of acute cervical spine fracture or traumatic subluxation ? ? FINDINGS: CT CHEST: Lungs: The lungs are clear with no evidence of inflammation or nodules. ? Mediastinum: The mediastinum is normal.? Pleura: There is no pleural effusion. No pleural mass or thickening.? Axilla: No lymphadenopathy.? CT ABDOMEN AND PELVIS: Liver, Gallbladder and Biliary Tree: The liver is normal in size, shape, and attenuation. No focal hepatic lesion or biliary ductal dilatation is present. The gallbladder is unremarkable with no evidence of radiopaque gallstones, gallbladder wall thickening, or obvious pericholecystic inflammatory changes.? Pancreas: No acute change of the pancreas. No mass. No pancreatic duct dilatation.? Spleen: Spleen normal in size and contour. No focal lesion.? Adrenal Glands: Adrenal glands are normal in size. No focal mass.? Kidneys and Ureters: The kidneys are normal in size, shape, and attenuation. No hydronephrosis, hydroureter, or calculi seen. No perinephric stranding. ? Bladder: Unremarkable.? Gastrointestinal Tract: The small and large bowel are unremarkable. The appendix is unremarkable.? Mesentery: No focal inflammation. No free fluid. No free air. Abdominal Wall: No significant hernia is appreciated.? Lymph Nodes: Normal. Vascular: Unremarkable. Pelvic Viscera: Unremarkable.? Osseous Structures: Unremarkable.? CT/CT abdomen pelvis wo IV con IMPRESSION: Normal CT of the chest, abdomen and pelvis. ? <TOBIN Jacobson - Last Filed: 10/03/22 17:43> Radiology Impression Discussion of test interpretation with radiology: I have reviewed the radiologist's reading. <TOBIN Jacobson - Last Filed: 10/03/22 17:43> Independent Historian Clinical information obtained from an independent historian. History obtained from or confirmed by: Parent (Melinda Fenton [phone]) <TOBIN Jacobson - Last Filed: 10/03/22 17:43> External Record Review External record reviewed: Inpatient record, Office record, Outpatient record, Prior outpatient labs, Prior outpatient radiology, Primary care record and Outside ED record <TOBIN Jacobson - Last Filed: 10/03/22 17:43> Social Determinants Patient?s care significantly limited by Social Determinants of Health including: Alcoholism and drug addiction in family and Problems related to employment <TOBIN Jacobson - Last Filed: 10/03/22 17:43> Critical Care Time Critical Care Time Critical Care Time: Yes <TOBIN Jacobson - Last Filed: 10/03/22 17:43> Total Critical Care Time: 60 <TOBIN Jacobson - Last Filed: 10/03/22 17:43> Attestation: I personally attest to this time spent taking care of the patient <TOBIN Jacobson - Last Filed: 10/03/22 17:43> Discharge Plan Discharge Clinical Impression: Altered mental state, Polysubstance abuse, Infected pierced penis <TOBIN Jacobson Last Filed: 10/03/22 17:43> Patient Disposition: Still a Patient <TOBIN Jacobson - Last Filed: 10/03/22 17:43> Prescriptions: No Action albuterol sulfate 90 mcg/actuation Hfa Aerosol Inhaler 2 puff INHALATION Q4H PRN (Reason: Shortness Of Breath) citalopram 20 mg tablet 1 tab PO QAM montelukast 10 mg tablet 1 tab PO DAILY quetiapine 50 mg tablet 1 tab PO BID sulfasalazine 500 mg tablet,delayed release (DR/EC) 2 tab PO BID docusate sodium 100 mg capsule 1 cap PO DAILY gabapentin 100 mg capsule 1 cap PO TID quetiapine [Seroquel] 300 mg tablet 1 tab PO QPM omeprazole 40 mg capsule,delayed release(DR/EC) 40 mg PO BEDTIME <TOBIN Jacobson - Last Filed: 10/03/22 17:43>
[2022-10-03] MEDS: LORazepam 2 MG/ML VIAL IVPUSH (17:15)
[2022-10-03] MEDS: Haloperidol Lactate 5 MG/ML VIAL 2.5 MG IVPUSH (17:31)
--- NOTE | 2022-10-03 20:09 | PC.NURSE ---
This RN contacting security, belongings secured in [place] as pt came in for a possible OD.
--- NOTE | 2022-10-03 22:14 | PC.NURSE ---
Per TOBIN Chauhan, plan for Care Team Consult. Sec 12 by Gissel for Catatonia.
--- NOTE | 2022-10-03 22:14 | PC.NURSE ---
Assumed care of pt. at 1900. Pt. sleeping in bed at that time. All VSS, respirations are even and unlabored. Pt. can be briefly aroused via sternal rub, however, pt. is completely non-responsive, not answering any questions or acknowledging anyone in the room.
--- NOTE | 2022-10-03 22:18 | PC.NURSE ---
D/T catotonic state, unable to medicate with PO abx.
[2022-10-03] MEDS: Doxycycline Monohydrate 100 MG CAPSULE PO (22:57)
[2022-10-04] MEDS: QUEtiapine Fumarate 300 MG TABLET PO ×2 (01:05→21:31)
[2022-10-04] MEDS: Omeprazole 40 MG CAPSULE.DR PO ×2 (01:05→21:32)
[2022-10-04 06:14] VITALS: BP 124/73; PULSE 76; RESP 17; TEMP 36.6; O2SAT 96
[2022-10-04] MEDS: Escitalopram Oxalate 10 MG TABLET PO (08:49)
[2022-10-04] MEDS: Docusate Sodium 100 MG CAPSULE PO (08:49)
[2022-10-04] MEDS: QUEtiapine Fumarate 50 MG TABLET PO ×2 (08:49→21:31)
[2022-10-04] MEDS: Doxycycline Monohydrate 100 MG CAPSULE PO ×2 (08:49→21:31)
[2022-10-04] MEDS: Gabapentin 100 MG CAPSULE PO ×3 (08:49→21:32)
[2022-10-04] MEDS: Montelukast Sodium 10 MG TABLET PO (08:49)
--- NOTE | 2022-10-04 08:54 | PC.NURSE ---
sleeping and easily woken, polite and calm, medicated as ordered, quickly back to sleep, offers no complaints,
--- NOTE | 2022-10-04 11:02 | PC.NURSE ---
patient appears to remain asleep at present respirations are even and unlabored patient appears in no distress.
[2022-10-04 18:00] VITALS: BP 134/72; PULSE 100; TEMP 36.1; O2SAT 99
[2022-10-04] MEDS: Albuterol Sulfate 90 MCG 8 GM INHALER 2 PUFF INHALE (18:15)
--- NOTE | 2022-10-04 19:16 | PC.ADMIT ---
pt is a 27 year old male who presented to [facility] after being found passed out in a [facility]. pt has PMH of schizophrenia, alcohol use disorder, cocaine use disorder. during admission, pt is flat and answers questions. pt signed all papers. pt is excited about dinner and reports having asthma. pt does not want any smoking cessation at this time. pt was WNL vital signs. pt wants to sign a 3 day. start treatment plan and promote safety
[2022-10-04] MEDS: Fluticasone/Vilanterol 200/25 BLST.W.DEV 1 PUFF INHALE (22:50)
[2022-10-04] MEDS: traZODone HCL 50 MG TABLET PO (22:50)
[2022-10-05 08:15] VITALS: BP 156/88; PULSE 81; RESP 16; TEMP 36.7; O2SAT 95
[2022-10-05] MEDS: Montelukast Sodium 10 MG TABLET PO (08:31)
[2022-10-05] MEDS: Doxycycline Monohydrate 100 MG CAPSULE PO ×2 (08:31→20:16)
[2022-10-05] MEDS: Gabapentin 100 MG CAPSULE PO (08:31)
[2022-10-05] MEDS: Docusate Sodium 100 MG CAPSULE PO (08:31)
[2022-10-05] MEDS: QUEtiapine Fumarate 50 MG TABLET PO ×2 (08:31→20:17)
[2022-10-05] MEDS: Escitalopram Oxalate 10 MG TABLET PO (08:31)
[2022-10-05] MEDS: Fluticasone/Vilanterol 200/25 BLST.W.DEV 1 PUFF INHALE (08:47)
[2022-10-05 09:05] LABS: MANUAL DIFF FLAG NO
[2022-10-05 09:11] LABS: Basophils Absolute Auto 0.1 X10*3/uL (0.0-0.2); Basophils Percent Auto 0.7 % (0-2); Eosinophils Absolute Auto 0.1 X10*3/uL (0.0-0.4); Eosinophils Percent Auto 1.4 % (0-4); Hematocrit 38.8 % (42.0-52.0); Hemoglobin 12.5 g/dl (14.0-18.0); Imm Gran Abs Auto 0.03 X10*3/uL (0.00-0.03); Imm Gran Pct Auto 0.3 % (0.0-0.4); Lymphocytes Absolute Auto 2.3 X10*3/uL (1.2-4.9); Lymphocytes Percent Auto 25.4 % (20-40); Mean Corpuscular HGB Conc 32.2 g/dl (31.0-36.0); Mean Corpuscular Hemoglobin 26.6 pg (27.0-33.0); Mean Corpuscular Volume 82.6 fL (80.0-98.0); Mean Platelet Volume 9.3 fL (9.4-12.4); Monocytes Absolute Auto 0.7 X10*3/uL (0.1-1.2); Monocytes Percent Auto 7.3 % (2-11); Neutrophils Absolute Auto 5.8 x10*3/uL (2.0-8.3); Neutrophils Percent Auto 64.9 % (45-73); Platelet Count 290 X10*3/uL (160-400); Red Cell Distribution Width 14.1 % (11.0-16.0)
[2022-10-05 09:16] LABS: Estimated Average Glucose 146 mg/dL; Hemoglobin A1c % 6.7 %
[2022-10-05 09:40] LABS: Alanine Aminotransferase 25 U/L (0-40); Alkaline Phosphatase 103 U/L (39-117); Anion Gap 17 (12-20); Aspartate Amino Transferase 18 U/L (5-37); Bilirubin Total 0.3 mg/dL (0.0-1.0); Blood Urea Nitrogen 17 mg/dL (9-16); Calcium 9.3 mg/dL (8.4-10.2); Carbon Dioxide 20 mmol/L (22-29); Chloride 106 mmol/L (96-108); Cholesterol 213 mg/dL; Creatinine Clr Calc Pharmacy 98.9; Estimated Glomerular Filt Rate > 60; Glucose Fasting 234 mg/dL (60-99); HDL Cholesterol 68 mg/dL; LDL Cholesterol Calculated 111 mg/dl; Potassium 4.2 mmol/L (3.3-5.1); Sodium 139 mmol/L (135-145); Total Protein 6.7 g/dL (6.5-8.0); Triglycerides 173 mg/dL
[2022-10-05 10:11] LABS: Folate 11.3 ng/mL (> or = 4.0); Thyroid Stimulating Hormone 1.24 uIU/mL (0.32-4.0); Vitamin B12 403 pg/mL (200-900)
[2022-10-05] MEDS: Gabapentin 400 MG CAPSULE PO ×2 (14:46→20:16)
[2022-10-05 20:10] VITALS: BP 131/90; PULSE 97; RESP 18; TEMP 36.3
[2022-10-05] MEDS: Prazosin HCL 1 MG CAPSULE PO (20:16)
[2022-10-05] MEDS: QUEtiapine Fumarate 300 MG TABLET PO (20:16)
[2022-10-05] MEDS: Omeprazole 40 MG CAPSULE.DR PO (20:17)
[2022-10-05] MEDS: traZODone HCL 50 MG TABLET PO ×2 (20:18→22:02)
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
[2022-10-06] MEDS: hydrOXYzine HCL 25 MG TABLET PO (02:43)
[2022-10-06 07:00] VITALS: BMI 77.1
[2022-10-06] MEDS: Fluticasone/Vilanterol 200/25 BLST.W.DEV 1 PUFF INHALE (08:36)
[2022-10-06] MEDS: Gabapentin 400 MG CAPSULE PO ×3 (08:37→21:48)
[2022-10-06] MEDS: Doxycycline Monohydrate 100 MG CAPSULE PO ×2 (08:37→21:59)
[2022-10-06] MEDS: Escitalopram Oxalate 20 MG TABLET PO (08:37)
[2022-10-06] MEDS: Montelukast Sodium 10 MG TABLET PO (08:37)
[2022-10-06] MEDS: QUEtiapine Fumarate 50 MG TABLET PO ×2 (08:37→14:42)
[2022-10-06 09:05] VITALS: BP 133/80; PULSE 100; RESP 16; TEMP 36.6; O2SAT 96
--- NOTE | 2022-10-06 13:12 | HO.PSYCHPN ---
Subjective Subjective Date of Service: 10/06/22 Reason For Visit: Psychosis Interim History: calm, cooperative. states he did not sleep well last night, amenable to increase prazosin to 2 mg as of tonight. slept about 5 hours in total. pain in upper back/neck is a 4 today, planning to take gabapentin 400 TID another day prior to increasing dose again. no other complaints or requests. per staff, mod anx/dep. feeling overwhelmed with psychosocial stressors. eating and sleeping well. not attending groups. +ADLs. inappropriate boundaries - asked to exchange numbers with female staff/ c/o poor sleep... up and down overnight. Mental Status Exam Mental Status Exam Narrative: adequately dressed and groomed. cooperative. no PMA/PMR. speech nml rate, amount, loudness latency. flattened prosody. thoughts linear and logical. affect constricted, normo-intense, non-labile. no SI/SIBI/HI/AVH expressed. Diagnostics Vital Signs (24Hr): Vital Signs - 24 hr 10/05/22 20:10 10/06/22 09:05 Temperature 97.4 F 97.9 F Pulse Rate 97 100 Respiratory Rate 18 16 Blood Pressure 131/90 H 133/80 Pulse Oximetry 96 Oxygen Delivery Method Room Air BMI result Body Mass Index 77.1 Labs 10/05/22 08:53 10/05/22 08:53 Labs: Laboratory Results - last 48 hr 10/05/22 10/05/22 10/05/22 08:53 08:53 08:53 WBC 9.0 RBC 4.70 Hgb 12.5 L Hct 38.8 L MCV 82.6 MCH 26.6 L MCHC 32.2 RDW 14.1 Plt Count 290 MPV 9.3 L Immature Gran % (Auto) 0.3 Neut % (Auto) 64.9 Lymph % (Auto) 25.4 [place] % (Auto) 7.3 Eos % (Auto) 1.4 Baso % (Auto) 0.7 Lymph # (Auto) 2.3 [place] # (Auto) 0.7 Eos # (Auto) 0.1 Baso # (Auto) 0.1 Abs Immat Gran (auto) 0.03 Absolute Neuts (auto) 5.8 Absolute Nucleated RBC 0.000 Nucleated RBC % (auto) 0.0 Sodium 139 Potassium 4.2 Chloride 106 Carbon Dioxide 20 L Anion Gap 17 BUN 17 H Creatinine 1.41 H Estim Creat Clear Calc 98.9 Estimated GFR > 60 Fasting Glucose 234 H Estimat Average Glucose 146 Hemoglobin A1c % 6.7 Calcium 9.3 Total Bilirubin 0.3 AST 18 ALT 25 Alkaline Phosphatase 103 Total Protein 6.7 Albumin 4.0 Triglycerides 173 Cholesterol 213 LDL Cholesterol, Calc 111 HDL Cholesterol 68 Vitamin B12 403 Folate 11.3 TSH 1.24 Imaging Radiology Impressions: ITS Impressions Chest X-Ray 10/03/22 12:19 FINDINGS/IMPRESSION: The study is limited by portable technique and low lung volumes. There is no gross acute radiographic finding. No infiltrate, effusion, pneumothorax is seen. The cardiac silhouette is suboptimally evaluated. The mediastinum, diaphragm, bones, and soft tissues appear unremarkable. Head CT 10/03/22 13:30 IMPRESSION: 1. No acute intracranial pathology. 2. No CT evidence of acute cervical spine fracture or traumatic subluxation Cervical Spine CT 10/03/22 13:31 IMPRESSION: 1. No acute intracranial pathology. 2. No CT evidence of acute cervical spine fracture or traumatic subluxation Abdomen/Pelvis CT 10/03/22 13:32 IMPRESSION: Normal CT of the chest, abdomen and pelvis. Chest CT 10/03/22 13:32 IMPRESSION: Normal CT of the chest, abdomen and pelvis. Head CT 10/03/22 23:50 IMPRESSION: 1. No acute intracranial pathology. Medications Medications Current Medications Acetaminophen (Acetaminophen 325 Mg Tablet) 650 mg PO Q6H PRN PRN Reason: Headache/Pain Mild Scale (1-3) Al Hydroxide/Mg Hydroxide (Magnesium Hydrox/Alum Hydrox 30 Ml Oral.Susp) 30 ml PO Q6H PRN PRN Reason: Heartburn/Nausea Albuterol Sulfate (Albuterol Sulfate 90 Mcg 8 Gm Inhaler) 2 puff INHALE Q4H PRN PRN Reason: Shortness Of Breath Last Admin: 10/04/22 18:15 Dose: 2 puff Docusate Sodium (Docusate Sodium 100 Mg Capsule) 100 mg PO DAILY PRN PRN Reason: Constipation Doxycycline Monohydrate (Doxycycline Monohydrate 100 Mg Capsule) 100 mg PO BID [facility] Last Admin: 10/06/22 08:37 Dose: 100 mg Escitalopram Oxalate (Escitalopram Oxalate 20 Mg Tablet) 20 mg PO DAILY [facility] Last Admin: 10/06/22 08:37 Dose: 20 mg Fluticasone/Vilanterol (Fluticasone/Vilanterol 200/25 Blst.W.Dev) 1 puff INHALE RDAILY [facility] Last Admin: 10/06/22 08:36 Dose: 1 puff Gabapentin (Gabapentin 400 Mg Capsule) 400 mg PO TID [facility] Last Admin: 10/06/22 08:37 Dose: 400 mg Hydroxyzine HCl (Hydroxyzine Hcl 25 Mg Tablet) 25 mg PO Q6H PRN PRN Reason: Anxiety Last Admin: 10/06/22 02:43 Dose: 25 mg Magnesium Hydroxide (Milk Of Magnesia 30 Ml Oral.Susp) 30 ml PO DAILY PRN PRN Reason: Constipation Montelukast Sodium (Montelukast Sodium 10 Mg Tablet) 10 mg PO DAILY [facility] Last Admin: 10/06/22 08:37 Dose: 10 mg Non-Formulary Medication (Sulfasalazine) 2 tab PO BID [facility] Omeprazole (Omeprazole 40 Mg Capsule.Dr) 40 mg PO BEDTIME [facility] Last Admin: 10/05/22 20:17 Dose: 40 mg Prazosin HCl (Prazosin Hcl 1 Mg Capsule) 2 mg PO BEDTIME [facility]; Protocol Quetiapine Fumarate (Quetiapine Fumarate 300 Mg Tablet) 300 mg PO BEDTIME [facility] Last Admin: 10/05/22 20:16 Dose: 300 mg Quetiapine Fumarate (Quetiapine Fumarate 50 Mg Tablet) 50 mg PO BID@0800,1500 [facility] Last Admin: 10/06/22 08:37 Dose: 50 mg Trazodone HCl (Trazodone Hcl 50 Mg Tablet) 50 mg PO BEDTIME MRX1 PRN PRN Reason: Insomnia Last Admin: 10/05/22 22:02 Dose: 50 mg Allergies Allergies Allergy/AdvReac Type Severity Reaction Status Date / Time amoxicillin [AMOXICILLIN] Allergy Intermediate HIVES,THROAT Verified 10/03/22 12:32 CLOSES Penicillins [PENICILLINS] AdvReac Intermediate HIVES,THROAT Verified 10/03/22 12:32 CLOSES Assessment & Plan Assessment & Plan (1) Polysubstance abuse: Status: Acute Code(s): F19.10 - Other psychoactive substance abuse, uncomplicated (2) Inflammatory arthritis: Status: Acute Code(s): M19.90 - Unspecified osteoarthritis, unspecified site (3) Post traumatic stress disorder (PTSD): Status: Acute Code(s): F43.10 - Post-traumatic stress disorder, unspecified (4) Depressive disorder: Status: Acute Code(s): F32.A - Depression, unspecified Plan 10/05: continue home meds with the following exceptions: increase lexapro to 20 mg daily start prazosin titration increase gabapentin to 400 TID T/C psychostimulant 10/06: slept 5 hours overnight, increase prazosin to 2 mg. continue titration as indicated and tolerated. contiue gabapentin 400 TID for another day. may increase after for neuropathic pain. Reason for contiued inpatient stay Substantial Risk for: inability to function and rapid decompensation Time Spent With Patient Time: Total time managing care of this patient today __25__ minutes.
[2022-10-06 21:38] VITALS: BP 140/81; PULSE 85; RESP 18; TEMP 36.2; O2SAT 96
[2022-10-06] MEDS: Omeprazole 40 MG CAPSULE.DR PO (21:48)
[2022-10-06] MEDS: QUEtiapine Fumarate 300 MG TABLET PO (21:48)
[2022-10-06] MEDS: Prazosin HCL 1 MG CAPSULE 2 MG PO (21:49)
[2022-10-06] MEDS: traZODone HCL 50 MG TABLET PO (21:49)
[2022-10-07 08:20] VITALS: BP 155/70; PULSE 98; RESP 20; TEMP 36.7; O2SAT 96
[2022-10-07] MEDS: Escitalopram Oxalate 20 MG TABLET PO (08:46)
[2022-10-07] MEDS: Montelukast Sodium 10 MG TABLET PO (08:46)
[2022-10-07] MEDS: Gabapentin 400 MG CAPSULE PO (08:46)
[2022-10-07] MEDS: QUEtiapine Fumarate 50 MG TABLET PO (08:47)
[2022-10-07] MEDS: Doxycycline Monohydrate 100 MG CAPSULE PO ×2 (08:48→21:25)
[2022-10-07] MEDS: Fluticasone/Vilanterol 200/25 BLST.W.DEV 1 PUFF INHALE (08:51)
[2022-10-07 11:25] VITALS: BP 135/65; PULSE 97; RESP 18; O2SAT 97
[2022-10-07] MEDS: Prazosin HCL 1 MG CAPSULE 2 MG PO ×2 (11:34→21:24)
[2022-10-07] MEDS: Ammonium Lactate 12 % Lotion 226 GM BOTTLE 1 APPL TOPICAL ×2 (11:36→21:27)
--- NOTE | 2022-10-07 12:01 | PC.NURSE ---
Family brought in sulfasalazine as requested by patient, but bottles marked as expeired. Patient and provider aware. Patient will ask family to fill prescription and bring in when able.
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
[2022-10-07] MEDS: Docusate Sodium 100 MG CAPSULE PO (14:59)
[2022-10-07] MEDS: QUEtiapine Fumarate 100 MG TABLET PO (14:59)
[2022-10-07] MEDS: Gabapentin 300 MG CAPSULE 600 MG PO ×2 (14:59→21:24)
--- NOTE | 2022-10-07 16:17 | PC.NURSE ---
Patient asked this nurse to to observe site of infection. No redness, pus, or odor noted. Patient states no pain. Patient informed to let staff know if anything changes.
[2022-10-07] MEDS: Acetaminophen 325 MG TABLET 650 MG PO (17:27)
[2022-10-07] MEDS: Ibuprofen 600 MG TABLET PO (18:35)
[2022-10-07 21:20] VITALS: BP 142/78; PULSE 100; RESP 18; TEMP 36.4; O2SAT 96
[2022-10-07] MEDS: Omeprazole 40 MG CAPSULE.DR PO (21:24)
[2022-10-07] MEDS: traZODone HCL 50 MG TABLET PO (21:25)
[2022-10-07] MEDS: QUEtiapine Fumarate 300 MG TABLET PO (21:25)
[2022-10-07] MEDS: NaPROXEN 500 MG TABLET PO (22:27)
[2022-10-08] MEDS: traZODone HCL 50 MG TABLET PO ×2 (02:19→21:37)
[2022-10-08] MEDS: Escitalopram Oxalate 20 MG TABLET PO (08:19)
[2022-10-08] MEDS: Prazosin HCL 1 MG CAPSULE 2 MG PO ×2 (08:19→21:38)
[2022-10-08] MEDS: QUEtiapine Fumarate 100 MG TABLET PO ×2 (08:19→14:42)
[2022-10-08] MEDS: Montelukast Sodium 10 MG TABLET PO (08:19)
[2022-10-08] MEDS: Gabapentin 300 MG CAPSULE 600 MG PO ×3 (08:19→21:37)
[2022-10-08] MEDS: Doxycycline Monohydrate 100 MG CAPSULE PO ×2 (08:20→21:37)
[2022-10-08] MEDS: Fluticasone/Vilanterol 200/25 BLST.W.DEV 1 PUFF INHALE (08:20)
[2022-10-08 09:03] VITALS: BP 121/82; PULSE 92; RESP 18; TEMP 36.3; O2SAT 96
[2022-10-08] MEDS: Ammonium Lactate 12 % Lotion 226 GM BOTTLE 1 APPL TOPICAL ×2 (09:49→21:39)
--- NOTE | 2022-10-08 13:03 | P.PNPSI_ITS ---
Subjective Subjective Date of Service: 10/08/22 Reason For Visit: Psychosis Subjective Notes: Conditional Voluntary Interim History: Pt reports better sleep last night. Pt denies SI/HI. He reports still hearing sounds, not voices. He reports ever since he had TBI he wears dogs barking, music, he knows not really there but he says very loud, distracting and some times startling. reports he is doing well with meds and wants to increase meds every 24 hours; denies side effects from meds, no sedation, no dizziness, no daytime sleepiness or gait issues Medication Compliance: Yes Side effects from medications: No Review of Systems Acute medical concerns: No Review of Systems Review of Systems Yes Unobtainable due to mental status Mental Status Exam Mental Status Exam Narrative: adequately dressed and groomed. cooperative. no PMA/PMR. speech nml rate, amount, loudness latency. flattened prosody. thoughts linear and logical. affect constricted, normo-intense, non-labile. no SI/SIBI/HI/AVH expressed. Diagnostics Vital Signs (24Hr): Vital Signs - 24 hr 10/07/22 21:20 10/08/22 09:03 Temperature 97.5 F 97.4 F Pulse Rate 100 92 Respiratory Rate 18 18 Blood Pressure 142/78 H 121/82 Pulse Oximetry 96 96 Oxygen Delivery Method Room Air Room Air BMI result Body Mass Index 77.1 Labs 10/05/22 08:53 10/05/22 08:53 Imaging Radiology Impressions: ITS Impressions Chest X-Ray 10/03/22 12:19 FINDINGS/IMPRESSION: The study is limited by portable technique and low lung volumes. There is no gross acute radiographic finding. No infiltrate, effusion, pneumothorax is seen. The cardiac silhouette is suboptimally evaluated. The mediastinum, diaphragm, bones, and soft tissues appear unremarkable. Head CT 10/03/22 13:30 IMPRESSION: 1. No acute intracranial pathology. 2. No CT evidence of acute cervical spine fracture or traumatic subluxation Cervical Spine CT 10/03/22 13:31 IMPRESSION: 1. No acute intracranial pathology. 2. No CT evidence of acute cervical spine fracture or traumatic subluxation Abdomen/Pelvis CT 10/03/22 13:32 IMPRESSION: Normal CT of the chest, abdomen and pelvis. Chest CT 10/03/22 13:32 IMPRESSION: Normal CT of the chest, abdomen and pelvis. Head CT 10/03/22 23:50 IMPRESSION: 1. No acute intracranial pathology. Medications Medications Current Medications Acetaminophen (Acetaminophen 325 Mg Tablet) 650 mg PO Q6H PRN PRN Reason: Headache/Pain Mild Scale (1-3) Last Admin: 10/07/22 17:27 Dose: 650 mg Al Hydroxide/Mg Hydroxide (Magnesium Hydrox/Alum Hydrox 30 Ml Oral.Susp) 30 ml PO Q6H PRN PRN Reason: Heartburn/Nausea Albuterol Sulfate (Albuterol Sulfate 90 Mcg 8 Gm Inhaler) 2 puff INHALE Q4H PRN PRN Reason: Shortness Of Breath Last Admin: 10/04/22 18:15 Dose: 2 puff Docusate Sodium (Docusate Sodium 100 Mg Capsule) 100 mg PO DAILY PRN PRN Reason: Constipation Last Admin: 10/07/22 14:59 Dose: 100 mg Doxycycline Monohydrate (Doxycycline Monohydrate 100 Mg Capsule) 100 mg PO BID [facility] Last Admin: 10/08/22 08:20 Dose: 100 mg Escitalopram Oxalate (Escitalopram Oxalate 20 Mg Tablet) 20 mg PO DAILY [facility] Last Admin: 10/08/22 08:19 Dose: 20 mg Fluticasone/Vilanterol (Fluticasone/Vilanterol 200/25 Blst.W.Dev) 1 puff INHALE RDAILY [facility] Last Admin: 10/08/22 08:20 Dose: 1 puff Gabapentin (Gabapentin 300 Mg Capsule) 600 mg PO TID [facility] Last Admin: 10/08/22 08:19 Dose: 600 mg Hydroxyzine HCl (Hydroxyzine Hcl 25 Mg Tablet) 25 mg PO Q6H PRN PRN Reason: Anxiety Last Admin: 10/06/22 02:43 Dose: 25 mg Lactic Acid (Ammonium Lactate 12 % Lotion 226 Gm Bottle) 1 appl TOPICAL BID [facility]; Protocol Last Admin: 10/08/22 09:49 Dose: 1 appl Magnesium Hydroxide (Milk Of Magnesia 30 Ml Oral.Susp) 30 ml PO DAILY PRN PRN Reason: Constipation Montelukast Sodium (Montelukast Sodium 10 Mg Tablet) 10 mg PO DAILY [facility] Last Admin: 10/08/22 08:19 Dose: 10 mg Naproxen (Naproxen 500 Mg Tablet) 500 mg PO BID PRN PRN Reason: mild-moderate pain Last Admin: 10/07/22 22:27 Dose: 500 mg Non-Formulary Medication (Sulfasalazine) 2 tab PO BID [facility] Omeprazole (Omeprazole 40 Mg Capsule.Dr) 40 mg PO BEDTIME [facility] Last Admin: 10/07/22 21:24 Dose: 40 mg Prazosin HCl (Prazosin Hcl 1 Mg Capsule) 2 mg PO BID [facility]; Protocol Last Admin: 10/08/22 08:19 Dose: 2 mg Quetiapine Fumarate (Quetiapine Fumarate 300 Mg Tablet) 300 mg PO BEDTIME [facility] Last Admin: 10/07/22 21:25 Dose: 300 mg Quetiapine Fumarate (Quetiapine Fumarate 100 Mg Tablet) 100 mg PO BID@0800,1500 [facility] Last Admin: 10/08/22 08:19 Dose: 100 mg Trazodone HCl (Trazodone Hcl 50 Mg Tablet) 50 mg PO BEDTIME MRX1 PRN PRN Reason: Insomnia Last Admin: 10/08/22 02:19 Dose: 50 mg Allergies Allergies Allergy/AdvReac Type Severity Reaction Status Date / Time amoxicillin [AMOXICILLIN] Allergy Intermediate HIVES,THROAT Verified 10/03/22 12:32 CLOSES Penicillins [PENICILLINS] AdvReac Intermediate HIVES,THROAT Verified 10/03/22 12:32 CLOSES Assessment & Plan Assessment & Plan (1) Polysubstance abuse: Status: Acute Code(s): F19.10 - Other psychoactive substance abuse, uncomplicated (2) Inflammatory arthritis: Status: Acute Code(s): M19.90 - Unspecified osteoarthritis, unspecified site (3) Post traumatic stress disorder (PTSD): Status: Acute Code(s): F43.10 - Post-traumatic stress disorder, unspecified (4) Depressive disorder: Status: Acute Code(s): F32.A - Depression, unspecified Plan 10/05: continue home meds with the following exceptions: increase lexapro to 20 mg daily start prazosin titration increase gabapentin to 400 TID T/C psychostimulant 10/06: slept 5 hours overnight, increase prazosin to 2 mg. continue titration as indicated and tolerated. contiue gabapentin 400 TID for another day. may increase after for neuropathic pain. 10/07 pt denies SI/HI , AH of music/dog barking, well aware others can't hear it since he had TBI in 2016. Increase gabapentin to 600mg po TID, increase prazosin to 2mg po BID for anxiety and increase seroquel. 10/08 continue meds and reassess for increase tomorrow Patient educated on: medication risk/benefits and therapeutic strategies Informed Consent: understands and further education needed Reason for contiued inpatient stay Substantial Risk for: inability to function and rapid decompensation Time Spent With Patient Time: Total time managing care of this patient today __30__ minutes.
[2022-10-08] MEDS: NaPROXEN 500 MG TABLET PO ×2 (16:06→21:36)
[2022-10-08] MEDS: Acetaminophen 325 MG TABLET 650 MG PO (17:51)
[2022-10-08 21:30] VITALS: BP 146/85; PULSE 90; RESP 18; TEMP 36.6; O2SAT 97
[2022-10-08] MEDS: hydrOXYzine HCL 25 MG TABLET PO (21:37)
[2022-10-08] MEDS: QUEtiapine Fumarate 300 MG TABLET PO (21:37)
[2022-10-08] MEDS: Omeprazole 40 MG CAPSULE.DR PO (21:38)
[2022-10-09] MEDS: Prazosin HCL 1 MG CAPSULE 2 MG PO ×2 (08:16→21:08)
[2022-10-09] MEDS: QUEtiapine Fumarate 100 MG TABLET PO ×2 (08:16→14:51)
[2022-10-09] MEDS: Montelukast Sodium 10 MG TABLET PO (08:16)
[2022-10-09] MEDS: Gabapentin 300 MG CAPSULE 600 MG PO ×3 (08:16→21:08)
[2022-10-09] MEDS: Fluticasone/Vilanterol 200/25 BLST.W.DEV 1 PUFF INHALE (08:16)
[2022-10-09] MEDS: Escitalopram Oxalate 20 MG TABLET PO (08:16)
[2022-10-09] MEDS: Doxycycline Monohydrate 100 MG CAPSULE PO ×2 (08:16→21:08)
[2022-10-09] MEDS: Ammonium Lactate 12 % Lotion 226 GM BOTTLE 1 APPL TOPICAL ×2 (08:31→21:10)
[2022-10-09] MEDS: NaPROXEN 500 MG TABLET PO ×2 (08:32→21:08)
[2022-10-09 08:46] VITALS: BP 136/76; PULSE 86; RESP 16; TEMP 36.4; O2SAT 97
--- NOTE | 2022-10-09 10:15 | P.PNPSI_ITS ---
Subjective Subjective Date of Service: 10/09/22 Reason For Visit: Psychosis Subjective Notes: Conditional Voluntary Interim History: Pt reports he is tolerating meds; slept better last night. Pt denies SI/HI. He reports still hearing sounds, not voices. He reports ever since he had TBI he wears dogs barking, music, he knows not really there but he says very loud, distracting and sometimes startling. reports he is doing well with meds and wants to increase meds every 24 hours; discussed letting his body get adjusted to current dose ad reassess monday; denies side effects from meds, no sedation, no dizziness, no daytime sleepiness or gait issues Medication Compliance: Yes Side effects from medications: No Review of Systems Review of Systems Yes Unobtainable due to mental status Mental Status Exam Mental Status Exam Narrative: adequately dressed and groomed. cooperative. polite; slight pressure to speech; no PMA/PMR. speech nml amount, loudness latency. flattened prosody. thoughts linear and logical. affect constricted, normo-intense, non-labile. no SI/SIBI/HI/AVH expressed. Diagnostics Vital Signs (24Hr): Vital Signs - 24 hr 10/08/22 21:30 10/09/22 08:46 Temperature 97.9 F 97.6 F Pulse Rate 90 86 Respiratory Rate 18 16 Blood Pressure 146/85 H 136/76 Pulse Oximetry 97 97 Oxygen Delivery Method Room Air Room Air BMI result Body Mass Index 77.1 Labs 10/05/22 08:53 10/05/22 08:53 Imaging Radiology Impressions: ITS Impressions Chest X-Ray 10/03/22 12:19 FINDINGS/IMPRESSION: The study is limited by portable technique and low lung volumes. There is no gross acute radiographic finding. No infiltrate, effusion, pneumothorax is seen. The cardiac silhouette is suboptimally evaluated. The mediastinum, diaphragm, bones, and soft tissues appear unremarkable. Head CT 10/03/22 13:30 IMPRESSION: 1. No acute intracranial pathology. 2. No CT evidence of acute cervical spine fracture or traumatic subluxation Cervical Spine CT 10/03/22 13:31 IMPRESSION: 1. No acute intracranial pathology. 2. No CT evidence of acute cervical spine fracture or traumatic subluxation Abdomen/Pelvis CT 10/03/22 13:32 IMPRESSION: Normal CT of the chest, abdomen and pelvis. Chest CT 10/03/22 13:32 IMPRESSION: Normal CT of the chest, abdomen and pelvis. Head CT 10/03/22 23:50 IMPRESSION: 1. No acute intracranial pathology. Medications Medications Current Medications Acetaminophen (Acetaminophen 325 Mg Tablet) 650 mg PO Q6H PRN PRN Reason: Headache/Pain Mild Scale (1-3) Last Admin: 10/08/22 17:51 Dose: 650 mg Al Hydroxide/Mg Hydroxide (Magnesium Hydrox/Alum Hydrox 30 Ml Oral.Susp) 30 ml PO Q6H PRN PRN Reason: Heartburn/Nausea Albuterol Sulfate (Albuterol Sulfate 90 Mcg 8 Gm Inhaler) 2 puff INHALE Q4H PRN PRN Reason: Shortness Of Breath Last Admin: 10/04/22 18:15 Dose: 2 puff Docusate Sodium (Docusate Sodium 100 Mg Capsule) 100 mg PO DAILY PRN PRN Reason: Constipation Last Admin: 10/07/22 14:59 Dose: 100 mg Doxycycline Monohydrate (Doxycycline Monohydrate 100 Mg Capsule) 100 mg PO BID [facility] Last Admin: 10/09/22 08:16 Dose: 100 mg Escitalopram Oxalate (Escitalopram Oxalate 20 Mg Tablet) 20 mg PO DAILY [facility] Last Admin: 10/09/22 08:16 Dose: 20 mg Fluticasone/Vilanterol (Fluticasone/Vilanterol 200/25 Blst.W.Dev) 1 puff INHALE RDAILY [facility] Last Admin: 10/09/22 08:16 Dose: 1 puff Gabapentin (Gabapentin 300 Mg Capsule) 600 mg PO TID [facility] Last Admin: 10/09/22 08:16 Dose: 600 mg Hydroxyzine HCl (Hydroxyzine Hcl 25 Mg Tablet) 25 mg PO Q6H PRN PRN Reason: Anxiety Last Admin: 10/08/22 21:37 Dose: 25 mg Lactic Acid (Ammonium Lactate 12 % Lotion 226 Gm Bottle) 1 appl TOPICAL BID [facility]; Protocol Last Admin: 10/09/22 08:31 Dose: 1 appl Magnesium Hydroxide (Milk Of Magnesia 30 Ml Oral.Susp) 30 ml PO DAILY PRN PRN Reason: Constipation Montelukast Sodium (Montelukast Sodium 10 Mg Tablet) 10 mg PO DAILY [facility] Last Admin: 10/09/22 08:16 Dose: 10 mg Naproxen (Naproxen 500 Mg Tablet) 500 mg PO BID PRN PRN Reason: mild-moderate pain Last Admin: 10/09/22 08:32 Dose: 500 mg Non-Formulary Medication (Sulfasalazine) 2 tab PO BID [facility] Omeprazole (Omeprazole 40 Mg Capsule.Dr) 40 mg PO BEDTIME [facility] Last Admin: 10/08/22 21:38 Dose: 40 mg Prazosin HCl (Prazosin Hcl 1 Mg Capsule) 2 mg PO BID [facility]; Protocol Last Admin: 10/09/22 08:16 Dose: 2 mg Quetiapine Fumarate (Quetiapine Fumarate 300 Mg Tablet) 300 mg PO BEDTIME [facility] Last Admin: 10/08/22 21:37 Dose: 300 mg Quetiapine Fumarate (Quetiapine Fumarate 100 Mg Tablet) 100 mg PO BID@0800,1500 [facility] Last Admin: 10/09/22 08:16 Dose: 100 mg Trazodone HCl (Trazodone Hcl 50 Mg Tablet) 50 mg PO BEDTIME MRX1 PRN PRN Reason: Insomnia Last Admin: 10/08/22 21:37 Dose: 50 mg Allergies Allergies Allergy/AdvReac Type Severity Reaction Status Date / Time amoxicillin [AMOXICILLIN] Allergy Intermediate HIVES,THROAT Verified 10/03/22 12:32 CLOSES Penicillins [PENICILLINS] AdvReac Intermediate HIVES,THROAT Verified 10/03/22 12:32 CLOSES Assessment & Plan Assessment & Plan (1) Polysubstance abuse: Status: Acute Code(s): F19.10 - Other psychoactive substance abuse, uncomplicated (2) Inflammatory arthritis: Status: Acute Code(s): M19.90 - Unspecified osteoarthritis, unspecified site (3) Post traumatic stress disorder (PTSD): Status: Acute Code(s): F43.10 - Post-traumatic stress disorder, unspecified (4) Depressive disorder: Status: Acute Code(s): F32.A - Depression, unspecified Plan 10/05: continue home meds with the following exceptions: increase lexapro to 20 mg daily start prazosin titration increase gabapentin to 400 TID T/C psychostimulant 10/06: slept 5 hours overnight, increase prazosin to 2 mg. continue titration as indicated and tolerated. contiue gabapentin 400 TID for another day. may increase after for neuropathic pain. 10/07 pt denies SI/HI , AH of music/dog barking, well aware others can't hear it since he had TBI in 2016. Increase gabapentin to 600mg po TID, increase prazosin to 2mg po BID for anxiety and increase seroquel. 10/08 continue meds 10/09 continue current meds and reassess need for increase Monday Reason for contiued inpatient stay Substantial Risk for: harm to self, inability to function, rapid decompensation and med/psych decompensation Time Spent With Patient Time: Total time managing care of this patient today ____ minutes.
[2022-10-09 21:04] VITALS: BP 158/81; PULSE 92; RESP 18; TEMP 36.2; O2SAT 97
[2022-10-09] MEDS: Omeprazole 40 MG CAPSULE.DR PO (21:06)
[2022-10-09] MEDS: hydrOXYzine HCL 25 MG TABLET PO (21:07)
[2022-10-09] MEDS: traZODone HCL 50 MG TABLET PO (21:07)
[2022-10-09] MEDS: QUEtiapine Fumarate 300 MG TABLET PO (21:07)
[2022-10-10 08:30] VITALS: BP 130/80; PULSE 92; TEMP 36.6; O2SAT 98
[2022-10-10] MEDS: QUEtiapine Fumarate 100 MG TABLET PO ×2 (08:59→14:50)
[2022-10-10] MEDS: Doxycycline Monohydrate 100 MG CAPSULE PO ×2 (08:59→23:11)
[2022-10-10] MEDS: Gabapentin 300 MG CAPSULE 600 MG PO (09:00)
[2022-10-10] MEDS: Escitalopram Oxalate 20 MG TABLET PO (09:00)
[2022-10-10] MEDS: Montelukast Sodium 10 MG TABLET PO (09:01)
[2022-10-10] MEDS: Prazosin HCL 1 MG CAPSULE 2 MG PO (09:01)
[2022-10-10] MEDS: NaPROXEN 500 MG TABLET PO (10:31)
[2022-10-10] MEDS: Fluticasone/Vilanterol 200/25 BLST.W.DEV 1 PUFF INHALE (11:21)
--- NOTE | 2022-10-10 13:52 | P.PNPSI_ITS ---
Subjective Subjective Date of Service: 10/10/22 Reason For Visit: Psychosis Subjective Notes: Conditional Voluntary Interim History: Pt reports pain related to RA, taking naproxen with fair effect. He reports gabapentin helping with pain as well asn would like this medication to be increased again. He denies SI/HI. he reports hearing sounds he has been hearing since 2016 after TBI. He reports prazosin in AM is helpful for anxiety but would like to increase nighttime dose as well for nightmares. He agrees to be discharged on Monday. No behavioral concerns. Medication Compliance: Yes Review of Systems Review of Systems Yes Unobtainable due to mental status Mental Status Exam Mental Status Exam Narrative: adequately dressed and groomed. cooperative. polite; slight pressure to speech; no PMA/PMR. speech nml amount, loudness latency. flattened prosody. thoughts linear and logical. affect constricted, normo-intense, non-labile. no SI/SIBI/HI/AVH expressed. Diagnostics Vital Signs (24Hr): Vital Signs - 24 hr 10/09/22 21:04 10/10/22 08:30 Temperature 97.2 F 98 F Pulse Rate 92 92 Respiratory Rate 18 Blood Pressure 158/81 H 130/80 Pulse Oximetry 97 98 Oxygen Delivery Method Room Air Room Air BMI result Body Mass Index 77.1 Labs 10/05/22 08:53 10/05/22 08:53 Imaging Radiology Impressions: ITS Impressions Chest X-Ray 10/03/22 12:19 FINDINGS/IMPRESSION: The study is limited by portable technique and low lung volumes. There is no gross acute radiographic finding. No infiltrate, effusion, pneumothorax is seen. The cardiac silhouette is suboptimally evaluated. The mediastinum, diaphragm, bones, and soft tissues appear unremarkable. Head CT 10/03/22 13:30 IMPRESSION: 1. No acute intracranial pathology. 2. No CT evidence of acute cervical spine fracture or traumatic subluxation Cervical Spine CT 10/03/22 13:31 IMPRESSION: 1. No acute intracranial pathology. 2. No CT evidence of acute cervical spine fracture or traumatic subluxation Abdomen/Pelvis CT 10/03/22 13:32 IMPRESSION: Normal CT of the chest, abdomen and pelvis. Chest CT 10/03/22 13:32 IMPRESSION: Normal CT of the chest, abdomen and pelvis. Head CT 10/03/22 23:50 IMPRESSION: 1. No acute intracranial pathology. Medications Medications Current Medications Acetaminophen (Acetaminophen 325 Mg Tablet) 650 mg PO Q6H PRN PRN Reason: Headache/Pain Mild Scale (1-3) Last Admin: 10/08/22 17:51 Dose: 650 mg Al Hydroxide/Mg Hydroxide (Magnesium Hydrox/Alum Hydrox 30 Ml Oral.Susp) 30 ml PO Q6H PRN PRN Reason: Heartburn/Nausea Albuterol Sulfate (Albuterol Sulfate 90 Mcg 8 Gm Inhaler) 2 puff INHALE Q4H PRN PRN Reason: Shortness Of Breath Last Admin: 10/04/22 18:15 Dose: 2 puff Docusate Sodium (Docusate Sodium 100 Mg Capsule) 100 mg PO DAILY PRN PRN Reason: Constipation Last Admin: 10/07/22 14:59 Dose: 100 mg Doxycycline Monohydrate (Doxycycline Monohydrate 100 Mg Capsule) 100 mg PO BID [facility] Stop: 10/13/22 23:59 Last Admin: 10/10/22 08:59 Dose: 100 mg Escitalopram Oxalate (Escitalopram Oxalate 20 Mg Tablet) 20 mg PO DAILY [facility] Last Admin: 10/10/22 09:00 Dose: 20 mg Fluticasone/Vilanterol (Fluticasone/Vilanterol 200/25 Blst.W.Dev) 1 puff INHALE RDAILY [facility] Last Admin: 10/10/22 11:21 Dose: 1 puff Gabapentin (Gabapentin 400 Mg Capsule) 800 mg PO TID [facility] Hydroxyzine HCl (Hydroxyzine Hcl 25 Mg Tablet) 25 mg PO Q6H PRN PRN Reason: Anxiety Last Admin: 10/09/22 21:07 Dose: 25 mg Lactic Acid (Ammonium Lactate 12 % Lotion 226 Gm Bottle) 1 appl TOPICAL BID [facility]; Protocol Last Admin: 10/10/22 12:47 Dose: Not Given Magnesium Hydroxide (Milk Of Magnesia 30 Ml Oral.Susp) 30 ml PO DAILY PRN PRN Reason: Constipation Montelukast Sodium (Montelukast Sodium 10 Mg Tablet) 10 mg PO DAILY [facility] Last Admin: 10/10/22 09:01 Dose: 10 mg Naproxen (Naproxen 500 Mg Tablet) 500 mg PO BID PRN PRN Reason: mild-moderate pain Last Admin: 10/10/22 10:31 Dose: 500 mg Non-Formulary Medication (Sulfasalazine) 2 tab PO BID [facility] Omeprazole (Omeprazole 40 Mg Capsule.Dr) 40 mg PO BEDTIME [facility] Last Admin: 10/09/22 21:06 Dose: 40 mg Prazosin HCl (Prazosin Hcl 1 Mg Capsule) 2 mg PO DAILY [facility]; Protocol Prazosin HCl (Prazosin Hcl 1 Mg Capsule) 4 mg PO BEDTIME [facility]; Protocol Quetiapine Fumarate (Quetiapine Fumarate 300 Mg Tablet) 300 mg PO BEDTIME [facility] Last Admin: 10/09/22 21:07 Dose: 300 mg Quetiapine Fumarate (Quetiapine Fumarate 100 Mg Tablet) 100 mg PO BID@0800,1500 [facility] Last Admin: 10/10/22 08:59 Dose: 100 mg Trazodone HCl (Trazodone Hcl 50 Mg Tablet) 50 mg PO BEDTIME MRX1 PRN PRN Reason: Insomnia Last Admin: 10/09/22 21:07 Dose: 50 mg Allergies Allergies Allergy/AdvReac Type Severity Reaction Status Date / Time amoxicillin [AMOXICILLIN] Allergy Intermediate HIVES,THROAT Verified 10/03/22 12:32 CLOSES Penicillins [PENICILLINS] AdvReac Intermediate HIVES,THROAT Verified 10/03/22 12:32 CLOSES Assessment & Plan Assessment & Plan (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: Status: Acute Code(s): F06.30 - Mood disorder due to known physiological condition, unspecified; S06.9XAS - Unspecified intracranial injury with loss of consciousness status unknown, sequela (2) Polysubstance abuse: Status: Acute Code(s): F19.10 - Other psychoactive substance abuse, uncomplicated (3) Inflammatory arthritis: Status: Acute Code(s): M19.90 - Unspecified osteoarthritis, unspecified site (4) Post traumatic stress disorder (PTSD): Status: Acute Code(s): F43.10 - Post-traumatic stress disorder, unspecified Plan 10/05: continue home meds with the following exceptions: increase lexapro to 20 mg daily start prazosin titration increase gabapentin to 400 TID T/C psychostimulant 10/06: slept 5 hours overnight, increase prazosin to 2 mg. continue titration as indicated and tolerated. contiue gabapentin 400 TID for another day. may increase after for neuropathic pain. 10/07 pt denies SI/HI , AH of music/dog barking, well aware others can't hear it since he had TBI in 2016. Increase gabapentin to 600mg po TID, increase prazosin to 2mg po BID for anxiety and increase seroquel. 10/08 continue meds 10/09 continue current meds and reassess need for increase Tuesday 10/10 increase gabapentin to 800mg po TID. Increase prazosin 2mg po daily and 4mg po qhs. Reason for contiued inpatient stay Substantial Risk for: inability to function Time Spent With Patient Time: Total time managing care of this patient today ____ minutes.
[2022-10-10] MEDS: Gabapentin 400 MG CAPSULE 800 MG PO ×2 (14:50→23:11)
[2022-10-10] MEDS: Acetaminophen 325 MG TABLET 650 MG PO (19:19)
[2022-10-10 23:05] VITALS: BP 147/82; PULSE 83; RESP 18; TEMP 36.6; O2SAT 98
[2022-10-10] MEDS: QUEtiapine Fumarate 300 MG TABLET PO (23:11)
[2022-10-10] MEDS: Ammonium Lactate 12 % Lotion 226 GM BOTTLE 1 APPL TOPICAL (23:11)
[2022-10-10] MEDS: Omeprazole 40 MG CAPSULE.DR PO (23:11)
[2022-10-10] MEDS: Prazosin HCL 1 MG CAPSULE 4 MG PO (23:12)
[2022-10-10] MEDS: Docusate Sodium 100 MG CAPSULE PO (23:27)
[2022-10-11] MEDS: hydrOXYzine HCL 25 MG TABLET PO (04:20)
[2022-10-11 08:20] VITALS: BP 131/86; PULSE 87; RESP 16; TEMP 36.7; O2SAT 96
[2022-10-11] MEDS: Fluticasone/Vilanterol 200/25 BLST.W.DEV 1 PUFF INHALE (08:20)
[2022-10-11] MEDS: Prazosin HCL 1 MG CAPSULE 2 MG PO (08:21)
[2022-10-11] MEDS: Escitalopram Oxalate 20 MG TABLET PO (08:21)
[2022-10-11] MEDS: Docusate Sodium 100 MG CAPSULE PO (08:21)
[2022-10-11] MEDS: QUEtiapine Fumarate 100 MG TABLET PO ×2 (08:21→14:20)
[2022-10-11] MEDS: Doxycycline Monohydrate 100 MG CAPSULE PO ×2 (08:21→21:28)
[2022-10-11] MEDS: Montelukast Sodium 10 MG TABLET PO (08:23)
[2022-10-11] MEDS: Gabapentin 400 MG CAPSULE 800 MG PO ×3 (08:27→21:27)
--- NOTE | 2022-10-11 09:37 | P.PNPSI_ITS ---
Subjective Subjective Date of Service: 10/11/22 Reason For Visit: Psychosis Subjective Notes: Conditional Voluntary Interim History: Pt continues to report pain related to RA, taking naproxen with fair effect. He reports better sleep, asks for increase in prazosin, which he reports has been helpful for anxiety/sleep/nightmares. He denies SI/HI. Hearing sounds at times, no overt delusional content noted or reported. No behavioral concerns. He is looking forward to discharge tomorrow. Per nursing, no behavioral concerns. Review of Systems Review of Systems Yes Unobtainable due to mental status Mental Status Exam Mental Status Exam Narrative: adequately dressed and groomed. cooperative. polite; slight pressure to speech; no PMA/PMR. speech nml amount, loudness latency. flattened prosody. thoughts linear and logical. affect constricted, normo-intense, non-labile. no SI/SIBI/HI/AVH expressed. Diagnostics Vital Signs (24Hr): Vital Signs - 24 hr 10/10/22 23:05 10/11/22 08:20 Temperature 97.8 F 98.1 F Pulse Rate 83 87 Respiratory Rate 18 16 Blood Pressure 147/82 H 131/86 Pulse Oximetry 98 96 Oxygen Delivery Method Room Air Room Air BMI result Body Mass Index 77.1 Labs 10/05/22 08:53 10/05/22 08:53 Imaging Radiology Impressions: ITS Impressions Chest X-Ray 10/03/22 12:19 FINDINGS/IMPRESSION: The study is limited by portable technique and low lung volumes. There is no gross acute radiographic finding. No infiltrate, effusion, pneumothorax is seen. The cardiac silhouette is suboptimally evaluated. The mediastinum, diaphragm, bones, and soft tissues appear unremarkable. Head CT 10/03/22 13:30 IMPRESSION: 1. No acute intracranial pathology. 2. No CT evidence of acute cervical spine fracture or traumatic subluxation Cervical Spine CT 10/03/22 13:31 IMPRESSION: 1. No acute intracranial pathology. 2. No CT evidence of acute cervical spine fracture or traumatic subluxation Abdomen/Pelvis CT 10/03/22 13:32 IMPRESSION: Normal CT of the chest, abdomen and pelvis. Chest CT 10/03/22 13:32 IMPRESSION: Normal CT of the chest, abdomen and pelvis. Head CT 10/03/22 23:50 IMPRESSION: 1. No acute intracranial pathology. Medications Medications Current Medications Acetaminophen (Acetaminophen 325 Mg Tablet) 650 mg PO Q6H PRN PRN Reason: Headache/Pain Mild Scale (1-3) Last Admin: 10/10/22 19:19 Dose: 650 mg Al Hydroxide/Mg Hydroxide (Magnesium Hydrox/Alum Hydrox 30 Ml Oral.Susp) 30 ml PO Q6H PRN PRN Reason: Heartburn/Nausea Albuterol Sulfate (Albuterol Sulfate 90 Mcg 8 Gm Inhaler) 2 puff INHALE Q4H PRN PRN Reason: Shortness Of Breath Last Admin: 10/04/22 18:15 Dose: 2 puff Docusate Sodium (Docusate Sodium 100 Mg Capsule) 100 mg PO DAILY PRN PRN Reason: Constipation Last Admin: 10/11/22 08:21 Dose: 100 mg Doxycycline Monohydrate (Doxycycline Monohydrate 100 Mg Capsule) 100 mg PO BID [facility] Stop: 10/13/22 23:59 Last Admin: 10/11/22 08:21 Dose: 100 mg Escitalopram Oxalate (Escitalopram Oxalate 20 Mg Tablet) 20 mg PO DAILY [facility] Last Admin: 10/11/22 08:21 Dose: 20 mg Fluticasone/Vilanterol (Fluticasone/Vilanterol 200/25 Blst.W.Dev) 1 puff INHALE RDAILY [facility] Last Admin: 10/11/22 08:20 Dose: 1 puff Gabapentin (Gabapentin 400 Mg Capsule) 800 mg PO TID [facility] Last Admin: 10/11/22 14:20 Dose: 800 mg Hydroxyzine HCl (Hydroxyzine Hcl 25 Mg Tablet) 25 mg PO Q6H PRN PRN Reason: Anxiety Last Admin: 10/11/22 04:20 Dose: 25 mg Lactic Acid (Ammonium Lactate 12 % Lotion 226 Gm Bottle) 1 appl TOPICAL BID [facility]; Protocol Last Admin: 10/11/22 08:28 Dose: Not Given Magnesium Hydroxide (Milk Of Magnesia 30 Ml Oral.Susp) 30 ml PO DAILY PRN PRN Reason: Constipation Montelukast Sodium (Montelukast Sodium 10 Mg Tablet) 10 mg PO DAILY [facility] Last Admin: 10/11/22 08:23 Dose: 10 mg Non-Formulary Medication (Sulfasalazine) 2 tab PO BID [facility] Pt Own (Indomethacin 75 Mg Capsule, Extended Release) 1 cap PO BID [facility] Last Admin: 10/11/22 08:19 Dose: 1 cap Omeprazole (Omeprazole 40 Mg Capsule.Dr) 40 mg PO BEDTIME [facility] Last Admin: 10/10/22 23:11 Dose: 40 mg Prazosin HCl (Prazosin Hcl 1 Mg Capsule) 2 mg PO DAILY [facility]; Protocol Last Admin: 10/11/22 08:21 Dose: 2 mg Prazosin HCl (Prazosin Hcl 1 Mg Capsule) 4 mg PO BEDTIME [facility]; Protocol Last Admin: 10/10/22 23:12 Dose: 4 mg Quetiapine Fumarate (Quetiapine Fumarate 300 Mg Tablet) 300 mg PO BEDTIME [facility] Last Admin: 10/10/22 23:11 Dose: 300 mg Quetiapine Fumarate (Quetiapine Fumarate 100 Mg Tablet) 100 mg PO BID@0800,1500 [facility] Last Admin: 10/11/22 14:20 Dose: 100 mg Trazodone HCl (Trazodone Hcl 50 Mg Tablet) 50 mg PO BEDTIME MRX1 PRN PRN Reason: Insomnia Last Admin: 10/09/22 21:07 Dose: 50 mg Allergies Allergies Allergy/AdvReac Type Severity Reaction Status Date / Time amoxicillin [AMOXICILLIN] Allergy Intermediate HIVES,THROAT Verified 10/03/22 12:32 CLOSES Penicillins [PENICILLINS] AdvReac Intermediate HIVES,THROAT Verified 10/03/22 12:32 CLOSES Assessment & Plan Assessment & Plan (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: Status: Acute Code(s): F06.30 - Mood disorder due to known physiological condition, unspecified; S06.9XAS - Unspecified intracranial injury with loss of consciousness status unknown, sequela (2) Polysubstance abuse: Status: Acute Code(s): F19.10 - Other psychoactive substance abuse, uncomplicated (3) Inflammatory arthritis: Status: Acute Code(s): M19.90 - Unspecified osteoarthritis, unspecified site (4) Post traumatic stress disorder (PTSD): Status: Acute Code(s): F43.10 - Post-traumatic stress disorder, unspecified Plan 10/05: continue home meds with the following exceptions: increase lexapro to 20 mg daily start prazosin titration increase gabapentin to 400 TID T/C psychostimulant 10/06: slept 5 hours overnight, increase prazosin to 2 mg. continue titration as indicated and tolerated. contiue gabapentin 400 TID for another day. may increase after for neuropathic pain. 10/07 pt denies SI/HI , AH of music/dog barking, well aware others can't hear it since he had TBI in 2016. Increase gabapentin to 600mg po TID, increase prazosin to 2mg po BID for anxiety and increase seroquel. 10/08 continue meds 10/09 continue current meds and reassess need for increase Tuesday 10/10 increase gabapentin to 800mg po TID. Increase prazosin 2mg po daily and 4mg po qhs. 10/11 increase prazosin at bedtime from 4mg po qhs to 6mg po qhs. continue prazosin 2mg po daily. Reason for contiued inpatient stay Substantial Risk for: stable for discharge Time Spent With Patient Time: Total time managing care of this patient today ____ minutes.
[2022-10-11 21:25] VITALS: BP 145/65; PULSE 85; RESP 16; TEMP 36.4; O2SAT 98
[2022-10-11] MEDS: Prazosin HCL 1 MG CAPSULE 6 MG PO (21:26)
[2022-10-11] MEDS: Omeprazole 40 MG CAPSULE.DR PO (21:28)
[2022-10-11] MEDS: QUEtiapine Fumarate 300 MG TABLET PO (21:28)
[2022-10-11] MEDS: Ammonium Lactate 12 % Lotion 226 GM BOTTLE 1 APPL TOPICAL (21:31)
[2022-10-12 08:51] VITALS: BP 133/77; PULSE 87; RESP 18; TEMP 36.3; O2SAT 96
[2022-10-12] MEDS: Gabapentin 400 MG CAPSULE 800 MG PO (08:53)
[2022-10-12] MEDS: Doxycycline Monohydrate 100 MG CAPSULE PO (08:54)
[2022-10-12] MEDS: Montelukast Sodium 10 MG TABLET PO (08:54)
[2022-10-12] MEDS: Prazosin HCL 1 MG CAPSULE 2 MG PO (08:54)
[2022-10-12] MEDS: Escitalopram Oxalate 20 MG TABLET PO (08:55)
[2022-10-12] MEDS: QUEtiapine Fumarate 100 MG TABLET PO (08:55)
[2022-10-12] MEDS: Fluticasone/Vilanterol 200/25 BLST.W.DEV 1 PUFF INHALE (08:57)
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
--- NOTE | 2022-10-12 12:04 | PC.NURSE ---
Patient easily engaged. Full range of affect. Reports mood is stable, anxious regarding discharge although feels it is appropriate under circumstance. Planning to return home. Denies SI/HI plan or intent. No reported perceptual disturbances, no overt psychosis or expressed delusions. Discharge paperwork reviewed, reports understanding. Appointments reviewed with patient reports understanding. Crisis numbers provided to patient. Belongings taken with patient upon discharge.
== END 2022-10-12 11:24 | disposition home or self-care (01) | DRG 754 ==
LOC: HO.ED 10-04 16:13 → HO.PADLT16 10-04 16:39
PROVIDERS: Physician Assistant Medical; Admitting Provider Social Worker; Emergency Provider Emergency Medicine; Visit Provider Psychiatry & Neurology Psychiatry
DX: F32.A Depression, unspecified (principal); S06.9XAS Unspecified intracranial injury with loss of consciousness status unknown, sequela; F17.210 Nicotine dependence, cigarettes, uncomplicated; F39 Unspecified mood [affective] disorder; F43.10 Post-traumatic stress disorder, unspecified; M19.90 Unspecified osteoarthritis, unspecified site; F19.10 Other psychoactive substance abuse, uncomplicated; X58.XXXS Exposure to other specified factors, sequela; Z20.822 Contact with and (suspected) exposure to COVID-19; Z88.0 Allergy status to penicillin; Z79.899 Other long term (current) drug therapy
CPT/HCPCS: 0241U; 36415; 70450; 71045; 71250; 72125; 74176; 80053; 80061; 80179; 80307; 81001; 82009; 82077; 82140; 82550; 82607; 82746; 82803; 82947; 83036; 83605; 83690; 83735; 84443; 84484; 85025; 85610; 85652; 86140; 87040; 93005; 96361; 96374; 96375; 99285; J0696; J2060; S9485

== ENCOUNTER 2022-11-16 13:24 | Emergency (ER) | payer OTHER, SELFPAY ==
--- NOTE | ~2022-11-16 | CT_ITS ---
EXAMINATION: CT HEAD WITHOUT CONTRAST CLINICAL INFORMATION: Headache COMPARISON: 10/03/2022 TECHNIQUE: Contiguous axial imaging was performed from the skull base to vertex without intravenous administration of contrast. This CT examination was performed using dose optimization techniques as appropriate, variously including the following: *Automated exposure control *Adjustment of mA and/or kV according to patient size (this includes techniques or standardized protocols for targeted exams where dose is matched to indication/reason for exam; i.e. extremities or head) *Use of iterative reconstruction technique DLP: 616 mGy-cm FINDINGS: There is no midline shift. There is no mass effect. There is no hemorrhage. The basal cisterns appear patent. The posterior fossa is grossly within normal limits. No extra-axial collection. The landis-white matter appears preserved. The ventricular system is within normal limits. Review of the bone windows demonstrates mild sinus disease CT/CT head/brain wo IV con IMPRESSION: Negative acute noncontrast CT the brain. Mild sinus disease is noted. Correlation recommended clinically. If further evaluation is warranted recommendation is MRI
[2022-11-16 13:28] VITALS: BP 140/90; PULSE 102; O2SAT 100
[2022-11-16 13:29] VITALS: BP 125/66; PULSE 104; RESP 18; TEMP 36.1; O2SAT 95; BMI 29.8
--- NOTE | 2022-11-16 13:33 | ED_ITS ---
HPI - General Adult General Chief complaint: Headache <Riley Luevano - Last Filed: 11/16/22 13:34> Stated complaint: headache <Riley Luevano - Last Filed: 11/16/22 13:34> Time Seen by Provider: 11/16/22 16:36 <Riley Luevano - Last Filed: 11/16/22 13:34> Source: patient <TOBIN Florence - Last Filed: 11/16/22 16:59> Mode of arrival: ambulatory <TOBIN Florence - Last Filed: 11/16/22 16:59> Limitations: no limitations <TOBIN Florence - Last Filed: 11/16/22 16:59> History of Present Illness HPI narrative: Patient is a 27 year old assigned male at with a history of a TBI presenting to the emergency department today with a headache, nausea, and vomiting. Patient states that starting yesterday he began to have a headache, nausea, and vomiting. Patient denies any dizziness, lightheadedness, abdominal pain, fever, chills, blurry vision, double vision, loss of vision, chest pain, difficulty breathing, shortness of breath, back pain, night sweats, pain with urination, increased urinary frequency, increased urinary urgency, blood in his urine or stool, syncope or a near syncopal episode, recent trauma or falls, bowel incontinence, bladder incontinence, bowel retention, bladder retention, or any other complaints at this time. <TOBIN Florence - Last Filed: 11/16/22 16:59> Onset (ago): day(s) (1) <TOBIN Florence - Last Filed: 11/16/22 16:59> Location: head <TOBIN Florence Last Filed: 11/16/22 16:59> Severity: mild <TOBIN Florence Last Filed: 11/16/22 16:59> Severity scale (1-10): 2 <TOBIN Florence Last Filed: 11/16/22 16:59> Relieving factors: none <TOBIN Florence Last Filed: 11/16/22 16:59> Exacerbating factors: none <TOBIN Florence - Last Filed: 11/16/22 16:59> Associated symptoms: nausea/vomiting <TOBIN Florence - Last Filed: 11/16/22 16:59> Treatments prior to arrival: none <TOBIN Florence - Last Filed: 11/16/22 16:59> Related Data Home medications: Home Medications Medication Instructions Recorded Confirmed docusate sodium 100 mg capsule 1 cap PO DAILY constipation 10/03/22 10/03/22 montelukast 10 mg tablet 1 tab PO DAILY 10/03/22 10/03/22 omeprazole 40 mg capsule,delayed 40 mg PO BEDTIME 10/03/22 10/03/22 release sulfasalazine 500 mg 2 tab PO BID 10/03/22 10/03/22 tablet,delayed release budesonide-formoterol HFA 160 2 puff inhalation 10/04/22 mcg-4.5 mcg/actuation aerosol inhaler (Symbicort) budesonide-formoterol HFA 160 2 puff inhalation BID 10/04/22 10/04/22 mcg-4.5 mcg/actuation aerosol inhaler (Symbicort) indomethacin 75 mg 1 cap PO BID 10/04/22 10/04/22 capsule,extended release Previous Rx's Medication Instructions Recorded albuterol sulfate 90 mcg/actuation 2 puff inhalation Q4H PRN 10/12/22 aerosol inhaler (Ventolin HFA) Shortness Of Breath #6.7 grams ammonium lactate 12 % lotion 1 appl topical BID #225 grams 10/12/22 escitalopram oxalate 20 mg tablet 20 mg PO DAILY #30 tabs 10/12/22 gabapentin 800 mg tablet 800 mg PO TID #90 tabs 10/12/22 hydroxyzine HCl 25 mg tablet 25 mg PO Q6H PRN Anxiety #60 tabs 10/12/22 prazosin 2 mg capsule 2 mg PO DAILY #30 caps 10/12/22 prazosin 2 mg capsule 6 mg PO BEDTIME #90 caps 10/12/22 quetiapine 100 mg tablet 100 mg PO BID@0800,1500 #60 tabs 10/12/22 quetiapine 300 mg tablet 300 mg PO BEDTIME #30 tabs 10/12/22 trazodone 50 mg tablet 50 mg PO BEDTIME PRN Insomnia #30 10/12/22 tabs ondansetron 4 mg disintegrating 4 mg PO Q8H 3 days #9 tabs 11/16/22 tablet <Riley Luevano - Last Filed: 11/16/22 13:34> Allergies/adverse reactions: Allergies Allergy/AdvReac Type Severity Reaction Status Date / Time amoxicillin [AMOXICILLIN] Allergy Intermediate HIVES,THROAT Verified 10/03/22 12:32 CLOSES Penicillins [PENICILLINS] AdvReac Intermediate HIVES,THROAT Verified 10/03/22 12:32 CLOSES <Riley Luevano - Last Filed: 11/16/22 13:34> Review of Systems Constitutional: Constitutional: Reports no additional constitutional complaints, Denies chills, Denies fever(s), Reports headache(s) and Denies night sweats <TOBIN Florence - Last Filed: 11/16/22 16:59> Eyes: Eyes: Reports no additional eye complaints, Denies blurry vision, Denies change in vision, Denies diplopia, Denies eye discharge, Denies loss of vision and Denies eye pain <TOBIN Florence - Last Filed: 11/16/22 16:59> ENT: Denies dizziness and Reports headache(s) <TOBIN Florence - Last Filed: 11/16/22 16:59> Cardiovascular: Cardiovascular: Reports no additional cardiovascular complaints, Denies chest pain, Denies lightheadedness, Denies Loss of Consciousness and Denies dyspnea <TOBIN Florence Last Filed: 11/16/22 16:59> Respiratory: Respiratory: Reports no additional respiratory complaints and Denies dyspnea <OTBIN Florence Last Filed: 11/16/22 16:59> Gastrointestinal: Gastrointestinal: Reports no additional gastrointestinal complaints, Denies abdominal pain, Denies melena, Denies hematochezia, Denies change in bowel habits, Denies change in stool character, Reports nausea and Reports vomiting <TOBIN Florence Last Filed: 11/16/22 16:59> Genitourinary: Genitourinary: Reports no additional male genitourinary complaints, Denies hematuria, Denies oliguria, Denies difficulty urinating, Denies dysuria, Denies urinary frequency, Denies urinary hesitancy, Denies urinary incontinence and Denies urinary urgency <TOBIN Florence Last Filed: 11/16/22 16:59> Musculoskeletal: Musculoskeletal: Reports no additional musculoskeletal complaints, Denies numbness and Denies tingling <TOBIN Florence - Last Filed: 11/16/22 16:59> Neurologic: Denies dizziness, Reports headache(s), Denies loss of vision, Denies numbness and Denies tingling <TOBIN Florence - Last Filed: 11/16/22 16:59> Psychiatric: Psychiatric: Reports no additional psychiatric complaints <TOBIN Florence - Last Filed: 11/16/22 16:59> Endocrine: Endocrine: Reports no additional endocrine complaints <TOBIN Florence - Last Filed: 11/16/22 16:59> Hematologic/Lymphatic: Hematologic/Lymphatic: Reports no additional hematol ogic/lymphatic complaints <TOBIN Florence - Last Filed: 11/16/22 16:59> Allergic/Immunologic: Allergic/Immunologic: Reports no additional allergic/immunologic complaints <TOBIN Florence - Last Filed: 11/16/22 16:59> PMFSH Past Medical History Attestation statement: The following information was validated with the patient. <TOBIN Florence - Last Filed: 11/16/22 16:59> Source: old records reviewed and nursing notes reviewed <TOBIN Florence - Last Filed: 11/16/22 16:59> Medical History: Medical History Arthralgia of ankle Asthma Denial GC arthritis Post traumatic stress disorder <Riley Luevano - Last Filed: 11/16/22 13:34> Surgical History: Surgical History No pertinent past surgical history <Riley Luevano - Last Filed: 11/16/22 13:34> Family History Family History: Family History Father HTN (hypertension) Mother Asthma <Riley Luevano - Last Filed: 11/16/22 13:34> Social History Social History: Social History Household Members: Family Housing: House Do you presently have visiting nurse or other home services: No Alcohol intake: current Patient Tobacco Use Status: Current everyday Tobacco user Tobacco use type: Cigarette Cigarette Packs Per Day: 0.25 Cigarettes Per Day: 4 Years Smoked: 3 Second Hand Smoke Exposure: No Substance Use Type: Crack/Cocaine and Marijuana Advance Directives: No Advance Directives Information Provided: Yes service: No Current occupational status: unemployed Sexual orientation: Don't Know <Riley Luevano - Last Filed: 11/16/22 13:34> Physical Exam ED Vital Signs: Vital Signs - 24 hr 11/16/22 13:29 Temperature 97 F Pulse Rate 104 H Respiratory Rate 18 Blood Pressure 125/66 Pulse Oximetry 95 Oxygen Delivery Method Room Air BMI result Body Mass Index 29.8 <Riley Luevano - Last Filed: 11/16/22 13:34> Vital Signs - 24 hr 11/16/22 13:29 Temperature 97 F Pulse Rate 104 H Respiratory Rate 18 Blood Pressure 125/66 Pulse Oximetry 95 Oxygen Delivery Method Room Air BMI result Body Mass Index 29.8 <TOBIN Florence - Last Filed: 11/16/22 16:59> Const General: cooperative, no acute distress, alert and awake <TOBIN Florence - Last Filed: 11/16/22 16:59> Nutritional Appearance: well nourished <TOBIN Florence - Last Filed: 11/16/22 16:59> Orientation/consciousness: patient oriented x3 <TOBIN Florence - Last Filed: 11/16/22 16:59> Limitations: no limitations <TOBIN Florence - Last Filed: 11/16/22 16:59> HENMT Head: Yes normal to inspection and Yes atraumatic <TOBIN Florence - Last Filed: 11/16/22 16:59> Ears: hearing grossly normal bilaterally and external ears normal <TOBIN Florence - Last Filed: 11/16/22 16:59> General nose exam: Normal external nose present, no nasal discharge noted and no epistaxis <TOBIN Florence - Last Filed: 11/16/22 16:59> Face and sinus: Yes normal facial exam, No abrasion and No laceration <TOBIN Florence - Last Filed: 11/16/22 16:59> Mouth: Normal oral and palatal mucosa present, no drooling and no muffled voice <Nannette Dale [place] - Last Filed: 11/16/22 16:59> Eyes General: appearance normal, both eyes and all related structures <Nannette Dale [facility] Last Filed: 11/16/22 16:59> Periorbital: periorbital findings normal <Nannette Dale [place] - Last Filed: 11/16/22 16:59> Eyelids: Yes eyelids normal <Nannette Dale [place] - Last Filed: 11/16/22 16:59> Conjunctivae: conjunctivae normal <Nannette Dale [place] - Last Filed: 11/16/22 16:59> Pupils: Equal, round and reactive pupils present <Nannette Dale [place] - Last Filed: 11/16/22 16:59> EOM: EOMs intact bilaterally <Nannette Dale [place] - Last Filed: 11/16/22 16:59> Neck Neck: Yes normal visual inspection, Yes full ROM and Yes no lymphadenopathy <Nannette Dale [facility] Last Filed: 11/16/22 16:59> Chest Chest palpation & inspection: normal inspection of the chest <Nannette Quinterodanielle [place] - Last Filed: 11/16/22 16:59> Resp Effort & Inspection: normal respiratory effort and able to speak in complete sentences <Nannette Dale [facility] Last Filed: 11/16/22 16:59> Auscultation: clear to auscultation bilaterally <Nannette Quinterodanielle [facility] Last Filed: 11/16/22 16:59> Cardio Rate: regular rate <Nannette Dale [facility] Last Filed: 11/16/22 16:59> Rhythm: regular rhythm <Nannette Quinterodanielle [facility] Last Filed: 11/16/22 16:59> GI Inspection: Yes normal to inspection <Nannette Quinterodanielle [place] - Last Filed: 11/16/22 16:59> Palpation (GI): Soft to palpation, not firm, nontender and no guarding <Nannetet Quinterodanielle [place] - Last Filed: 11/16/22 16:59> Neuro General: patient oriented x3 and moves all extremities <Nannette Quinterodanielle [place] - Last Filed: 11/16/22 16:59> Cranial nerves: Yes Equal, round and reactive pupils present <Nannette QuinteroTOBIN santos - Last Filed: 11/16/22 16:59> Cognition (Neuro): normal cognition <Nannette QuinteroTOBIN santos - Last Filed: 11/16/22 16:59> Motor exam (neuro): 5/5 motor strength present throughout <Nannettemaggy QuinteroTOBIN santos - Last Filed: 11/16/22 16:59> Sensory Exam: Normal double simultaneous stimulation for sensation <Nannettemaggy QuinteroTOBIN santos - Last Filed: 11/16/22 16:59> Coordination: [id number] test normal <Nannettemaggy Quinterodanielle [place] - Last Filed: 11/16/22 16:59> Extrem General: Yes normal to inspection, Yes full ROM and Yes capillary refill normal <Nannette QuinteroTOBIN santos - Last Filed: 11/16/22 16:59> Psych Appearance: grossly normal <TOBIN Florence - Last Filed: 11/16/22 16:59> Mental Status: mental status grossly normal <Nannettemaggy QuinteroTOBIN santos - Last Filed: 11/16/22 16:59> Affect: normal affect <Nannette DaleTOBIN santos - Last Filed: 11/16/22 16:59> Attitude: cooperative <TOBIN Florence - Last Filed: 11/16/22 16:59> Thought process: Normal thought process present <TOBIN Florence - Last Filed: 11/16/22 16:59> Thought content: Normal thought content present <TOBIN Florence - Last Filed: 11/16/22 16:59> Insight: Good insight present (Psych) <Nannettemaggy QuinteroTOBIN santos - Last Filed: 11/16/22 16:59> Course Course Course Narrative: 27-year-old male presents for evaluation of a headache that started this morning. Patient reports taking ?tramadol, gabapentin without any improvement. ? He reports history of TBI in 2016. Patient also complains of fevers, body aches. If Viral panel was ordered. Patient's neuros are intact. He was placed in the waiting room <Riley Luevano - Last Filed: 11/16/22 13:34> Medications Administered Discontinued Medications Generic Name Dose Route Start Last Admin Trade Name Freq PRN Reason Stop Dose Admin Ibuprofen 600 mg 11/16/22 14:36 11/16/22 14:40 Ibuprofen 600 Mg Tablet PO 11/16/22 14:37 600 mg ONCE ONE Administration Ondansetron HCl 4 mg 11/16/22 14:36 11/16/22 14:40 Ondansetron Odt 4 Mg Tab.Rapdis TRANSLINGU 11/16/22 14:37 4 mg ONCE ONE Administration <Riley Luevano - Last Filed: 11/16/22 13:34> Medications Administered Discontinued Medications Generic Name Dose Route Start Last Admin Trade Name Sherif PRN Reason Stop Dose Admin Ibuprofen 600 mg 11/16/22 14:36 11/16/22 14:40 Ibuprofen 600 Mg Tablet PO 11/16/22 14:37 600 mg ONCE ONE Administration Ondansetron HCl 4 mg 11/16/22 14:36 11/16/22 14:40 Ondansetron Odt 4 Mg Tab.Rapdis TRANSLINGU 11/16/22 14:37 4 mg ONCE ONE Administration <TOBIN Florence - Last Filed: 11/16/22 16:59> Medical Decision Making Medical Decision Making MDM Narrative: Patient is a 27 year old assigned male at with a history of TBI presenting to the emergency department today with a headache, nausea, and vomiting. Patient's physical exam was unremarkable. Patient's head CT showed no acute process. Patient's COVID-19 test was positive. I explained my physical exam findings as well as all test results to the patient. I answered all questions asked by the patient. I stressed the importance of the patient taking his medication as prescribed. I stressed the importance of the patient following up with his primary care provider. I stressed the importance of the patient returning to the emergency department immediately if his symptoms were to worsen or if he were to develop any dizziness, shortness of breath, difficulty breathing, chest pain, blurry vision, loss of vision, nausea, vomiting, abdominal pain, fever, chills, back pain, or any other complaints. Patient verbalized agreement and understanding with this treatment plan and discharge. <TOBIN Florence - Last Filed: 11/16/22 16:59> Differential Diagnosis Differential Diagnoses: The differential diagnosis associated with the presentation includes <TOBIN Moreno - Last Filed: 11/16/22 16:59> COVID-19 <TOBIN Florence - Last Filed: 11/16/22 16:59> Lab Data MDM Lab Attestation statement: I reviewed the patient's lab results. <TOBIN Florence - Last Filed: 11/16/22 16:59> Labs: Lab Results 11/16/22 Range/Units 14:32 Influenza Type A (PCR) NEGATIVE (Negative) Influenza Type B (PCR) NEGATIVE (Negative) RSV RNA Qual (PCR) NEGATIVE (Negative) SARS-CoV-2 RNA (RT-PCR) POSITIVE A (Negative) <Riley Luevano - Last Filed: 11/16/22 13:34> Lab Results 11/16/22 Range/Units 14:32 Influenza Type A (PCR) NEGATIVE (Negative) Influenza Type B (PCR) NEGATIVE (Negative) RSV RNA Qual (PCR) NEGATIVE (Negative) SARS-CoV-2 RNA (RT-PCR) POSITIVE A (Negative) <TOBIN Florence - Last Filed: 11/16/22 16:59> Independent Interpretation I performed an independent interpretation of an: CT Scan <TOBIN Florence - Last Filed: 11/16/22 16:59> Interpretation: My interpretation is in agreement with the radiologist's impression of this imaging study. -- EXAMINATION: CT HEAD WITHOUT CONTRAST CLINICAL INFORMATION: Headache? COMPARISON: 10/03/2022 TECHNIQUE: Contiguous axial imaging was performed from the skull base to vertex without intravenous administration of contrast. This CT examination was performed using dose optimization techniques as appropriate, variously including the following: *Automated exposure control *Adjustment of mA and/or kV according to patient size (this includes techniques or standardized protocols for targeted exams where dose is matched to indication/reason for exam; i.e. extremities or head) *Use of iterative reconstruction technique DLP: 616 mGy-cm FINDINGS: There is no midline shift. There is no mass effect. There is no hemorrhage. The basal cisterns appear patent. The posterior fossa is grossly within normal limits. No extra-axial collection. The landis-white matter appears preserved. The ventricular system is within normal limits. Review of the bone windows demonstrates mild sinus disease CT/CT head/brain wo IV con IMPRESSION: Negative acute noncontrast CT the brain. Mild sinus disease is noted. ? Correlation recommended clinically. If further evaluation is warranted recommendation is MRI Dictated By: Talat Patterson MD Signed By: Electronically signed by Talat Patterson MD 11/16/22 [id number] <TOBIN Florence - Last Filed: 11/16/22 16:59> Discharge Plan Discharge Clinical Impression: COVID-19 <Riley Luevano - Last Filed: 11/16/22 13:34> Patient Disposition: Home, Self-Care <Riley Luevano - Last Filed: 11/16/22 13:34> Instructions: COVID-19 (Coronavirus Disease 2019) (ED) <Riley Luevano - Last Filed: 11/16/22 13:34> Additional Instructions: Follow up with your primary care provider. Return to the emergency department immediately if your symptoms worsen or if you develop any dizziness, shortness of breath, difficulty breathing, chest pain, blurry vision, loss of vision, nausea, vomiting, abdominal pain, fever, chills, back pain, or any other complaints. <Riley Luevano - Last Filed: 11/16/22 13:34> Prescriptions: New ondansetron 4 mg tablet,disintegrating 4 mg PO Q8H 3 Days Qty: 9 0RF No Action montelukast 10 mg tablet 1 tab PO DAILY sulfasalazine 500 mg tablet,delayed release (DR/EC) 2 tab PO BID docusate sodium 100 mg capsule 1 cap PO DAILY omeprazole 40 mg capsule,delayed release(DR/EC) 40 mg PO BEDTIME indomethacin 75 mg capsule, extended release 1 cap PO BID budesonide-formoterol [Symbicort] 160-4.5 mcg/actuation HFA aerosol inhaler 2 puff inhalation budesonide-formoterol [Symbicort] 160-4.5 mcg/actuation Hfa Aerosol Inhaler 2 puff INHALATION BID albuterol sulfate [Ventolin HFA] 90 mcg/actuation Hfa Aerosol Inhaler 2 puff inhalation Q4H PRN (Reason: Shortness Of Breath) Qty: 6.7 0RF prazosin 2 mg capsule 2 mg PO DAILY Qty: 30 0RF prazosin 2 mg capsule 6 mg PO BEDTIME Qty: 90 0RF escitalopram oxalate 20 mg Tablet 20 mg PO DAILY Qty: 30 0RF gabapentin 800 mg tablet 800 mg PO TID Qty: 90 0RF quetiapine 300 mg Tablet 300 mg PO BEDTIME Qty: 30 0RF ammonium lactate 12 % Lotion 1 appl topical BID Qty: 225 0RF Protocol: Apply to: Apply to: heels, knee and hands trazodone 50 mg Tablet 50 mg PO BEDTIME PRN (Reason: Insomnia) Qty: 30 0RF quetiapine 100 mg Tablet 100 mg PO BID@0800,1500 Qty: 60 0RF hydroxyzine HCl 25 mg Tablet 25 mg PO Q6H PRN (Reason: Anxiety) Qty: 60 0RF <Riley Luevano - Last Filed: 11/16/22 13:34> Referrals: [facility] [Provider Group] (Call to establish and follow up with a primary care provider. If you already have a primary care provider, please follow up with them.) [facility], [facility] [Provider Group] (Call to establish and follow up with a primary care provider. If you already have a primary care provider, please follow up with them.) [facility] Primary [facility],Jay [Provider Group] (Call to establish and follow up with a primary care provider. If you already have a primary care provider, please follow up with them.) <Riley Luevano - Last Filed: 11/16/22 13:34> Stand Alone Forms: Work/School Release <Riley Luevano - Last Filed: 11/16/22 13:34> Print Language: Panamanian <Riley Luevano - Last Filed: 11/16/22 13:34>
[2022-11-16] MEDS: Ibuprofen 600 MG TABLET PO (14:40)
[2022-11-16] MEDS: Ondansetron ODT 4 MG TAB.RAPDIS TRANSLINGU (14:40)
--- OUTSIDE RECORDS SUMMARY | 2022-11-16 14:53 | XMS_ITS | Continuity of Care Document ---
:1995 Author Organization [facility] Address [address] [place] [id number] Care Team Providers Name Role Phone Bonnie HOUGH, Dolores Smith Primary Care Physician [place] [facility] [place] - 10/22/[address] [id number] Encounter Diagnosis Priapism (Final) - 10/20/22 Discharge Disposition: A-D/C Home Attending Physician: Maksmi HOUGH, Genesis Admitting Physician: Ligia Ibanez MD Referring Physician: Not on Staff, Referring MD Allergies, Adverse Reactions, Alerts Substance Reaction Severity Status amoxicillin Active penicillins Active Immunizations Given and Recorded Vaccine Date Status Refusal Reason SARS-CoV-2 (COVID-19) mRNA-1273 vaccine 04/14/22 Recorded Not Given Vaccine Date Status Refusal Reason influenza virus vaccine, inactivated 10/21/22 Not Given Patient Refuses Medications albuterol 0.083% inhalation solution 3 mL = 2.5 mg, Inhalation, Every 6 hours, PRN for wheezing, # 60 each, 0 Refills, Maintenance, 11/27/20 12:49:00 EDT, Solution, [id number], Partial fill upon patient request if the prescriptionis for a schedule II opioid drug., 180, cm, 11/27... Start Date: 11/27/20 Status: Orderedalbuterol 90 mcg/inh inhalation powder 2 puffs, Inhalation, Every 4 hours, PRN as needed, # 1 each, 1 Refills, Maintenance, 04/06/22 13:48:00 EDT, Powder, [id number], Partial fill upon patient request if the prescription is for a schedule II opioid drug., 2 puffs Inhalation Every 4... Start Date: 04/06/22 Status: OrderedAlcohol Pads See Instructions, # 200 each, Refills 5, Tot. Refills 5, Maintenance, use as directed for Type 1 Diabetes Mellitus, 10/22/22 15:17:00 EST, Supply, 180, cm, 10/22/22 7:19:00 EST, Height, 114, kg, 10/21/22 14:57:00 EST, Dry Weight Start Date: 10/22/22 Stop Date: 04/20/23 Status: Orderedcitalopram 20 mg oral tablet 20 mg, 1, tablet, By Mouth, Daily, # 90 tablet, Refills 0, Tot. Refills 0, Maintenance, 04/06/22 13:49:00 EDT, Route to Pharmacy Electronically, [facility] #[id number], Partial fill upon patient request ifthe prescription is for a schedule II opioid drug... Start Date: 04/06/22 Status: Ordereddocusate sodium 100 mg oral capsule 100 mg, 1, capsule, By Mouth, 2 times a day, PRN, # 180 capsule, Refills 0, Tot. Refills 0, Maintenance, for constipation, 04/06/22 13:56:00 EDT, Route to Pharmacy Electronically, [facility]/pharm[facility] #[id number], Partial fill upon patient request if the prescripti... Start Date: 04/06/22 Stop Date: 07/05/22 Status: Ordereddoxycycline hyclate 100 mg oral enteric coated tablet 1 tablet = 100 mg, By Mouth, Every 12 hours, for 7 days, # 14 tablet, 0 Refills, Acute 10/29/22 14:10:00 EST, 10/22/22 14:10:00 EST, CR Tablet, [facility][id number], Partial fill upon patient request if the prescription is for a schedule II opi... Start Date: 10/22/22 Stop Date: 10/29/22 Status: Ordereddoxycycline monohydrate 100 mg oral tablet = 100 mg, By Mouth, Every 12 hours, for 7 days, # 14 tablet, 0 Refills, Acute 10/29/22 15:13:00 EST,10/22/22 15:13:00 EST, Tablet, [facility]/pharmacy #[id number], Partial fill upon patient request if the prescription is for a schedule II opioid drug., 180, cm, 0... Start Date: 10/22/22 Stop Date: 10/29/22 Status: OrderedFreestyle Flash Glucose Meter See Instructions, # 1 each, Maintenance, check blood sugar twice daily before meal/, 10/22/22 15:17:00 EST, Supply, 180, cm, 10/22/22 7:19:00 EST, Height, 114, kg, 10/21/22 14:57:00 EST, Dry Weight Start Date: 10/22/22 Status: OrderedFreestyle Lancets See Instructions, # 200 each, Refills 5, Tot. Refills 5, Maintenance, use as directed for Type 2 Diabetes Mellitus, 10/22/22 15:17:00 EST, Supply, 180, cm, 10/22/22 7:19:00 EST, Height, 114, kg, 10/21/22 14:57:00 EST, Dry Weight Start Date: 10/22/22 Stop Date: 04/20/23 Status: OrderedFreestyle Test Strips See Instructions, # 200 each, Refills 5, Tot. Refills 5, Maintenance, use as directed for Type 1 Diabetes Mellitus, 10/22/22 15:17:00 EST, Supply, 180, cm, 10/22/22 7:19:00 EST, Height, 114, kg, 10/21/22 14:57:00 EST, Dry Weight Start Date: 10/22/22 Stop Date: 04/20/23 Status: Orderedgabapentin 100 mg oral capsule 100 mg, 1, capsule, By Mouth, 3 times a day, # 90 capsule, Refills 0, Tot. Refills 0, Maintenance, 07/06/22 15:14:00 EST, Route to Pharmacy Electronically, [facility]/pharmacy #[id number], Partial fill upon patientrequest if the prescription is for a schedule II... Start Date: 07/06/22 Stop Date: 08/05/22 Status: OrderedhydrOXYzine hydrochloride 25 mg oral tablet 1 tablet = 25 mg, By Mouth, 3 times a day, PRN for anxiety, # 40 tablet, 0 Refills, Maintenance, 10/21/22 4:19:00 EST, Tablet, Partial fill upon patient request if the prescription is for a schedule IIopioid drug. Start Date: 10/21/22 Status: Orderedindomethacin 75 mg oral capsule, extended release 1 capsule = 75 mg, By Mouth, 2 times a day, TAKE ONE CAPSULE BY MOUTH TWICE DAILY with food or milk,# 180 capsule, 1 Refills, Maintenance, 11/27/20 12:45:00 EDT, SR Capsule, [facility]/pharm[facility] #[id number], Partial fill upon patient request if the prescription i... Start Date: 11/27/20 Stop Date: 05/26/21 Status: Orderedlisinopril 5 mg oral tablet 2.5 mg, Tablet, By Mouth, 10/22/22 9:41:00 EST Start Date: 10/22/22 Stop Date: 10/22/22 Status: Completedlisinopril 5 mg oral tablet 5 mg, 1, tablet, By Mouth, Daily, # 30 tablet, Refills 4, Tot. Refills 4, Maintenance, 10/22/22 15:16:00 EST, Route to Pharmacy Electronically, [facility]/pharmacy #[id number], Partial fill upon patient request if the prescription is for a schedule II opioid drug.... Start Date: 10/22/22 Status: OrderedmetFORMIN 500 mg oral tablet 1 tablet = 500 mg, By Mouth, 2 times a day, # 60 tablet, 4 Refills, Maintenance, 10/22/22 15:20:00 EST, Tablet, [facility]/pharm[facility] #[id number], Partial fill upon patient request if the prescription is for a schedule II opioid drug., 180, cm, 10/22/22 15:19:00 EST... Start Date: 10/22/22 Status: OrderedMisc Rx See Instructions, Refills 0, Maintenance, ammonium lactate lotion, 11/02/20 10:26:00 EST, Supply Start Date: 11/02/20 Status: OrderedNaproxen = 500 mg, By Mouth, 2 times a day, 0 Refills, Maintenance, 10/21/22 4:23:00 EST, Partial fill upon patient request if the prescription is for a schedule II opioid drug. Start Date: 10/21/22 Status: Orderednebulizer nebulizer, See Instructions, # 1 each, Refills 0, Tot. Refills 0, Maintenance, With mask and tubingsDx: asthma, 11/27/20 12:22:00 EDT, Supply Start Date: 11/27/20 Status: Orderedomeprazole 40 mg oral enteric coated capsule TAKE 1 CAPSULE BY MOUTH EVERY DAY Start Date: 11/02/20 Status: OrderedoxyCODONE 5 mg oral tablet 5 mg, Tablet, By Mouth, Every 6 hours, PRN for Pain , Severe, Routine, 10/21/22 13:29:00 EST Start Date: 10/21/22 Stop Date: 10/23/22 Status: DiscontinuedoxyCODONE 5 mg oral tablet 5 mg, 1, tablet, By Mouth, Every 6 hours, PRN, # 7 tablet, Refills 0, Tot. Refills 0, Acute 10/25/2314:16:00 EST, Pain , Severe, 10/22/22 15:16:00 EST, Route to Pharmacy Electronically, [facility]/pharmacy #[id number], Partial fill upon patient request if the pre... Start Date: 10/22/22 Stop Date: 10/25/22 Status: OrderedQUEtiapine 300 mg oral tablet 1 tablet = 300 mg, By Mouth, Daily at bedtime, # 90 tablet, 0 Refills, Maintenance, 04/06/22 13:44:00 EDT, Tablet, [id number], Partial fill upon patient request if the prescription is for a schedule II opioid drug., 180, cm, 04/06/22 12:49:00... Start Date: 04/06/22 Status: OrderedQUEtiapine 300 mg oral tablet 1 tablet = 300 mg, By Mouth, Daily at bedtime, # 30 tablet, 0 Refills, Maintenance, 10/20/22 20:38:00 EST, Tablet, Partial fill upon patient request if the prescription is for a schedule II opioid drug. Start Date: 10/20/22 Status: OrderedSingulair 10 mg oral tablet 10 mg, 1, tablet, By Mouth, Daily, j44.9, # 90 tablet, Refills 3, Tot. Refills 3, Maintenance, 07/06/22 15:03:00 EST, Route to Pharmacy Electronically, [facility]/pharmacy #[id number], 180, cm, 07/06/22 14:25:00 EST, Height Start Date: 07/06/22 Status: OrderedSulfaSALAZINE = 500 mg, By Mouth, 2 times a day, 0 Refills, Maintenance, 10/21/22 4:22:00 EST, Partial fill upon patient request if the prescription is for a schedule II opioid drug. Start Date: 10/21/22 Status: OrderedSulfasalazine (Azulfidine) 1 gram Sulfasalazine (Azulfidine) 1 gram, See Instructions, # 180 each, Refills 0, Tot. Refills 0, Maintenance, Sulfasalazine (Azulfidine) 1 gram take BID, 04/06/22 13:50:00 EDT, Supply, 180, cm, 04/06/22 12:49:00 EDT, Height Start Date: 04/06/22 Status: OrderedSymbicort 160mcg/4.5mcg Inhaler 2, puffs, Inhalation, 2 times a day, in the morning and the evening use with spacer chamber rinse mouth and throat after use, j44.9, # 1 each, Refills 3, Tot. Refills 3, Maintenance, 07/06/22 14:58:00 EST, Aerosol, Route to Pharmacy Electronical... Start Date: 07/06/22 Status: Ordered Problem List Condition Confirmation Course Effective Dates Status Health I nformant Status Disseminated Confirmed Active infection due to Neisseria gonorrhoeae Polyarthritis, Confirmed Active inflammatory Anxiety and Confirmed Active depression Arm pain, left Confirmed Active PTSD (post-traumatic Confirmed Active stress disorder) Reactive arthritis Confirmed Active Schizophrenia Confirmed Active Severe obesity (BMI Confirmed Active 35.0-39.9) with comorbidity Vital Signs Most recent to oldest 1 2 3 [Reference Range]: Height 180 cm 180 cm 180 cm (10/22/22 3:19 PM) (10/22/22 7:19 AM) (10/21/22 11: 58 PM) Weight 114.2 kg 114.2 kg 114.2 kg (10/21/22 2:56 PM) (10/20/22 8:14 PM) (10/20/22 8:0 5 PM) Oxygen Saturation [94-100 98 % 99 % 99 % %] (10/22/22 3:19 PM) (10/22/22 7:19 AM) (10/21/22 11: 58 PM) Pulse Rate [55-90 bpm] 78 bpm 75 bpm 104 bpm (10/22/22 3:19 PM) (10/22/22 7:19 AM) *H* (10/21/22 11:58 P M) Body Mass Index 35.25 kg/m2 35.25 kg/m2 35.22 kg/m2 [18.5-24.99 kg/m2] *>HHI* *>HHI* *>HHI* (10/21/22 2:56 PM) (10/20/22 8:05 PM) (10/20/22 3:0 1 PM) Blood Pressure 143/84 mm Hg 155/3 mm Hg 145/81 mm Hg [90-138/55-84 mm Hg] *H* *H* *H* (10/22/22 3:19 PM) (10/22/22 11:42 AM) (10/22/22 7: 19 AM) Respiratory Rate [16-30 17 br/min 20 br/min 16 br/mi n br/min] (10/22/22 3:46 PM) (10/22/22 3:19 PM) (10/22/22 8:2 1 AM) Temperature [96.8-100.4 97.9 DegF 98.1 DegF 97.9 Deg F DegF] (10/22/22 3:19 PM) (10/22/22 7:19 AM) (10/21/22 11: 58 PM) Liters per Minute 6 L/min 6 L/min 6 L/min (10/21/22 4:45 PM) (10/20/22 5:30 PM) (10/20/22 5:1 5 PM) Mode of Delivery (Oxygen) Room air Room air Room a ir (10/22/22 3:19 PM) (10/22/22 7:19 AM) (10/21/22 11: 58 PM) Blood pressure sites Arm, right Arm, left Arm, right (10/22/22 3:19 PM) (10/22/22 7:19 AM) (10/21/22 11: 58 PM) Temperature Route Oral Oral Oral (10/22/22 3:19 PM) (10/22/22 7:19 AM) (10/21/22 11: 58 PM) Dry Weight 114 kg 114.2 kg 114.1 kg (10/21/22 2:56 PM) (10/20/22 8:05 PM) (10/20/22 10: 16 AM) Weight Obtained Via Standing scale Standing scale Standing sca le (10/20/22 8:14 PM) (10/20/22 8:05 PM) (10/20/22 10: 16 AM) Dry Weight Obtained Via Patient/family stated Standing scale St anding scale (10/21/22 2:56 PM) (10/20/22 8:05 PM) (10/20/22 10: 16 AM) Social History Social History Type Response Smoking Status Former smoker, quit more richie n 30 days ago; Tobacco use times per day: smoked Black and mild ciagars 3/4 per week; quit smoking 2018; Number of years: 4; entered on: 12/24/20 Sex Male Admission evaluation note Oliver HOUGH, Rodrigo Pandey: MODIFY, MODIFY, PERFORM Event Display: Admission Note Authored Date: Patient: ??LETTY SO ? Age:??27 Years?Sex:??Male?:??1995?? Chief Complaint/Reason for Consultation persistent erection History of Present Illness Mr. So is a 27-year-old gentleman with a past medical history of disseminated gonorrhea, schizophrenia, inflammatory arthritis, and asthma who presents with 24 hours of priapism. ?? He says he woke up with an erection 1 day prior to presentation.?? Was initially painless but persistent throughout the day.?? It started becoming painful later in the evening and he went to sleep.?? When he woke up this morning he continued to be increasingly painful prompting him to present to the ER.?? It is associated with testicular soreness that started after the erection.?? He states he has chronic purulent drainage from his penis, strains while urinating, has mild dysuria, denies hematuria.?? He is sexually active.?? He smoked marijuana even prior to the reaction but otherwise denies substance use, herbal supplements, new medications, fever, abdominal pain, chest pain, dyspnea. ?? On arrival to the ER heart rate was 113, blood pressure 116/89 mmHg, RR 16, SPO2 100% on room air.?? CBC was unremarkable.?? HIV negative.?? Attempted detumescence with drainage and phenylephrine infusion was unsuccessful by ED provider.?? Urology subsequently took patient to the OR and performed successful priapism takedown/corporal shunt. Review of Systems All systems reviewed and negative except as indicated in HPI. Objective Vital Signs?? Temperature: 97.9 DegF (10/20/22 20:14:00) Temperature Route: Oral (10/20/22 20:14:00) Pulse Rate:??97 bpm??High (10/20/22 20:14:00) Heart Rate Monitored:??97 bpm??High (10/20/22 19:00:00) Respiratory Rate: 20 br/min (10/20/22 22:28:00) Vented: No (10/20/22 19:00:00) Systolic Blood Pressure:??153 mm Hg??High (10/20/22 20:14:00) Diastolic Blood Pressure: 67 mm Hg (10/20/22 20:14:00) Blood pressure sites: Arm, right (10/20/22 20:14:00) Mean Arterial Pressure: 96 mm Hg (10/20/22 20:14:00) Pulse Pressure: 86 mm Hg (10/20/22 20:14:00) Oxygen Saturation: 99 % (10/20/22 20:14:00) Liters per Minute: 6 L/min (10/20/22 17:30:00) Mode of Delivery (Oxygen): Room air (10/20/22 20:14:00) Early Warning Score: 2 (10/20/22 22:29:28) ? Intake/Output? 10/20 15:19 10/20 07:00 10/19 07:00 10/18 07:00 10/17 07:00 ?? 10/20 22:44 10/20 22:44 10/20 06:59 10/19 06:59 10/18 06:59 Intake ?780 ?780 ?0 ?0 ?0 Output ?0 ?0 ?0 ?0 ?0 Net Total ?780 ?780 ?0 ?0 ?0 ? Physical Exam Constitutional: Alert, in no acute distress. Head EENT: Extraocular muscle movement intact.??Moist mucous membranes.?? Neck: Supple. No JVD. Respiratory: Clear to auscultation. No wheezing or crackles. No use of accessory muscles. Cardiovascular: S1S2 regular. No murmurs, rubs or gallops. Gastrointestinal: Abdomen soft, non-tender, non-distended. Normal bowel sounds. Genitourinary: No CVA tenderness. Penis with sterile dressing, clean, nonpurulent, nonbloody, erect. Extremities: No lower extremity pitting??edema. No cyanosis or clubbing. Neurologic: AAOx3, Speech normal. No focal neurological deficits. Skin: No rash. Psychiatric: Normal mood and affect Assessment/Plan 27-year-old gentleman with a past medical history of disseminated gonorrhea, schizophrenia, inflammatory arthritis, and asthma who presents with 24 hours of priapism. S/p priapism takedown with urology. ?? #Priapism Briefly took trazodone, newly prescribed to him earlier this month, states he only took 3-4 pills Is now s/p priapism take down and was flaccid afterwards, however on my examination penis is erect,patient reports it has remained erect since after he woke up from anesthesia - updated urology regarding him currently being erect after procedure, they will see him in AM - stopped trazodone, prazosin - pain management ?? #Schizophrenia #Anxiety #Depression - continue citalopram, quetiapine - stopped trazodone ?? #Inflammatory arthritis - continue gabapentin,??naproxen ?? #Asthma - continue Breo inhaler ?? Code status: full DVT ppx:??SCDs Diet: regular Dispo: floors ?? Total Visit Time: I personally spent a total of 60 minutes, including both [id number] and jmt-kvsc-hy-face time on the date of the encounter, addressing the above diagnoses. Activities performed in this time include chart review, obtaining / reviewing history, performing amedically necessary evaluation, documentation and counseling. ?? Rodrigo Boyd MD Histories Past Medical History/Problem List Active Problems??(8) Anxiety and depression Arm pain, left Disseminated infection due to Neisseria gonorrhoeae Polyarthritis, inflammatory PTSD (post-traumatic stress disorder) Reactive arthritis Schizophrenia Severe obesity (BMI 35.0-39.9) with comorbidity ? Past Surgical History No surgery history documented. ? Social History Alcohol Details:??Use: Current. ??Frequency: 1-2 times per week. Employment/School Details:??Status: Disabled. 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 Exercise Details:??Regular exercise: No. Home/Environment Details:??Living situation: Home/Independent. ??Lives with: Significant other. ??Other: carpet; no humidifier; no air purifier; small dogs at home; no birds. ??Marital Status of Patient if Patient Independent Adult: Unmarried. Nutrition/Health Details:??Diet: mediterranean diet. Substance Abuse Details:??Use: Never. Tobacco Details:??Use: Former smoker, quit more than 30 days ago. ??Tobacco use times per day: smoked Blackand mild ciagars 3/4 per week; quit smoking 2018. ??4 Number of years:. Electronic Cigarette/Vaping Details:??Electronic Cigarette Use: Never. ? Family History Mother: Asthma Father: Asthma Mat. Grandmother: Diabetes mellitus Mat. Grandfather: Cancer of lung; Diabetes mellitus Pat. Grandfather: SLE - Systemic lupus erythematosus Uncle: Heart attack; Stroke Aunt: Cancer of lung Cousin: Rheumatoid arthritis ? Medications Home Medications Albuterol (albuterol 0.083% inhalation solution)?3?Milliliter?2.5?Milligram?Inhalation?Every 6 hours?as needed?for wheezing Albuterol (albuterol 90 mcg/inh inhalation powder)?2?puff(s)?Inhalation?Every 4 hours?as needed?as needed Budesonide-Formoterol (Symbicort 160mcg/4.5mcg Inhaler)?2?puff(s)?Inhalation?2 times a day?in the morning and the eveninguse with spacer chamberrinse mouth and throat after use, j44.9 Citalopram (citalopram 20 mg oral tablet)?20?Milligram?1?tablet?By Mouth?Daily Docusate (docusate sodium 100 mg oral capsule)?100?Milligram?1?capsule?By Mouth?2times a day?as needed?for 90?Days?for constipation Durable Medical Equipment (nebulizer)?See Instructions?With mask and tubingsDx: asthma Gabapentin (gabapentin 100 mg oral capsule)?100?Milligram?1?capsule?By Mouth?3 times a day?for 30?Days Indomethacin (indomethacin 75 mg oral capsule, extended release)?1?capsule?75?Milligram?By Mouth?2 times a day?for 90?Days?TAKE ONE CAPSULE BY MOUTH TWICE DAILYwith food or milk Miscellaneous Rx (Misc Rx)?See Instructions?ammonium lactate lotion Miscellaneous Rx (Sulfasalazine (Azulfidine) 1 gram)?See Instructions?Sulfasalazine (Azulfidine) 1 gramtake BID Montelukast (Singulair 10 mg oral tablet)?10?Milligram?1?tablet?By Mouth?Daily?j44.9 Montelukast (montelukast 10 mg oral tablet)?10?Milligram?1?tablet?By Mouth?Daily in PM Omeprazole (omeprazole 40 mg oral enteric coated capsule)?TAKE 1 CAPSULE BY MOUTH EVERY DAY Prazosin (prazosin 1 mg oral capsule)?See Instructions?1 capsule By Mouth 3 times a day Psyllium (psyllium 3.4 g/5.4 g oral powder for reconstitution)?1.7?gram?By Mouth?Daily?as needed?as needed for constipation?Take 1 Tbsp QD PO Quetiapine (QUEtiapine 300 mg oral tablet)?1?tab(s)?300?Milligram?By Mouth?Daily at bedtime Quetiapine (QUEtiapine 300 mg oral tablet)?1?tab(s)?300?Milligram?By Mouth?Daily at bedtime Trazodone (traZODone 50 mg oral tablet)?50?Milligram?1?tablet?By Mouth ? Inpatient Medications Medications (18) Active SCHEDULED: (8) Breo Ellipta 100 mcg / 25 mcg Inhaler (Breo Ellipta 100 mcg-25 mcg Inhaler) ??1 puffs, Inhalation, Daily Gabapentin 400 mg Capsule (gabapentin 400 mg oral capsule) ??800 mg, By Mouth, Daily at bedtime Influenza Quad (6mo - 64 yr) Fluzone 0.5mL (Influenza, Quadrivalent Vaccine (Fluzone Quad)) ??0.5 mL, Intramuscular, Once Montelukast 10 mg Tablet (montelukast 10 mg oral tablet) ??10 mg, By Mouth, Daily at bedtime NaCl 0.9% Flush 3ml (NaCL 0.9% Flush) ??3 mL, IV Push, Every 8 hours Naproxen 250 mg Tablet (naproxen 250 mg oral tablet) ??500 mg, By Mouth, Daily Pantoprazole 40 mg EC Tablet (pantoprazole 40 mg oral delayed release tablet) ??40 mg, By Mouth, Daily Quetiapine 100 mg Tablet (QUEtiapine 100 mg oral tablet) ??300 mg, By Mouth, Daily at bedtime CONTINUOUS: (1) Lactated Ringers (1000 mL) Cont IV 1,000 mL (LR 1,000 mL) ??1,000 mL, IV Infusion, 125 mL/hr PRN: (9) Acetaminophen 325 mg Tablet (Acetaminophen Tablet) ??650 mg, By Mouth, Every 4 hours Docusate Sodium 100 mg Capsule (docusate sodium 100 mg oral capsule) ??100 mg 1 capsule, By Mouth, 2 times a day Melatonin 3 mg Tablet (Melatonin Tablet) ??3 mg, By Mouth, Daily at bedtime MorPHINE 4 mg Inj Syringe (MorPHINE Inj) ??4 mg, IV Push Slowly, Every 5 minutes NaCl 0.9% Flush 3ml (NaCL 0.9% Flush) ??3 mL, IV Push, Every 8 hours nalOXONE ??400mcg/mL Inj (nalOXONE Inj) ??0.04 mg 0.1 mL, IV Push, Every 5 minutes OxyCODONE 5 mg IR Tablet (oxyCODONE 5 mg oral tablet) ??5 mg, By Mouth, Every 6 hours PHENYLephrine 200 mcg/mL (10mL) Inj (PHENYLephrine Inj) ??100 mcg, IntraCAVERnous, Every 5 minutes Senna 8.6 mg / Docusate 50 mg tablet (Docusate/Senna Tablet) ??1 tablet, By Mouth, 2 times a day ? Results Recent Labs BLOOD COUNT & DIFF WBC 10.2 k/mm3 ()?? 10/20/2022 10:55 RBC 4.79 m/mm3 ()?? 10/20/2022 10:55 Hgb 12.6 Gm/dL (Low)?? 10/20/2022 10:55 Hct 40.2 % (Low)?? 10/20/2022 10:55 MCV 83.9 femtoliters ()?? 10/20/2022 10:55 MCH 26.3 pg (Low)?? 10/20/2022 10:55 MCHC 31.3 g/dL (Low)?? 10/20/2022 10:55 Platelet Count 375 k/mm3 ()?? 10/20/2022 10:55 RDW-SD 44.3 femtoliters ()?? 10/20/2022 10:55 MPV 9.5 femtoliters ()?? 10/20/2022 10:55 Nucleated RBC (Automated) 0.0 #/100 WBC'S ()?? 10/20/2022 10:55 Abs. NRBC 0.0 k/mm3 ()?? 10/20/2022 10:55 Abs. Neut 7.3 k/mm3 (High)?? 10/20/2022 10:55 Abs. Lymph 2.0 k/mm3 ()?? 10/20/2022 10:55 Abs. [place] 0.7 k/mm3 ()?? 10/20/2022 10:55 Abs. Eo 0.1 k/mm3 ()?? 10/20/2022 10:55 Abs. Baso 0.1 k/mm3 ()?? 10/20/2022 10:55 Neut % 71.8 % ()?? 10/20/2022 10:55 Lymph % 20.0 % ()?? 10/20/2022 10:55 [place] % 6.6 % ()?? 10/20/2022 10:55 Eos % 0.6 % ()?? 10/20/2022 10:55 Baso % 0.7 % ()?? 10/20/2022 10:55 Imm Gran 0.3 % ()?? 10/20/2022 10:55 Abs. Imm Gran 0.0 k/mm3 ()?? 10/20/2022 10:55 ?? SEROLOGY INF DISEASE HIV 4th Generation Ab-Ag Result NEGATIVE (N)?? 10/20/2022 10:55 ? CBC, CBC w/Diff?? CBC?? Differential?? WBC: 10.2 k/mm3 (10:55) Abs. Neut:??7.3 k/mm3??High (10:55) RBC: 4.79 m/mm3 (10:55) Abs. Lymph: 2 k/mm3 (10:55) Hct:??40.2 %??Low (10:55) Abs. [place]: 0.7 k/mm3 (10:55) RDW-SD: 44.3 femtoliters (10:55) Abs. Eo: 0.1 k/mm3 (10:55) Nucleated RBC (Automated): 0 #/100 WBC'S (10:55) Abs. Baso: 0.1 k/mm3 (10:55) Abs. NRBC: 0 k/mm3 (10:55) Neut %: 71.8 % (10:55) ?? Lymph %: 20 % (10:55) ?? [place] %: 6.6 % (10:55) ?? Eos %: 0.6 % (10:55) ?? Baso %: 0.7 % (10:55) ?? Imm Gran: 0.3 % (10:55) ?? Abs. Imm Gran: 0 k/mm3 (10:55) ? LFT?? No qualifying data available. ?? Urinalysis?? No qualifying data available. ? Blood Gases?? No qualifying data available. ?? EKG study Event Display: ECG 12-Lead Authored Date: Please click on pdf link to open report Event Display: ECG 12-Lead Authored Date: Ventricular Rate: 108 BPM Atrial Rate: 108 BPM P-R Interval: 130 ms QRS Duration: 86 ms Q-T Interval: 326 ms QTC Calculation(Bazett): 436 ms P [place]: 42 degrees R [place]: 64 degrees T [place]: 18 degrees Sinus tachycardia Otherwise normal ECG No previous ECGs available Confirmed by WILLIAM HOUGH, [facility] ([id number]) on 10/20/2022 1:27:42 PM [place]: WILLIAM HOUGH,[facility] Progress note Javier Wilson MD: PERFORM, SIGN, VERIFY Event Display: Progress Note Hospital Authored Date: Patient: LETTY SO Age: 27 years Sex: Male : 1995 Associated Diagnoses: None Author: Javier Wilson MD LOS 1 days Patient is doing well status post priapism shunt. Pain is controlled on oral analgesics. Urinating well. No evidence of recurrent erection. Review of Systems Review of systems is Oral Intake: solids. Genitourinary: voided. Physical Examination Vital Signs Vitals 10/22/2022 11:46 EST Early Warning Score 3.00 10/22/2022 11:42 EST Systolic Blood Pressure 155 mm Hg H Diastolic Blood Pressure 3 mm Hg L 10/22/2022 8:23 EST Pain Intensity 7 10/22/2022 8:22 EST Early Warning Score 3.00 10/22/2022 8:21 EST Respiratory Rate 16 br/min Pain Intensity 7 10/22/2022 7:19 EST Early Warning Score 3.00 10/22/2022 7:19 EST Height 180 cm Temperature 98.1 DegF Temperature Route Oral Pulse Rate 75 bpm Respiratory Rate 20 br/min Systolic Blood Pressure 145 mm Hg H Diastolic Blood Pressure 81 mm Hg Blood pressure sites Arm, left Mean Arterial Pressure 102 mm Hg Pulse Pressure 64 mm Hg Oxygen Saturation 99 % Mode of Delivery (Oxygen) Room air . Physical exam Abdomen/GI: Abdomen is (soft, not tender). Penis with ecchymosis and some mild edema but no significant rigidity or erection. Dorsal slit incision is clean dry and intact. Impression and Plan Priapism COMPREHENSIVE PLAN The patient is status post priapism shunt and doing extremely well. Recommend discharge on doxycycline 100 mg twice daily x7 days. Patient can clean his incisions with soap and water and shower. He should contact his psychiatrist regarding his psychiatric medications including trazodone and discuss alt ernative agents with less risk of priapism. Patient should follow-up in urology clinic in 2 weeks. We did discuss that there is a long-term risk of erectile dysfunction in addition to corporal fibrosisand he will need to be carefully monitored over the next 6 months. If there is no return of spontaneous erectile function he would be a good candidate for a inflatable penile prosthesis.Augusta Polanco LPN: PERFORM, SIGN, VERIFY Event Display: Progress Note Hospital Authored Date: [id number] Patient: LETTY SO Age: 27 years Sex: Male : 1995 Associated Diagnoses: None Author: Augusta Polanco LPN Findings Problem Related to Alteration in Integumentary : Alteration in Integumentary/new 10/21/2022 18:00 EST Alteration in Integumentary Related to Mechanical/Surgical trauma Goals & Outcomes, Integumentary Nutritional intake is adequate for metabolic needs, Pt will maintain adequate fluid & nutritional balance, Pt will maintain intact skin integrity, Wound will progress towards healing Interventions, Integumentary Consult Wound Care as needed for further interventions, Keep skin clean & dry, Record extent of impaired skin integrity BH Goals/Interventions, Integumentary Yes Integumentary, Problem Start 10/21/2022 4:28 Reviewed plan with, Integumentary Patient Patient Progression, Integumentary Pt progressing according to plan . Narrative/Incidental Pt is A+O x 4, denies SOB and nausea. Pain controlled with scheduled naproxen, prn tylenol, prn oxycodone, and prn morphine. Lungs sounds are clear on RA, +1 edema noted on BLE. Penis continues to be erect. Pt taken for surgery at 1430, arrived back to unit 1800, pain 6/10 in groin area, given prn oxycodone and will monitor. Dressing on penis with no drainage noted. Large saline bag on top of dressing for pressure, to be left on for 8 hours..Maksim HOUGH, Noor: PERFORM Event Display: Progress Note Hospital Authored Date: [id number] Patient: ??LETTY SO ? Age:??27 Years?Sex:??Male?:??1995?? Subjective Patient was admitted yesterday??for complaint of priapism. -Urology has been on board.?Penile??arterial??ABGs done, plan is to go??to the OR by urology??for??the shunt and a dorsal slit??due to ongoing??erection. -Continue n.p.o., continue IV fluids. -Pain management with morphine. -Holding off on antibiotic??since no clear??infectious etiology. ??Leukocytosis??seems to be??reactive. ??We will continue to monitor. Review of Systems A full review of systems was completed and is otherwise negative except as mentioned in history of present illness. Objective ?? Intake/Output? 10/20 15:19 10/21 07:00 10/20 07:00 10/19 07:00 10/18 07:00 ?? 10/21 12:55 10/21 12:55 10/21 06:59 10/20 06:59 10/19 06:59 Intake ?780 ?0 ?780 ?0 ?0 Output ?500 ?0 ?500 ?0 ?0 Net Total ?280 ?0 ?280 ?0 ?0 ? Urine Count ?1 ?0 ?1 ?0 ?0 ? Physical Exam Respiratory: Clear to auscultation. No wheezing or crackles. No use of accessory muscles. Cardiovascular: S1S2 regular. No murmurs, rubs or gallops. Gastrointestinal: Abdomen soft, non-tender, non-distended. Normal bowel sounds. Genitourinary: No CVA tenderness. Penis with sterile dressing, clean, nonpurulent, nonbloody, erect. Neurologic: AAOx3, Speech normal. No focal neurological deficits. Results reviewed Assessment/Plan ??27-year-old gentleman with a past medical history of disseminated gonorrhea, schizophrenia, inflammatory arthritis, and asthma who presents with 24 hours of priapism. S/p priapism . ??Urology has been consulted. ?? #Priapism Briefly took trazodone, newly prescribed to him earlier this month, states he only took 3-4 pills Is now s/p priapism take down and was flaccid afterwards, however on my examination penis is erect, patient reports it has remained erect since after he woke up from anesthesia - stopped trazodone, prazosin. ??Will DC trazodone upon discharge - pain management: Morphine IV push and oxycodone p.o.. -Continue IV fluids, continue n.p.o.. ??Plan is to??go to the OR today??for??discharge and??dorsal slit??by urology.. ?? #Schizophrenia #Anxiety #Depression -Stable. ?? -Continue citalopram, quetiapine - stopped trazodone ?? #Inflammatory arthritis - continue gabapentin,??holding off on naproxen - patient is on??opiate medications already for pain control.. ?? #Asthma - continue Breo inhaler -Continue??albuterol??inhalers. ?? Code status: full DVT ppx:??SCDs Diet: regular . for now npo for OR today Note Demi Fernando RN: PERFORM Event Display: Discharge/Transfer Note Hospital Authored Date: [id number] Nursing Discharge Note Entered On: 10/22/2022 16:03 EST Performed On: 10/22/2022 16:02 EST by Demi Fernando RN Nursing Discharge Note 2 Discharge Time : 10/22/2022 16:02 EST Discharge Level of Care at Discharge : Home/Residential/Foster Care Patient Left Unit Via : Ambulatory Patient Accompanied Off Unit with : Responsible adult DC Instructions Provided & Signed by Pt : Yes Patient Understands D/C Instructions : Yes Patient Instructions Discharge Signed : Yes Discharge Comments : IV removed from f/a with catheter intact. DSD applied Did Pt have Specialty Bed or Wound Vac : No Demi Fernando RN - 10/22/2022 16:02 Marylin HOUGH, Noor: MODIFY, PERFORM Event Display: Discharge/Transfer Note Hospital Authored Date: [id number] Patient: ??SARAY LETTY ? Age:??27 Years?Sex:??Male?:??1995?? Patient Information Discharge Location: W3 Primary Care Physician: Dolores Nicole MD Admit Date/Time: 10/20/22 15:19 Discharge Disposition Discharge Disposition: Home: No Services Discharge Diagnosis PTSD (post-traumatic stress disorder) (F43.10) Priapism (N48.30) New onset diabetes New onset hypertension _ Discharge Medications Albuterol (albuterol 0.083% inhalation solution)?3?Milliliter?2.5?Milligram?Inhalation?Every 6 hours?as needed?for wheezing Albuterol (albuterol 90 mcg/inh inhalation powder)?2?puff(s)?Inhalation?Every 4 hours?as needed?as needed Budesonide-Formoterol (Symbicort 160mcg/4.5mcg Inhaler)?2?puff(s)?Inhalation?2 times a day?in the morning and the eveninguse with spacer chamberrinse mouth and throat after use, j44.9 Citalopram (citalopram 20 mg oral tablet)?20?Milligram?1?tablet?By Mouth?Daily Docusate (docusate sodium 100 mg oral capsule)?100?Milligram?1?capsule?By Mouth?2 times a day?as needed?for 90?Days?for constipation Doxycycline (doxycycline hyclate 100 mg oral enteric coated tablet)?1?tab(s)?100?Milligram?By Mouth?Every 12 hours?for 7?Days Durable Medical Equipment (nebulizer)?See Instructions?With mask and tubingsDx: asthma Durable Medical Equipment (Freestyle Lancets)?See Instructions?for 30?Days?use as directed for Type 2 Diabetes Mellitus Durable Medical Equipment (Freestyle Test Strips)?See Instructions?for 30?Days?use as directed for Type 2 Diabetes Mellitus Durable Medical Equipment (Freestyle Flash Glucose Meter)?See Instructions?for 90?Days?use as directed for Type 2 Diabetes Mellitus Durable Medical Equipment (Alcohol Pads)?See Instructions?for 30?Days?use as directed for Type 2 Diabetes Mellitus Gabapentin (gabapentin 100 mg oral capsule)?100?Milligram?1?capsule?By Mouth?3 times a day?for 30?Days HydrOXYzine (hydrOXYzine hydrochloride 25 mg oral tablet)?1?tab(s)?25?Milligram?By Mouth?3 times a day?as needed?for anxiety Indomethacin (indomethacin 75 mg oral capsule, extended release)?1?capsule?75?Milligram?By Mouth?2 times a day?for 90?Days?TAKE ONE CAPSULE BY MOUTH TWICE DAILYwith food or milk Lisinopril (lisinopril 5 mg oral tablet)?5?Milligram?1?tablet?By Mouth?Daily Metformin (metFORMIN 500 mg oral tablet)?1?tab(s)?500?Milligram?By Mouth?2 times aday Miscellaneous Rx (Misc Rx)?See Instructions?ammonium lactate lotion Miscellaneous Rx (Sulfasalazine (Azulfidine) 1 gram)?See Instructions?Sulfasalazine (Azulfidine) 1 gramtake BID Montelukast (Singulair 10 mg oral tablet)?10?Milligram?1?tablet?By Mouth?Daily?j44.9 Naproxen?500?Milligram?By Mouth?2 times a day Omeprazole (omeprazole 40 mg oral enteric coated capsule)?TAKE 1 CAPSULE BY MOUTH EVERY DAY Oxycodone (oxyCODONE 5 mg oral tablet)?5?Milligram?1?tablet?By Mouth?Every 6 hours?as needed?for 2?Days?Pain , Severe Quetiapine (QUEtiapine 300 mg oral tablet)?1?tab(s)?300?Milligram?By Mouth?Daily at bedtime Quetiapine (QUEtiapine 300 mg oral tablet)?1?tab(s)?300?Milligram?By Mouth?Daily at bedtime SulfaSALAZINE?500?Milligram?By Mouth?2 times a day Medications Started Metformin Lisinopril Doxycycline for 7 days Medications Discontinued Trazodone Prazosin Allergies Allergies ?(Active and Proposed Allergies Only) amoxicillin? (Severity: Unknown severity, Onset: Unknown) penicillins? (Severity: Unknown severity, Onset: Unknown) ? PCP Follow-Up/Heads-Up New onset diabetes and hypertension Basic metabolic panel on 10/25 Hospital Course 27-year-old gentleman with a past medical history of disseminated gonorrhea, schizophrenia, inflammatory arthritis, and asthma who presents with 24 hours of priapism??etiology likely seems to be??drug-induced.??It seems that patient was started on trazodone??outpatient??by his psychiatrist??and soon after medication??initiation,??he noticed??penile erection??and??has been??for more than 36 hours prior??to seeking medical attention.??It seems that he took only 3 to 4 pills.??On admission,??urology was consulted.?In the ED,??urology??did??priapism takedown??but??he continued to have??penile erectio n.?ABG of penile artery was done which??represented??penile ischemia.?He was taken to the OR??for the second time??and??penile??shunt was??placed??with positive effect.?Currently patient is hemodynamically stable.?Pain under control.?Per urology recs patient can be discharged??with follow- up??outpatient with urology. -During hospitalization, he was also??found to have hyperglycemia on lab work.?HbA1c??6.8 noted-has??patient carries a diagnosis of new onset diabetes.?Detailed??discussion at bedside with patient.?Starting patient on metformin,??spoke regarding??checking??blood sugar and follow-up with PCP. ?? Recommendations: -Stop taking trazodone. -Patient encouraged??to??contact his psychiatrist regarding his psychiatric medications including trazodone and discuss alternative agents with less risk of priapism.?? -??Patient should follow-up in urology clinic in 2 weeks.?Urology??did discuss that there is a long-term risk of erectile dysfunction in addition to corporal fibrosis and he will need to be carefully monitored over the next 6 months.?If there is no return of spontaneous erectile function he would be a good candidate for a inflatable penile prosthesis. -New??onset diabetes:??Starting patient??metformin 500 mg twice daily. -Prescribing??lancets/test strips and glucometer.?Check??blood sugar twice a day??before meals??and keep a log. -Follow-up??with??primary care after discharge regarding diabetes. -Patient has been hypertensive??during hospitalization.?Starting patient on lisinopril??5 mg daily. -We will need to follow-up with primary care??regarding dose adjustment. -Doxycycline 100 mg twice daily for total 7 days??per urology recommendations. -Continue taking rest of home medication as before. -Prescription given for??basic metabolic panel check on 10/25??for renal function and electrolytes??since lisinopril and metformin as the medication has been started and patient is already on naproxen and indomethacin??for inflammatory arthritis.. ? Objective Assessment and Plan #Lindsey Briefly took trazodone, newly prescribed to him earlier this month, states he only took 3-4 pills Is now s/p priapism take down and was flaccid afterwards, however on my examination penis is erect, patient reports it has remained erect since after he woke up from anesthesia - stopped trazodone?Will DC trazodone upon discharge -Follow instructions and hospital course. ??Status post??benign patient with successful??response. ??Doxycycline for 7 days. ??Follow-up with urology outpatient ? #Schizophrenia #Anxiety #Depression -Stable. ?? -Continue citalopram, quetiapine - stopped trazodone ?? #Inflammatory arthritis - continue gabapentin,??naproxen and indomethacin and sulfasalazine. ?? #Asthma - continue Breo inhaler -Continue??albuterol??inhalers. ?? #New??onset diabetes: HbA1c??6.8. ??Starting metformin 500 twice daily. Will need primary care to follow-up??and??adjust dose??as tolerated. ?? #Hypertension -Started lisinopril 5 mg daily. Stopping present on discharge. Vital Signs?? Temperature: 98.1 DegF (10/22/22 07:19:00) Temperature Route: Oral (10/22/22 07:19:00) Pulse Rate: 75 bpm (10/22/22 07:19:00) Heart Rate Monitored:??93 bpm??High (10/21/22 17:30:00) Respiratory Rate: 16 br/min (10/22/22 08:21:00) Systolic Blood Pressure:??155 mm Hg??High (10/22/22 11:42:00) Diastolic Blood Pressure:??3 mm Hg??Low (10/22/22 11:42:00) Blood pressure sites: Arm, left (10/22/22 07:19:00) Mean Arterial Pressure: 102 mm Hg (10/22/22 07:19:00) Pulse Pressure: 64 mm Hg (10/22/22 07:19:00) Oxygen Saturation: 99 % (10/22/22 07:19:00) Liters per Minute: 6 L/min (10/21/22 16:45:00) Mode of Delivery (Oxygen): Room air (10/22/22 07:19:00) Early Warning Score: 3 (10/22/22 11:55:48) ? . Physical Exam Respiratory: Clear to auscultation. No wheezing or crackles. No use of accessory muscles. Cardiovascular: S1S2 regular. No murmurs, rubs or gallops. Gastrointestinal: Abdomen soft, non-tender, non-distended. Normal bowel sounds. Genitourinary:?? Penis with sterile dressing, clean, nonpurulent, nonbloody. Neurologic: AAOx3, Speech normal. No focal neurological deficits. Surgical Procedures Reduction Priapism 10/20/2022 16:38 Dorsal Slit 10/21/2022 16:21 Reduction Priapism 10/21/2022 16:21 Consultants Urology ?? Patient Instructions ? Recommendations: -Stop taking trazodone and prazosin. -Patient encouraged??to contact his psychiatrist regarding his psychiatric medications including trazodone and discuss alternative agents with less risk of priapism.?? 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 - Patient can clean his??incisions with soap and water and shower.? -New onset diabetes: Starting patient metformin 500 mg twice daily. -Prescribing lancets/test strips and glucometer. Check blood sugar twice a day before meals and keepa log. -Follow-up with primary care after discharge regarding diabetes. -Detailed??instructions regarding diabetic diet??are being provided??upon discharge. -Patient has been hypertensive during hospitalization. Starting patient on lisinopril 5 mg daily. -We will need to follow-up with primary care regarding dose adjustment. -Doxycycline 100 mg twice daily for total 7 days per urology recommendations. -Continue taking rest of home medication as before. -Prescription given for basic metabolic panel check on 10/25 for renal function and electrolytes since lisinopril and metformin as the medication has been started and patient is already on naproxen and indomethacin for inflammatory arthritis.. Pending Results Add On Lab Order ordered on 10/22/2022 Blood Gas Arterial ordered on 10/21/2022 Chlamydia/N. Gonorrhoeae TMA (NAAT) ordered on 10/20/2022 Patient Education Titles Surgery Medical Daystay Surgical Overnight Discharge Instructions?? Follow-Up Appointments Added Follow Up ?Time Frame ?Comments Russ Nicole Post Discharge Care Diet: Diabetic Diet Condition: fair Prognosis: Fair Discharge ?10/22/22 14:28:00 EST Discharge Prescriptions ?ePrescribed, ??10/22/22 14:28:00 EST Home Health Face to Face ^HomeHealth[facility] Results Discharge Labs BLOOD COUNT & DIFF WBC 11.5 k/mm3 (High)?? 10/22/2022 02:31 RBC 4.13 m/mm3 (Low)?? 10/22/2022 02:31 Hgb 11.1 Gm/dL (Low)?? 10/22/2022 02:31 Hct 34.9 % (Low)?? 10/22/2022 02:31 MCV 84.5 femtoliters ()?? 10/22/2022 02:31 MCH 26.9 pg (Low)?? 10/22/2022 02:31 MCHC 31.8 g/dL (Low)?? 10/22/2022 02:31 Platelet Count 352 k/mm3 ()?? 10/22/2022 02:31 RDW-SD 45.2 femtoliters ()?? 10/22/2022 02:31 MPV 10.0 femtoliters ()?? 10/22/2022 02:31 Nucleated RBC (Automated) 0.0 #/100 WBC'S ()?? 10/22/2022 02:31 Abs. NRBC 0.0 k/mm3 ()?? 10/22/2022 02:31 Abs. Neut 12.2 k/mm3 (High)?? 10/21/2022 07:28 Abs. Lymph 1.8 k/mm3 ()?? 10/21/2022 07:28 Abs. [place] 1.1 k/mm3 ()?? 10/21/2022 07:28 Abs. Eo 0.0 k/mm3 ()?? 10/21/2022 07:28 Abs. Baso 0.0 k/mm3 ()?? 10/21/2022 07:28 Neut % 80.1 % (High)?? 10/21/2022 07:28 Lymph % 12.0 % (Low)?? 10/21/2022 07:28 [place] % 7.0 % ()?? 10/21/2022 07:28 Eos % 0.1 % ()?? 10/21/2022 07:28 Baso % 0.3 % ()?? 10/21/2022 07:28 Imm Gran 0.5 % ()?? 10/21/2022 07:28 Abs. Imm Gran 0.1 k/mm3 ()?? 10/21/2022 07:28 ?? BLOOD GAS pH 7.03 (Critical)?? 10/21/2022 10:28 pCO2 91 mm Hg (Critical)?? 10/21/2022 10:28 pO2 58 mm Hg (Low)?? 10/21/2022 10:28 Bicarbonate, Estimated 23 mmol/L ()?? 10/21/2022 10:28 Specimen Type - Blood Gas ARTERIAL ()?? 10/21/2022 10:28 ? CHEM GENERAL Sodium 136 mmol/L ()?? 10/22/2022 02:31 Potassium 4.4 mmol/L ()?? 10/22/2022 02:31 Chloride 99 mmol/L ()?? 10/22/2022 02:31 Bicarbonate Level 25 mmol/L ()?? 10/22/2022 02:31 Anion Gap 12 ()?? 10/22/2022 02:31 Glucose Level 254 mg/dL (High)?? 10/22/2022 02:31 Glucose, POC 167 mg/dL (High)?? 10/22/2022 11:53 Hemoglobin A1C (Monitoring) 6.8 % (High)?? 10/22/2022 02:31 BUN 14 mg/dL ()?? 10/22/2022 02:31 Creatinine-Blood 1.0 mg/dL ()?? 10/22/2022 02:31 Estimated GFR Creatinine 108 ML/MIN/1.73 M2 ()?? 10/22/2022 02:31 Calcium 9.7 mg/dL ()?? 10/22/2022 02:31 Phosphorus 3.9 mg/dL ()?? 10/21/2022 07:28 Magnesium 1.9 mg/dL ()?? 10/21/2022 07:28 Protein, Total 6.8 Gm/dL ()?? 10/21/2022 07:28 Albumin 4.4 Gm/dL ()?? 10/21/2022 07:28 AG Ratio 1.8 ()?? 10/21/2022 07:28 Alkaline Phosphatase 85 units/L ()?? 10/21/2022 07:28 AST (SGOT) 17 units/L ()?? 10/21/2022 07:28 ALT (SGPT) 24 units/L ()?? 10/21/2022 07:28 Bilirubin, Total 0.4 mg/dL ()?? 10/21/2022 07:28 ? SEROLOGY INF DISEASE Syphilis Interpretation Indicative of the absence of infection with Treponemal pallidum. Test ()?? 10/20/2022 10:55 Syphilis Screen by OBEY NEGATIVE (N)?? 10/20/2022 10:55 RPR Titer Result NOT INDICATED ()?? 10/20/2022 10:55 TP-PA Result NOT INDICATED ()?? 10/20/2022 10:55 HIV 4th Generation Ab-Ag Result NEGATIVE (N)?? 10/20/2022 10:55 ? UA/URINALYSIS Appear/Color, Urine YELLOW ()?? 10/20/2022 23:04 Specific [place], Urine 1.020 ()?? 10/20/2022 23:04 pH, Urine 6.5 ()?? 10/20/2022 23:04 Albumin, Urine 1+ (Abnormal)?? 10/20/2022 23:04 Glucose, Urine 2+ (Abnormal)?? 10/20/2022 23:04 Ketones, Urine NEGATIVE ()?? 10/20/2022 23:04 Bilirubin, Urine NEGATIVE ()?? 10/20/2022 23:04 Hemoglobin, Urine 1+ (Abnormal)?? 10/20/2022 23:04 Nitrite, Urine NEGATIVE ()?? 10/20/2022 23:04 Leukocyte, Urine NEGATIVE ()?? 10/20/2022 23:04 Urobilinogen NORMAL mg/dL ()?? 10/20/2022 23:04 WBC's, Urine <1 /HPF ()?? 10/20/2022 23:04 RBC's, Urine 3 /HPF ()?? 10/20/2022 23:04 Bacteria SLIGHT HPF (Abnormal)?? 10/20/2022 23:04 Squamous Epith <1 /HPF ()?? 10/20/2022 23:04 Amorphous Crystals SLIGHT /HPF ()?? 10/20/2022 23:04 Mucus SLIGHT /LPF ()?? 10/20/2022 23:04 Hold Urine Culture Testing available 48 hours from time of collection. ()?? 10/20/2022 23:04 ?? VIROLOGY COVID-19 PCR Specimen Source NASAL ()?? 10/20/2022 20:23 COVID-19 PCR Result NEGATIVE ()?? 10/20/2022 20:23 ? 40 ??minutes spent on discharge Demi Fernando RN: PERFORM Event Display: Patient Education/Instruction Authored Date: [id number] Inpatient Adult Discharge Instructions [address] [address] Name: LETTY SO : 1995 Visit: 10/20/2022 15:19:00 Current Date: 10/22/2022 15:27 Account: [id number] Inpatient Adult Discharge Instructions We would like to thank you for allowing us to assist you with your healthcare needs. The following includes patient education materials and information regarding your injury/illness. Our entire staff strives to provide an excellent experience for our patients and their families. PLEASE ENSURE YOU FOLLOW-UP PER THE INSTRUCTIONS BELOW! ?? YOUR OPINION IS IMPORTANT TO US! Please complete the survey you may receive by mail or email. Your feedback will be used to make improvements to the healthcare experiences of our patients and their families. Surveys are administered by [employer] ?? If further treatment with your primary care physician or another doctor is recommended, it is important for you to keep the appointment. Call your primary care physician or return to the Emergency Department immediately if your condition worsens, fails to improve, or new symptoms develop. If you need to find a doctor, you can call [facility] [employer] for a referral at [phone] or toll free at [phone]) or log in to [email or web address].. ?? You can view and manage your care through the patient portal or by using a health care lynda of your choosing. [employer] is a website that allows you to securely view your medical information including your hospital discharge summary, office visit summaries, medications and follow-up visits. You can also request appointments, renew medications, and request access to your medical information using a health care lynda of your choosing, or just ask a question. You can enroll at [email or web address] or register during your next office visit. You have been discharged from [facility], Patient Care Unit: W3. If you have any questions regarding these instructions after you leave, please call us and we will be happy to assist you. [facility] Your Care Team Attending Physician Maksim HOUGH, Noor Discharging Providers Maksim HOUGH, Genesis Reason for Admission General medical, Priapism Your Diagnosis Priapism PTSD (post-traumatic stress disorder) Tests Performed Below is a partial list of the tests performed during your hospitalization. You may have had other tests and procedures not included in this list. Please discuss all test results with your provider. ART BLOOD GAS Basic Metabolic Panel CBC CBC w/ Differential Comprehensive Metabolic Panel COVID-19 (2019 Novel Coronavirus) PCR GLUCOSE POC HEMOGLOBIN A1C HIV Ab-Ag 4th Generation Magnesium Level Phosphorus Level Syphilis Testing formerly ordered as RPR Urinalysis w/hold for Urine Culture Primary Care Provider Bonnie HOUGH, Dolores Smith Advance Directive Health Care Proxy on File Yes - Health Care Proxy Discharge Vitals Temperature: 97.9 DegF Height: 180 cm Pulse Rate: 78 bpm Weight: 114.2 kg Respiratory Rate: 20 br/min Body Mass Index:??35.25 kg/m2??Critical Systolic Blood Pressure:??143 mm Hg??High Body surface area: 2.39 Diastolic Blood Pressure: 84 mm Hg ?? Oxygen Saturation: 98 % ?? Studies Pending All tests and labs ordered during this hospital stay have been completed unless listed below. Pleasediscuss all pending results with your provider listed above in these instructions. ?? Add On Lab Order Blood Gas Arterial (ABG) Chlamydia/N. Gonorrhoeae TMA (NAAT) What to do next Instructions From Your Doctor ? Recommendations: -Stop taking trazodone. -Patient encouraged??to contact his psychiatrist regarding his psychiatric medications including trazodone and discuss alternative agents with less risk of priapism.?? 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 - Patient can clean his??incisions with soap and water and shower.? -New onset diabetes: Starting patient metformin 500 mg twice daily. -Prescribing lancets/test strips and glucometer. Check blood sugar twice a day before meals and keepa log. -Follow-up with primary care after discharge regarding diabetes. -Detailed??instructions regarding diabetic diet??are being provided??upon discharge. -Patient has been hypertensive during hospitalization. Starting patient on lisinopril 5 mg daily. -We will need to follow-up with primary care regarding dose adjustment. -Doxycycline 100 mg twice daily for total 7 days per urology recommendations. -Continue taking rest of home medication as before. -Prescription given for basic metabolic panel check on 10/25 for renal function and electrolytes since lisinopril and metformin as the medication has been started and patient is already on naproxen and indomethacin for inflammatory arthritis.. ? Discharge Orders Diet:??Diabetic Diet Condition:??fair Prognosis:??Fair You Need to Schedule the Following Appointments Follow Up with??Russ Mcgee When?? Where: [address] [facility] [place] [address]- Business (1) Follow Up with??Dolores Daya Nicole When??In 0 days Where: [address] [place] [address]- Business (1) Discharge Medications LETTY SO :1995 Visit Date:10/20/2022 Medications: Please continue your medications until treatment is completed or stopped by your provider. Medications not listed below should be discontinued. Discuss any questions related to medications with your provider. What How Much When Why Instructions Next Dose New Doxycycline (doxycycline hyclate 100 mg oral enteric coated tablet) 1 tab(s) Oral Every 12 hours Duration: 7 Days 10/23 AM New Doxycycline (doxycycline monohydrate 100 mg oral tablet) 100 Milligram Oral Every 12 hours Duration: 7 Days Pickup at [facility]/pharmacy #[id number] New Durable Medical Equipment (Alcohol Pads) See instructions Duration: 30 Days Refills: 5 use as directed for Type 1 Diabetes Mellitus ?? Pickup at [facility]/pharmacy #[id number] New Durable Medical Equipment (Freestyle Flash Glucose Meter) See instructions check blood sugar ??twice daily before meal/ ?? Pickup at [facility]/pharmacy #[id number] 10/22 at dinner time New Durable Medical Equipment (Freestyle Lancets) See instructions Duration: 30 Days Refills: 5 use as directed for Type 2 Diabetes Mellitus ?? Pickup at [facility]/pharmacy #[id number] New Durable Medical Equipment (Freestyle Test Strips) See instructions Duration: 30 Days Refills: 5 use as directed for Type 1 Diabetes Mellitus ?? Pickup at [facility]/pharmacy #[id number] New Lisinopril (lisinopril 5 mg oral tablet) 1 tab(s) Oral Daily Refills: 4 Pickup at [facility]/pharmacy #[id number] 10/23 AM New Metformin (metFORMIN 500 mg oral tablet) 1 tab(s) Oral Twice a day Refills: 4 Pickup at [facility]/pharmacy #[id number] 10/22 PM New Oxycodone (oxyCODONE 5 mg oral tablet) 1 tab(s) Oral Every 6 hours as needed for Pain , Severe Pickup at [facility]/pharmacy #[id number] As needed Unchanged Albuterol (albuterol 0.083% inhalation solution) 3 Milliliter Inhalation Every 6 hours as needed for for wheezing As needed Unchanged Albuterol (albuterol 90 mcg/ inh inhalation powder) 2 puff(s) Inhalation Every 4 hours as needed for as needed As needed Unchanged Budesonide-Formoterol (Symbicort 160mcg/ 4.5mcg Inhaler) 2 puff(s) Inhalation Twice a day Asthma in the morning and the evening ?? use with spacer chamber ?? rinse mouth and throat after use, j44.9 ?? 10/22 PM Unchanged Citalopram (citalopram 20 mg oral tablet) 1 tab(s) Oral Daily 10/23 AM Unchanged Docusate (docusate sodium 100 mg oral capsule) 1 capsule Oral Twice a day as needed for for constipation Duration: 90 Days As needed Unchanged Durable Medical Equipment (nebulizer) See instructions With mask and tubings ?? Dx: asthma ?? Unchanged Gabapentin (gabapentin 100 mg oral capsule) 1 capsule Oral 3 times a day Reactive arthritis Duration: 30 Days 10/22 PM Unchanged HydrOXYzine (hydrOXYzine hydrochloride 25 mg oral tablet) 1 tab(s) Oral 3 times a day as needed for for anxiety As needed Unchanged Indomethacin (indomethacin 75 mg oral capsule, extended release) 1 capsule Oral Twice a day Duration: 90 Days TAKE ONE CAPSULE BY MOUTH TWICE DAILY with food or milk ?? 10/22 AM Unchanged Miscellaneous Rx (Misc Rx) See instructions ammonium lactate lotion ?? Follow home instructions Unchanged Miscellaneous Rx (Sulfasalazine (Azulfidine) 1 gram) See instructions Sulfasalazine (Azulfidine) 1 gram take BID ?? 10/22 PM Unchanged Montelukast (Singulair 10 mg oral tablet) 1 tab(s) Oral Daily Asthma j44.9 ?? 10/22 PM Unchanged Naproxen 500 Milligram Oral Twice a day 10/22 PM Unchanged Omeprazole (omeprazole 40 mg oral enteric coated capsule) TAKE 1 CAPSULE BY MOUTH EVERY DAY ?? 10/23 AM Unchanged Quetiapine (QUEtiapine 300 mg oral tablet) 1 tab(s) Oral Daily at Bedtime 10/22 PM Unchanged SulfaSALAZINE 500 Milligram Oral Twice a day 10/22 PM Pharmacy Information [facility] #[id number]: [address] [place], [place] [phone] [facility]/pharmacy #[id number]: [address] [facility] [place], [place] [phone] ?? What How Much When Comments Stop Taking Prazosin (prazosin 1 mg oral capsule) See instructions 1 capsule By Mouth 3 times a day ?? Stop Taking Psyllium (psyllium 3.4 g/ 5.4 g oral powder for reconstitution) 1.7 gram Oral Daily as needed for as needed for constipation Take 1 Tbsp QD PO ?? Stop Taking Trazodone (traZODone 50 mg oral tablet) 1 tab(s) Oral Test Results Below is a partial list of the most recent Laboratory test results done prior to this discharge. You may have had other tests and procedures not included in this list. Please discuss all test results with your provider. ART BLOOD GAS (10/21/2022) ???pH - 7.03???pCO2 - 91 mm Hg???pO2 - 58 mm Hg???Bicarbonate, Estimated - 23 mmol/L???Specimen Type- Blood Gas - ARTERIAL Basic Metabolic Panel (10/22/2022) ???Sodium - 136 mmol/L???Potassium - 4.4 mmol/L???Chloride - 99 mmol/L???Bicarbonate Level - 25 mmol/L???Anion Gap - 12???Glucose Level - 254 mg/dL???BUN - 14 mg/dL???Creatinine-Blood - 1.0 mg/dL???Estimated GFR Creatinine - 108 ML/MIN/1.73 M2???Calcium - 9.7 mg/dL CBC (10/22/2022) ???WBC - 11.5 k/mm3???RBC - 4.13 m/mm3???Hgb - 11.1 Gm/dL???Hct - 34.9 %???MCV - 84.5 femtoliters???MCH - 26.9 pg???MCHC - 31.8 g/dL???Platelet Count - 352 k/mm3???RDW-SD - 45.2 femtoliters???MPV - 10.0 femtoliters???Nucleated RBC (Automated) - 0.0 #/100 WBC'S???Abs. NRBC - 0.0 k/mm3 CBC w/ Differential (10/21/2022) ???WBC - 15.2 k/mm3???RBC - 4.24 m/mm3???Hgb - 11.6 Gm/dL???Hct - 35.9 %???MCV - 84.7 femtoliters???MCH - 27.4 pg???MCHC - 32.3 g/dL???Platelet Count - 373 k/mm3???RDW-SD - 44.5 femtoliters???MPV - 9.7femtoliters???Nucleated RBC (Automated) - 0.0 #/100 WBC'S???Abs. NRBC - 0.0 k/mm3???Abs. Neut - 12.2 k/mm3???Abs. Lymph - 1.8 k/mm3???Abs. [place] - 1.1 k/mm3???Abs. Eo - 0.0 k/mm3???Abs. Baso - 0.0 k/mm3???Neut % - 80.1 %???Lymph % - 12.0 %???[place] % - 7.0 %???Eos % - 0.1 %???Baso % - 0.3 %???Imm Gran - 0.5 %???Abs. Imm Gran - 0.1 k/mm3 Comprehensive Metabolic Panel (10/21/2022) ???Sodium - 138 mmol/L???Potassium - 4.6 mmol/L???Chloride - 100 mmol/L???Bicarbonate Level - 24 mmol/L???Anion Gap - 14???Glucose Level - 203 mg/dL???BUN - 12 mg/dL???Creatinine-Blood - 0.9 mg/dL???Estimated GFR Creatinine - 122 ML/MIN/1.73 M2???Calcium - 9.6 mg/dL???Protein, Total - 6.8 Gm/dL???Album in - 4.4 Gm/dL???AG Ratio - 1.8???Alkaline Phosphatase - 85 units/L???AST (SGOT) - 17 units/L???ALT (SGPT) - 24 units/L???Bilirubin, Total - 0.4 mg/dL COVID-19 (2019 Novel Coronavirus) PCR (10/20/2022) ???COVID-19 PCR Specimen Source - NASAL???COVID-19 PCR Result - NEGATIVE GLUCOSE POC (10/22/2022) ???Glucose, POC - 167 mg/dL HEMOGLOBIN A1C (10/22/2022) ???Hemoglobin A1C (Monitoring) - 6.8 % HIV Ab-Ag 4th Generation (10/20/2022) ???HIV 4th Generation Ab-Ag Result - NEGATIVE Magnesium Level (10/21/2022) ???Magnesium - 1.9 mg/dL Phosphorus Level (10/21/2022) ???Phosphorus - 3.9 mg/dL Syphilis Testing formerly ordered as RPR (10/20/2022) ???Syphilis Interpretation - Indicative of the absence of infection with Treponemal pallidum. Test???Syphilis Screen by OBEY - NEGATIVE???RPR Titer Result - NOT INDICATED???TP-PA Result - NOT INDICATED Urinalysis w/hold for Urine Culture (10/20/2022) ???Appear/Color, Urine - YELLOW???Specific [place], Urine - 1.020???pH, Urine - 6.5???Albumin, Urine- 1+???Glucose, Urine - 2+???Ketones, Urine - NEGATIVE???Bilirubin, Urine - NEGATIVE???Hemoglobin, Urine - 1+???Nitrite, Urine - NEGATIVE???Leukocyte, Urine - NEGATIVE???Urobilinogen - NORMAL???WBC's, Urine - <1 /HPF? ?RBC's, Urine - 3 /HPF? ?Bacteria - SLIGHT? ?Squamous Epith - <1 /HPF? ?Amorphous Crystals - SLIGHT???Mucus - SLIGHT???Hold Urine Culture - Testing available 48 hours from time ofcollection. Immunizations This Visit Not Given Vaccine Commentsinfluenza virus vaccine, inactivated Patient Refuses Allergies (NKA means No Known Allergies) amoxicillin penicillins Problems Active Problems??(8) Anxiety and depression?? Arm pain, left?? 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 Polyarthritis, inflammatory?? PTSD (post-traumatic stress disorder)?? Reactive arthritis?? Schizophrenia?? Severe obesity (BMI 35.0-39.9) with comorbidity?? Education Materials Below is the list of Educational Leaflet Providered with your Discharge Instructions. Priapism?? Oxycodone Oral Tablet?? Doxycycline Oral Capsule?? Metformin Oral Tablet?? Lisinopril Oral Tablet?? Doxycycline Delayed Release Oral Tablet?? New-Onset Hyperglycemia (Diabetes Suspected)?? High Blood Sugar (Hyperglycemia)?? Jyrm-os-Gmxa: Self-Care for Low Blood Sugar (Hypoglycemia)?? Low Blood Sugar (Hypoglycemia)?? Diabetes: Learning About Serving and Portion Sizes?? Diabetes: Meal Planning?? Type 2 Diabetes: Risk Factors, Symptoms, and Diagnosis?? Type 2 Diabetes: This Disease Is Not Your Shelter?? Managing??Type 2 Diabetes?? Treating Type 2 Diabetes: What to Expect?? Understanding Type 2 Diabetes?? Type 2 Diabetes: Know Your Body?? Surgery Medical Daystay Surgical Overnight Discharge Instructions?? Valuables and Belongings I fully understand and agree that [facility] accepts no responsibility for all my personal property including clothing, toilet articles, radios, jewelry, dentures, hearing aids, rings, money, or any other property that is in my possession or is brought to me after admission. I understand certain valuables may be placed in a hospital safe for a short period of time. I understand that the hospital is not liable for loss or damage due to accident, fire, or other natural occurrence while said property is in the safe. I accept full responsibility for any personal property that I keep with me, and will not hold the hospital responsible in case of loss or disappearance. I acknowledge that i have been encouraged to send valuables and belongings home. ?? Review of Valuable and Belonging List: With patient Date for Pt to Sign Valuables/Belongings: 10/21/22 14:57:00 ?? Valuables & Belongings ?? Clothes Electronic devices Jewelry Monetary Items Personal devices Miscellaneous Medications (Valuables) Valuables at Bedside Shoes Cell phone ? Valuables Sent Home ? Valuables Sent to Security ? Other Discharge Information ? Pulmonary Rehab Status?? Pulmonary Rehab Discharge Status?? Respiratory Rate: 20 br/min ? Common Emergency Awareness Tips IS IT A STROKE? Act FAST and Check for these signs: FACE Does the face look uneven? ARM Does one arm drift down? SPEECH Does their speech sound strange? TIME Call at any sign of stroke ?? Heart Attack Signs Chest discomfort: Most heart attacks involve discomfort in the center of the chest and lasts more than a few minutes, or goes away and comes back. It can feel like uncomfortable pressure, squeezing, fullness or pain. Discomfort in upper body: Symptoms can include pain or discomfort in one or both arms, back, neck, jaw or stomach. Shortness of breath: With or without discomfort. Other signs: Breaking out in a cold sweat, nausea, or lightheaded. Remember, MINUTES DO MATTER. If you experience any of these heart attack warning signs, call to get immediate medical attention! ?? Smoking can increase your chances of developing chronic health problems and can cause harmful effects to other family members in your house. If you smoke, you are strongly encouraged to quit. Please call [facility] [employer] Link at [phone] or [phone] ([phone]) or log in to [email or web address] for referrals to smoking cessation programs. ?? The National Suicide Prevention Hotline is available 20/03 if you or someone you know needs to find areason to keep living. By calling 8-024-382-[employer] (0988) you'll be connected to a skilled, trained counselor at a crisis center in your area. INPATIENT DISCHARGE INSTRUCTIONS SIGNATURE PAGE SOLETTY Rubio Location:[facility] Registration Date and Time:10/20/2022 15:19 EST Primary Care Physician: Bonnie HOUGH, Dolores Smith, I LETTY SO, have received the above patient education materials/instructions and have verbalized understanding. If ambulance or transport services are being used I further acknowledge being given a choice of service. ?? If you need to contact me, please call me at this number: . Patient/Waste Collection Driver Name: Patient/Waste Collection Driver Signature: Relationship to Patient: Witness Name/Signature: Date: Demi Fernando RN: MARIBELL SIMON Event Display: Patient Education/Instruction Authored Date: [id number] Inpatient Adult Discharge Instructions [address] [address] Name: LETTY SO : 1995 Visit: 10/20/2022 15:19:00 Current Date: 10/22/2022 15:05 Account: [id number] Inpatient Adult Discharge Instructions We would like to thank you for allowing us to assist you with your healthcare needs. The following includes patient education materials and information regarding your injury/illness. Our entire staff strives to provide an excellent experience for our patients and their families. PLEASE ENSURE YOU FOLLOW-UP PER THE INSTRUCTIONS BELOW! ?? YOUR OPINION IS IMPORTANT TO US! Please complete the survey you may receive by mail or email. Your feedback will be used to make improvements to the healthcare experiences of our patients and their families. Surveys are administered by [employer] ?? If further treatment with your primary care physician or another doctor is recommended, it is important for you to keep the appointment. Call your primary care physician or return to the Emergency Department immediately if your condition worsens, fails to improve, or new symptoms develop. If you need to find a doctor, you can call [facility] [employer] [facility] for a referral at [phone] or toll free at [phone] ([phone]) or log in to [email or web address] ?? You can view and manage your care through the patient portal or by using a health care lynda of your choosing. [employer] is a website that allows you to securely view your medical information including your hospital discharge summary, office visit summaries, medications and follow-up visits. You can also request appointments, renew medications, and request access to your medical information using a health care lynda of your choosing, or just ask a question. You can enroll at [email or web address] or register during your next office visit. You have been discharged from [facility], Patient Care Unit: W3. If you have any questions regarding these instructions after you leave, please call us and we will be happy to assist you. [facility] Your Care Team Attending Physician Maksim HOUGH, [employer] Discharging Providers Maksim HOUGH, [employer] Reason for Admission General medical, Priapism Your Diagnosis Priapism PTSD (post-traumatic stress disorder) Tests Performed Below is a partial list of the tests performed during your hospitalization. You may have had other tests and procedures not included in this list. Please discuss all test results with your provider. ART BLOOD GAS Basic Metabolic Panel CBC CBC w/ Differential Comprehensive Metabolic Panel COVID-19 (2019 Novel Coronavirus) PCR GLUCOSE POC HEMOGLOBIN A1C HIV Ab-Ag 4th Generation Magnesium Level Phosphorus Level Syphilis Testing formerly ordered as RPR Urinalysis w/hold for Urine Culture Primary Care Provider Bonnie HOUGH, Dolores Smith Advance Directive Health Care Proxy on File Yes - Health Care Proxy Discharge Vitals Temperature: 98.1 DegF Height: 180 cm Pulse Rate: 75 bpm Weight: 114.2 kg Respiratory Rate: 16 br/min Body Mass Index:??35.25 kg/m2??Critical Systolic Blood Pressure:??155 mm Hg??High Body surface area: 2.39 Diastolic Blood Pressure:??3 mm Hg??Low ?? Oxygen Saturation: 99 % ?? Studies Pending All tests and labs ordered during this hospital stay have been completed unless listed below. Pleasediscuss all pending results with your provider listed above in these instructions. ?? Add On Lab Order Blood Gas Arterial (ABG) Chlamydia/N. Gonorrhoeae TMA (NAAT) What to do next Instructions From Your Doctor ? Recommendations: -Stop taking trazodone. -Patient encouraged??to contact his psychiatrist regarding his psychiatric medications including trazodone and discuss alternative agents with less risk of priapism.?? 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 - Patient can clean his??incisions with soap and water and shower.? -New onset diabetes: Starting patient metformin 500 mg twice daily. -Prescribing lancets/test strips and glucometer. Check blood sugar twice a day before meals and keepa log. -Follow-up with primary care after discharge regarding diabetes. -Detailed??instructions regarding diabetic diet??are being provided??upon discharge. -Patient has been hypertensive during hospitalization. Starting patient on lisinopril 5 mg daily. -We will need to follow-up with primary care regarding dose adjustment. -Doxycycline 100 mg twice daily for total 7 days per urology recommendations. -Continue taking rest of home medication as before. -Prescription given for basic metabolic panel check on 10/25 for renal function and electrolytes since lisinopril and metformin as the medication has been started and patient is already on naproxen and indomethacin for inflammatory arthritis.. ? Discharge Orders Diet:??Diabetic Diet Condition:??fair Prognosis:??Fair You Need to Schedule the Following Appointments Follow Up with??Russ Mcgee When?? Where: [address] [facility] [place] [address]- Business (1) Follow Up with??Dolores May Goncero-Eliceo When??In 0 days Where: [address] [place] [address]- Business (1) Discharge Medications LETTY SO :1995 Visit Date:10/20/2022 Medications: Please continue your medications until treatment is completed or stopped by your provider. Medications not listed below should be discontinued. Discuss any questions related to medications with your provider. What How Much When Why Instructions Next Dose New Doxycycline (doxycycline hyclate 100 mg oral enteric coated tablet) 1 tab(s) Oral Every 12 hours Duration: 7 Days Pickup at [facility] #[id number] 2/26 AM New Durable Medical Equipment (Alcohol Pads) See instructions Duration: 30 Days Refills: 5 use as directed for Type 2 Diabetes Mellitus ?? Pickup at [facility] #[id number] 2/25 PM New Durable Medical Equipment (Freestyle Flash Glucose Meter) See instructions Duration: 90 Days Refills: 2 use as directed for Type 2 Diabetes Mellitus ?? Pickup at [facility] #[id number] 2/25 PM New Durable Medical Equipment (Freestyle Lancets) See instructions Duration: 30 Days Refills: 5 use as directed for Type 2 Diabetes Mellitus ?? Pickup at [facility] #[id number] 2/25 PM New Durable Medical Equipment (Freestyle Test Strips) See instructions Duration: 30 Days Refills: 5 use as directed for Type 2 Diabetes Mellitus ?? Pickup at [facility] #[id number] 2/25 PM New Lisinopril (lisinopril 5 mg oral tablet) 1 tab(s) Oral Daily Refills: 2 Pickup at [facility] #[id number] 2/26 AM New Metformin (metFORMIN 500 mg oral tablet) 1 tab(s) Oral Twice a day Refills: 4 Pickup at [facility] #[id number] 2/25 PM New Oxycodone (oxyCODONE 5 mg oral tablet) 1 tab(s) Oral Every 6 hours as needed for Pain , Severe Duration: 2 Days Pickup at [facility] #[id number] As needed Unchanged Albuterol (albuterol 0.083% inhalation solution) 3 Milliliter Inhalation Every 6 hours as needed for for wheezing As needed Unchanged Albuterol (albuterol 90 mcg/ inh inhalation powder) 2 puff(s) Inhalation Every 4 hours as needed for as needed As needed Unchanged Budesonide-Formoterol (Symbicort 160mcg/ 4.5mcg Inhaler) 2 puff(s) Inhalation Twice a day Asthma in the morning and the evening ?? use with spacer chamber ?? rinse mouth and throat after use, j44.9 ?? 10/22 PM Unchanged Citalopram (citalopram 20 mg oral tablet) 1 tab(s) Oral Daily 10/23 AM Unchanged Docusate (docusate sodium 100 mg oral capsule) 1 capsule Oral Twice a day as needed for for constipation Duration: 90 Days As needed Unchanged Durable Medical Equipment (nebulizer) See instructions With mask and tubings ?? Dx: asthma ?? Unchanged Gabapentin (gabapentin 100 mg oral capsule) 1 capsule Oral 3 times a day Reactive arthritis Duration: 30 Days 10/22 PM Unchanged HydrOXYzine (hydrOXYzine hydrochloride 25 mg oral tablet) 1 tab(s) Oral 3 times a day as needed for for anxiety As needed Unchanged Indomethacin (indomethacin 75 mg oral capsule, extended release) 1 capsule Oral Twice a day Duration: 90 Days TAKE ONE CAPSULE BY MOUTH TWICE DAILY with food or milk ?? 10/22 PM Unchanged Miscellaneous Rx (Misc Rx) See instructions ammonium lactate lotion ?? Follow home instructions Unchanged Miscellaneous Rx (Sulfasalazine (Azulfidine) 1 gram) See instructions Sulfasalazine (Azulfidine) 1 gram take BID ?? Follow home instructions Unchanged Montelukast (Singulair 10 mg oral tablet) 1 tab(s) Oral Daily Asthma j44.9 ?? 10/22 PM Unchanged Naproxen 500 Milligram Oral Twice a day 10/22 PM Unchanged Omeprazole (omeprazole 40 mg oral enteric coated capsule) TAKE 1 CAPSULE BY MOUTH EVERY DAY ?? 10/23 AM Unchanged Quetiapine (QUEtiapine 300 mg oral tablet) 1 tab(s) Oral Daily at Bedtime 10/22 PM Unchanged SulfaSALAZINE 500 Milligram Oral Twice a day 10/22 PM Pharmacy Information [facility] #[id number]: [address], [place] [phone] ?? What How Much When Comments Stop Taking Prazosin (prazosin 1 mg oral capsule) See instructions 1 capsule By Mouth 3 times a day ?? Stop Taking Psyllium (psyllium 3.4 g/ 5.4 g oral powder for reconstitution) 1.7 gram Oral Daily as needed for as needed for constipation Take 1 Tbsp QD PO ?? Test Results Below is a partial list of the most recent Laboratory test results done prior to this discharge. You may have had other tests and procedures not included in this list. Please discuss all test results with your provider. ART BLOOD GAS (10/21/2022) ???pH - 7.03???pCO2 - 91 mm Hg???pO2 - 58 mm Hg???Bicarbonate, Estimated - 23 mmol/L???Specimen Type- Blood Gas - ARTERIAL Basic Metabolic Panel (10/22/2022) ???Sodium - 136 mmol/L???Potassium - 4.4 mmol/L???Chloride - 99 mmol/L???Bicarbonate Level - 25 mmol/L???Anion Gap - 12???Glucose Level - 254 mg/dL???BUN - 14 mg/dL???Creatinine-Blood - 1.0 mg/dL???Estimated GFR Creatinine - 108 ML/MIN/1.73 M2???Calcium - 9.7 mg/dL CBC (10/22/2022) ???WBC - 11.5 k/mm3???RBC - 4.13 m/mm3???Hgb - 11.1 Gm/dL???Hct - 34.9 %???MCV - 84.5 femtoliters???MCH - 26.9 pg???MCHC - 31.8 g/dL???Platelet Count - 352 k/mm3???RDW-SD - 45.2 femtoliters???MPV - 10.0 femtoliters???Nucleated RBC (Automated) - 0.0 #/100 WBC'S???Abs. NRBC - 0.0 k/mm3 CBC w/ Differential (10/21/2022) ???WBC - 15.2 k/mm3???RBC - 4.24 m/mm3???Hgb - 11.6 Gm/dL???Hct - 35.9 %???MCV - 84.7 femtoliters???MCH - 27.4 pg???MCHC - 32.3 g/dL???Platelet Count - 373 k/mm3???RDW-SD - 44.5 femtoliters???MPV - 9.7femtoliters???Nucleated RBC (Automated) - 0.0 #/100 WBC'S???Abs. NRBC - 0.0 k/mm3???Abs. Neut - 12.2 k/mm3???Abs. Lymph - 1.8 k/mm3???Abs. [place] - 1.1 k/mm3???Abs. Eo - 0.0 k/mm3???Abs. Baso - 0.0 k/mm3???Neut % - 80.1 %???Lymph % - 12.0 %???[place] % - 7.0 %???Eos % - 0.1 %???Baso % - 0.3 %???Imm Gran - 0.5 %???Abs. Imm Gran - 0.1 k/mm3 Comprehensive Metabolic Panel (10/21/2022) ???Sodium - 138 mmol/L???Potassium - 4.6 mmol/L???Chloride - 100 mmol/L???Bicarbonate Level - 24 mmol/L???Anion Gap - 14???Glucose Level - 203 mg/dL???BUN - 12 mg/dL???Creatinine-Blood - 0.9 mg/dL???Estimated GFR Creatinine - 122 ML/MIN/1.73 M2???Calcium - 9.6 mg/dL???Protein, Total - 6.8 Gm/dL???Album in - 4.4 Gm/dL???AG Ratio - 1.8???Alkaline Phosphatase - 85 units/L???AST (SGOT) - 17 units/L???ALT (SGPT) - 24 units/L???Bilirubin, Total - 0.4 mg/dL COVID-19 (2019 Novel Coronavirus) PCR (10/20/2022) ???COVID-19 PCR Specimen Source - NASAL???COVID-19 PCR Result - NEGATIVE GLUCOSE POC (10/22/2022) ???Glucose, POC - 167 mg/dL HEMOGLOBIN A1C (10/22/2022) ???Hemoglobin A1C (Monitoring) - 6.8 % HIV Ab-Ag 4th Generation (10/20/2022) ???HIV 4th Generation Ab-Ag Result - NEGATIVE Magnesium Level (10/21/2022) ???Magnesium - 1.9 mg/dL Phosphorus Level (10/21/2022) ???Phosphorus - 3.9 mg/dL Syphilis Testing formerly ordered as RPR (10/20/2022) ???Syphilis Interpretation - Indicative of the absence of infection with Treponemal pallidum. Test???Syphilis Screen by OBEY - NEGATIVE???RPR Titer Result - NOT INDICATED???TP-PA Result - NOT INDICATED Urinalysis w/hold for Urine Culture (10/20/2022) ???Appear/Color, Urine - YELLOW???Specific [place], Urine - 1.020???pH, Urine - 6.5???Albumin, Urine- 1+???Glucose, Urine - 2+???Ketones, Urine - NEGATIVE???Bilirubin, Urine - NEGATIVE???Hemoglobin, Urine - 1+???Nitrite, Urine - NEGATIVE???Leukocyte, Urine - NEGATIVE???Urobilinogen - NORMAL???WBC's, Urine - <1 /HPF? ?RBC's, Urine - 3 /HPF? ?Bacteria - SLIGHT? ?Squamous Epith - <1 /HPF? ?Amorphous Crystals - SLIGHT???Mucus - SLIGHT???Hold Urine Culture - Testing available 48 hours from time ofcollection. Immunizations This Visit Not Given Vaccine Commentsinfluenza virus vaccine, inactivated Patient Refuses Allergies (NKA means No Known Allergies) amoxicillin penicillins Problems Active Problems??(8) Anxiety and depression?? Arm pain, left?? 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 Polyarthritis, inflammatory?? PTSD (post-traumatic stress disorder)?? Reactive arthritis?? Schizophrenia?? Severe obesity (BMI 35.0-39.9) with comorbidity?? Education Materials Below is the list of Educational Leaflet Providered with your Discharge Instructions. Surgery Medical Daystay Surgical Overnight Discharge Instructions?? Valuables and Belongings I fully understand and agree that [facility] accepts no responsibility for all my personal property including clothing, toilet articles, radios, jewelry, dentures, hearing aids, rings, money, or any other property that is in my possession or is brought to me after admission. I understand certain valuables may be placed in a hospital safe for a short period of time. I understand that the hospital is not liable for loss or damage due to accident, fire, or other natural occurrence while said property is in the safe. I accept full responsibility for any personal property that I keep with me, and will not hold the hospital responsible in case of loss or disappearance. I acknowledge that i have been encouraged to send valuables and belongings home. ?? Review of Valuable and Belonging List: With patient Date for Pt to Sign Valuables/Belongings: 10/21/22 14:57:00 ?? Valuables & Belongings ?? Clothes Electronic devices Jewelry Monetary Items Personal devices Miscellaneous Medications (Valuables) Valuables at Bedside Shoes Cell phone ? Valuables Sent Home ? Valuables Sent to Security ? Other Discharge Information ? Pulmonary Rehab Status?? Pulmonary Rehab Discharge Status?? Respiratory Rate: 16 br/min ? Common Emergency Awareness Tips IS IT A STROKE? Act FAST and Check for these signs: FACE Does the face look uneven? ARM Does one arm drift down? SPEECH Does their speech sound strange? TIME Call at any sign of stroke ?? Heart Attack Signs Chest discomfort: Most heart attacks involve discomfort in the center of the chest and lasts more than a few minutes, or goes away and comes back. It can feel like uncomfortable pressure, squeezing, fullness or pain. Discomfort in upper body: Symptoms can include pain or discomfort in one or both arms, back, neck, jaw or stomach. Shortness of breath: With or without discomfort. Other signs: Breaking out in a cold sweat, nausea, or lightheaded. Remember, MINUTES DO MATTER. If you experience any of these heart attack warning signs, call to get immediate medical attention! ?? Smoking can increase your chances of developing chronic health problems and can cause harmful effects to other family members in your house. If you smoke, you are strongly encouraged to quit. Please call [facility] [employer] at [phone] or [phone] ([phone]) or log in to [email or web address] for referrals to smoking cessation programs. ?? The National Suicide Prevention Hotline is available 20/03 if you or someone you know needs to find areason to keep living. By calling 0-445-744-[employer] (5902) you'll be connected to a skilled, trained counselor at a crisis center in your area. INPATIENT DISCHARGE INSTRUCTIONS SIGNATURE PAGE SOLETTY Rubio Location:[facility] Registration Date and Time:10/20/2022 15:19 EST Primary Care Physician: Bonnie HOUGH, Dolores December Luis, I LETTY SO, have received the above patient education materials/instructions and have verbalized understanding. If ambulance or transport services are being used I further acknowledge being given a choice of service. ?? If you need to contact me, please call me at this number: . Patient/Waste Collection Driver Name: Patient/Waste Collection Driver Signature: Relationship to Patient: Witness Name/Signature: Date: Demi Fernando RN: PERFORM Event Display: Patient Education Leaflets Authored Date: [id number] Priapism ?? [id number] Priapism Priapism is an erection that lasts more than 4 hours without sexual stimulation. It can be very painful. Often, the cause of priapism is not known. In adults,??some causes include sickle cell disease and side effects from medicine or from illegal drugs. Some prescription medicines and shots (injection s) have been linked to priapism. So have alcohol, marijuana, and cocaine. Children with leukemia can get priapism.??This is because blood flow in the penis gets blocked by the large number of white blood cells in the blood. Priapism is very serious. When erections last over 4 hours, there is less blood flow to the penis. This can cause cell damage from lack of oxygen.??The longer you have the erection before treatment, the worse the outcome. Those treated within 4 to 6 hours do best. But up to 50% of all men who get priapism will have some degree of erection problems in the future.?? Home care ??? Rest and don't have any sexual stimulation as advised by your healthcare provider. ??? Stay away from things that may trigger priapism. These may include certain medicines, marijuana, and alcohol. ??? Ask your urologist about medicines that can be used at home at the earliest sign of a recurrence. ??? The medicine hydroxyurea may help prevent priapism in people with sickle cell disease. ?? Follow-up care Follow up with your urologist, or as advised. ?? Call 911 Call 911 if you have: ??? Shortness of breath ??? Chest pain ?? When to get medical advice Call your healthcare provider right away??if any of these occur: ??? Having another prolonged erection that does not go away soon after sexual stimulation stops ??? Bleeding from puncture sites in thepenis where blood was drained ??? More pain, redness, or swelling ??? Area of skin that is turning black ??? Trouble passing urine ?? Last Reviewed Date: 2022 ?? [employer]. All rights reserved. This information is not intended as a substitute for professional medical care. Always follow your healthcare professional's instructions. ??Demi Fernando RN: PERFORM Event Display: Patient Education Leaflets Authored Date: [id number] Oxycodone Oral Tablet ?? [id number] Oxycodone Oral Tablet Brands: Roxicodone Uses For pain. ?? Instructions This medicine may be taken with or without food. Swallow with a full glass (8 oz) of water unless your doctor gives you different instructions. Store at room temperature away from heat, light, and moisture. Do not keep in the bathroom. Please ask your doctor, nurse, or pharmacist how to discard unused medicines safely. To reduce constipation, eat high fiber foods, drink plenty of water and exercise. Avoid grapefruit juice while on this medicine. Drug interactions can change how medicines work or increase risk for side effects. Tell your healthcare providers about all medicines taken. Include prescription and jeok-hut-xamgonk medicines, vitamins, and herbal medicines. Speak with your doctor or pharmacist before starting or stopping any medicine. Tell your doctor if symptoms do not get better or if they get worse. ?? Cautions This medicine has an opioid. Opioids help many people but may cause addiction, especially if used for a long time. The addiction risk is higher if you have a substance use disorder (overuse of or addiction to drugs or alcohol). Ask your doctor about the benefits and risks. Ask your doctor or pharmacist if you should have naloxone on hand to treat opioid overdose. Teach your family or household members about the signs of an opioid overdose and how to treat it. If you stop this medicine suddenly after using it for a long time, you may have withdrawal. Your doctor may slowly lower your dose before stopping it. Tell your doctor right away if you have symptoms,such as unusual sweating, watering eyes, runny nose, chills, diarrhea, yawning, muscle aches, restlessness, anxiety, trouble sleeping, or thoughts of suicide. Tell your doctor and pharmacist if you ever had an allergic reaction to a medicine. Do not use the medication any more than instructed. This medicine may cause dizziness or fainting, especially after exercising or in hot weather. Be very careful when standing or sitting up quickly. If possible, avoid using with marijuana or other medicines that can cause dizziness or drowsiness. These include allergy/cold products, muscle relaxers, sleep aids, and pain relievers. Your ability to stay alert or to react quickly may be impaired by this medicine. Do not drive or operate machinery until you know how this medicine will affect you. Do not drink beverages with alcohol while on this medicine. This medicine passes into breast milk. Ask your doctor before . This medicine can hurt a new baby in the womb. If you become while on this medicine, tell your doctor immediately. Your doctor may switch you to a different medicine. This medicine should be used with caution in patients with breathing difficulties. Call your doctor right away if you notice slow or shallow breathing. Do not share this medicine with anyone who has not been prescribed this medicine. Some patients have serious side effects from this medicine. Ask your pharmacist to show you the information from the Food and Drug Administration (FDA) and discuss it with you. ?? Side Effects The following is a list of some common side effects from this medicine. Please speak with your doctor about what you should do if you experience these or other side effects. ??? decreased appetite ??? constipation ??? dizziness or drowsiness ??? lightheadedness ??? nausea and vomiting If you have any of the following side effects, you may be getting too much medicine. Please contactyour doctor to let them know about these side effects. ??? confusion ??? fainting ??? unusual or unexplained tiredness or weakness ??? difficulty or discomfort urinating Call your doctor or get medical help right away if you notice any of these more serious side effects: ??? agitated feeling or trouble sleeping ??? decreased awareness or responsiveness ??? breathing interruption during sleep ??? shallow, irregular breathing ??? hallucinations (unusual thoughts, seeingor hearing things that are not real) ??? seizures ??? severe stomach or bowel pain ??? weight loss A few people may have an allergic reaction to this medicine. Symptoms can include difficulty breathing, skin rash, itching, swelling, or severe dizziness. If you notice any of these symptoms, seek medical help quickly. ?? Extra Please speak with your doctor, nurse, or pharmacist if you have any questions about this medicine. ?? [email or web address] IMPORTANT NOTE: This document tells you briefly how to take your medicine, but it does not tell youall there is to know about it. Your doctor or pharmacist may give you other documents about your medicine. Please talk to them if you have any questions. Always follow their advice. There is a more complete description of this medicine available in [place]. Scan this code on your smartphone or tablet or use the web address below. You can also ask your pharmacist for a printout. If you have any questions, please ask your pharmacist. The display and use of this drug information is subject to Terms of Use. Copyright(c) 2022 [employer]. ?? [employer]. All rights reserved. This information is not intended as a substitute for professional medical care. Always follow your healthcare professional's instructions. ??Demi Fernando RN: PERFORM Event Display: Patient Education Leaflets Authored Date: [id number] Doxycycline Oral Capsule ?? [address] Doxycycline Oral Capsule Brands: Adoxa, Mondoxyne, Monodox, Morgidox, Okebo, Vibramycin Uses For treating bacterial infection. ?? Instructions Take the medicine with 250 mL (1 cup) of water. Take on empty stomach - 1 hour before or 2 hours after eating. Sit or stand upright for 30 minutes after taking the medicine. Do not lie down. Keep the medicine at room temperature. Avoid heat and direct light. Do not take any antacid or vitamins with magnesium, calcium, aluminum, or iron for 2 hours before and 2 hours after taking this medicine. This medicine can make you sensitive to the sun. Use sunscreen or protective clothing when in sun. If you forget to take a dose on time, take it as soon as you remember. If it is almost time for thenext dose, do not take the missed dose. Return to your normal schedule. Do not take 2 doses at one time. Drug interactions can change how medicines work or increase risk for side effects. Tell your healthcare providers about all medicines taken. Include prescription and pxpk-npe-qrozqbl medicines, vitamins, and herbal medicines. Speak with your doctor or pharmacist before starting or stopping any medicine. Keep using this medicine for the full number of days that it is prescribed. Do not stop the medicine even if you start to feel better. This medicine can cause permanent change in teeth color in children. ?? Cautions Tell your doctor and pharmacist if you ever had an allergic reaction to a medicine. Do not use the medication any more than instructed. Contact your doctor if you notice a change in the amount or darkening of your urine. Please tell your doctor if you have moderate to severe diarrhea while on this medicine. Do not treat the diarrhea with blbb-ftf-wdlipid diarrhea medicine. Tell the doctor or pharmacist if you are , planning to be , or . Do not share this medicine with anyone who has not been prescribed this medicine. ?? Side Effects The following is a list of some common side effects from this medicine. Please speak with your doctor about what you should do if you experience these or other side effects. ??? diarrhea ??? nausea and vomiting ??? stomach upset or abdominal pain ??? increased risk of sunburn ??? yeast infection of mouth ??? vaginal itching or yeast infection Call your doctor or get medical help right away if you notice any of these more serious side effects: ??? swelling in the neck or throat ??? difficulty swallowing ??? blurring or changes of vision A few people may have an allergic reaction to this medicine. Symptoms can include difficulty breathing, skin rash, itching, swelling, or severe dizziness. If you notice any of these symptoms, seek medical help quickly. ?? Extra Please speak with your doctor, nurse, or pharmacist if you have any questions about this medicine. ?? [email or web address] IMPORTANT NOTE: This document tells you briefly how to take your medicine, but it does not tell youall there is to know about it. Your doctor or pharmacist may give you other documents about your medicine. Please talk to them if you have any questions. Always follow their advice. There is a more complete description of this medicine available in [place]. Scan this code on your smartphone or tablet or use the web address below. You can also ask your pharmacist for a printout. If you have any questions, please ask your pharmacist. The display and use of this drug information is subject to Terms of Use. Copyright(c) 2022 [employer]. ?? [employer]. All rights reserved. This information is not intended as a substitute for professional medical care. Always follow your healthcare professional's instructions. ??Castillo RING, Rosanna: PERFORM, SIGN, VERIFY Event Display: Patient Education Handout Authored Date: [id number] Patient Care team information Care Team PersonnelName: Gerry RING, Pascale Position: [facility] RN Member Role: Primary Care Nurse Name: Bonnie HOUGH, Dolores Smith Position: [facility] Primary Care Physician Member Role: PCP Address: Address: [address] [place] [id number]- Name: Demi Fernando RN Position: [facility] RN Member Role: Primary Care Nurse Name: La Nena Stahl RN Position: [facility] ED RN W/OE and Tasks Member Role: Patient Care Provider Name: Nancy HOUGH, Luis E Nicholas Position: [facility] Resident Address: Address: [address] [place] [id number]- Name: Chuckie Liriano MD Position: [facility] Resident Member Role: ED Resident Address: Address: [address] [place] [id number]- Name: Cierra Stoddard Position: [facility] ED [facility] Member Role: Top Collar Maker Care Team Related PersonsName: MONA ALMONTE Address: home [address] [place] [address] Name: CHANDLER CHANG Address: home [address] [place] [address]
[2022-11-16 15:15] LABS: Influenza A PCR NEGATIVE (Negative); Influenza B PCR NEGATIVE (Negative); Resp Syncy Virus RNA Qual PCR NEGATIVE (Negative); SARS COV2 PCR INHOUSE POSITIVE (Negative)
== END 2022-11-16 17:17 | disposition home or self-care (01) ==
PROVIDERS: Physician Assistant; Emergency Provider Internal Medicine
DX: U07.1 COVID-19 (principal); R51.9 Headache, unspecified; R11.2 Nausea with vomiting, unspecified; F17.210 Nicotine dependence, cigarettes, uncomplicated; F12.90 Cannabis use, unspecified, uncomplicated; Z87.820 Personal history of traumatic brain injury; Z79.899 Other long term (current) drug therapy
CPT/HCPCS: 0241U; 70450; 99283; 99284

== ENCOUNTER 2024-12-17 20:13 | Outpatient (BNV) | payer MEDICAID, SELFPAY | END 2024-12-18 15:08 | PROVIDERS: Admitting Provider Psychiatry & Neurology Psychiatry; PCP Family Medicine; Visit Provider Internal Medicine | DX: Z13.6 Encounter for screening for cardiovascular disorders (principal) | CPT/HCPCS: 93010 ==

== ENCOUNTER 2024-12-17 20:13 | Inpatient (IN) | payer MEDICAID, SELFPAY ==
[2024-12-17 20:34] LABS: Glucose, Whole Blood 160 mg/dL (60-115)
[2024-12-17 20:35] VITALS: BP 141/73; PULSE 66; RESP 18; TEMP 36.4; O2SAT 100
[2024-12-17 20:46] VITALS: BMI 32.1
[2024-12-17] MEDS: metFORMIN HCl 1,000 MG TABLET 1000 MG PO (23:33)
[2024-12-17] MEDS: hydrOXYzine HCL 25 MG TABLET PO (23:33)
[2024-12-17] MEDS: Melatonin 3 MG TABLET 9 MG PO (23:33)
--- NOTE | 2024-12-18 | ECG_ITS ---
Test Reason : ck rhythm Blood Pressure : */* mmHG Vent. Rate : 63 BPM Atrial Rate : 63 BPM P-R Int : 120 ms QRS Dur : 92 ms QT Int : 384 ms P-R-T Axes : 24 73 36 degrees QTcB Int : 392 ms Normal sinus rhythm with sinus arrhythmia Normal ECG No previous ECGs available Referred By: Rodolfo Serrano Electronically Signed By: SARA LOYA
--- NOTE | 2024-12-18 05:59 | PC.ADMIT ---
Pt is a 29 year old male admitted to the unit after referral from [facility] [facility] at [facility]. Arrived on unit at 2024. Legal status: CV. Medical issues: Type 2 diabetes. Pt reported the only med he has been compliant with is his metformin, as he has a large supply at home. Hx of asthma.? Substance use: Pt reports alcohol use, 500-1000 mL of Fireball Whiskey most days. Last drink Sun. 12/15. BAL in ED <10. He also reports occasional cocaine use, approx. once a month, when he goes out to the club or a republican, as well as marijuana use on the weekends, both last used on 12/15. Pt denied any history of withdrawal from alcohol or substances or any current withdrawal symptoms. LARSON +cocaine and marijuana.? Precipitant: Pt stated he has not been taking any psychiatric meds for approx. 1 year due to having issues with his insurance, and just started using alcohol instead. He reported having multiple stressors causing increased anxiety and depression, along with paranoia. Pt stated he has a ?mental breakdown? at home and was in a ?paralytic state? for a few minutes before he was able to move. He reported feeling ?overstimulated? by stressors and had passive suicidal thoughts of ?not wanting to be here anymore? as he feels like he is burden. He reported AH, which he described as ?everyday sounds?, such as ?the doorbell ringing? or ?the dog barking?, and VH of shadows and lights, which are mostly at nighttime. Pt denied any appetite disturbance, but reports poor sleep.? At time of admission to the unit pt is a&o x4, calm and cooperative with admission process. He presents with a broad affect, anxious at times.Thought process is logical and organized. He denied any current AH/VH. He continues to report passive SI thoughts, however denies any plan or intent on the unit and verbalized ability to seek out staff if needed. Skin check completed and was unremarkable.? Goal of admission: Pt would like to get restarted on a medication regimen and re-established with outpatient providers.??
[2024-12-18 07:39] VITALS: BP 125/86; PULSE 64; RESP 16; TEMP 36.4; O2SAT 98
[2024-12-18] MEDS: Nicotine 21 MG PATCH.TD24 TRANSDERMA (08:31)
[2024-12-18] MEDS: hydrOXYzine HCL 25 MG TABLET PO (08:36)
[2024-12-18] MEDS: OLANZapine 5 MG TABLET PO (08:36)
[2024-12-18] MEDS: metFORMIN HCl 1,000 MG TABLET 1000 MG PO ×2 (08:36→16:36)
[2024-12-18 08:40] LABS: Estimated Average Glucose 166 mg/dL; Hemoglobin A1C 226.2408 umol/L; Hemoglobin A1c % 7.4 % (<6.0); Total Hemoglobin (HGBA1C) 3941.8593 umol/L
[2024-12-18 08:43] LABS: Creatinine Clr Calc Pharmacy 119.6; Estimated Glomerular Filt Rate > 60
[2024-12-18 08:55] LABS: Cholesterol 210 mg/dL (<200); HDL Cholesterol 49 mg/dL (>40); LDL Cholesterol Calculated 120 mg/dL (<100); Triglycerides 207 mg/dL (<150)
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
[2024-12-18 12:22] LABS: Alanine Aminotransferase 57 U/L (0-40); Albumin Level 4.4 g/dL (3.5-5.0); Alkaline Phosphatase 81 U/L (39-117); Anion Gap 15 (12-20); Aspartate Amino Transferase 44 U/L (5-37); Bilirubin Total 0.5 mg/dL (0.0-1.0); Blood Urea Nitrogen 8 mg/dL (9-16); Calcium 9.5 mg/dL (8.4-10.2); Carbon Dioxide 25 mmol/L (22-29); Chloride 102 mmol/L (96-108); Glucose Random 205 mg/dL (60-115); Potassium 3.7 mmol/L (3.3-5.1); Sodium 138 mmol/L (135-145); Total Protein 7.4 g/dL (6.5-8.0)
[2024-12-18] MEDS: Acetaminophen 325 MG TABLET 650 MG PO (15:21)
[2024-12-18] MEDS: Nicotine Polacrilex 2 MG GUM 4 MG BUCCAL (15:23)
--- NOTE | 2024-12-18 18:05 | HE.PHANOTE ---
Med Rec was unable to be reviewed by nursing. Pharmacy was unable to verify any of his home medications. We contacted two pharmacies ([facility] in [place], and [place]) regarding him, all have they have not filled for him in over a year. Provider was contacted and alerted. Provider states: continue them, he was on this regimen in past until he lost his insurance. Pharmacy will verify the orders on providers request.
[2024-12-18] MEDS: Gabapentin 300 MG CAPSULE PO ×2 (18:31→21:43)
[2024-12-18 20:00] VITALS: BP 135/79; PULSE 72; RESP 16; TEMP 36.8; O2SAT 97
[2024-12-18 21:40] VITALS: BP 156/90; PULSE 96
[2024-12-18] MEDS: Indomethacin 25 MG CAPSULE 75 MG PO (21:42)
[2024-12-18] MEDS: Montelukast Sodium 10 MG TABLET PO (21:43)
[2024-12-18] MEDS: QUEtiapine Fumarate 300 MG TABLET PO (21:43)
[2024-12-18] MEDS: Famotidine 20 MG TABLET PO (21:43)
[2024-12-18] MEDS: Prazosin HCL 1 MG CAPSULE PO (21:44)
[2024-12-19 07:00] VITALS: BMI 32.6
[2024-12-19 07:31] VITALS: BP 119/65; PULSE 95; RESP 16; TEMP 36.4; O2SAT 99
[2024-12-19 07:41] LABS: Glucose, Whole Blood 152 mg/dL (60-115)
--- NOTE | 2024-12-19 08:09 | HO.PM.IMCN ---
History of Present Illness Data of Consult Service Date: 12/19/24 Primary Care Provider: Dolores Solis MD [facility] Reason for consult: Admission H&P Pt is a 29-year-old male with a PMH significant for?asthma, rheumatoid arthritis, zej-tdqpgsa-caakjzdln type 2 diabetes, PTSD, and schizoaffective disorder who is admitted to [facility] psychiatry unit for increasing depression and anxiety in the setting of ongoing life stressors including employment and child support issues. Pt has been experiencing auditory hallucinations such as dogs barking or pupils eating his name and visual hallucinations including shadows morphing into anthropoid figures. Medical consult for admission H&P. Pt reports has been drinking around 10 nips daily for the past 6 months with last drink 4 days ago. Denies hx of alcohol withdrawal. Reports has not been taking home medications with the past 6-7 months. Today pt states he feels ?okay? without any acute medical complaints. Denies nausea, vomiting, abdominal pain. No fever, chills. Denies diarrhea. No chest pain/pressure, palpitations. Denies shortness or breath or difficulty breathing. ?Denies significant musculoskeletal or joint pain. Vitals reviewed, stable and WNL. Review of Systems Review of Systems: Pt has no acute medical complaints at this time. [facility] Medical History TBI (traumatic brain injury) Cocaine abuse Alcohol use disorder Schizoaffective disorder, depressive type Denial Post traumatic stress disorder Arthralgia of ankle GC arthritis Asthma Family History Father HTN (hypertension) Mother Asthma Surgical History No pertinent past surgical history Social History Household Members: Family Household Members Other:: mother and grandmother Housing: House Do you presently have visiting nurse or other home services: No Alcohol intake: current Comment: Pt. sleeping Patient Tobacco Use Status: Current everyday Tobacco user Tobacco use type: Cigarette Cigarette Packs Per Day: 0.25 Cigarettes Per Day: 6 Years Smoked: 10 Smoked in Last 30 Days: Yes Patient Interested in Nicotine Replacement: Yes Patient Given Instructions on How to Stop Smoking: No Second Hand Smoke Exposure: No Use of substances other than those prescribed or required for medical reasons: Yes Substance Use Type: Crack/Cocaine and Marijuana Substance Use Frequency: Occasionally Last Used Substance: Days (ago) Last Used Substance Other:: Sun. 12/15 Currently Displaying Signs/Symptoms of Drug Intoxication Withdrawal: No Any prior treatment program specific to substance use: No Have you been hit, kicked, punched, or otherwise hurt by someone within the past year? If so, by whom?: No Do you feel safe in your current relationship?: Yes Is there a partner from a previous relationship who is making you feel unsafe now?: No Are you made to feel afraid or neglected: No Spiritual Healthcare Practices: pt denies Denominational Healthcare Practices: Druze, pt requested and given bible on the unit Cultural Healthcare Practices: pt denies Advance Directives: No Advance Directives Information Provided: No Do you have thoughts of harming others: None Do you have a plan to hurt others: No Plan Recently lost weight without trying: No Nutrition Risks: No Nutritional Risk Poor oral hygiene: No service: No Current occupational status: unemployed Sexual orientation: Straight/Heterosexual Meds Allergies Allergy/AdvReac Type Severity Reaction Status Date / Time amoxicillin [AMOXICILLIN] Allergy Intermediate HIVES,THROAT Verified 10/03/22 12:32 CLOSES Penicillins [PENICILLINS] AdvReac Intermediate HIVES,THROAT Verified 10/03/22 12:32 CLOSES Active Medications: Current Medications Acetaminophen (Acetaminophen 325 Mg Tablet) 650 mg PO Q6H PRN PRN Reason: Headache/Pain, Scale 1-10 Last Admin: 12/18/24 15:21 Dose: 650 mg Al Hydroxide/Mg Hydroxide (Magnesium Hydrox/Alum Hydrox 30 Ml Oral.Susp) 30 ml PO Q6H PRN PRN Reason: Heartburn/Nausea Escitalopram Oxalate (Escitalopram Oxalate 10 Mg Tablet) 10 mg PO DAILY [facility] Famotidine (Famotidine 20 Mg Tablet) 20 mg PO BID [facility] Last Admin: 12/18/24 21:43 Dose: 20 mg Fluticasone/Vilanterol (Fluticasone/Vilanterol 200/25 Blst.W.Dev) 1 puff INHALE RDAILY [facility] Gabapentin (Gabapentin 300 Mg Capsule) 300 mg PO TID [facility] Last Admin: 12/18/24 21:43 Dose: 300 mg Hydroxyzine HCl (Hydroxyzine Hcl 25 Mg Tablet) 25 mg PO Q6H PRN PRN Reason: mild anxiety Last Admin: 12/18/24 08:36 Dose: 25 mg Indomethacin (Indomethacin 25 Mg Capsule) 75 mg PO BID [facility] Last Admin: 12/18/24 21:42 Dose: 75 mg Lactic Acid (Ammonium Lactate 12 % Lotion 226 Gm Bottle) 1 appl TOPICAL BID PRN; Protocol PRN Reason: Dry Skin Melatonin (Melatonin 3 Mg Tablet) 9 mg PO BEDTIME PRN PRN Reason: Insomnia Last Admin: 12/17/24 23:33 Dose: 9 mg Metformin HCl (Metformin Hcl 1,000 Mg Tablet) 1,000 mg PO DAILY@1700 [facility] Montelukast Sodium (Montelukast Sodium 10 Mg Tablet) 10 mg PO BEDTIME [facility] Last Admin: 12/18/24 21:43 Dose: 10 mg Nicotine (Nicotine 21 Mg Patch.Td24) 21 mg TRANSDERMA DAILY [facility] Last Admin: 12/18/24 08:31 Dose: 21 mg Nicotine Polacrilex (Nicotine Polacrilex 2 Mg Gum) 4 mg BUCCAL Q2H PRN PRN Reason: Nicotine Cravings Last Admin: 12/18/24 15:23 Dose: 4 mg Olanzapine (Olanzapine 5 Mg Tablet) 5 mg PO Q4H PRN PRN Reason: agitation Last Admin: 12/18/24 08:36 Dose: 5 mg Polyethylene Glycol (Polyethylene Glycol 3350 17 Gm Powd.Pack) 17 gm PO DAILY PRN PRN Reason: Constipation Prazosin HCl (Prazosin Hcl 1 Mg Capsule) 1 mg PO BID [facility]; Protocol Last Admin: 12/18/24 21:44 Dose: 1 mg Quetiapine Fumarate (Quetiapine Fumarate 300 Mg Tablet) 300 mg PO BEDTIME [facility] Last Admin: 12/18/24 21:43 Dose: 300 mg Quetiapine Fumarate (Quetiapine Fumarate 100 Mg Tablet) 100 mg PO BID PRN PRN Reason: AH/agitation Trazodone HCl (Trazodone Hcl 50 Mg Tablet) 50 mg PO BEDTIME MRX1 PRN PRN Reason: Insomnia Home Medications ?Medication ?Instructions ?Recorded ?Confirmed ?Last Taken ?Type metformin 500 mg tablet 1,000 mg PO BID 12/17/24 12/17/24 12/17/24 History indomethacin 75 mg 75 mg PO BID 12/18/24 12/18/24 12/16/24 History capsule,extended release quetiapine 300 mg tablet (Seroquel) 300 mg PO BEDTIME 12/18/24 12/18/24 12/16/24 History Physical Exam Vital Signs and Narrative: Vital Signs: Last Vital Signs Temp 97.5 F 12/19/24 07:31 Pulse 95 12/19/24 07:31 Resp 16 12/19/24 07:31 BP 119/65 12/19/24 07:31 Pulse Ox 99 12/19/24 07:31 O2 Del Method Room Air 12/19/24 07:31 BMI result Body Mass Index 32.1 General: AOx3, no acute distress Resp: CTA bilaterally CVS: S1, S2, RRR GI: +BS, NT, no distention Skin: Warm, dry Neuro: Cranial nerves II-XII grossly intact bilaterally. Motor grossly intact bilaterally Extremities: No edema Psych: Calm, cooperative Results Labs 12/18/24 08:11 Labs: Laboratory Results - last 24 hr 12/18/24 12/19/24 08:11 07:37 Anion Gap 15 Estim Creat Clear Calc 119.6 Estimated GFR > 60 POC Glucose 152 H Random Glucose 205 H Estimat Average Glucose 166 Hemoglobin A1c % 7.4 H Calcium 9.5 Total Bilirubin 0.5 AST 44 H ALT 57 H Alkaline Phosphatase 81 Total Protein 7.4 Albumin 4.4 Triglycerides 207 H Cholesterol 210 H LDL Cholesterol, Calc 120 H HDL Cholesterol 49 Assessment and Plan (1) Medical clearance for psychiatric admission: Status: Acute Plan Pt is a 29-year-old male with a PMH significant for?asthma, rheumatoid arthritis, aif-bxisabc-mznikugsd type 2 diabetes, PTSD, and schizoaffective disorder who is admitted to [facility] psychiatry unit for increasing depression and anxiety in the setting of ongoing life stressors including employment and child support issues. Pt has been experiencing auditory hallucinations such as dogs barking or pupils eating his name and visual hallucinations including shadows morphing into anthropoid figures. Medical consult for admission H&P. Mood disorder Plan as per Psychiatry Asthma Not in acute exacerbation Continue Breo Will add albuterol rescue inhaler Rheumatoid arthritis Continue indomethacin Rar-vjeraub-ymgqlelbd type 2 diabetes Initial POC 152 Continue metformin Encourage diabetic diet and diabetic snacking Alcohol dependence Reports drinking 10 nips daily x6 months No hx of alcohol withdrawal, does not appear to be in acute withdrawal Plan as per Addiction Medicine and Psychiatry Thank you for allowing us to participate in the care of this patient. Signing off at this time. Please re-consult if any acute complaints or issues arise.
[2024-12-19] MEDS: Famotidine 20 MG TABLET PO ×2 (08:16→21:42)
[2024-12-19] MEDS: Indomethacin 25 MG CAPSULE 75 MG PO ×2 (08:16→21:47)
[2024-12-19] MEDS: Prazosin HCL 1 MG CAPSULE PO (08:16)
[2024-12-19] MEDS: Nicotine 21 MG PATCH.TD24 TRANSDERMA (08:17)
[2024-12-19] MEDS: Gabapentin 300 MG CAPSULE PO ×3 (08:17→21:42)
[2024-12-19] MEDS: Fluticasone/Vilanterol 200/25 BLST.W.DEV 1 PUFF INHALE (08:18)
[2024-12-19] MEDS: Nicotine Polacrilex 2 MG GUM 4 MG BUCCAL ×2 (09:11→17:23)
[2024-12-19] MEDS: hydrOXYzine HCL 25 MG TABLET PO ×3 (09:13→21:42)
--- NOTE | 2024-12-19 10:33 | P.PNPSI_ITS ---
Subjective Subjective Date of Service: 12/19/24 Reason For Visit: Unspec schizophrenia, Unspec Depressive Disorder Interim History: met with pt; discussed with team pt reports doing better; mood improving; AH and VH low and not bothersome. discussed medications and agrees to continued titration Mental Status Exam Mental Status Exam Narrative: Pt is alert and oriented; behavior is cooperative, isolative but friendly on approach; calm; patient is not in distress; dressed in casual attire with unkempt hair but adequate hygiene and grooming; mood is described as okay and affect a little blunted; eye contact appropriate; Speech is normal rate, volume and prosody and not pressured; some psychomotor retardation present with recent agitation; thought process is organized and goal directed; Thought content is on tx; otherwise pertinent to relevant topics and without any delusional content, paranoid ideations or grandiosity; no SI; no HI. Intermittent AH but low; intermittent VH but minimal; Patients insight and judgment improving Diagnostics Vital Signs (24Hr): Vital Signs - 24 hr 12/18/24 20:00 12/18/24 21:40 12/19/24 07:31 Temperature 98.2 F 97.5 F Pulse Rate 72 96 95 Respiratory Rate 16 16 Blood Pressure 135/79 156/90 H 119/65 Pulse Oximetry 97 99 Oxygen Delivery Method Room Air Room Air BMI result Body Mass Index 32.1 Labs 12/18/24 08:11 Labs: Laboratory Results - last 48 hr 12/17/24 12/18/24 12/19/24 20:31 08:11 07:37 Sodium 138 Potassium 3.7 Chloride 102 Carbon Dioxide 25 Anion Gap 15 BUN 8 L Creatinine 1.14 Estim Creat Clear Calc 119.6 Estimated GFR > 60 POC Glucose 160 H 152 H Random Glucose 205 H Estimat Average Glucose 166 Hemoglobin A1c % 7.4 H Calcium 9.5 Total Bilirubin 0.5 AST 44 H ALT 57 H Alkaline Phosphatase 81 Total Protein 7.4 Albumin 4.4 Triglycerides 207 H Cholesterol 210 H LDL Cholesterol, Calc 120 H HDL Cholesterol 49 Medications Medications Current Medications Acetaminophen (Acetaminophen 325 Mg Tablet) 650 mg PO Q6H PRN PRN Reason: Headache/Pain, Scale 1-10 Last Admin: 12/18/24 15:21 Dose: 650 mg Al Hydroxide/Mg Hydroxide (Magnesium Hydrox/Alum Hydrox 30 Ml Oral.Susp) 30 ml PO Q6H PRN PRN Reason: Heartburn/Nausea Albuterol Sulfate (Albuterol Sulfate 90 Mcg 8 Gm Inhaler) 2 puff INHALE RQ4H PRN PRN Reason: Shortness of Breath/Wheezing Escitalopram Oxalate (Escitalopram Oxalate 10 Mg Tablet) 10 mg PO DAILY [facility] Famotidine (Famotidine 20 Mg Tablet) 20 mg PO BID [facility] Last Admin: 12/19/24 08:16 Dose: 20 mg Fluticasone/Vilanterol (Fluticasone/Vilanterol 200/25 Blst.W.Dev) 1 puff INHALE RDAILY [facility] Last Admin: 12/19/24 08:18 Dose: 1 puff Gabapentin (Gabapentin 300 Mg Capsule) 300 mg PO TID [facility] Last Admin: 12/19/24 08:17 Dose: 300 mg Hydroxyzine HCl (Hydroxyzine Hcl 25 Mg Tablet) 25 mg PO Q6H PRN PRN Reason: mild anxiety Last Admin: 12/19/24 09:13 Dose: 25 mg Indomethacin (Indomethacin 25 Mg Capsule) 75 mg PO BID [facility] Last Admin: 12/19/24 08:16 Dose: 75 mg Lactic Acid (Ammonium Lactate 12 % Lotion 226 Gm Bottle) 1 appl TOPICAL BID PRN; Protocol PRN Reason: Dry Skin Melatonin (Melatonin 3 Mg Tablet) 9 mg PO BEDTIME PRN PRN Reason: Insomnia Last Admin: 12/17/24 23:33 Dose: 9 mg Metformin HCl (Metformin Hcl 1,000 Mg Tablet) 1,000 mg PO DAILY@1700 [facility] Montelukast Sodium (Montelukast Sodium 10 Mg Tablet) 10 mg PO BEDTIME [facility] Last Admin: 12/18/24 21:43 Dose: 10 mg Nicotine (Nicotine 21 Mg Patch.Td24) 21 mg TRANSDERMA DAILY [facility] Last Admin: 12/19/24 08:17 Dose: 21 mg Nicotine Polacrilex (Nicotine Polacrilex 2 Mg Gum) 4 mg BUCCAL Q2H PRN PRN Reason: Nicotine Cravings Last Admin: 12/19/24 09:11 Dose: 4 mg Olanzapine (Olanzapine 5 Mg Tablet) 5 mg PO Q4H PRN PRN Reason: agitation Last Admin: 12/18/24 08:36 Dose: 5 mg Polyethylene Glycol (Polyethylene Glycol 3350 17 Gm Powd.Pack) 17 gm PO DAILY PRN PRN Reason: Constipation Prazosin HCl (Prazosin Hcl 1 Mg Capsule) 1 mg PO BID [facility]; Protocol Last Admin: 12/19/24 08:16 Dose: 1 mg Quetiapine Fumarate (Quetiapine Fumarate 300 Mg Tablet) 300 mg PO BEDTIME [facility] Last Admin: 12/18/24 21:43 Dose: 300 mg Quetiapine Fumarate (Quetiapine Fumarate 100 Mg Tablet) 100 mg PO BID PRN PRN Reason: AH/agitation Trazodone HCl (Trazodone Hcl 50 Mg Tablet) 50 mg PO BEDTIME MRX1 PRN PRN Reason: Insomnia Allergies Allergies Allergy/AdvReac Type Severity Reaction Status Date / Time amoxicillin [AMOXICILLIN] Allergy Intermediate HIVES,THROAT Verified 10/03/22 12:32 CLOSES Penicillins [PENICILLINS] AdvReac Intermediate HIVES,THROAT Verified 10/03/22 12:32 CLOSES Assessment & Plan Assessment & Plan (1) Schizoaffective disorder, depressive type: Status: Acute Code(s): F25.1 - Schizoaffective disorder, depressive type (2) Post traumatic stress disorder: Status: Acute Code(s): F43.10 - Post-traumatic stress disorder, unspecified (3) Mood disorder as late effect of traumatic brain injury: Status: Acute Code(s): F06.30 - Mood disorder due to known physiological condition, unspecified; S06.9XAS - Unspecified intracranial injury with loss of consciousness status unknown, sequela (4) Alcohol use disorder: Status: Acute Code(s): F10.90 - Alcohol use, unspecified, uncomplicated (5) Cocaine abuse: Status: Acute Code(s): F14.10 - Cocaine abuse, uncomplicated Plan HPI: Patient is a 29-year-old male with history of schizoaffective disorder, alcohol use disorder, cocaine use?, TBI, PTSD, rheumatoid arthritis, asthma, diabetes who presents for worsening depression, AVH and agitation in the face of being off medications for 7 months. Patient reports that after his last psychiatric admission 2 years ago, his psychiatric med regimen was working well; his mood was good, no dark throughts, no SI, anxiety under control, low AH (of kids playing, dog barking, name called, laughing...everyday noises), low VH (shadow figures). Patient was working and sober. In March 2024, patient lost insurance since making too much money (working part-time at [employer]) and so was no longer able to afford any of his medications including his diabetic medications, immuonsuppresant for RH and psychiatric medications and so he turned to alcohol to help deal with his anxiety, depression and insomnia. He reports drinking about 10 nips a day for the past 7 months. Patient's depression returned and he felt down in the dumps and had increased intensity with AVH; despite this he remained working. Patient says over the last few weeks he has had a worsening of symptoms including depression and AVH; has had very difficult time sleeping, negative self talk increasingly agitated and feeling worthless. Patient says the other day he got into a paralytic state... noises and visuals...had the shakes...[Could not decide if to] run away or stand at door...i started punching the petersen, crying...i told my mom i got to go to hospital. He says he started getting suicidal...thought about jumping out of the car... Patient feeling more calm in the hospital and very much wants to get back on his medication. Formulation/clinical reasoning; History of schizoaffective disorder complicated by TBI, PTSD and now by alcohol abuse. Not sure what triggered worsening depression/AVH but it was enough to finally get patient to come to the hospital. Wants to get back on medication regimen he was started on in his 2022 psych admission which he said was helpful. Patient denies any withdrawal symptoms; it has been 2 days since his last drink and denies any history of withdrawal symptoms so will cancel CIWA. Reviewed chart and medication regimen with patient who agrees to restart medications and titrate as needed. hospital course: 12/19 doing better, mood improving, AVH lessening. Plan: CV Q 15 minute checks DC CIWA; patient denies any withdrawal symptoms and and last drink 2 days ago; no history of withdrawal symptoms Restart home medications; will likely titrate back to home doses (see below) Seroquel 300 mg q.h.s. Seroquel 100 mg b.i.d. scheduled Increase Prazosin . Lexapro 10 mg daily Gabapentin 300 mg t.i.d. (in past on 800 mg t.i.d.) Famotidine 20 mg b.i.d. (verse omeprazole) Metformin 500 mg q.h.s.; will titrate back to 1000 mg b.i.d. Indomethacin 75 Mg Capsule, Extended Release) 1 cap PO BID [facility] Fluticasone/Vilanterol (Fluticasone/Vilanterol 200/25 Blst.W.Dev) 1 puff INHALE RDAILY [facility] Montelukast Sodium (Montelukast Sodium 10 Mg Tablet) 10 mg PO DAILY [facility] Albuterol Sulfate (Albuterol Sulfate 90 Mcg 8 Gm Inhaler) 2 puff INHALE Q4H PRN Medication regimen from 2022 admission: Escitalopram Oxalate 20 mg PO DAILY [facility] Prazosin HCl 2 mg PO DAILY [facility]; Protocol Prazosin HCl 4 mg PO BEDTIME [facility]; Protocol Quetiapine Fumarate 300 mg PO BEDTIME [facility] Quetiapine Fumarate 100 mg PO BID@0800,1500 [facility] Hydroxyzine HCl (Hydroxyzine Hcl 25 Mg Tablet) 25 mg PO Q6H PRN Trazodone HCl 50 mg PO BEDTIME MRX1 PRN Fluticasone/Vilanterol (Fluticasone/Vilanterol 200/25 Blst.W.Dev) 1 puff INHALE RDAILY [facility] Montelukast Sodium (Montelukast Sodium 10 Mg Tablet) 10 mg PO DAILY [facility] Albuterol Sulfate (Albuterol Sulfate 90 Mcg 8 Gm Inhaler) 2 puff INHALE Q4H PRN Sulfasalazine) 2 tab PO BID [facility] Gabapentin 800 mg PO TID [facility] Indomethacin 75 Mg Capsule, Extended Release) 1 cap PO BID [facility] Omeprazole 40 mg PO BEDTIME [facility] Ammonium Lactate 12 % Lotion 226 Gm Bottle) 1 appl TOPICAL BID PRN b/l feet Patient educated on: diagnosis and medication risk/benefits Informed Consent: understands Reason for continued inpatient stay Substantial Risk for: rapid decompensation Time Spent With Patient Time: Total time managing care of this patient today ____ minutes.
[2024-12-19] MEDS: QUEtiapine Fumarate 100 MG TABLET PO ×2 (10:41→14:39)
--- NOTE | 2024-12-19 14:11 | MHC.RECOVRN ---
AUDIT-C Brief Intervention Pt had positive screen for unhealthy alcohol use on admission, subsequently met with t/w to discuss alcohol use and recovery supports/options. This technical writer and editor met with patient to discuss current alcohol use and concerns related to increased risk of alcohol related problems.? Pt reports 10-20 nips Fireball daily x 6-8 months. Pt reports when he lost his health insurance he was unable to get medications due to cost and turned to alcohol as a way of self medicating. Discussed how alcohol use has impacted health, including negative impact on relationships and mental health. Withdrawal History: denies history of withdrawal/withdrawal seizures Treatment History: denies history of treatment Supports:?girlfriend, mom, grandmother Discussed risk reduction strategies including drinking below the recommended limit. Provided pt with written resources including information on inpatient and outpatient treatment, GIL, harm reduction, and recovery coaching. Pt declines GIL and declines an appt for GIL/AUD treatment. Pt plans to review resources and attend AA after discharge. Pt provided with t/w contact information if questions or concerns arise. Denies other questions or concerns at this time.?
[2024-12-19] MEDS: metFORMIN HCl 1,000 MG TABLET 1000 MG PO (17:21)
[2024-12-19 19:17] VITALS: BP 113/74; PULSE 97; RESP 16; TEMP 37.2; O2SAT 98
[2024-12-19 21:35] VITALS: BP 135/76; PULSE 92; RESP 18
[2024-12-19] MEDS: Montelukast Sodium 10 MG TABLET PO (21:41)
[2024-12-19] MEDS: Prazosin HCL 1 MG CAPSULE 2 MG PO (21:43)
[2024-12-19] MEDS: QUEtiapine Fumarate 300 MG TABLET PO (21:44)
[2024-12-20] MEDS: traZODone HCL 50 MG TABLET PO ×2 (01:16→23:46)
[2024-12-20] MEDS: Melatonin 3 MG TABLET 9 MG PO ×2 (01:16→23:46)
[2024-12-20 07:45] VITALS: BP 100/57; PULSE 75; RESP 16; TEMP 36.5; O2SAT 99
[2024-12-20 07:59] LABS: Glucose, Whole Blood 152 mg/dL (60-115)
[2024-12-20] MEDS: Famotidine 20 MG TABLET PO ×2 (08:13→21:19)
[2024-12-20] MEDS: Prazosin HCL 1 MG CAPSULE PO (08:13)
[2024-12-20] MEDS: hydrOXYzine HCL 25 MG TABLET PO ×3 (08:13→21:19)
[2024-12-20] MEDS: Escitalopram Oxalate 10 MG TABLET PO (08:13)
[2024-12-20] MEDS: Gabapentin 300 MG CAPSULE PO (08:13)
[2024-12-20] MEDS: QUEtiapine Fumarate 100 MG TABLET PO ×2 (08:14→14:34)
[2024-12-20] MEDS: Indomethacin 25 MG CAPSULE 75 MG PO ×2 (08:20→21:19)
[2024-12-20] MEDS: Fluticasone/Vilanterol 200/25 BLST.W.DEV 1 PUFF INHALE (08:22)
[2024-12-20] MEDS: Nicotine 21 MG PATCH.TD24 TRANSDERMA (08:23)
--- NOTE | 2024-12-20 12:02 | P.PNPSI_ITS ---
Subjective Subjective Date of Service: 12/20/24 Reason For Visit: Unspec schizophrenia, Unspec Depressive Disorder Interim History: met with pt; discussed with team continues to improve; sleeping better; avh continues to diminish. Discussed medications and titrations and pt agrees w/ plan Mental Status Exam Mental Status Exam Narrative: Pt is alert and oriented; behavior is cooperative, friendly on approach; calm; patient is not in distress; dressed in casual attire with unkempt hair but adequate hygiene and grooming; mood is described as ok and affect brighter; eye contact appropriate; Speech is normal rate, volume and prosody and not pressured; some psychomotor retardation present with recent agitation; thought process is organized and goal directed; Thought content is on tx; otherwise pertinent to relevant topics and without any delusional content, paranoid ideations or grandiosity; no SI; no HI. Intermittent AH but low; intermittent VH but minimal; Patients insight and judgment fair Diagnostics Vital Signs (24Hr): Vital Signs - 24 hr 12/19/24 19:17 12/19/24 21:35 12/20/24 07:45 Temperature 98.9 F 97.7 F Pulse Rate 97 92 75 Respiratory Rate 16 18 16 Blood Pressure 113/74 135/76 100/57 L Pulse Oximetry 98 99 Oxygen Delivery Method Room Air Room Air BMI result Body Mass Index 32.6 Labs 12/18/24 08:11 Labs: Laboratory Results - last 48 hr 12/18/24 12/19/24 12/20/24 08:11 07:37 07:48 Sodium 138 Potassium 3.7 Chloride 102 Carbon Dioxide 25 Anion Gap 15 BUN 8 L Creatinine 1.14 Estim Creat Clear Calc 119.6 Estimated GFR > 60 POC Glucose 152 H 152 H Random Glucose 205 H Calcium 9.5 Total Bilirubin 0.5 AST 44 H ALT 57 H Alkaline Phosphatase 81 Total Protein 7.4 Albumin 4.4 Medications Medications Current Medications Acetaminophen (Acetaminophen 325 Mg Tablet) 650 mg PO Q6H PRN PRN Reason: Headache/Pain, Scale 1-10 Last Admin: 12/18/24 15:21 Dose: 650 mg Al Hydroxide/Mg Hydroxide (Magnesium Hydrox/Alum Hydrox 30 Ml Oral.Susp) 30 ml PO Q6H PRN PRN Reason: Heartburn/Nausea Albuterol Sulfate (Albuterol Sulfate 90 Mcg 8 Gm Inhaler) 2 puff INHALE RQ4H PRN PRN Reason: Shortness of Breath/Wheezing Escitalopram Oxalate (Escitalopram Oxalate 10 Mg Tablet) 10 mg PO DAILY [facility] Last Admin: 12/20/24 08:13 Dose: 10 mg Famotidine (Famotidine 20 Mg Tablet) 20 mg PO BID [facility] Last Admin: 12/20/24 08:13 Dose: 20 mg Fluticasone/Vilanterol (Fluticasone/Vilanterol 200/25 Blst.W.Dev) 1 puff INHALE RDAILY [facility] Last Admin: 12/20/24 08:22 Dose: 1 puff Gabapentin (Gabapentin 300 Mg Capsule) 300 mg PO TID [facility] Last Admin: 12/20/24 08:13 Dose: 300 mg Hydroxyzine HCl (Hydroxyzine Hcl 25 Mg Tablet) 25 mg PO TID [facility] Last Admin: 12/20/24 08:13 Dose: 25 mg Indomethacin (Indomethacin 25 Mg Capsule) 75 mg PO BID [facility] Last Admin: 12/20/24 08:20 Dose: 75 mg Lactic Acid (Ammonium Lactate 12 % Lotion 226 Gm Bottle) 1 appl TOPICAL BID PRN; Protocol PRN Reason: Dry Skin Melatonin (Melatonin 3 Mg Tablet) 9 mg PO BEDTIME PRN PRN Reason: Insomnia Last Admin: 12/20/24 01:16 Dose: 9 mg Metformin HCl (Metformin Hcl 1,000 Mg Tablet) 1,000 mg PO DAILY@1700 [facility] Last Admin: 12/19/24 17:21 Dose: 1,000 mg Montelukast Sodium (Montelukast Sodium 10 Mg Tablet) 10 mg PO BEDTIME [facility] Last Admin: 12/19/24 21:41 Dose: 10 mg Nicotine (Nicotine 21 Mg Patch.Td24) 21 mg TRANSDERMA DAILY [facility] Last Admin: 12/20/24 08:23 Dose: 21 mg Nicotine Polacrilex (Nicotine Polacrilex 2 Mg Gum) 4 mg BUCCAL Q2H PRN PRN Reason: Nicotine Cravings Last Admin: 12/19/24 17:23 Dose: 4 mg Olanzapine (Olanzapine 5 Mg Tablet) 5 mg PO Q4H PRN PRN Reason: agitation Last Admin: 12/18/24 08:36 Dose: 5 mg Polyethylene Glycol (Polyethylene Glycol 3350 17 Gm Powd.Pack) 17 gm PO DAILY PRN PRN Reason: Constipation Prazosin HCl (Prazosin Hcl 1 Mg Capsule) 2 mg PO BEDTIME [facility]; Protocol Last Admin: 12/19/24 21:43 Dose: 2 mg Prazosin HCl (Prazosin Hcl 1 Mg Capsule) 1 mg PO DAILY [facility]; Protocol Last Admin: 12/20/24 08:13 Dose: 1 mg Quetiapine Fumarate (Quetiapine Fumarate 300 Mg Tablet) 300 mg PO BEDTIME [facility] Last Admin: 12/19/24 21:44 Dose: 300 mg Quetiapine Fumarate (Quetiapine Fumarate 100 Mg Tablet) 100 mg PO BID@0900,1500 [facility] Last Admin: 12/20/24 08:14 Dose: 100 mg Quetiapine Fumarate (Quetiapine Fumarate 50 Mg Tablet) 50 mg PO DAILY PRN PRN Reason: moderate anxiety Trazodone HCl (Trazodone Hcl 50 Mg Tablet) 50 mg PO BEDTIME MRX1 PRN PRN Reason: Insomnia Last Admin: 12/20/24 01:16 Dose: 50 mg Allergies Allergies Allergy/AdvReac Type Severity Reaction Status Date / Time amoxicillin [AMOXICILLIN] Allergy Intermediate HIVES,THROAT Verified 10/03/22 12:32 CLOSES Penicillins [PENICILLINS] AdvReac Intermediate HIVES,THROAT Verified 10/03/22 12:32 CLOSES Assessment & Plan Assessment & Plan (1) Schizoaffective disorder, depressive type: Status: Acute Code(s): F25.1 - Schizoaffective disorder, depressive type (2) Post traumatic stress disorder: Status: Acute Code(s): F43.10 - Post-traumatic stress disorder, unspecified (3) Alcohol use disorder: Status: Acute Code(s): F10.90 - Alcohol use, unspecified, uncomplicated (4) Cocaine abuse: Status: Acute Code(s): F14.10 - Cocaine abuse, uncomplicated (5) TBI (traumatic brain injury): Status: Acute Code(s): S06.9XAA - Unspecified intracranial injury with loss of consciousness status unknown, initial encounter (6) Inflammatory polyarthritis: Status: Acute Code(s): M06.4 - Inflammatory polyarthropathy Plan HPI: Patient is a 29-year-old male with history of schizoaffective disorder, alcohol use disorder, cocaine use?, TBI, PTSD, rheumatoid arthritis, asthma, diabetes who presents for worsening depression, AVH and agitation in the face of being off medications for 7 months. Patient reports that after his last psychiatric admission 2 years ago, his psychiatric med regimen was working well; his mood was good, no dark throughts, no SI, anxiety under control, low AH (of kids playing, dog barking, name called, laughing...everyday noises), low VH (shadow figures). Patient was working and sober. In March 2024, patient lost insurance since making too much money (working part-time at [employer]) and so was no longer able to afford any of his medications including his diabetic medications, immuonsuppresant for RH and psychiatric medications and so he turned to alcohol to help deal with his anxiety, depression and insomnia. He reports drinking about 10 nips a day for the past 7 months. Patient's depression returned and he felt down in the dumps and had increased intensity with AVH; despite this he remained working. Patient says over the last few weeks he has had a worsening of symptoms including depression and AVH; has had very difficult time sleeping, negative self talk increasingly agitated and feeling worthless. Patient says the other day he got into a paralytic state... noises and visuals...had the shakes...[Could not decide if to] run away or stand at door...i started punching the petersen, crying...i told my mom i got to go to hospital. He says he started getting suicidal...thought about jumping out of the car... Patient feeling more calm in the hospital and very much wants to get back on his medication. Formulation/clinical reasoning; History of schizoaffective disorder complicated by TBI, PTSD and now by alcohol abuse. Not sure what triggered worsening depression/AVH but it was enough to finally get patient to come to the hospital. Wants to get back on medication regimen he was started on in his 2022 psych admission which he said was helpful. Patient denies any withdrawal symptoms; it has been 2 days since his last drink and denies any history of withdrawal symptoms so will cancel CIWA. Reviewed chart and medication regimen with patient who agrees to restart medications and titrate as needed. hospital course: 12/19 doing better, mood improving, AVH lessening. 12/20 continue med titrations Plan: CV Q 15 minute checks DC CIWA; patient denies any withdrawal symptoms and and last drink 2 days ago; no history of withdrawal symptoms Restart home medications; will likely titrate back to home doses (see below) Seroquel 600 mg q.h.s. Seroquel 100 mg b.i.d. scheduled Prazosin 4mg bed prazosin 2mg daily. Lexapro 10 mg daily Gabapentin 300 mg t.i.d. (in past on 800 mg t.i.d.) Famotidine 20 mg b.i.d. (verse omeprazole) Metformin 500 mg q.h.s.; will titrate back to 1000 mg b.i.d. Indomethacin 75 Mg Capsule, Extended Release) 1 cap PO BID [facility] Fluticasone/Vilanterol (Fluticasone/Vilanterol 200/25 Blst.W.Dev) 1 puff INHALE RDAILY [facility] Montelukast Sodium (Montelukast Sodium 10 Mg Tablet) 10 mg PO DAILY [facility] Albuterol Sulfate (Albuterol Sulfate 90 Mcg 8 Gm Inhaler) 2 puff INHALE Q4H PRN Medication regimen from 2022 admission: Escitalopram Oxalate 20 mg PO DAILY [facility] Prazosin HCl 2 mg PO DAILY [facility]; Protocol Prazosin HCl 4 mg PO BEDTIME [facility]; Protocol Quetiapine Fumarate 300 mg PO BEDTIME [facility] Quetiapine Fumarate 100 mg PO BID@0800,1500 [facility] Hydroxyzine HCl (Hydroxyzine Hcl 25 Mg Tablet) 25 mg PO Q6H PRN Trazodone HCl 50 mg PO BEDTIME MRX1 PRN Fluticasone/Vilanterol (Fluticasone/Vilanterol 200/25 Blst.W.Dev) 1 puff INHALE RDAILY [facility] Montelukast Sodium (Montelukast Sodium 10 Mg Tablet) 10 mg PO DAILY [facility] Albuterol Sulfate (Albuterol Sulfate 90 Mcg 8 Gm Inhaler) 2 puff INHALE Q4H PRN Sulfasalazine) 2 tab PO BID [facility] Gabapentin 800 mg PO TID [facility] Indomethacin 75 Mg Capsule, Extended Release) 1 cap PO BID [facility] Omeprazole 40 mg PO BEDTIME [facility] Ammonium Lactate 12 % Lotion 226 Gm Bottle) 1 appl TOPICAL BID PRN b/l feet Patient educated on: diagnosis, medication risk/benefits and therapeutic strategies Informed Consent: understands Reason for continued inpatient stay Substantial Risk for: rapid decompensation Time Spent With Patient Time: Total time managing care of this patient today ____ minutes.
[2024-12-20] MEDS: Gabapentin 300 MG CAPSULE 600 MG PO ×2 (14:35→21:19)
[2024-12-20] MEDS: metFORMIN HCl 1,000 MG TABLET 1000 MG PO (16:56)
[2024-12-20] MEDS: QUEtiapine Fumarate 50 MG TABLET PO (18:15)
[2024-12-20] MEDS: OLANZapine 5 MG TABLET PO (18:15)
[2024-12-20 20:30] VITALS: BP 119/62; PULSE 105; RESP 16; TEMP 36.9; O2SAT 96
[2024-12-20] MEDS: QUEtiapine Fumarate 300 MG TABLET PO (21:20)
[2024-12-20] MEDS: Prazosin HCL 1 MG CAPSULE 2 MG PO (21:20)
[2024-12-20] MEDS: Montelukast Sodium 10 MG TABLET PO (21:20)
[2024-12-21] MEDS: QUEtiapine Fumarate 50 MG TABLET PO (02:47)
[2024-12-21] MEDS: traZODone HCL 50 MG TABLET PO (02:47)
[2024-12-21 07:43] LABS: Glucose, Whole Blood 136 mg/dL (60-115)
[2024-12-21 07:50] VITALS: BP 111/58; PULSE 71; RESP 16; TEMP 36.6; O2SAT 99
[2024-12-21] MEDS: Indomethacin 25 MG CAPSULE 75 MG PO ×2 (08:35→21:15)
[2024-12-21] MEDS: metFORMIN HCl 1,000 MG TABLET 1000 MG PO ×2 (08:35→21:16)
[2024-12-21] MEDS: hydrOXYzine HCL 25 MG TABLET PO ×3 (08:36→21:15)
[2024-12-21] MEDS: Escitalopram Oxalate 10 MG TABLET PO (08:36)
[2024-12-21] MEDS: Gabapentin 300 MG CAPSULE 600 MG PO ×3 (08:36→21:14)
[2024-12-21] MEDS: Famotidine 20 MG TABLET PO ×2 (08:37→21:14)
[2024-12-21] MEDS: Prazosin HCL 1 MG CAPSULE PO (08:37)
[2024-12-21] MEDS: QUEtiapine Fumarate 100 MG TABLET PO ×2 (08:37→15:03)
[2024-12-21] MEDS: Nicotine 21 MG PATCH.TD24 TRANSDERMA (08:38)
[2024-12-21] MEDS: Fluticasone/Vilanterol 200/25 BLST.W.DEV 1 PUFF INHALE (08:43)
[2024-12-21] MEDS: OLANZapine 5 MG TABLET PO ×2 (12:40→19:06)
--- NOTE | 2024-12-21 13:40 | P.PNPSI_ITS ---
Subjective Subjective Date of Service: 12/21/24 Reason For Visit: Unspec schizophrenia, Unspec Depressive Disorder Interim History: met with pt; discussed with team Sleep remains interrupted. Says he wakes up multiple times in the day. He says his mood is improving. Some visual illusions/hallucinations remain. Says when he looks at the floor he gets the illusion it is moving. Denies AH. Denies SI. Review of Systems Review of Systems Pt has no acute medical complaints at this time. Mental Status Exam Mental Status Exam Narrative: Pt is alert and oriented; behavior is cooperative, friendly on approach; calm; patient is not in distress; dressed in casual attire with unkempt hair but adequate hygiene and grooming; mood is described as ok and affect brighter; eye contact appropriate; Speech is normal rate, volume and prosody and not pressured; some psychomotor retardation present with recent agitation; thought process is organized and goal directed; Thought content is on tx; otherwise pertinent to relevant topics and without any delusional content, paranoid ideations or grandiosity; no SI; no HI. intermittent VH but minimal; Patients insight and judgment fair Diagnostics Vital Signs (24Hr): Vital Signs - 24 hr 12/20/24 20:30 12/21/24 07:50 Temperature 98.5 F 97.8 F Pulse Rate 105 H 71 Respiratory Rate 16 16 Blood Pressure 119/62 111/58 L Pulse Oximetry 96 99 Oxygen Delivery Method Room Air Room Air BMI result Body Mass Index 32.6 Labs 12/18/24 08:11 Labs: Laboratory Results - last 48 hr 12/20/24 12/21/24 07:48 07:38 POC Glucose 152 H 136 H Medications Medications Current Medications Acetaminophen (Acetaminophen 325 Mg Tablet) 650 mg PO Q6H PRN PRN Reason: Headache/Pain, Scale 1-10 Last Admin: 12/18/24 15:21 Dose: 650 mg Al Hydroxide/Mg Hydroxide (Magnesium Hydrox/Alum Hydrox 30 Ml Oral.Susp) 30 ml PO Q6H PRN PRN Reason: Heartburn/Nausea Albuterol Sulfate (Albuterol Sulfate 90 Mcg 8 Gm Inhaler) 2 puff INHALE RQ4H PRN PRN Reason: Shortness of Breath/Wheezing Escitalopram Oxalate (Escitalopram Oxalate 10 Mg Tablet) 10 mg PO DAILY [facility] Last Admin: 12/21/24 08:36 Dose: 10 mg Famotidine (Famotidine 20 Mg Tablet) 20 mg PO BID [facility] Last Admin: 12/21/24 08:37 Dose: 20 mg Fluticasone/Vilanterol (Fluticasone/Vilanterol 200/25 Blst.W.Dev) 1 puff INHALE RDAILY [facility] Last Admin: 12/21/24 08:43 Dose: 1 puff Gabapentin (Gabapentin 300 Mg Capsule) 600 mg PO TID [facility] Last Admin: 12/21/24 08:36 Dose: 600 mg Hydroxyzine HCl (Hydroxyzine Hcl 25 Mg Tablet) 25 mg PO TID [facility] Last Admin: 12/21/24 08:36 Dose: 25 mg Indomethacin (Indomethacin 25 Mg Capsule) 75 mg PO BID [facility] Last Admin: 12/21/24 08:35 Dose: 75 mg Lactic Acid (Ammonium Lactate 12 % Lotion 226 Gm Bottle) 1 appl TOPICAL BID PRN; Protocol PRN Reason: Dry Skin Melatonin (Melatonin 3 Mg Tablet) 9 mg PO BEDTIME PRN PRN Reason: Insomnia Last Admin: 12/20/24 23:46 Dose: 9 mg Metformin HCl (Metformin Hcl 1,000 Mg Tablet) 1,000 mg PO BIDWM [facility] Last Admin: 12/21/24 08:35 Dose: 1,000 mg Montelukast Sodium (Montelukast Sodium 10 Mg Tablet) 10 mg PO BEDTIME [facility] Last Admin: 12/20/24 21:20 Dose: 10 mg Nicotine (Nicotine 21 Mg Patch.Td24) 21 mg TRANSDERMA DAILY [facility] Last Admin: 12/21/24 08:38 Dose: 21 mg Nicotine Polacrilex (Nicotine Polacrilex 2 Mg Gum) 4 mg BUCCAL Q2H PRN PRN Reason: Nicotine Cravings Last Admin: 12/19/24 17:23 Dose: 4 mg Olanzapine (Olanzapine 5 Mg Tablet) 5 mg PO Q4H PRN PRN Reason: agitation Last Admin: 12/21/24 12:40 Dose: 5 mg Polyethylene Glycol (Polyethylene Glycol 3350 17 Gm Powd.Pack) 17 gm PO DAILY PRN PRN Reason: Constipation Prazosin HCl (Prazosin Hcl 1 Mg Capsule) 2 mg PO BEDTIME [facility]; Protocol Last Admin: 12/20/24 21:20 Dose: 2 mg Prazosin HCl (Prazosin Hcl 1 Mg Capsule) 1 mg PO DAILY [facility]; Protocol Last Admin: 12/21/24 08:37 Dose: 1 mg Quetiapine Fumarate (Quetiapine Fumarate 300 Mg Tablet) 300 mg PO BEDTIME [facility] Last Admin: 12/20/24 21:20 Dose: 300 mg Quetiapine Fumarate (Quetiapine Fumarate 100 Mg Tablet) 100 mg PO BID@0900,1500 [facility] Last Admin: 12/21/24 08:37 Dose: 100 mg Quetiapine Fumarate (Quetiapine Fumarate 50 Mg Tablet) 50 mg PO DAILY PRN PRN Reason: moderate anxiety Last Admin: 12/21/24 02:47 Dose: 50 mg Trazodone HCl (Trazodone Hcl 100 Mg Tablet) 100 mg PO BEDTIME MRX1 PRN PRN Reason: Insomnia Allergies Allergies Allergy/AdvReac Type Severity Reaction Status Date / Time amoxicillin [AMOXICILLIN] Allergy Intermediate HIVES,THROAT Verified 10/03/22 12:32 CLOSES Penicillins [PENICILLINS] AdvReac Intermediate HIVES,THROAT Verified 10/03/22 12:32 CLOSES Assessment & Plan Assessment & Plan (1) Schizoaffective disorder, depressive type: Status: Acute Code(s): F25.1 - Schizoaffective disorder, depressive type (2) Post traumatic stress disorder: Status: Acute Code(s): F43.10 - Post-traumatic stress disorder, unspecified (3) Alcohol use disorder: Status: Acute Code(s): F10.90 - Alcohol use, unspecified, uncomplicated (4) Cocaine abuse: Status: Acute Code(s): F14.10 - Cocaine abuse, uncomplicated (5) TBI (traumatic brain injury): Status: Acute Code(s): S06.9XAA - Unspecified intracranial injury with loss of consciousness status unknown, initial encounter (6) Inflammatory polyarthritis: Status: Acute Code(s): M06.4 - Inflammatory polyarthropathy Plan HPI: Patient is a 29-year-old male with history of schizoaffective disorder, alcohol use disorder, cocaine use?, TBI, PTSD, rheumatoid arthritis, asthma, diabetes who presents for worsening depression, AVH and agitation in the face of being off medications for 7 months. Patient reports that after his last psychiatric admission 2 years ago, his psychiatric med regimen was working well; his mood was good, no dark throughts, no SI, anxiety under control, low AH (of kids playing, dog barking, name called, laughing...everyday noises), low VH (shadow figures). Patient was working and sober. In March 2024, patient lost insurance since making too much money (working part-time at [employer]) and so was no longer able to afford any of his medications including his diabetic medications, immuonsuppresant for RH and psychiatric medications and so he turned to alcohol to help deal with his anxiety, depression and insomnia. He reports drinking about 10 nips a day for the past 7 months. Patient's depression returned and he felt down in the dumps and had increased intensity with AVH; despite this he remained working. Patient says over the last few weeks he has had a worsening of symptoms including depression and AVH; has had very difficult time sleeping, negative self talk increasingly agitated and feeling worthless. Patient says the other day he got into a paralytic state... noises and visuals...had the shakes...[Could not decide if to] run away or stand at door...i started punching the petersen, crying...i told my mom i got to go to hospital. He says he started getting suicidal...thought about jumping out of the car... Patient feeling more calm in the hospital and very much wants to get back on his medication. Formulation/clinical reasoning; History of schizoaffective disorder complicated by TBI, PTSD and now by alcohol abuse. Not sure what triggered worsening depression/AVH but it was enough to finally get patient to come to the hospital. Wants to get back on medication regimen he was started on in his 2022 psych admission which he said was helpful. Patient denies any withdrawal symptoms; it has been 2 days since his last drink and denies any history of withdrawal symptoms so will cancel CIWA. Reviewed chart and medication regimen with patient who agrees to restart medications and titrate as needed. hospital course: 12/19 doing better, mood improving, AVH lessening. 12/20 continue med titrations 12/21: increase Trazodone PRN to 100 mg. Continue current management and treatment plan. Plan: CV Q 15 minute checks DC CIWA; patient denies any withdrawal symptoms and and last drink 2 days ago; no history of withdrawal symptoms Restart home medications; will likely titrate back to home doses (see below) Seroquel 600 mg q.h.s. Seroquel 100 mg b.i.d. scheduled Prazosin 4mg bed prazosin 2mg daily. Lexapro 10 mg daily Gabapentin 300 mg t.i.d. (in past on 800 mg t.i.d.) Famotidine 20 mg b.i.d. (verse omeprazole) Metformin 500 mg q.h.s.; will titrate back to 1000 mg b.i.d. Indomethacin 75 Mg Capsule, Extended Release) 1 cap PO BID [facility] Fluticasone/Vilanterol (Fluticasone/Vilanterol 200/25 Blst.W.Dev) 1 puff INHALE RDAILY [facility] Montelukast Sodium (Montelukast Sodium 10 Mg Tablet) 10 mg PO DAILY [facility] Albuterol Sulfate (Albuterol Sulfate 90 Mcg 8 Gm Inhaler) 2 puff INHALE Q4H PRN Medication regimen from 2022 admission: Escitalopram Oxalate 20 mg PO DAILY [facility] Prazosin HCl 2 mg PO DAILY [facility]; Protocol Prazosin HCl 4 mg PO BEDTIME [facility]; Protocol Quetiapine Fumarate 300 mg PO BEDTIME [facility] Quetiapine Fumarate 100 mg PO BID@0800,1500 [facility] Hydroxyzine HCl (Hydroxyzine Hcl 25 Mg Tablet) 25 mg PO Q6H PRN Trazodone HCl 50 mg PO BEDTIME MRX1 PRN Fluticasone/Vilanterol (Fluticasone/Vilanterol 200/25 Blst.W.Dev) 1 puff INHALE RDAILY [facility] Montelukast Sodium (Montelukast Sodium 10 Mg Tablet) 10 mg PO DAILY [facility] Albuterol Sulfate (Albuterol Sulfate 90 Mcg 8 Gm Inhaler) 2 puff INHALE Q4H PRN Sulfasalazine) 2 tab PO BID [facility] Gabapentin 800 mg PO TID [facility] Indomethacin 75 Mg Capsule, Extended Release) 1 cap PO BID [facility] Omeprazole 40 mg PO BEDTIME [facility] Ammonium Lactate 12 % Lotion 226 Gm Bottle) 1 appl TOPICAL BID PRN b/l feet Reason for continued inpatient stay Substantial Risk for: inability to function and rapid decompensation Time Spent With Patient Time: Total time managing care of this patient today ____ minutes.
[2024-12-21] MEDS: Acetaminophen 325 MG TABLET 650 MG PO (15:11)
[2024-12-21] MEDS: Ibuprofen 400 MG TABLET PO (17:00)
[2024-12-21] MEDS: Nicotine Polacrilex 2 MG GUM 4 MG BUCCAL ×2 (18:13→21:18)
[2024-12-21] MEDS: Ammonium Lactate 12 % Lotion 226 GM BOTTLE 1 APPL TOPICAL (19:07)
[2024-12-21 19:30] VITALS: BP 118/79; PULSE 94; RESP 16; TEMP 36.6; O2SAT 96
[2024-12-21] MEDS: Montelukast Sodium 10 MG TABLET PO (21:16)
[2024-12-21] MEDS: QUEtiapine Fumarate 300 MG TABLET PO (21:17)
[2024-12-21 21:20] VITALS: BP 139/77
[2024-12-21] MEDS: Prazosin HCL 1 MG CAPSULE 2 MG PO (21:20)
[2024-12-22] MEDS: QUEtiapine Fumarate 50 MG TABLET PO (04:23)
[2024-12-22 07:27] VITALS: BP 139/78; PULSE 110; RESP 16; TEMP 36.4; O2SAT 99
[2024-12-22 08:11] LABS: Glucose, Whole Blood 147 mg/dL (60-115)
[2024-12-22] MEDS: Gabapentin 300 MG CAPSULE 600 MG PO ×3 (08:23→20:37)
[2024-12-22] MEDS: Famotidine 20 MG TABLET PO ×2 (08:24→20:37)
[2024-12-22] MEDS: Indomethacin 25 MG CAPSULE 75 MG PO ×2 (08:24→20:36)
[2024-12-22] MEDS: Prazosin HCL 1 MG CAPSULE PO (08:24)
[2024-12-22] MEDS: QUEtiapine Fumarate 100 MG TABLET PO (08:25)
[2024-12-22] MEDS: metFORMIN HCl 1,000 MG TABLET 1000 MG PO ×2 (08:25→20:35)
[2024-12-22] MEDS: hydrOXYzine HCL 25 MG TABLET PO ×3 (08:25→20:37)
[2024-12-22] MEDS: Fluticasone/Vilanterol 200/25 BLST.W.DEV 1 PUFF INHALE (08:26)
[2024-12-22] MEDS: Nicotine 21 MG PATCH.TD24 TRANSDERMA (08:26)
[2024-12-22] MEDS: Escitalopram Oxalate 10 MG TABLET PO (08:26)
[2024-12-22] MEDS: Nicotine Polacrilex 2 MG GUM 4 MG BUCCAL ×2 (08:34→16:32)
[2024-12-22] MEDS: OLANZapine 5 MG TABLET PO ×2 (11:56→14:59)
--- NOTE | 2024-12-22 14:26 | P.PNPSI_ITS ---
Subjective Subjective Date of Service: 12/22/24 Reason For Visit: Unspec schizophrenia, Unspec Depressive Disorder Interim History: met with pt; discussed with team Patient reports he feels the Zyprexa is helpful for him. He is wondering about increasing the dose. We discussed he is on Quetiapine and that Zyprexa is another antipsychotic. He is agreeable to a trial of holding the Seroquel tonight and increasing the dose of Zyprexa to see if it is helpful for his sleep. Increase in Trazodone helped a bit with sleep last night but still woke up. He says his mood is improving. Denies AH. Denies SI. Review of Systems Review of Systems Pt has no acute medical complaints at this time. Mental Status Exam Mental Status Exam Narrative: Pt is alert and oriented; behavior is cooperative, friendly on approach; calm; patient is not in distress; dressed in casual attire with unkempt hair but adequate hygiene and grooming; mood is described as ok and affect brighter; eye contact appropriate; Speech is normal rate, volume and prosody and not pressured; some psychomotor retardation present with recent agitation; thought process is organized and goal directed; Thought content is on tx; otherwise pertinent to relevant topics and without any delusional content, paranoid ideations or grandiosity; no SI; no HI. intermittent VH but minimal; Patients insight and judgment fair Diagnostics Vital Signs (24Hr): Vital Signs - 24 hr 12/21/24 19:30 12/21/24 21:20 12/22/24 07:27 Temperature 97.8 F 97.6 F Pulse Rate 94 110 H Respiratory Rate 16 16 Blood Pressure 118/79 139/77 139/78 Pulse Oximetry 96 99 Oxygen Delivery Method Room Air Room Air BMI result Body Mass Index 32.6 Labs 12/18/24 08:11 Labs: Laboratory Results - last 48 hr 12/21/24 12/22/24 07:38 07:50 POC Glucose 136 H 147 H Medications Medications Current Medications Acetaminophen (Acetaminophen 325 Mg Tablet) 650 mg PO Q6H PRN PRN Reason: Headache/Pain, Scale 1-10 Last Admin: 12/21/24 15:11 Dose: 650 mg Al Hydroxide/Mg Hydroxide (Magnesium Hydrox/Alum Hydrox 30 Ml Oral.Susp) 30 ml PO Q6H PRN PRN Reason: Heartburn/Nausea Albuterol Sulfate (Albuterol Sulfate 90 Mcg 8 Gm Inhaler) 2 puff INHALE RQ4H PRN PRN Reason: Shortness of Breath/Wheezing Escitalopram Oxalate (Escitalopram Oxalate 10 Mg Tablet) 10 mg PO DAILY [facility] Last Admin: 12/22/24 08:26 Dose: 10 mg Famotidine (Famotidine 20 Mg Tablet) 20 mg PO BID [facility] Last Admin: 12/22/24 08:24 Dose: 20 mg Fluticasone/Vilanterol (Fluticasone/Vilanterol 200/25 Blst.W.Dev) 1 puff INHALE RDAILY [facility] Last Admin: 12/22/24 08:26 Dose: 1 puff Gabapentin (Gabapentin 300 Mg Capsule) 600 mg PO TID [facility] Last Admin: 12/22/24 08:23 Dose: 600 mg Hydroxyzine HCl (Hydroxyzine Hcl 25 Mg Tablet) 25 mg PO TID [facility] Last Admin: 12/22/24 08:25 Dose: 25 mg Ibuprofen (Ibuprofen 400 Mg Tablet) 400 mg PO Q6H PRN PRN Reason: Pain, Moderate(Pain Scale 4-6) Last Admin: 12/21/24 17:00 Dose: 400 mg Indomethacin (Indomethacin 25 Mg Capsule) 75 mg PO BID [facility] Last Admin: 12/22/24 08:24 Dose: 75 mg Lactic Acid (Ammonium Lactate 12 % Lotion 226 Gm Bottle) 1 appl TOPICAL BID PRN; Protocol PRN Reason: Dry Skin Last Admin: 12/21/24 19:07 Dose: 1 appl Melatonin (Melatonin 3 Mg Tablet) 9 mg PO BEDTIME PRN PRN Reason: Insomnia Last Admin: 12/20/24 23:46 Dose: 9 mg Metformin HCl (Metformin Hcl 1,000 Mg Tablet) 1,000 mg PO BID [facility] Last Admin: 12/22/24 08:25 Dose: 1,000 mg Montelukast Sodium (Montelukast Sodium 10 Mg Tablet) 10 mg PO BEDTIME [facility] Last Admin: 12/21/24 21:16 Dose: 10 mg Nicotine (Nicotine 21 Mg Patch.Td24) 21 mg TRANSDERMA DAILY [facility] Last Admin: 12/22/24 08:26 Dose: 21 mg Nicotine Polacrilex (Nicotine Polacrilex 2 Mg Gum) 4 mg BUCCAL Q2H PRN PRN Reason: Nicotine Cravings Last Admin: 12/22/24 08:34 Dose: 4 mg Olanzapine (Olanzapine 5 Mg Tablet) 5 mg PO Q4H PRN PRN Reason: agitation Last Admin: 12/21/24 19:06 Dose: 5 mg Olanzapine (Olanzapine 5 Mg Tablet) 5 mg PO DAILY [facility] Last Admin: 12/22/24 11:56 Dose: 5 mg Olanzapine (Olanzapine 10 Mg Tablet) 10 mg PO BEDTIME [facility] Polyethylene Glycol (Polyethylene Glycol 3350 17 Gm Powd.Pack) 17 gm PO DAILY PRN PRN Reason: Constipation Prazosin HCl (Prazosin Hcl 1 Mg Capsule) 2 mg PO BEDTIME [facility]; Protocol Last Admin: 12/21/24 21:20 Dose: 2 mg Prazosin HCl (Prazosin Hcl 1 Mg Capsule) 1 mg PO DAILY [facility]; Protocol Last Admin: 12/22/24 08:24 Dose: 1 mg Quetiapine Fumarate (Quetiapine Fumarate 300 Mg Tablet) 300 mg PO BEDTIME [facility] Last Admin: 12/21/24 21:17 Dose: 300 mg Quetiapine Fumarate (Quetiapine Fumarate 100 Mg Tablet) 100 mg PO BID@0900,1500 [facility] Last Admin: 12/22/24 08:25 Dose: 100 mg Quetiapine Fumarate (Quetiapine Fumarate 50 Mg Tablet) 50 mg PO DAILY PRN PRN Reason: moderate anxiety Last Admin: 12/22/24 04:23 Dose: 50 mg Trazodone HCl (Trazodone Hcl 100 Mg Tablet) 100 mg PO BEDTIME MRX1 PRN PRN Reason: Insomnia Allergies Allergies Allergy/AdvReac Type Severity Reaction Status Date / Time amoxicillin [AMOXICILLIN] Allergy Intermediate HIVES,THROAT Verified 10/03/22 12:32 CLOSES Penicillins [PENICILLINS] AdvReac Intermediate HIVES,THROAT Verified 10/03/22 12:32 CLOSES Assessment & Plan Assessment & Plan (1) Schizoaffective disorder, depressive type: Status: Acute Code(s): F25.1 - Schizoaffective disorder, depressive type (2) Post traumatic stress disorder: Status: Acute Code(s): F43.10 - Post-traumatic stress disorder, unspecified (3) Alcohol use disorder: Status: Acute Code(s): F10.90 - Alcohol use, unspecified, uncomplicated (4) Cocaine abuse: Status: Acute Code(s): F14.10 - Cocaine abuse, uncomplicated (5) TBI (traumatic brain injury): Status: Acute Code(s): S06.9XAA - Unspecified intracranial injury with loss of consciousness status unknown, initial encounter (6) Inflammatory polyarthritis: Status: Acute Code(s): M06.4 - Inflammatory polyarthropathy Plan HPI: Patient is a 29-year-old male with history of schizoaffective disorder, alcohol use disorder, cocaine use?, TBI, PTSD, rheumatoid arthritis, asthma, diabetes who presents for worsening depression, AVH and agitation in the face of being off medications for 7 months. Patient reports that after his last psychiatric admission 2 years ago, his psychiatric med regimen was working well; his mood was good, no dark throughts, no SI, anxiety under control, low AH (of kids playing, dog barking, name called, laughing...everyday noises), low VH (shadow figures). Patient was working and sober. In March 2024, patient lost insurance since making too much money (working part-time at [employer]) and so was no longer able to afford any of his medications including his diabetic medications, immuonsuppresant for RH and psychiatric medications and so he turned to alcohol to help deal with his anxiety, depression and insomnia. He reports drinking about 10 nips a day for the past 7 months. Patient's depression returned and he felt down in the dumps and had increased intensity with AVH; despite this he remained working. Patient says over the last few weeks he has had a worsening of symptoms including depression and AVH; has had very difficult time sleeping, negative self talk increasingly agitated and feeling worthless. Patient says the other day he got into a paralytic state... noises and visuals...had the shakes...[Could not decide if to] run away or stand at door...i started punching the petersen, crying...i told my mom i got to go to hospital. He says he started getting suicidal...thought about jumping out of the car... Patient feeling more calm in the hospital and very much wants to get back on his medication. Formulation/clinical reasoning; History of schizoaffective disorder complicated by TBI, PTSD and now by alcohol abuse. Not sure what triggered worsening depression/AVH but it was enough to finally get patient to come to the hospital. Wants to get back on medication regimen he was started on in his 2022 psych admission which he said was helpful. Patient denies any withdrawal symptoms; it has been 2 days since his last drink and denies any history of withdrawal symptoms so will cancel CIWA. Reviewed chart and medication regimen with patient who agrees to restart medications and titrate as needed. hospital course: 12/19 doing better, mood improving, AVH lessening. 12/20 continue med titrations 12/21: increase Trazodone PRN to 100 mg. Continue current management and treatment plan. 12/22: Hold Seroquel today. Zyprexa 5 mg during the day and Zyprexa 10 mg HS tonight. He will let the primary team tomorrow know if he feels better with Zyprexa or Seroquel. Plan: CV Q 15 minute checks DC CIWA; patient denies any withdrawal symptoms and and last drink 2 days ago; no history of withdrawal symptoms Restart home medications; will likely titrate back to home doses (see below) Seroquel 600 mg q.h.s. Seroquel 100 mg b.i.d. scheduled Prazosin 4mg bed prazosin 2mg daily. Lexapro 10 mg daily Gabapentin 300 mg t.i.d. (in past on 800 mg t.i.d.) Famotidine 20 mg b.i.d. (verse omeprazole) Metformin 500 mg q.h.s.; will titrate back to 1000 mg b.i.d. Indomethacin 75 Mg Capsule, Extended Release) 1 cap PO BID [facility] Fluticasone/Vilanterol (Fluticasone/Vilanterol 200/25 Blst.W.Dev) 1 puff INHALE RDAILY [facility] Montelukast Sodium (Montelukast Sodium 10 Mg Tablet) 10 mg PO DAILY [facility] Albuterol Sulfate (Albuterol Sulfate 90 Mcg 8 Gm Inhaler) 2 puff INHALE Q4H PRN Medication regimen from 2022 admission: Escitalopram Oxalate 20 mg PO DAILY [facility] Prazosin HCl 2 mg PO DAILY [facility]; Protocol Prazosin HCl 4 mg PO BEDTIME [facility]; Protocol Quetiapine Fumarate 300 mg PO BEDTIME [facility] Quetiapine Fumarate 100 mg PO BID@0800,1500 [facility] Hydroxyzine HCl (Hydroxyzine Hcl 25 Mg Tablet) 25 mg PO Q6H PRN Trazodone HCl 50 mg PO BEDTIME MRX1 PRN Fluticasone/Vilanterol (Fluticasone/Vilanterol 200/25 Blst.W.Dev) 1 puff INHALE RDAILY [facility] Montelukast Sodium (Montelukast Sodium 10 Mg Tablet) 10 mg PO DAILY [facility] Albuterol Sulfate (Albuterol Sulfate 90 Mcg 8 Gm Inhaler) 2 puff INHALE Q4H PRN Sulfasalazine) 2 tab PO BID [facility] Gabapentin 800 mg PO TID [facility] Indomethacin 75 Mg Capsule, Extended Release) 1 cap PO BID [facility] Omeprazole 40 mg PO BEDTIME [facility] Ammonium Lactate 12 % Lotion 226 Gm Bottle) 1 appl TOPICAL BID PRN b/l feet Reason for continued inpatient stay Substantial Risk for: inability to function and rapid decompensation Time Spent With Patient Time: Total time managing care of this patient today ____ minutes.
[2024-12-22 20:30] VITALS: BP 135/78; PULSE 90; RESP 18; TEMP 36.7; O2SAT 97
[2024-12-22] MEDS: Prazosin HCL 1 MG CAPSULE 2 MG PO (20:36)
[2024-12-22] MEDS: OLANZapine 10 MG TABLET PO (20:37)
[2024-12-22] MEDS: Montelukast Sodium 10 MG TABLET PO (20:38)
--- NOTE | 2024-12-22 23:39 | PC.NURSE ---
AT 2200 it was reported to this nurse by a [facility] that Isidoro made a statement to another peer when he was about to get in the shower. Patient stated in [place]hal[place] that there are no security cameras on this unit. It would be easy to pull a female into your room and have your way with them without anyone knowing.
[2024-12-23] MEDS: OLANZapine 5 MG TABLET PO ×2 (04:37→08:07)
[2024-12-23 07:25] VITALS: BP 136/86; PULSE 83; RESP 16; TEMP 36.4; O2SAT 97
[2024-12-23 07:47] LABS: Glucose, Whole Blood 150 mg/dL (60-115)
[2024-12-23] MEDS: hydrOXYzine HCL 25 MG TABLET PO (08:07)
[2024-12-23] MEDS: Indomethacin 25 MG CAPSULE 75 MG PO (08:08)
[2024-12-23] MEDS: metFORMIN HCl 1,000 MG TABLET 1000 MG PO (08:08)
[2024-12-23] MEDS: Gabapentin 300 MG CAPSULE 600 MG PO (08:10)
[2024-12-23] MEDS: Famotidine 20 MG TABLET PO (08:11)
[2024-12-23] MEDS: Prazosin HCL 1 MG CAPSULE PO (08:11)
[2024-12-23] MEDS: Nicotine 21 MG PATCH.TD24 TRANSDERMA (08:12)
[2024-12-23] MEDS: Escitalopram Oxalate 10 MG TABLET PO (08:12)
[2024-12-23] MEDS: Fluticasone/Vilanterol 200/25 BLST.W.DEV 1 PUFF INHALE (08:25)
[2024-12-23] MEDS: Nicotine Polacrilex 2 MG GUM 4 MG BUCCAL (08:26)
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
== END 2024-12-23 12:28 | disposition home or self-care (01) | DRG 750 ==
PROVIDERS: Psychiatry & Neurology Psychiatry; Registered Nurse; Admitting Provider Psychiatry & Neurology Psychiatry; PCP Family Medicine; Visit Provider Psychiatry & Neurology Psychiatry
DX: F25.1 Schizoaffective disorder, depressive type (principal); F10.20 Alcohol dependence, uncomplicated; F14.10 Cocaine abuse, uncomplicated; F17.210 Nicotine dependence, cigarettes, uncomplicated; M06.4 Inflammatory polyarthropathy; F43.10 Post-traumatic stress disorder, unspecified; Z71.6 Tobacco abuse counseling; Z87.820 Personal history of traumatic brain injury; Z79.51 Long term (current) use of inhaled steroids; Z79.84 Long term (current) use of oral hypoglycemic drugs; Z79.899 Other long term (current) drug therapy
CPT/HCPCS: 36415; 80053; 80061; 82565; 82947; 83036; 93005

== ENCOUNTER → 2024-12-17 20:13 | Outpatient (BNV) | payer OTHER, SELFPAY | PROVIDERS: Admitting Provider Psychiatry & Neurology Psychiatry; PCP Family Medicine; Visit Provider Psychiatry & Neurology Psychiatry | DX: F25.1 Schizoaffective disorder, depressive type (principal); F43.11 Post-traumatic stress disorder, acute; F06.30 Mood disorder due to known physiological condition, unspecified; Z87.820 Personal history of traumatic brain injury; F14.10 Cocaine abuse, uncomplicated; F10.90 Alcohol use, unspecified, uncomplicated | CPT/HCPCS: 90792; 99231; 99232; 99239 ==

== ENCOUNTER → 2024-12-17 20:13 | Outpatient (BNV) | payer MEDICAID, SELFPAY | PROVIDERS: Admitting Provider Psychiatry & Neurology Psychiatry; PCP Family Medicine; Visit Provider Student in an Organized Health Care Education/Training Program | DX: Z00.8 Encounter for other general examination (principal) | CPT/HCPCS: 99222 ==